=== PATIENT | female | born 1975 | race Two or more races ===

== ENCOUNTER 2020-01-30 09:09 | Emergency (ER) | payer OTHER, SELFPAY ==
[2020-01-30 09:31] VITALS: BP 172/89; PULSE 91; RESP 18; TEMP 36.7; O2SAT 99; BMI 48.0
--- NOTE | 2020-01-30 09:56 | ED_ITS ---
HPI - Allergic Reaction General Chief complaint: Allergic Reaction Stated complaint: allergic reaction Time Seen by Provider: 01/30/20 09:56 Source: patient Mode of arrival: ambulatory Limitations: no limitations History of Present Illness HPI narrative: patient with no prior history of any allergic reactions use ammonia based here dye 3 days ago and since yesterday noticed a rash all over the scalp with burning feeling felt little numbness in the tongue and nausea denies any shortness of breath no other rash anywhere Related Data Previous Rx's Medication Instructions Recorded ondansetron HCl [Zofran] 4 mg PO Q6H PRN #10 tab 01/30/20 prednisone 40 mg PO DAILY #10 tab 01/30/20 Allergies Allergy/AdvReac Type Severity Reaction Status Date / Time droperidol [From INAPSINE] Allergy Severe SEIZURES Verified 01/30/20 10:01 metoclopramide [From REGLAN] Allergy Severe SEIZURE Verified 01/30/20 10:01 prochlorperazine Allergy Severe SEIZURE Verified 01/30/20 10:01 [From COMPAZINE] Review of Systems Review of Systems: Yes all other systems are reviewed and are negative [facility]LY [facility] Past Medical History Medical History ACL tear Anemia Anxiety delivery delivered PCOS (polycystic ovarian syndrome) Spinal cord injury Surgical History Hx of breast reduction, elective S/P ACL surgery Social History Social History Alcohol intake: never Smoking Status: Never smoker Use of substances other than those prescribed or required for medical reasons: No Advance Directives: No Advance Directives Information Provided: Yes Physical Exam Vital Signs and I&O and Narrative: Vital Signs and I&O: Vital Signs Temp 98.1 F 01/30/20 09:31 Pulse 91 01/30/20 09:31 Resp 18 01/30/20 09:31 BP 172/89 H 01/30/20 09:31 Pulse Ox 99 01/30/20 09:31 Intake & Output 01/29/20 01/30/20 01/30/20 18:59 06:59 18:59 Weight 127.006 kg Body Mass Index 48.0 Const: General: cooperative Nutritional Appearance: average body habitus Orientation/consciousness: oriented to person, oriented to place and oriented to time Limitations: no limitations HENMT: Other: erythematous rash all over the scalp without any vesicle, tongue and oropharynx is normal lips are normal no stridor no other rash Resp: Effort & Inspection: normal respiratory effort Auscultation: clear to auscultation bilaterally Cardio: Rate: regular rate Rhythm: regular rhythm Heart sounds: S1 normal heart sound present and S2 normal heart sound present Neuro: General: oriented to person, oriented to place and oriented to time Discharge Plan Discharge Clinical Impression: Contact dermatitis Patient Disposition: Home, Self-Care Instructions: Contact Dermatitis (ED) Additional Instructions: do not use here dye with ammonia which causing the allergic reaction to you , take 2 Benadryl 25 mg tablet 2 tablets every 6 hours as needed for allergic reaction along with prednisone as prescribed Prescriptions: New prednisone 20 mg tablet 40 mg PO DAILY Qty: 10 RF: 0 ondansetron HCl [Zofran] 4 mg tablet 4 mg PO Q6H PRN (Reason: nausea and vomiting) Qty: 10 RF: 0 Stand Alone Forms: Work/School Release
[2020-01-30] MEDS: diphenhydrAMINE HCL 50 MG/ML VIAL IM (10:22)
[2020-01-30] MEDS: Famotidine 20 MG TABLET PO (10:40)
[2020-01-30] MEDS: dexAMETHasone 2 MG TABLET 10 MG PO (10:40)
== END 2020-01-30 10:55 | disposition home or self-care (01) ==
PROVIDERS: Emergency Provider Internal Medicine; PCP Family Medicine
DX: L24.89 Irritant contact dermatitis due to other agents (principal)
CPT/HCPCS: 96372; 99284; J1200

== ENCOUNTER → 2020-06-27 08:13 | Outpatient (BNVA) | payer OTHER, SELFPAY | PROVIDERS: PCP Family Medicine; Visit Provider Physician Assistant ==

== ENCOUNTER → 2020-06-29 07:02 | Outpatient (BNVA) | payer OTHER, SELFPAY | PROVIDERS: PCP Family Medicine; Visit Provider Surgery ==

== ENCOUNTER 2020-07-02 15:01 | Outpatient (REF) | payer OTHER, SELFPAY ==
--- NOTE | ~2020-07-02 | XR_ITS ---
EXAMINATION: XR CHEST CLINICAL INFORMATION: Moderate to severe obesity the plexus of calories. COMPARISON: None TECHNIQUE: 2 views of the chest were obtained. FINDINGS: No significant abnormality is noted involving the heart, lungs, mediastinum, bony thorax or soft tissues. XR/XR chest 2V IMPRESSION: Unremarkable chest examination.
--- NOTE | 2020-07-02 15:13 | ECG_ITS ---
Test Reason : SOB, PREOP Blood Pressure : / mmHG Vent. Rate : 103 BPM Atrial Rate : 103 BPM P-R Int : 140 ms QRS Dur : 072 ms QT Int : 320 ms P-R-T Axes : 036 023 -17 degrees QTc Int : 419 ms Sinus tachycardia Possible Left atrial enlargement Nonspecific ST and T wave abnormality Abnormal ECG No previous ECGs available Referred By: Cheng Doran Electronically Signed By:Yobani Guevara
[2020-07-02 15:46] LABS: MANUAL DIFF FLAG NO
[2020-07-02 15:50] LABS: Basophils Percent Auto 0.2 % (0-2); Eosinophils Absolute Auto 0.1 X10*3/uL (0.0-0.4); Eosinophils Percent Auto 0.7 % (0-4); Hematocrit 44.9 % (37-47); Hemoglobin 14.7 g/dl (12.0-16.0); Imm Gran Abs Auto 0.04 X10*3/uL (0.00-0.03); Imm Gran Pct Auto 0.3 % (0.0-0.4); Lymphocytes Absolute Auto 1.9 X10*3/uL (1.2-4.9); Lymphocytes Percent Auto 14.7 % (20-40); Mean Corpuscular HGB Conc 32.7 g/dl (31.0-35.0); Mean Corpuscular Hemoglobin 27.1 pg (27.0-33.0); Mean Corpuscular Volume 82.8 fL (80-98); Mean Platelet Volume 9.5 fL (9.4-12.3); Monocytes Absolute Auto 0.7 X10*3/uL (0.1-1.2); Monocytes Percent Auto 4.9 % (2-11); Neutrophils Absolute Auto 10.4 X10*3/uL (2.0-8.3); Neutrophils Percent Auto 79.2 % (45-73); Platelet Count 415 X10*3/uL (160-400); Red Blood Count 5.42 X10*6/uL (4.20-5.50); Red Cell Distribution Width 14.1 % (11.0-16.0); White Blood Count 13.2 X10*3/uL (4.8-10.8)
[2020-07-02 15:58] LABS: Estimated Average Glucose 108 mg/dL; Hemoglobin A1c % 5.4 %
[2020-07-02 16:14] LABS: Alanine Aminotransferase 11 U/L (0-31); Albumin Level 4.3 g/dL (3.5-5.0); Alkaline Phosphatase 74 U/L (39-117); Anion Gap 17 (12-20); Aspartate Amino Transferase 14 U/L (5-31); Bilirubin Total 0.4 mg/dL (0.0-1.0); Blood Urea Nitrogen 22 mg/dL (9-16); C Reactive Protein 2.08 mg/dL (< or = 0.50); Calcium 9.4 mg/dL (8.4-10.2); Carbon Dioxide 21 mmol/L (22-29); Chloride 103 mmol/L (96-108); Cholesterol 209 mg/dL; Estimated Glomerular Filt Rate 51; Glucose Random 79 mg/dL (60-115); HDL Cholesterol 66 mg/dL; LDL Cholesterol Calculated 100 mg/dl; Potassium 4.3 mmol/L (3.3-5.1); Sodium 137 mmol/L (135-145); Total Protein 8.7 g/dL (6.5-8.0); Triglycerides 215 mg/dL
[2020-07-02 16:37] LABS: Ferritin 34 ng/mL (10-250); TSH reflex Free T4 3.35 uIU/mL (0.32-4.0); Vitamin D 25-OH Total 45.6 ng/mL (>30)
[2020-07-02 16:42] LABS: Folate 14.8 ng/mL (> or = 4.0); Vitamin B12 225 pg/mL (200-900)
[2020-07-03 06:47] LABS: Insulin Level Total 24.5 uIU/mL
[2020-07-04 13:47] LABS: Calcium (PTHI) 9.5 mg/dL (8.6-10.2); PTHI 90 pg/mL (14-64)
[2020-07-05 13:12] LABS: Zinc 60 mcg/dL (60-130)
[2020-07-06 01:57] LABS: Vitamin A 80 mcg/dL (38-98)
[2020-07-06 10:22] LABS: Vitamin B1 8 nmol/L (8-30)
== END 2020-07-02 15:02 | disposition home or self-care (01) ==
LOC: HO.LAB 15:01
PROVIDERS: PCP Family Medicine; Visit Provider Surgery
DX: E66.01 Morbid (severe) obesity due to excess calories (principal); I10 Essential (primary) hypertension; K21.9 Gastro-esophageal reflux disease without esophagitis
CPT/HCPCS: 36415; 71046; 80053; 80061; 82306; 82607; 82728; 82746; 83036; 83525; 83970; 84425; 84443; 84590; 84630; 85025; 86140; 93005

== ENCOUNTER 2020-07-11 08:29 | Outpatient (REF) | payer OTHER, SELFPAY ==
--- NOTE | ~2020-07-11 | US_ITS ---
EXAMINATION: US COMPLETE ABDOMEN WITH LIVER ELASTOGRAPHY CLINICAL INFORMATION: Moderate/severe obesity and excessive calories. COMPARISON: None. TECHNIQUE: Real-time imaging of the abdominal viscera. Noninvasive ultrasound liver fibrosis assessment is performed using Ashkan ElastPQ point quantification shear wave elastography (pSWE) with a C5-2 MHz transducer. Multiple elastography samples are obtained. FINDINGS: PANCREAS: The visualized pancreatic head and body are normal in appearance. The remainder of the pancreas is obscured from visualization by the overlying bowel gas. ABDOMINAL AORTA: The proximal, middle, and distal aortic segments are normal in caliber. INFERIOR VENA CAVA: Visualized portions are normal. LIVER: . The liver demonstrates normal size, contour and slight increased echogenicity. No focal lesion or intrahepatic biliary duct dilatation. The right lobe measures 16.9 cm in length. The left lobe measures 10.3 cm in length. Portal flow is hepatopedal. Shear wave liver elastography median stiffness is 1.72 m/s (reference: normal median stiffness is 1.3 m/s or less). IQR/median stiffness to assess sampling precision is 0.22 (reference: good quality data set is IQR/median stiffness of 0.15 or less). GALLBLADDER: The gallbladder has been surgically removed. COMMON BILE DUCT: Normal in caliber measuring 0.3 cm in diameter. RIGHT KIDNEY: There is an anechoic cyst in the upper pole laterally measuring 1.5 x 1.3 x 1.6 cm. No hydronephrosis. No renal calculi or focal parenchymal lesions. The kidney measures 12.3 cm in maximum dimension. LEFT KIDNEY: Normal. No hydronephrosis. No renal calculi or focal parenchymal lesions. The kidney measures 12.7 cm in maximum dimension. SPLEEN: Normal. The spleen measures 10.3 cm in maximum dimension. FREE FLUID: None. US/US abdomen comp w elastography IMPRESSION: 1. Slightly echogenic liver. No focal lesion seen. Small cyst upper pole right kidney measuring 1.6 cm. 2. Liver elastography: 1.72 cACLD suggestive. REFERENCE: Society of Radiologists in Ultrasound Liver Stiffness Thresholds (2019): LIVER STIFFNESS THRESHOLDS: *Liver Stiffness equal or less than 1.3 m/s: High probability of being normal. *Liver Stiffness less than 1.7 m/s: In the absence of other known clinical signs, rules out compensated advanced chronic liver disease. *Liver Stiffness 1.7-2.1 m/s: Suggestive of compensated advanced chronic liver disease but need further test for confirmation. *Liver Stiffness over 2.1 m/s: Rules in compensated advanced chronic liver disease. *Liver Stiffness over 2.4 m/s: Suggestive of clinically significant portal hypertension. QUALITY OF DATA SET: *IQR/Median value equal or less than 0.15 implies a quality data set. *IQR/Median value over 0.15 implies a poor quality data set. SIGNIFICANT CHANGE FROM PRIOR EXAM: Significant change if liver stiffness measurement is 10% or greater from prior exam. OTHER CONSIDERATIONS: The stage of liver fibrosis may be overestimated in the setting of acute hepatitis, liver inflammation, elevated liver function tests, hepatic vascular congestion, obstructive cholestasis, non-fasting state, and infiltrative diseases such as amyloidosis and lymphoma. In some patients with NAFLD, the liver stiffness thresholds for compensated advanced chronic liver disease may be lower. In causes other than viral hepatitis and NAFLD, liver stiffness thresholds are not well established.
--- NOTE | ~2020-07-11 | FL_ITS ---
EXAMINATION: XR GI SERIES CLINICAL INFORMATION: Fhiohtgl-zl-vsxstc obesity. Excessive calories. COMPARISON: None TECHNIQUE: Routine upper GI air-contrast study was performed. FINDINGS: Following oral administration of thick barium and effervescent granules, there is normal propagation of bolus from the oral cavity through the pharynx, esophagus into stomach without any evidence of obstruction, narrowing or stricture. The course, caliber and peristalsis of the stomach, duodenal bulb and sweep is normal. Mucosal pattern of the stomach and the duodenal bulb is normal. Incidental note of mild gastroesophageal reflux in supine position. FLUOROSCOPY TIME: 1.8 minutes DOSE AREA PRODUCT: 46.590 uGy-m2 (microgray-meter squared) FL/FL upper GI series IMPRESSION: Mild gastroesophageal reflux, otherwise unremarkable upper GI exam.
== END 2020-07-11 08:30 | disposition home or self-care (01) ==
LOC: HO.US 08:29
PROVIDERS: Visit Provider Surgery
DX: Z01.818 Encounter for other preprocedural examination (principal); E66.01 Morbid (severe) obesity due to excess calories; K21.9 Gastro-esophageal reflux disease without esophagitis; I10 Essential (primary) hypertension
CPT/HCPCS: 74240; 76705; 76981

== ENCOUNTER → 2020-07-18 08:15 | Outpatient (BNVA) | payer OTHER, SELFPAY | PROVIDERS: PCP Family Medicine; Visit Provider Surgery ==

== ENCOUNTER → 2020-07-24 08:08 | Outpatient (REF) | payer OTHER, SELFPAY ==
--- NOTE | 2020-07-24 08:11 | CA_ITS ---
Acquisition Time: 2020-07-24 08:12:32 Total Exercise Time: 00:05:00 Test Indications: Abnormal ECG Medications: Protocol: ELVIS Max HR: 173 BPM 97% of Pred: 177 BPM Max BP: 158/088 mmHG Max Work Load: 7.0 METS Exercise stress test using Elvis protocol total of 5 min. METS 7.00, TAPHR up to 97%. Pt tolerated well. Denies any anginal sx. EKG with occ. PVC's in recovery after exercise, no ischemic changes seen during exercise or in recovery. Normotensive response to exercise. Test reviewed with Dr. Thomas. Referred By: Cheng Doran Overread By: Yessi Garcia NP
== END ==
LOC: HO.CARD 08:08
PROVIDERS: Visit Provider Surgery
DX: Z01.818 Encounter for other preprocedural examination (principal); R06.02 Shortness of breath; I10 Essential (primary) hypertension; R94.31 Abnormal electrocardiogram [ECG] [EKG]
CPT/HCPCS: 93016; 93017; 93018

== ENCOUNTER → 2020-07-25 13:22 | Outpatient (BNVA) | payer OTHER, SELFPAY | PROVIDERS: PCP Family Medicine; Visit Provider Dietitian, Registered ==

== ENCOUNTER → 2020-07-31 12:49 | Outpatient (REF) | payer OTHER, SELFPAY ==
--- NOTE | 2020-07-31 12:51 | CA_ITS ---
Transthoracic Echocardiogram Patient (Last, First, Middle): Cece Moyer J Gender: Female Date of : 1975 Age: 45 Procedure Date: 07/31/2020 Procedure Type: Transthoracic Echocardiogram Location: OP Height: 162.56 cm Weight: 124.29 kg BSA: 2.24 m2 Heart Rate: bpm BP: 146 / 90 mmHg Surgery Nurse: TAWANDA Govea MD: Cheng Doran MD Machine Operator Farmworker: Stephen Rice MD Symptoms: R94.31 - Abnormal electrocardiogram [ECG] [EKG] Study Quality: Fair ECG Rhythm: Sinus Conclusions: - Normal study Findings Left Ventricle Normal left ventricular size, thickness, and systolic function. The visually estimated ejection fraction is between 55-60%. Spectral Doppler is indicative of an impaired relaxation filling pattern. E/E prime ratio is between 8 and 15 consistent with indeterminate filling pressures. Right Ventricle Normal right ventricular cavity size and systolic function. Atria Both atria are normal in size. There is no evidence of interatrial shunt. Aortic Valve Normal aortic valve structure and function. There is no aortic valve stenosis. There is no aortic valve regurgitation. Mitral Valve Normal mitral valve structure and function. There is trace mitral valve regurgitation. There is no mitral valve stenosis. Pulmonic Valve The pulmonic valve was not well visualized. Tricuspid Valve Likely normal tricuspid valve structure and function. There is trace tricuspid valve regurgitation. The right ventricular systolic pressure is normal. The right ventricular systolic pressure is 30 mmHg. Normal right atrial pressure. There is no evidence of pulmonary hypertension. Great Vessels All visible segments of the aorta are normal in size. The pulmonary artery was not well visualized. Venous The inferior vena cava is normal in size and collapses greater than 50% with inspiration. Pericardium/Pleural There is no evidence of pericardial effusion. Prior Study Comparison No prior study available for comparison. Measurements M-Mode Liner Measurements Normals - Women/Men AOV Cusps: 2.00 1.5-2.6 cm/m2 2D Linear Measurements IVSd: 0.91 0.6-0.9/0.6-1.0 cm LVIDd: 4.64 3.9-5.3/4.2-5.9 cm LVIDd Index: 2.07 2.4-3.2/2.2-3.1 cm/m2 LVIDs: 3.21 2.0-3.6 cm LVPWd: 0.92 0.7-1.1 cm Ao Root: 2.50 2.1-3.5 cm LA Diam: 3.60 2.7-3.8/3.0-4.0 cm LAIDs Index: 1.61 1.5-2.3 cm/m2 LV Mass: 177.78 67-162/88-224 g LV Mass Index: 79.37 43-95/49-115 g/m2 LVOT Diam: 2.00 3.0+(-)1.3 cm 2D Systolic Function EF 4C: 51.60 >55% EF 2C: 50.30 >55% Mitral Valve MV Pk E: 1.27 MV PK A: 1.19 MV Decel Time: 222.00 E/A: 1.10 E'Lateral: 11.00 E'Medial: 7.51 E/E' Med: 16.90 E/E' Lat: 11.50 PHT: 65.00 MVA PHT: 3.38 Decel Johnson: 5.73 Aortic Valve AoV Pk Shayan: 1.91 AoV Mn Shayan: 1.33 AoV VTI: 0.38 AoV Pk Grad: 15.00 Aov Mn Grad: 8.00 SHADE Cont.VTI: 2.17 LVOT LVOT Pk Shayan: 1.26 LVOT Mn Shayan: 0.92 LVOT VTI: 0.26 LVOT Pk Grad: 6.00 LVOT Mn Grad: 4.00 LVOT Diam: 2.00 LVOT Area: 3.14 Diastolic Function MV Pk E: 1.27 MV Pk A: 1.19 E/A: 1.10 E'Medial: 7.51 E/E' Med: 16.90 E' Laterial: 11.00 E/E' Lat: 11.50 Tricuspid Valve TR Pk Shayan: 2.32 TR Pk Grad: 22.00 RA Press: 8.00 RVSP: 30.00 Great Vessels Aorta Ao Root-2D: 2.50 2.0-3.7 cm Ao Asc: 3.00 2.1-3.4 cm Ao Arch: 2.90 Pulmonary Valve PV Pk Shayan: 1.52 Peak PV Grad: 9.00 Updated in Other Vendor System with Status of Final Stephen Rice MD electronically signed on 07/31/2020 4:14:47 PM with status of Final
== END ==
LOC: HO.CARD 12:49
PROVIDERS: PCP Family Medicine; Visit Provider Surgery
DX: Z01.818 Encounter for other preprocedural examination (principal); R06.02 Shortness of breath; I10 Essential (primary) hypertension
CPT/HCPCS: 93306

== ENCOUNTER 2020-08-02 15:41 | Outpatient (REF) | payer OTHER, SELFPAY ==
[2020-08-03 12:42] LABS: H Pylori Breath Test DETECTED (NOT DETECTED)
== END 2020-08-02 15:42 | disposition home or self-care (01) ==
LOC: HO.LNP 15:41
PROVIDERS: PCP Family Medicine; Visit Provider Surgery
DX: A04.8 Other specified bacterial intestinal infections (principal)
CPT/HCPCS: 83013

== ENCOUNTER → 2020-08-13 08:45 | Outpatient (BNVA) | payer OTHER, SELFPAY | PROVIDERS: PCP Family Medicine; Visit Provider Surgery ==

== ENCOUNTER → 2020-09-03 08:18 | Outpatient (BNVA) | payer OTHER, SELFPAY | PROVIDERS: PCP Family Medicine; Visit Provider Surgery ==

== ENCOUNTER 2020-09-21 07:57 | Outpatient (REF) | payer OTHER, SELFPAY ==
[2020-09-22 14:17] LABS: H Pylori Breath Test NOT DETECTED (NOT DETECTED)
== END 2020-09-21 07:58 | disposition home or self-care (01) ==
LOC: HO.LNP 07:57
PROVIDERS: PCP Family Medicine; Referring Provider Family Medicine; Visit Provider Surgery
DX: E66.01 Morbid (severe) obesity due to excess calories (principal); K21.9 Gastro-esophageal reflux disease without esophagitis; I10 Essential (primary) hypertension
CPT/HCPCS: 83013

== ENCOUNTER → 2020-10-11 09:24 | Outpatient (BNVA) | payer OTHER, SELFPAY | PROVIDERS: PCP Family Medicine; Referring Provider Family Medicine; Visit Provider Physician Assistant ==

== ENCOUNTER → 2020-10-30 13:34 | Outpatient (BNVA) | payer OTHER, SELFPAY | PROVIDERS: PCP Family Medicine; Referring Provider Family Medicine; Visit Provider Surgery ==

== ENCOUNTER → 2020-11-26 10:17 | Outpatient (BNVA) | payer OTHER, SELFPAY | PROVIDERS: PCP Family Medicine; Referring Provider Family Medicine; Visit Provider Surgery ==

== ENCOUNTER → 2020-12-10 09:13 | Outpatient (BNVA) | payer OTHER, SELFPAY | PROVIDERS: PCP Family Medicine; Visit Provider Surgery ==

== ENCOUNTER → 2021-01-17 10:20 | Outpatient (BNVA) | payer OTHER, SELFPAY | PROVIDERS: PCP Family Medicine; Referring Provider Family Medicine; Visit Provider Surgery ==

== ENCOUNTER → 2021-02-01 15:51 | Outpatient (BNVA) | payer OTHER, SELFPAY | PROVIDERS: PCP Family Medicine; Referring Provider Family Medicine; Visit Provider Physician Assistant Surgical ==

== ENCOUNTER → 2021-02-07 12:24 | Outpatient (BNVA) | payer OTHER, SELFPAY | PROVIDERS: PCP Family Medicine; Visit Provider Physician Assistant Surgical ==

== ENCOUNTER 2024-12-12 14:04 | Emergency (ER) | payer BC, SELFPAY ==
--- OUTSIDE RECORDS SUMMARY | 2024-01-27 14:48 | XMS_ITS | Encounter Summary ---
Author Organization [facility] Address [address] [place] [address] Care Team Providers Care Industrial Controller Name Role Phone Kingston Thomas MD Primary Care Provide r Encounter Details Date Type Department Care Team (Late st Contact Info) Description 01/27/2024 2:48 PM EDT Hospital Encounter TH HISTORIC ENCOUNTERS EASTERN CONVERSION ONLY Social History Tobacco Use Types Packs/Day Years Used Date Smoking Tobacco: Never Smokeless Tobacco: Never Alcohol Use Standard Drinks/Week Comments Not Currently 0 (1 standard drink = 0.6 oz pure alcohol) [facility] Housing Instability Answer Date Recorde d Are you worried that in the next 2 months you may not have stable housing? No 10/23/2024 Food Access & Nutrition Answer Date Rec orded Do you have access to a vari ety of food including fruits and vegetables? Yes 10/23/2024 Access to Healthcare Answer Date Record ed Within the last 3 months, ho goldy many times did you visit the emergency department for your medical care? 2 10/23/2024 Health Literacy Answer Date Recorded How often do you need to hav e someone help you when you read instructions, pamphlets, or other written material from your doctor or pharmacy? Rarely 10/23/2024 Caregiver: How often do you need to have someone help you when you read instructions, pamphlets, or other written material from your doctor or pharmacy? Not on file 10/23/2024 Financial Risk Answer Date Recorded How hard is it for you to pa y for the very basics like food, housing, medical care, and air conditioning / heating? Not asked 10/23/2024 Transportation Answer Date Recorded Has the lack of transportati on kept you from meetings, work, or from getting things needed for daily living? No Has the lack of transportati on kept you from medical appointments or from getting medications? No 10/23/2024 Social Isolation Answer Date Recorded How often do you feel lonely or isolated from th ose around you? Rarely 10/23/2024 Food Risk Answer Date Recorded Within the past 12 months we worried whether our food would run out before we got money to buy more. Never true 10/23/2024 Within the past 12 months th e food we bought just didn't last and we didn't have money to get more. Never true 10/23/2024 Dependent Care Answer Date Recorded Do you need help finding or paying for care for your loved ones. For example, child life assistant or elderly care for an older adult? No 10/23/2024 Education Answer Date Recorded Do you think completing more education or training, like finishing a GED, going to college, or learning a trade, would be helpful for you? N/A 10/23/2024 Employment and Income Answer Date Recor ded During the last four weeks, have you been actively looking for work? No 10/23/2024 Living Situation Answer Date Recorded What is your living situation? 0 10/23/2024 Interpersonal Safety Answer Date Record ed Physical Abuse 10/23/2024 Verbal Abuse 10/23/2024 Comments No Sex and Gender Information Value Date Recorded Sex Assigned at Female 02/13/2024 3:17 AM EDT Legal Sex Female 2:57 AM EST Gender Identity Female 02/13/2024 3:17 AM EDT Sexual Orientation Straight 02/13/2024 3: 17 AM EDT documented as of this encounter Last Filed Vital Signs Vital Sign Reading Time Taken Comments Blood Pressure - - Pulse - - Temperature - - Respiratory Rate - - Oxygen Saturation - - Inhaled Oxygen Concentration - - Weight 80.1 kg (176 lb 9.6 oz) 01/05/2024 10:12 AM EDT Height 162.6 cm (5' 4 ) 01/05/2024 10:12 AM EDT Body Mass Index 30.31 01/05/2024 10:12 AM EDT documented in this encounter Progress Notes * Historical, Notes Results - 01/27/2024 3:00 PM EDT Arrived amb for B12, stable assessment, B12 administered into LET arm, well tolerated, next appt scheduled, pt left amb, stable at D/C. documented in this encounter Plan of Treatment Upcoming Encounters Date Type Department Care Team (Late st Contact Info) Description 12/15/2024 2:00 PM EDT Appointment [facility] In[facility] [address] [facility] 2nd [place] [phone] 12/21/2024 9:00 AM EDT Office Visit Bariatric Surgery - [place] [address] [phone] Nga Mukherjee MD [address] [phone] 03/17/2025 9:00 AM EST Office Visit [facility] Hematology Oncology [address] [place] [phone] Kenya oCrcoran DO [address] [place] [address] Scheduled Procedures Name Priority Associated Diagnoses Date/Ti me EGD S/P gastric bypass Severe protein-calorie malnutrition (CMS/HCC V24) documented as of this encounter Visit Diagnoses Not on filedocumented in this encounter Additional Health Concerns Infection Onset Date Last Indicated Resolved Time C. difficile Rule-Out 11/10/2024 11/10/20242024 6:18 PM EDT documented as of this encounter Care Teams Industrial Controller Relationship Specialty Start Date End Date Kingston Thomas MD [address] [place], [place] [address], [place] PCP - General 07/10/22 10/10/24 documented as of this encounter
[2024-12-12] VITALS (8 sets, daily range): BP systolic 96–127; BP diastolic 61–78; PULSE 78–115; RESP 16–25; TEMP 37–37.3; O2SAT 94–100; BMI 30.8
--- NOTE | ~2024-12-12 | CT_ITS ---
EXAMINATION: CT HEAD WITHOUT CONTRAST CLINICAL INFORMATION: altered mental status, seizures COMPARISON: None available. TECHNIQUE: Contiguous axial imaging was performed from the skull base to vertex without intravenous administration of contrast. This CT examination was performed using dose optimization techniques as appropriate, variously including the following: *Automated exposure control *Adjustment of mA and/or kV according to patient size (this includes techniques or standardized protocols for targeted exams where dose is matched to indication/reason for exam; i.e. extremities or head) *Use of iterative reconstruction technique DLP: 749 mGy-cm FINDINGS: No acute intracranial hemorrhage, mass effect, midline shift, hydrocephalus or herniation. [place]-white matter differentiation is normal. Posterior cranial fossa contents demonstrated a focal 3 mm calcification in the inferior left fourth ventricle near the Luschka foramina likely related to choroid plexus. Sellar/suprasellar region demonstrated no gross masses. There is normal position of the cerebellar tonsils. No other levels in the paranasal sinuses. Tympanic cavities and mastoid cells are aerated. CT/CT head/brain wo IV con IMPRESSION: No acute intracranial hemorrhage. Electronically signed by: Zack Mott MD 12/12/2024 04:02 PM EDT
--- NOTE | 2024-12-12 14:10 | ED_ITS ---
HPI - General Adult General Chief complaint: Seizure Stated complaint: Seizure Time Seen by Provider: 12/12/24 14:08 History of Present Illness ED Provider: Simon COKER narrative: The patient is a 49-year-old female who was brought to the hospital for concerns about seizures. The patient was at work. 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 Apparently she seemed to have seizure-like activity at work and 911 was called. Paramedics were told that the patient had had 3 seizures before they arrived. The paramedics say that when they arrived the patient was seizing and they administered 5 mg of IM midazolam. Subsequently they administered 5 mg of IV midazolam as well after receiving permission for medical control. On arrival here the patient was initially not seizing but then seemed to exhibit seizure- like activity with tonic-clonic movements and no response to verbal stimuli. The patient has been nonverbal and is unable to give any additional history. According to records I was able to access at [facility] the patient was last seen there 2 weeks ago on November 28. At that time the patient had presented with seizure-like activity and was treated with IM midazolam. She was apparently observed and seemed to recover from her sedation without any recurrence of seizures and she was discharged with her . She is on levetiracetam. The patient has previously been evaluated for seizures at [facility] in [place]. I believe this was in July of 2024. At that time the patient had an extensive seizure workup that was negative for EEG confirmation of seizure activity and she was ultimately felt to have psychogenic nonepileptic seizures. Nevertheless I believe she has been on levetiracetam. The patient is parents arrived sometime after the patient arrived. They acknowledged that the patient has had problems with seizure-like activity over the last 2 years. They say that all of these problems with seizure-like activity began after the patient had bariatric surgery. Apparently she had gastric bypass surgery a proximally 2 years ago that was then complicated with malnutrition. She had dumping syndrome. She was on TPN for awhile but transitioned to feeding by feeding tube. The patient has been prescribed levetiracetam in the past. The arrived subsequent to the patient's arrival. He does not believe she is taking that medication currently. The can not think of any acute stressors that might have precipitated anything today. The patient's mother told me that she spoke to somebody where the patient works. Apparently the patient had announced that she felt as if she was going to have a seizure before any seizure activity occurred. Related Data Home Medications ?Medication ?Instructions ?Recorded ?Confirmed acetaminophen 325 mg capsule 325 mg PO QID PRN 1 01/17/21 (Tylenol) cholecalciferol (vitamin D3) 100 100 mcg PO DAILY 09/1401/17/21 mcg (4,000 unit) capsule desonide 0.05 % topical cream appl topical BID 1 01/17/21 norgestimate 0.18 mg/0.215mg/0.25 1 tab PO DAILY 06/2901/17/21 mg-ethinyl estradiol 0.025 mg tablet sertraline 100 mg tablet 100 mg PO DAILY 06/29/20 Previous Rx's ?Medication ?Instructions ?Recorded omeprazole 40 mg capsule,delayed 40 mg PO DAILY #14 ca ps 08/07/20 release mecobalamin (vitamin B12) 1,000 1,000 mcg sublingual D AILY #30 tabs 12/11/20 mcg disintegrating tablet,sublingual hydrochlorothiazide 12.5 mg tablet 12.5 mg PO DAILY #9 0 tabs 12/26/20 Allergies Allergy/AdvReac Type Severity Reaction Status Date / Time droperidol (From INAPSINE) Allergy Severe SEIZURES Verified 02/07/21 12:31 metoclopramide (From REGLAN) Allergy Severe SEIZURE Verified 02/07/21 12:31 prochlorperazine (From Allergy Severe SEIZURE Verified 02/07/21 12:31 COMPAZINE) aspirin Allergy Hives Verified 02/07/21 12:31 COVID-19 vaccine, mRNA, Allergy Unknown Verified 12/12/24 14:18 [id number], L pseudoephedrine Allergy Unknown Verified 12/12/24 14:18 Review of Systems 2 Review of Systems: Yes Unobtainable due to mental status PMFSH Past Medical History Medical History ACL tear Anemia Anxiety Back pain delivery delivered Depression GERD (gastroesophageal reflux disease) Knee pain Lower extremity edema Morbid obesity PCOS (polycystic ovarian syndrome) Spinal cord injury Surgical History Hx of breast reduction, elective Hx of cholecystectomy Hx of knee surgery S/P ACL surgery Family History Family History Mother Hypertension Father Heart disease Diabetes Hypertension Hyperlipidemia Sister No problems noted. Sister No problems noted. Son No problems noted. Social History Social History Alcohol intake: never Patient Tobacco Use Status: Never used Tobacco Advance Directives: No Advance Directives Information Provided: Yes Do you have a plan to hurt others: No Plan Physical Exam ED Vital Signs: Vital Signs - 24 hr 12/12/24 14:10 12/12/24 14:50 12/12/24 15:04 Temperature 99.1 F Pulse Rate 103 H 100 88 Respiratory Rate 25 H 20 22 H Blood Pressure 118/74 114/69 99/72 Pulse Oximetry 98 100 100 Oxygen Delivery Method Room Air Room Air 12/12/24 15:09 12/12/24 15:25 12/12/24 15:45 Temperature Pulse Rate 88 86 89 Respiratory Rate 17 18 19 Blood Pressure 112/66 96/61 116/70 Pulse Oximetry 100 98 100 Oxygen Delivery Method Room Air Room Air Room Air 12/12/24 17:54 Temperature 98.6 F Pulse Rate 89 Respiratory Rate 16 Blood Pressure 127/78 Pulse Oximetry 94 Oxygen Delivery Method Room Air BMI result Body Mass Index 30.8 Const Other: The patient arrived without active seizure activity. She was somnolent and did not respond to verbal stimuli. HENMT Other: Face seems symmetrical. Mucous membranes were moist. Airway seems clear. Eyes Other: Pupils are small and equal, the patient seemed to have roving eye movements, conjunctivae were clear Neck Other: The neck initially seems supple. Later during a period of seizure-like activity her neck seemed fairly stiff Resp Effort & Inspection: normal respiratory effort Auscultation: clear to auscultation bilaterally Cardio Rate: regular rate Rhythm: regular rhythm Heart sounds: S1 normal heart sound present and S2 normal heart sound present GI Other: Abdomen was soft and seems nontender. She has a feeding tube in place. Skin Other: Skin was pale and dry, no diaphoresis Neuro Other: The patient initially was somnolent and did not respond to verbal stimuli. Pupils were small and equal, the face seems symmetrical, the the patient has limbs were relaxed and seemed to have symmetrical tone. Not long after the patient seemed to be exhibiting diffuse tonic-clonic activity with a lot of rigidity in her extremities and her neck and she seemed to have roving eye movements.. Extrem Other: No deformities or signs of trauma to the extremities Medications Administered Discontinued Medications Generic Name Dose Route Start Last Admin Trade Name Ogq PRN Reason Stop Dose Admin Dextrose 25 gm 12/12/24 14:27 12/12/24 14:20 Dextrose 50 % 25 Gm/50 Ml Syringe IVPUSH 12/12/24 14:28 25 gm ONCE ONE Administration Diazepam 10 mg 12/12/24 14:32 12/12/24 14:33 Diazepam 10 Mg/2 Ml Cartridge IVPUSH 12/12/24 14:33 10 mg STAT STA Administration Diazepam 10 mg 12/12/24 14:41 12/12/24 14:44 Diazepam 10 Mg/2 Ml Cartridge IVPUSH 12/12/24 14:42 10 mg STAT STA Administration Diazepam 10 mg 12/12/24 17:31 12/12/24 17:33 Diazepam 10 Mg/2 Ml Cartridge IVPUSH 12/12/24 17:32 10 mg STAT STA Administration Diazepam 10 mg 12/12/24 18:06 12/12/24 18:07 Diazepam 10 Mg/2 Ml Cartridge IVPUSH 12/12/24 18:07 10 mg STAT STA Administration Diazepam 10 mg 12/12/24 18:37 12/12/24 18:36 Diazepam 10 Mg/2 Ml Cartridge IVPUSH 12/12/24 18:38 10 mg STAT STA Administration Levetiracetam 2,000 mg/ Sodium 120 mls @ 480 mls/hr 12/12/24 14:28 12/12/24 14:56 Chloride IV 12/12/24 14:42 Infused ONCE ONE Infusion Lactated Ringer's 1,000 mls @ 999 mls/hr 12/12/24 15:30 12/12/24 16:48 Lr IV 12/12/24 16:30 Infused .Q1H1M YOLANDA Infusion Midazolam HCl 5 mg 12/12/24 14:27 12/12/24 14:25 Midazolam Hcl 5 Mg/Ml Vial IVPUSH 12/12/24 14:28 5 mg ONCE ONE Administration Midazolam HCl 5 mg 12/12/24 18:58 12/12/24 18:59 Midazolam Hcl 5 Mg/Ml Vial IVPUSH 12/12/24 18:59 5 mg ONCE ONE Administration Medical Decision Making Medical Decision Making [facility] Narrative: The patient is a 49-year-old woman who was brought to the hospital by ambulance because of possible seizure activity that started while she was at work. 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 Apparently she told a co-worker she felt like she was going to have a seizure and then exhibited seizure-like activity. According to the paramedics the patient had 3 seizure-like episodes before their arrival. They also say that the patient was exhibiting seizure-like activity upon their arrival. They administered 5 mg of IM midazolam with no effect. They got medical control for 5 mg of IV midazolam which was given. The seizure- like activity stopped at that point. On arrival here the patient was unresponsive but not seizing. She seemed flaccid. Vital signs were unremarkable. However not soon after arrival she began to exhibit seizure-like activity again. She was given 10 mg of IV diazepam which seemed to be effective but she had additional abnormal movements a little while later and was given an additional 10 mg of IV diazepam. At that point I was able to review old records including records from [facility]. Apparently the patient had a significant hospitalization at [facility] in [place] 4 months ago in July. Apparently her workup for seizures was negative and she was ultimately given a diagnosis of psychogenic nonepileptic seizures. It is not clear if the patient has been maintained on levetiracetam. The patient's labs were done here which were unremarkable and showed no signs of significant acidosis that would typically be associated with grand mal seizures. My initial impression after the 20 mg of diazepam was given was that these might has been recurrent psychogenic nonepileptic seizures and that she might be observed with the expectation that she would wake to a normal mental status when the diazepam wore off. The patient is parents and also her came to the hospital. They were at the bedside. I spoke to them. After a proximally 3 hours of observation, before the patient awoke, she again exhibited abnormal body movements potentially consistent with seizure-like activity and she was given additional doses of IV benzodiazepines. A point of care glucose at the time of the recurrent seizures was 99. At that point I realized that the patient would probably need to be hospitalized and that she would also need to be hospitalized at a hospital that had more comprehensive EEG monitoring then we have. I spoke to Dr. Adame of Neurology who agreed. The patient's workup includes a negative head CT, unremarkable lab work with normal electrolytes. Negative alcohol. Negative urine tox screen. Negative test. She has a normal white count and differential. Rectal temperature was normal. Given all these findings my suspicion for either an infectious or a toxicological etiology for these seizure-like episodes is very low. I contacted [facility] but they were closed transfers. I contacted [facility] in [place] where the patient was hospitalized 4 months ago. The patient was accepted in transfer to [facility]. Lab Data 12/12/24 14:12 12/12/24 14:12 Labs: Lab Results 12/12/24 12/12/24 12/12/24 Range/Units 14:12 14:16 14:18 WBC 8.3 (4.8-10.8) X10*3/uL RBC 4.75 (4.20-5.50) X10*6/uL Hgb 13.8 (12.0-16.0) g/dl Hct 41.4 (37.0-47.0) % MCV 87.2 (80.0-98.0) fL MCH 29.1 (27.0-33.0) pg MCHC 33.3 (31.0-35.0) g/dl RDW 17.4 H (11.0-16.0) % Plt Count 308 (160-400) X10*3/uL MPV 9.3 L (9.4-12.3) fL Immature Gran % (Auto) 0.2 (0.0-0.4) % Neut % (Auto) 59.6 (45-73) % Lymph % (Auto) 29.8 (20-40) % Daggett % (Auto) 7.1 (2-11) % Eos % (Auto) 2.9 (0-4) % Baso % (Auto) 0.4 (0-2) % Lymph # (Auto) 2.5 (1.2-4.9) X10*3/uL Daggett # (Auto) 0.6 (0.1-1.2) X10*3/uL Eos # (Auto) 0.2 (0.0-0.4) X10*3/uL Baso # (Auto) 0.0 (0.0-0.2) X10*3/uL Abs Immat Gran (auto) 0.02 (0.00-0.03) X10*3/uL Absolute Neuts (auto) 5.0 (2.0-8.3) x10*3/uL Absolute Nucleated RBC 0.000 (0.0-0.012) X10*3/uL Nucleated RBC % (auto) 0.0 (0.0-0.2) /100WBC Hold Purple Top SEE NOTE VBG pH 7.30 L (7.32-7.43) VBG pCO2 58 mmHg VBG pO2 53 mmHg VBG HCO3 29 H (22-26) mmol/L VBG O2 Saturation 72.0 % VBG Base Excess 1.4 mmol/L Sodium 141 (135-145) mmol/L Potassium 4.0 (3.3-5.1) mmol/L Chloride 107 (96-108) mmol/L Carbon Dioxide 27 (22-29) mmol/L Anion Gap 11 L (12-20) BUN 14 (9-16) mg/dL Creatinine 0.67 (0.5-1.4) mg/dL Estim Creat Clear Calc 111.0 Estimated GFR > 60 POC Glucose 59 L* (60-115) mg/dL Random Glucose 62 (60-115) mg/dL Lactic Acid 1.7 (0.5-2.0) mmol/L Calcium 8.8 D (8.4-10.2) mg/dL Magnesium 2.1 (1.6-2.6) mg/dL Total Bilirubin 0.2 (0.0-1.0) mg/dL Direct Bilirubin < 0.2 (0.0-0.5) mg/dL AST 26 (5-31) U/L ALT 24 (0-31) U/L Alkaline Phosphatase 112 (39-117) U/L Total Creatine Kinase 47 (26-140) U/L Total Protein 7.7 (6.5-8.0) g/dL Albumin 4.2 (3.5-5.0) g/dL Lipase 31 (8-78) U/L Beta HCG, Quant < 2 mIU/mL Hold Yellow Top See Note Urine Color Urine Appearance Urine pH (5.0-9.0) Ur Specific Meridian (1.005-1.025) Urine Protein (Neg-Trace) mg/dL Urine Glucose (UA) (Negative) mg/dL Urine Ketones (Negative) mg/dL Urine Blood (Negative) Urine Nitrite (Negative) Ur Leukocyte Esterase (Negative) Urine RBC (0-2) /HPF Urine WBC (0-5) /HPF Ur Squamous Epith Cells (0-2) /HPF Urine Bacteria (None Seen) Hyaline Casts (0-2) /LPF Urine Opiates Screen (Not Detect) Ur Buprenorphine Scrn (Not Detect) ng/mL Ur Oxycodone Screen (Not Detect) ng/mL Urine Methadone Screen (Not Detect) ng/mL Urine Fentanyl Screen (Not Detect) Ur Barbiturates Screen (Not Detect) Ur Phencyclidine Scrn (Not Detect) Ur Amphetamines Screen (Not Detect) U Benzodiazepines Scrn (Not Detect) Urine Cocaine Screen (Not Detect) U Marijuana (THC) Screen (Not Detect) Ethyl Alcohol < 10 mg/dL 12/12/24 12/12/24 Range/Units 14:33 15:06 WBC (4.8-10.8) X10*3/uL RBC (4.20-5.50) X10*6/uL Hgb (12.0-16.0) g/dl Hct (37.0-47.0) % MCV (80.0-98.0) fL MCH (27.0-33.0) pg MCHC (31.0-35.0) g/dl RDW (11.0-16.0) % Plt Count (160-400) X10*3/uL MPV (9.4-12.3) fL Immature Gran % (Auto) (0.0-0.4) % Neut % (Auto) (45-73) % Lymph % (Auto) (20-40) % Daggett % (Auto) (2-11) % Eos % (Auto) (0-4) % Baso % (Auto) (0-2) % Lymph # (Auto) (1.2-4.9) X10*3/uL Daggett # (Auto) (0.1-1.2) X10*3/uL Eos # (Auto) (0.0-0.4) X10*3/uL Baso # (Auto) (0.0-0.2) X10*3/uL Abs Immat Gran (auto) (0.00-0.03) X10*3/uL Absolute Neuts (auto) (2.0-8.3) x10*3/uL Absolute Nucleated RBC (0.0-0.012) X10*3/uL Nucleated RBC % (auto) (0.0-0.2) /100WBC Hold Purple Top VBG pH (7.32-7.43) VBG pCO2 mmHg VBG pO2 mmHg VBG HCO3 (22-26) mmol/L VBG O2 Saturation % VBG Base Excess mmol/L Sodium (135-145) mmol/L Potassium (3.3-5.1) mmol/L Chloride (96-108) mmol/L Carbon Dioxide (22-29) mmol/L Anion Gap (12-20) BUN (9-16) mg/dL Creatinine (0.5-1.4) mg/dL Estim Creat Clear Calc Estimated GFR POC Glucose 134 H (60-115) mg/dL Random Glucose (60-115) mg/dL Lactic Acid (0.5-2.0) mmol/L Calcium (8.4-10.2) mg/dL Magnesium (1.6-2.6) mg/dL Total Bilirubin (0.0-1.0) mg/dL Direct Bilirubin (0.0-0.5) mg/dL AST (5-31) U/L ALT (0-31) U/L Alkaline Phosphatase (39-117) U/L Total Creatine Kinase (26-140) U/L Total Protein (6.5-8.0) g/dL Albumin (3.5-5.0) g/dL Lipase (8-78) U/L Beta HCG, Quant mIU/mL Hold Yellow Top Urine Color Dark Yellow Urine Appearance Clear Urine pH 5.5 (5.0-9.0) Ur Specific Meridian >= 1.030 H (1.005-1.025) Urine Protein Negative (Neg-Trace) mg/dL Urine Glucose (UA) Negative (Negative) mg/dL Urine Ketones Trace (Negative) mg/dL Urine Blood Large (3+) H (Negative) Urine Nitrite Negative (Negative) Ur Leukocyte Esterase Trace H (Negative) Urine RBC >20 H (0-2) /HPF Urine WBC 0-5 (0-5) /HPF Ur Squamous Epith Cells 0-2 (0-2) /HPF Urine Bacteria None Seen (None Seen) Hyaline Casts 0-2 (0-2) /LPF Urine Opiates Screen Not Detected (Not Detect) Ur Buprenorphine Scrn Not Detected (Not Detect) ng/mL Ur Oxycodone Screen Not Detected (Not Detect) ng/mL Urine Methadone Screen Not Detected (Not Detect) ng/mL Urine Fentanyl Screen Not Detected (Not Detect) Ur Barbiturates Screen Not Detected (Not Detect) Ur Phencyclidine Scrn Not Detected (Not Detect) Ur Amphetamines Screen Not Detected (Not Detect) U Benzodiazepines Scrn POSITIVE H (Not Detect) Urine Cocaine Screen Not Detected (Not Detect) U Marijuana (THC) Screen Not Detected (Not Detect) Ethyl Alcohol mg/dL Independent Interpretation I performed an independent interpretation of an: EKG Interpretation: EKG at 14:49 shows normal sinus rhythm at 80 beats per minute. Intervals are unremarkable. Unremarkable EKG. Critical Care Time Critical Care Time Critical Care Time: Yes Total Critical Care Time: 35 Attestation: The patient was critically ill with a high probability of imminent or life- threatening deterioration. ?I spent greater than 30 minutes of discontinuous time evaluating the patient, delivering critical care at the bedside, discussing evaluating data with consultants. ?Critical care time does not include time spent performing separately billable procedures or teaching. ?Time spent performing critical care with 35 minutes. Discharge Plan Discharge Clinical Impression: Seizure-like activity Patient Disposition: [facility] Transfer Details: [facility] Prescriptions: No Action omeprazole 40 mg capsule,delayed release(DR/EC) 40 mg PO DAILY Qty: 14 0RF mecobalamin (vitamin B12) 1,000 mcg tablet,disintegrating 1,000 mcg sublingual DAILY Qty: 30 2RF Rx Instructions: place tablet under tongue and allow to dissolve for at least30 secs before swallowing hydrochlorothiazide 12.5 mg tablet 12.5 mg PO DAILY Qty: 90 0RF sertraline 100 mg tablet 100 mg PO DAILY norgestimate-ethinyl estradiol 0.18/0.215/0.25 mg-25 mcg tablet 1 tab PO DAILY desonide 0.05 % cream topical BID cholecalciferol (vitamin D3) 100 mcg (4,000 unit) capsule 100 mcg PO DAILY acetaminophen [Tylenol] 325 mg capsule 325 mg PO QID PRN Print Language: Pashto
[2024-12-12 14:17] LABS: MANUAL DIFF FLAG NO
[2024-12-12 14:21] LABS: Hematocrit 41.4 % (37.0-47.0); Hemoglobin 13.8 g/dl (12.0-16.0); Imm Gran Abs Auto 0.02 X10*3/uL (0.00-0.03); Imm Gran Pct Auto 0.2 % (0.0-0.4); Lymphocytes Absolute Auto 2.5 X10*3/uL (1.2-4.9); Mean Corpuscular HGB Conc 33.3 g/dl (31.0-35.0); Mean Corpuscular Hemoglobin 29.1 pg (27.0-33.0); Mean Corpuscular Volume 87.2 fL (80.0-98.0); NRBC Abs Auto 0.000 X10*3/uL (0.0-0.012); NRBC Pct Auto 0.0 /100WBC (0.0-0.2); Platelet Count 308 X10*3/uL (160-400); Red Blood Count 4.75 X10*6/uL (4.20-5.50); Venous Blood Gas Refer to POC result; White Blood Count 8.3 X10*3/uL (4.8-10.8)
[2024-12-12 14:22] LABS: VBG HCO3 29 mmol/L (22-26); VBG O2 % Saturation 72.0 %
[2024-12-12] MEDS: diazePAM 10 MG/2 ML CARTRIDGE IVPUSH ×5 (14:33→18:36)
--- NOTE | 2024-12-12 14:45 | PC.NURSE ---
patient presented to the ED by ems, patient was at work and had seizure. per ems patient needed a total of 10mg versed and seizures stopped. upon arrival to the ED patient was post ictal, additional IV access was obtained, patient breathing on own and maintaining own airway. patient initially 100% on room air. patient poc in ED 59, amp D50 IVP RAC at 1420. patient then had additional 4 minute seizure requiring oxymask for oxygenation, patient came out of seizure for approx 1 minute and went back into seizure 1433 requiring 10mg IVP valium per MAR. hubert marcelino per JUN. straight cath performed, patient noted to have tampon in, tampon removed prior. patient seized a third time at 1441, 10mg valium given IVP 1444. poc recheck 134. seizure activity noted to be tonic clonic patient at this time is not currently seizing, maintaining own airway, satting 100%. patient eyes closed at this time, resp even and unlabored. VSS. family at bedside given update
--- NOTE | 2024-12-12 14:46 | ECG_ITS ---
Test Reason : SEIZURE Blood Pressure : */* mmHG Vent. Rate : 88 BPM Atrial Rate : 88 BPM P-R Int : 150 ms QRS Dur : 64 ms QT Int : 362 ms P-R-T Axes : 42 15 11 degrees QTcB Int : 438 ms Normal sinus rhythm Possible Left atrial enlargement Borderline ECG When compared with ECG of 02-Jul-2020 15:20, No significant change was found Referred By: Nima Montes Electronically Signed By: SARKIS CAGLE MD
[2024-12-12 14:48] LABS: Alanine Aminotransferase 24 U/L (0-31); Albumin Level 4.2 g/dL (3.5-5.0); Alkaline Phosphatase 112 U/L (39-117); Anion Gap 11 (12-20); Aspartate Amino Transferase 26 U/L (5-31); Blood Urea Nitrogen 14 mg/dL (9-16); Calcium 8.8 mg/dL (8.4-10.2); Carbon Dioxide 27 mmol/L (22-29); Chloride 107 mmol/L (96-108); Creatinine Clr Calc Pharmacy 111.0; Estimated Glomerular Filt Rate > 60; Lipase 31 U/L (8-78); Magnesium 2.1 mg/dL (1.6-2.6); Potassium 4.0 mmol/L (3.3-5.1); Sodium 141 mmol/L (135-145); Total Protein 7.7 g/dL (6.5-8.0)
[2024-12-12 15:13] LABS: Appearance Urine Clear; Glucose Urine UA Negative (Negative); PH 5.5 (5.0-9.0); Specific Gravity - Urine >= 1.030 (1.005-1.025); UMIC TRIGGER UACC YES
[2024-12-12] MEDS: Lactated Ringers 1,000 ML 999 ML IV (15:25)
[2024-12-12 15:29] LABS: Glucose, Whole Blood 59 mg/dL (60-115)
[2024-12-12 15:29] LABS: Glucose, Whole Blood 134 mg/dL (60-115)
--- OUTSIDE RECORDS SUMMARY | 2024-12-12 15:45 | XMS_ITS | Clinical Summary ---
Author Organization [facility] Address [address] [address] Phone Care Team Providers Care Orthophotography Technician Name Role Phone Merle Landaverde MD Primary Care Provider + Allergies Active Allergy Reactions Criticality Noted Date Comments Aspirin Cramps,Hives,Pain Low 04/01/2021 Droperidol Feeling Irritable,Seizures,Tremor Low Metoclopramide Hcl Feeling Irritable,Headaches,Palpitations,S eizures,Tremor Low 04/01/2021 Prochlorperazine Fatigue,Seizures,Tremor Low 2020 Medications cholecalciferol 10 mcg (400 unit) chewable tablet Take 400 Units by mouth daily. Active desonide (DESOWEN) 0.05 % lotion Active hydroCHLOROthiaz shruthi (HYDRODIURIL) 25 MG tablet Take 25 mg by mouth daily. Active mecobalamin, vitamin B12, 1,000 mcg Chew Take by mouth daily. Active norgestimate-eth inyl estradioL (ORTHO TRI-CYCLEN LO) 0.18/0.215/0.25 mg-25 mcg Tab Take 1 tablet by mouth daily. Active omeprazole (PRILOSEC) 40 MG capsule Take 40 mg by mouth daily. Active ID-sertraline ([id number]) 100 mg tablet Take 100 mg by mouth daily. Active cyanocobalamin, vitamin B-12, 1000 MCG tablet Take 1 tablet (1,000 mcg total) by mouth daily. 30 tablet 6 04/23/2021 Active Active Problems Problem Noted Date Diagnosed Date Vitamin B12 deficiency 04/23/2021 Morbid obesity with BMI of 40.0-44.9, adult 03/27 Assessment & Plan (04/05/2021 5:03 PM EST): This is a 46-year-old lady who is interested in a laparoscopic sleeve gastrectomy for weight management. Patient has done relatively well with weight loss. She has 6.6 pounds still left to lose prior to undergoing weight loss surgery. Patient is doing well with current eating plan. She will continue current eating plan. She will also continue current water intake. Patient will continue current cardiovascular exercise but should add at least 20 minutes of strength training 3 times a week to her current exercise regimen. Patient has completed 8 out 8 nutrition classes, 2 out of 2 behavioral health clearance is, and all require testing. I will follow up with her again in 4 weeks timeframe. I spent 25 minutes with this patient which also includes documenting. Immunizations Immunization Administration Dates Next Due COVID-19 (Pre-02/16) [employer] Vaccine, [id number], P F 10/05/2020 COVID-19 (Pre-02/16) Pfizer Vaccine, mRNA, PF Influenza, Unspecified Formulation 10/05/2020 Family History Medical History Relation Comments Diabetes Father Heart failure Father Hyperlipidemia Father Hypertension Father Hypertension Mother Relation Status Comments Father Mother Social History Tobacco Use Types Packs/Day Years Used Date Smoking Tobacco: Never Assessed Education Answer Date Recorded Are you interested in more education? Not on barry e 08/23/2022 Are you concerned about learning? Not on file 08/23/2022 No 08/23/2022 No 08/23/2022 Digital Access Answer Date Recorded No 09/21/2022 No 09/21/2022 Reliable internet access at home? Not on file 09/21/2022 Device with a working camera? Not on file Comments Unknown Sex and Gender Information Value Date Recorded Sex Assigned at Not on file Legal Sex Female 11:22 AM EDT Gender Identity Not on file Sexual Orientation Not on file Last Filed Vital Signs Vital Sign Reading Time Taken Comments Blood Pressure 134/72 04/05/2021 4:01 PM EST Pulse 77 04/05/2021 4:01 PM EST Temperature 36.5 C (97.7 F) 04/05/2021 4:01 PM EST Respiratory Rate - - Oxygen Saturation 98% 04/05/2021 4:01 PM EST Inhaled Oxygen Concentration - - Weight 120.9 kg (266 lb 9.6 oz) 04/05/2021 4:01 PM EST Height 166.4 cm (5' 5.5 ) 04/05/2021 4:01 PM EST Body Mass Index 43.69 04/05/2021 4:01 PM EST Plan of Treatment Health Maintenance Due Date Last Done Comments Adult Td,Tdap Booster 1977 LIPID PANEL 1977 POTASSIUM LEVEL 1977 DEPRESSION SCREENING 1989 SMOKING Hx and SMOKELESS TOBACCO SCREENING 1990 HEPATITIS C SCREENING 1995 HIV ONE-TIME SCREENING (18-6 5 YEARS) 1995 PAP SMEAR 1998 MAMMOGRAM 2017 COLOGUARD 2022 COLONOSCOPY 2022 COLORECTAL CANCER SCREENING 2022 FIT TEST 2022 FOBT 2022 SIGMOIDOSCOPY 2022 VIRTUAL COLONOSCOPY 2022 COVID-19 VACCINE (3 - 2023-2 5 season) 2023 10/05/2020, 07/18/2020 HEPATITIS A VACCINES Aged Out No long er eligible based on patient's age to complete this topic HIB VACCINES Aged Out No longer eligi ble based on patient's age to complete this topic MENINGOCOCCAL VACCINES (ACWY) Aged Out No longer eligible based on patient's age to complete this topic MENINGOCOCCAL VACCINES (B) Aged Out N o longer eligible based on patient's age to complete this topic PNEUMOCOCCAL VACCINES (0-49 years) Aged Out No longer eligible b ased on patient's age to complete this topic Medical Devices Not on file Insurance [facility] [place] [address] [place] [id number] [address] [place] [address] [place] [place] [address] [facility] [place] [address] [address] [place] [address] COUNTS INCLUDE 234 BEDS AT THE [facility] Care Teams Orthophotography Technician Relationship Specialty Start Date End Date Merle Landaverde MD [email or web address] PCP - General Family Medicine 02/19/21 Additional Source Comments The information contained in this document represents components of the legal health record. It is not the complete legal health record.[facility]
--- OUTSIDE RECORDS SUMMARY | 2024-12-12 15:45 | XMS_ITS | Patient Health Record ---
Author Organization [facility] Address [address] [place] [address] Care Team Providers Care Taker Off Braker Machine Name Role Phone Silverio López Mireille [phone] Reason For Referral No Information Plan Of Treatment No Information
--- OUTSIDE RECORDS SUMMARY | 2024-12-12 15:45 | XMS_ITS | Clinical Summary ---
[facility] Organization [facility] Address [address] [place] [address] Care Team Providers Care Building Maintenance Custodian Name Role Phone Kingston Thomas MD Primary Care Provide r Allergies Active Allergy Reactions Criticality Noted Date Comments Aspirin Hives Medium 04/09/2023 Prochlorperazine Other (See Comments) High Tremors that could lead to seizures Covid-19 (Mrna) Vaccine Itching,Swelling 2022 Other reaction(s): Hives/Urticaria Droperidol High 04/09/2023 Tremors that could lead to seizures Metoclopramide Other (See Comments) High 04/09/2023 Cece tells me that the medicine caused tremors which could lead to seizures Medications Medication Sig Dispensed Refills Start Date End Date Status Acetaminophen Extra Strength 500 MG TABS TAKE 2 TABLETS BY MOUTH EVERY 8 HOURS FOR 30 DAYS. 0 03/18/2023 Active pantoprazole (PROTONIX) 40 MG tablet Take 1 tablet (40 mg total) by mouth daily. 0 03/18/2023 Active sertraline (ZOLOFT) 100 MG tablet Take 1 tablet (100 mg total) by mouth daily. 0 01/18/2023 Active Scopolamine (TRANSDERM-SCOP) 1 MG/3DAYS 0 04/07/2023 Active sucralfate (CARAFATE) 1 GM/10ML suspension 0 04/07/2023 Acti ve Wheat Dextrin (Benefiber) POWD Take 4 g by mouth. 0 03/18/2023 Active vitamin D3 (CHOLECALCIFEROL) 1.25 MG (04642 UT) CAPS capsule TAKE 1 CAPSULE BY MOUTH ONCE A WEEK FOR 12 DOSES.(NOT COVERED) 0 03/29/2023 Active ondansetron (ZOFRAN) 4 MG tablet TAKE 1 TABLET BY MOUTH EVERY 8 HOURS NEEDED FOR NAUSEA FOR UP TO 7 DAYS. 0 06/20/2023 Active thiamine (B-1) 100 MG/ML injection Inject 1 mL (100 mg total) into the muscle daily. 0 Active folic acid (FOLVITE) 400 MCG tablet Take 1 tablet (400 mcg total) by mouth daily. 0 Active pyridoxine (B-6) 50 MG tablet Take 1 tablet (50 mg total) by mouth daily. 0 Active ZINC OXIDE PO Take by mouth. 0 Active vitamin A 3 MG (38688 UT) CAPS capsule Take 1 capsule (3 mg total) by mouth daily. 0 Active Active Problems Problem Noted Date Diagnosed Date Vitamin B12 deficiency (non anemic) 12/02/2023 Status post bariatric surgery 04/14/2023 Social History Tobacco Use Types Packs/Day Years Used Date Smoking Tobacco: Never Smokeless Tobacco: Never Alcohol Use Standard Drinks/Week Comments Not Currently 0 (1 standard drink = 0.6 oz pur e alcohol) Sex and Gender Information Value Date Recorded Sex Assigned at Female 04/08/2023 4:54 PM EST Gender Identity Not on file Sexual Orientation Not on file Job Start Date Occupation Industry Not on file Not on file Not on file Last Filed Vital Signs Vital Sign Reading Time Taken Comments Blood Pressure 128/79 02/03/2024 2:45 PM EDT Pulse 73 02/03/2024 2:45 PM EDT Temperature 37.1 C (98.8 F) 02/03/2024 2:45 PM EDT Respiratory Rate 18 01/27/2024 3:08 PM EDT Oxygen Saturation 100% 02/03/2024 2:45 PM EDT Inhaled Oxygen Concentration - - Weight 80.1 kg (176 lb 9.6 oz) 01/05/2024 10:12 AM EDT Height 162.6 cm (5' 4 ) 01/05/2024 10:12 AM EDT Body Mass Index 30.31 01/05/2024 10:12 AM EDT Plan of Treatment Health Maintenance Due Date Last Done Comments Hepatitis B Vaccines (1 of 3 - 3-dose series) 1977 Hepatitis C Screening 1977 Depression Screening 1989 BMI Counseling 1995 Preventative Health Evaluation 1995 DTap / Tdap / Td (1 - Tdap) 1996 Cervical Cancer Screening (Pap Smear) 1998 Colon Cancer Screening (Colonoscopy) 2022 COVID-19 Vaccine (3 - 2023-2 5 season) 2023 10/05/2020, 07/18/2020 Influenza Vaccine (#1) 2024 Pneumococcal Vaccine Aged Out No long er eligible based on patient's age to complete this topic RSV Ped < 20 months Aged Out No longe r eligible based on patient's age to complete this topic Care Teams Building Maintenance Custodian Relationship Specialty Start Date End Date Kingston Thomas MD [address] [facility] [place] [address] PCP - General Internal Medicine 11/09/23
--- OUTSIDE RECORDS SUMMARY | 2024-12-12 15:45 | XMS_ITS ---
Author Name [facility] Organization Unknown Results Test Name/Text Value Interpretation Date Range Source Glucose Bld-mCnc 87.0 mg/dL Normal 08/05/2024 70 - 199 C [facility] Prot SerPl-mCnc 6.2 g/dL Below low normal 08/05/2024 6.4 - 8.5 [facility] ALP SerPl-cCnc 73.0 unit/L Normal 08/05/2024 34 - 104 CT [facility] Albumin SerPl-mCnc 3.1 g/dL Below low normal 08/05/2024 3.5 - 5 [facility] ALT SerPl-cCnc 15.0 unit/L Normal 08/05/2024 7 - 52 CT [facility] AST SerPl-cCnc 21.0 unit/L Normal 08/05/2024 5 - 40 CT [facility] Bilirub Direct SerPl-mCnc 0.0 mg/dL Normal 08/05/2024 0 - 0.2 [facility] Globulin Ser Calc-mCnc 3.1 g/dL Normal 08/05/2024 2.3 - 3.5 [facility] Bilirub SerPl-mCnc 0.5 mg/dL Normal 08/05/2024 0.3 - 1 [facility] Albumin/Glob SerPl 1.0 Normal 08/05/2024 [facility] Magnesium SerPl-mCnc 1.9 mg/dL Normal 08/05/2024 1.7 - 2.8 [facility] Chloride SerPl-sCnc 108.0 mmol/L Above high normal 98 - 107 [facility] Creat SerPl-mCnc 0.5 mg/dL Normal 08/05/2024 0.5 - 1 CT [facility] Potassium SerPl-sCnc 3.5 mmol/L Normal 08/05/2024 3.5 - 5.1 [facility] BUN SerPl-mCnc 13.0 mg/dL Normal 08/05/2024 7 - 17 [facility] Sodium SerPl-sCnc 138.0 mmol/L Normal 08/05/2024 135 - 14 5 [facility] eGFRcr SerPlBld CKD-EPI 2020 117.0 mL/min/1.73m2 Normal 08/05/2024 - [facility] CO2 SerPl-sCnc 26.0 mmol/L Normal 08/05/2024 24 - 32 CT [facility] Glucose SerPl-mCnc 91.0 mg/dL Normal 08/05/2024 70 - 99 [facility] Calcium SerPl-mCnc 8.3 mg/dL Below low normal 08/05/2024 8.4 - 10.2 [facility] BUN/Creat SerPl 26.0 Above high normal 08/05/2024 12 - 20 [facility] Anion Gap SerPl-sCnc 4.0 Below low normal 08/05/2024 5 - 14 [facility] Phosphate SerPl-mCnc 3.6 mg/dL Normal 08/05/2024 2.5 - 4.5 [facility] MCHC RBC Auto-mCnc 33.7 g/dL Normal 08/05/2024 32 - 36 [facility] Hgb Bld-mCnc 10.2 g/dL Below low normal 08/05/2024 12.5 - 16 [facility] MCH RBC Qn Auto 29.2 pcg Normal 08/05/2024 25 - 33 [facility] WBC # Bld Auto 8.2 K/mcL Normal 08/05/2024 4 - 10.5 [facility] RDW RBC Auto-Rto 14.2 % Normal 08/05/2024 12.1 - 16.2 [facility] PMV Bld Auto 8.3 FL Normal 08/05/2024 7.4 - 11.4 [facility] Platelet # Bld Auto 231.0 K/mcL Normal 08/05/2024 150 - 4 50 [facility] Hct VFr Bld Auto 30.4 % Below low normal 08/05/2024 37 - 47 [facility] RBC # Bld Auto 3.51 M/mcL Below low normal 08/05/2024 4.2 - 5.4 [facility] MCV RBC Auto 86.6 FL Normal 08/05/2024 78 - 100 [facility] Glucose Bld-mCnc 86.0 mg/dL Normal 08/05/2024 70 - 199 C [facility] Glucose Bld-mCnc 86.0 mg/dL Normal 08/05/2024 70 - 199 C [facility] Glucose Bld-mCnc 78.0 mg/dL Normal 08/04/2024 70 - 199 C [facility] Glucose Bld-mCnc 83.0 mg/dL Normal 08/04/2024 70 - 199 C [facility] Glucose Bld-mCnc 67.0 mg/dL Below low normal 08/04/2024 70 - 199 [facility] Glucose Bld-mCnc 74.0 mg/dL Normal 08/04/2024 70 - 199 C [facility] HCG Preg SerPl Ql Negative Normal 08/04/2024 - C [facility] Phosphate SerPl-mCnc 3.4 mg/dL Normal 08/04/2024 2.5 - 4.5 [facility] Chloride SerPl-sCnc 106.0 mmol/L Normal 08/04/2024 98 - 1 07 [facility] BUN/Creat SerPl 25.0 Above high normal 08/04/2024 12 - 20 [facility] CO2 SerPl-sCnc 25.0 mmol/L Normal 08/04/2024 24 - 32 CT [facility] eGFRcr SerPlBld CKD-EPI 2020 112.0 mL/min/1.73m2 Normal 08/04/2024 - [facility] BUN SerPl-mCnc 15.0 mg/dL Normal 08/04/2024 7 - 17 [facility] Sodium SerPl-sCnc 138.0 mmol/L Normal 08/04/2024 135 - 14 5 [facility] Calcium SerPl-mCnc 8.1 mg/dL Below low normal 08/04/2024 8.4 - 10.2 [facility] Potassium SerPl-sCnc 3.6 mmol/L Normal 08/04/2024 3.5 - 5.1 [facility] Creat SerPl-mCnc 0.6 mg/dL Normal 08/04/2024 0.5 - 1 CT [facility] Glucose SerPl-mCnc 87.0 mg/dL Normal 08/04/2024 70 - 199 [facility] Anion Gap SerPl-sCnc 7.0 Normal 08/04/2024 5 - 14 [facility] Magnesium SerPl-mCnc 1.7 mg/dL Normal 08/04/2024 1.7 - 2.8 [facility] MCH RBC Qn Auto 29.4 pcg Normal 08/04/2024 25 - 33 [facility] PMV Bld Auto 8.5 FL Normal 08/04/2024 7.4 - 11.4 [facility] WBC # Bld Auto 6.1 K/mcL Normal 08/04/2024 4 - 10.5 [facility] MCHC RBC Auto-mCnc 33.7 g/dL Normal 08/04/2024 32 - 36 [facility] Platelet # Bld Auto 219.0 K/mcL Normal 08/04/2024 150 - 4 50 [facility] RBC # Bld Auto 3.51 M/mcL Below low normal 08/04/2024 4.2 - 5.4 [facility] Hgb Bld-mCnc 10.3 g/dL Below low normal 08/04/2024 12.5 - 16 [facility] RDW RBC Auto-Rto 14.1 % Normal 08/04/2024 12.1 - 16.2 [facility] MCV RBC Auto 87.2 FL Normal 08/04/2024 78 - 100 [facility] Hct VFr Bld Auto 30.6 % Below low normal 08/04/2024 37 - 47 [facility] Glucose Bld-mCnc 82.0 mg/dL Normal 08/04/2024 70 - 199 C [facility] Glucose Bld-mCnc 84.0 mg/dL Normal 08/04/2024 70 - 199 C [facility] Glucose Bld-mCnc 104.0 mg/dL Normal 08/03/2024 70 - 199 [facility] Glucose Bld-mCnc 107.0 mg/dL Normal 08/03/2024 70 - 199 [facility] Potassium SerPl-sCnc 3.6 mmol/L Normal 08/03/2024 3.5 - 5.1 [facility] CO2 SerPl-sCnc 24.0 mmol/L Normal 08/03/2024 24 - 32 CT [facility] Creat SerPl-mCnc 0.5 mg/dL Normal 08/03/2024 0.5 - 1 CT [facility] Glucose SerPl-mCnc 103.0 mg/dL Normal 08/03/2024 70 - 199 [facility] Chloride SerPl-sCnc 107.0 mmol/L Normal 08/03/2024 98 - 1 07 [facility] Calcium SerPl-mCnc 8.0 mg/dL Below low normal 08/03/2024 8.4 - 10.2 [facility] Sodium SerPl-sCnc 138.0 mmol/L Normal 08/03/2024 135 - 14 5 [facility] BUN SerPl-mCnc 14.0 mg/dL Normal 08/03/2024 7 - 17 [facility] Anion Gap SerPl-sCnc 7.0 Normal 08/03/2024 5 - 14 [facility] BUN/Creat SerPl 28.0 Above high normal 08/03/2024 12 - 20 [facility] eGFRcr SerPlBld CKD-EPI 2020 117.0 mL/min/1.73m2 Normal 08/03/2024 - [facility] Magnesium SerPl-mCnc 1.6 mg/dL Below low normal 08/03/2024 1.7 - 2.8 [facility] Phosphate SerPl-mCnc 3.2 mg/dL Normal 08/03/2024 2.5 - 4.5 [facility] PMV Bld Auto 8.8 FL Normal 08/03/2024 7.4 - 11.4 [facility] RDW RBC Auto-Rto 14.1 % Normal 08/03/2024 12.1 - 16.2 [facility] MCV RBC Auto 87.2 FL Normal 08/03/2024 78 - 100 [facility] Hct VFr Bld Auto 31.3 % Below low normal 08/03/2024 37 - 47 [facility] MCHC RBC Auto-mCnc 33.5 g/dL Normal 08/03/2024 32 - 36 [facility] Hgb Bld-mCnc 10.5 g/dL Below low normal 08/03/2024 12.5 - 16 [facility] WBC # Bld Auto 7.0 K/mcL Normal 08/03/2024 4 - 10.5 [facility] MCH RBC Qn Auto 29.2 pcg Normal 08/03/2024 25 - 33 [facility] RBC # Bld Auto 3.59 M/mcL Below low normal 08/03/2024 4.2 - 5.4 [facility] Platelet # Bld Auto 241.0 K/mcL Normal 08/03/2024 150 - 4 50 [facility] Glucose Bld-mCnc 117.0 mg/dL Normal 08/03/2024 70 - 199 [facility] Glucose Bld-mCnc 106.0 mg/dL Normal 08/03/2024 70 - 199 [facility] Glucose Bld-mCnc 92.0 mg/dL Normal 08/02/2024 70 - 199 C [facility] Glucose Bld-mCnc 102.0 mg/dL Normal 08/02/2024 70 - 199 [facility] Glucose Bld-mCnc 103.0 mg/dL Normal 08/02/2024 70 - 199 [facility] Prolactin SerPl-mCnc 33.9 ng/mL Above high normal 08/02/2024 3.3 - 26.7 [facility] Vit B1 Bld-mCnc 133.0 ug/L Above high normal 08/08/2024 38 - 122 [facility] Zinc SerPl-mCnc 68.0 ug/dL Normal 08/05/2024 60 - 130 CT [facility] TSH SerPl DL<=0.005 mIU/L-aCnc 3.28 mcIU/mL Normal 08/02/2024 0.45 - 5.33 [facility] 25(OH)D3 SerPl-mCnc 19.4 ng/mL Below low normal 08/02/2024 3 0 - 100 [facility] Anion Gap SerPl-sCnc 6.0 Normal 08/02/2024 5 - 14 [facility] BUN/Creat SerPl 18.3 Normal 08/02/2024 12 - 20 [facility] Creat SerPl-mCnc 0.6 mg/dL Normal 08/02/2024 0.5 - 1 CT [facility] Glucose SerPl-mCnc 99.0 mg/dL Normal 08/02/2024 70 - 199 [facility] BUN SerPl-mCnc 11.0 mg/dL Normal 08/02/2024 7 - 17 [facility] Potassium SerPl-sCnc 3.7 mmol/L Normal 08/02/2024 3.5 - 5.1 [facility] eGFRcr SerPlBld CKD-EPI 2020 112.0 mL/min/1.73m2 Normal 08/02/2024 - [facility] Chloride SerPl-sCnc 107.0 mmol/L Normal 08/02/2024 98 - 1 07 [facility] Calcium SerPl-mCnc 7.6 mg/dL Below low normal 08/02/2024 8.4 - 10.2 [facility] Sodium SerPl-sCnc 136.0 mmol/L Normal 08/02/2024 135 - 14 5 [facility] CO2 SerPl-sCnc 23.0 mmol/L Below low normal 08/02/2024 24 - 32 [facility] Magnesium SerPl-mCnc 1.7 mg/dL Normal 08/02/2024 1.7 - 2.8 [facility] Phosphate SerPl-mCnc 3.0 mg/dL Normal 08/02/2024 2.5 - 4.5 [facility] Hct VFr Bld Auto 31.9 % Below low normal 08/02/2024 37 - 47 [facility] RDW RBC Auto-Rto 14.2 % Normal 08/02/2024 12.1 - 16.2 [facility] WBC # Bld Auto 6.0 K/mcL Normal 08/02/2024 4 - 10.5 [facility] Platelet # Bld Auto 232.0 K/mcL Normal 08/02/2024 150 - 4 50 [facility] RBC # Bld Auto 3.67 M/mcL Below low normal 08/02/2024 4.2 - 5.4 [facility] MCH RBC Qn Auto 29.2 pcg Normal 08/02/2024 25 - 33 [facility] PMV Bld Auto 8.6 FL Normal 08/02/2024 7.4 - 11.4 [facility] MCHC RBC Auto-mCnc 33.6 g/dL Normal 08/02/2024 32 - 36 [facility] Hgb Bld-mCnc 10.7 g/dL Below low normal 08/02/2024 12.5 - 16 [facility] MCV RBC Auto 86.8 FL Normal 08/02/2024 78 - 100 [facility] Glucose Bld-mCnc 94.0 mg/dL Normal 08/02/2024 70 - 199 C [facility] Glucose Bld-mCnc 90.0 mg/dL Normal 08/02/2024 70 - 199 C [facility] 1,25(OH)2D3 SerPl-mCnc 56.0 pg/mL Normal 08/05/2024 20 - 79 [facility] Folate SerPl-mCnc >24.0 ng/ml Normal 08/01/2024 - [facility] Vit B12 SerPl-mCnc 2123.0 pcg/mL Above high normal 180 - 914 [facility] Glucose Bld-mCnc 76.0 mg/dL Normal 08/01/2024 70 - 199 C [facility] Glucose Bld-mCnc 80.0 mg/dL Normal 08/01/2024 70 - 199 C [facility] Prolactin SerPl-mCnc 29.4 ng/mL Above high normal 08/01/2024 3.3 - 26.7 [facility] Magnesium SerPl-mCnc 1.9 mg/dL Normal 08/01/2024 1.7 - 2.8 [facility] Phosphate SerPl-mCnc 3.4 mg/dL Normal 08/01/2024 2.5 - 4.5 [facility] BUN/Creat SerPl 18.0 Normal 08/01/2024 12 - 20 [facility] eGFRcr SerPlBld CKD-EPI 2020 117.0 mL/min/1.73m2 Normal 08/01/2024 - [facility] Sodium SerPl-sCnc 135.0 mmol/L Normal 08/01/2024 135 - 14 5 [facility] Potassium SerPl-sCnc 3.8 mmol/L Normal 08/01/2024 3.5 - 5.1 [facility] Glucose SerPl-mCnc 83.0 mg/dL Normal 08/01/2024 70 - 199 [facility] CO2 SerPl-sCnc 22.0 mmol/L Below low normal 08/01/2024 24 - 32 [facility] Creat SerPl-mCnc 0.5 mg/dL Normal 08/01/2024 0.5 - 1 CT [facility] Calcium SerPl-mCnc 8.0 mg/dL Below low normal 08/01/2024 8.4 - 10.2 [facility] Chloride SerPl-sCnc 108.0 mmol/L Above high normal 98 - 107 [facility] BUN SerPl-mCnc 9.0 mg/dL Normal 08/01/2024 7 - 17 [facility] Anion Gap SerPl-sCnc 5.0 Normal 08/01/2024 5 - 14 [facility] Glucose Bld-mCnc 82.0 mg/dL Normal 08/01/2024 70 - 199 C [facility] Trigl SerPl-mCnc 73.0 mg/dL Normal 08/01/2024 - 150 C [facility] Glucose Bld-mCnc 80.0 mg/dL Normal 07/31/2024 70 - 199 C [facility] Barbiturates Ur Ql Scn Negative Normal 07/31/2024 - [facility] PCP Ur Ql Scn Negative Normal 07/31/2024 - [facility] Benzodiaz Ur Ql Scn Positive Abnormal 07/31/2024 - [facility] oxyCODONE Ur Ql Scn Negative Normal 07/31/2024 - [facility] Cannabinoids Ur Ql Scn Negative Normal 07/31/2024 - [facility] BZE Ur Ql Scn Negative Normal 07/31/2024 - [facility] fentaNYL Ur Ql Negative Normal 07/31/2024 - [facility] Opiates Ur Ql Scn Negative Normal 07/31/2024 - C [facility] Amphet Ur Ql Scn Negative Normal 07/31/2024 - CT [facility] Alpraz Ur Cfm-mCnc Negative Normal 08/05/2024 [facility] Nordiazepam Ur Cfm-mCnc Negative Normal 08/05/2024 [facility] Creat Ur-mCnc 53.0 mg/dL Normal 08/05/2024 20 - 250 [facility] Oxazepam Ur Cfm-mCnc Negative Normal 08/05/2024 [facility] LORazepam Ur Cfm-mCnc 1331.0 ng/mL Normal 08/05/2024 [facility] Temazepam Ur Cfm-mCnc Negative Normal 08/05/2024 [facility] Adulterants Ur-Imp Negative Normal 08/05/2024 [facility] Flurazepam Ur Cfm-mCnc Negative Normal 08/05/2024 [facility] clonazePAM Ur Cfm-mCnc Negative Normal 08/05/2024 [facility] History of Medication Use Medication Directions Dispensed Refills Start Date End Date Stat us SUMAtriptan (IMITREX) tablet 50 mg 50 mg, oral, Once, On Thu08/05/24 at 0700, For 1 dose, Do not exceed 2 doses in 24 hours and do not exceed 200 mg in 24 hours. 08/05/2024 completed acetaminophen (TYLENOL) tablet 1,000 mg 1,000 mg, oral, Every 8 hours scheduled, First dose (after last modification) on Thu08/05/24 at 0645 08/05/2024 active dextrose 10 % infusion 60 mL/hr, intravenous, Continuous, Starting on Thu08/04/24 at 1945 08/04/2024 aborted magnesium sulfate 2 gram/50 mL (4 %) IVPB 2 g 2 g, intravenous, at 25 mL/hr, Administer over 2 Hours, Once, On Thu08/04/24 at 0730, For 1 dose 08/04/2024 completed SUMAtriptan (IMITREX) tablet 100 mg 100 mg, oral, Once, On Thu08/04/24 at 0715, For 1 dose, Do not exceed 2 doses in 24 hours and do not exceed 200 mg in 24 hours. 08/04/2024 completed ketorolac (TORADOL) injection 15 mg 15 mg, intravenous, Once, On Thu08/02/24 at 0315, For 1 dose 08/02/2024 completed LORazepam (ATIVAN) 2 mg/mL injection - ADS Override Pull Starting on Thu08/02/24 at 0859, For 1 dose, Created by cabinet override Prior to IV use, lorazepam injection should be DILUTED with an equal volume of compatible solution; Rate of administration should NOT exceed 2 mg/min. 08/02/2024 completed sodium chloride 0.9 % infusion 125 mL/hr, intravenous, Continuous, Starting on Thu08/02/24 at 0130, For 8 hours 08/02/2024 completed lacosamide (VIMPAT) injection 100 mg 100 mg, intravenous, Administer over 5 Minutes, Every 12 hours, First dose (after last modification) on Thu07/31/24 at 2130, IV push over 5 minutes for doses up to 400 mg. 08/01/2024 aborted levETIRAcetam (KEPPRA) injection 500 mg 500 mg, intravenous, Administer over 5 Minutes, 2 times daily, First dose (after last modification) on Thu08/03/24 at 0900, IV push over 5 minutes for doses up to 1500 mg. 08/01/2024 aborted folic acid (FOLVITE) tablet 1 mg 1 mg, oral, Daily, First dose (after last modification) on Thu08/01/24 at 0900, For 88 doses 08/01/2024 aborted levETIRAcetam (KEPPRA) injection 1,500 mg 1,500 mg, intravenous, Administer over 5 Minutes, 2 times daily, First dose (after last modification) on Thu08/01/24 at 0900, IV push over 5 minutes for doses up to 1500 mg. 08/01/2024 aborted midazolam (VERSED) injection 5 mg 5 mg, intravenous, Once, On [place] 07/31/24 at 2000, For 1 dose 08/01/2024 completed chlorhexidine (PERIDEX) 0.12 % solution 15 mL 15 mL, Mouth/Throat, 2 times daily, First dose on Thu07/31/24 at 2100 08/01/2024 active pantoprazole (PROTONIX) injection 40 mg 40 mg, intravenous, Administer over 2 Minutes, Every 24 hours, First dose on [place] 07/31/24 at 2000, Patient MUST have BOTH: -Strict NPO (unable to take oral or liquid PPI) -Contraindication to H2RA Pantroprazole - IV push: Reconstitute powder for injection with 10 mL NS; final concentration: 4 mg/mL., 08/01/2024 active sertraline (ZOLOFT) tablet 100 mg 100 mg, oral, Daily, First dose (after last modification) on Thu08/01/24 at 0900 08/01/2024 active acetaminophen (TYLENOL) tablet 650 mg 650 mg, oral, 3 times daily PRN, headaches, Starting on Thu07/31/24 at 1433 07/31/2024 aborted lacosamide (VIMPAT) injection 50 mg 50 mg, intravenous, Administer over 5 Minutes, Every 12 hours, First dose (after last modification) on [facility] 08/04/24 at 0930, IV push over 5 minutes for doses up to 400 mg. 07/31/2024 active levETIRAcetam (KEPPRA) injection 1,000 mg 1,000 mg, intravenous, Administer over 5 Minutes, 2 times daily, First dose (after last modification) on Thu08/01/24 at 2100, IV push over 5 minutes for doses up to 1500 mg. 07/31/2024 aborted LORazepam (ATIVAN) injection 2 mg 2 mg, intravenous, Once as needed, seizures, seizure activity >5 minutes, Starting on Thu08/02/24 at 0901, For 1 dose, Prior to IV use, lorazepam injection should be DILUTED with an equal volume of compatible solution; Rate of administration should NOT exceed 2 mg/min. 07/31/2024 completed cyanocobalamin (VITAMIN B-12) tablet 1,000 mcg 1,000 mcg, oral, Daily, First dose on Thu07/31/24 at 1500 07/31/2024 aborted dextrose 5 % and sodium chloride 0.9 % infusion 75 mL/hr, intravenous, Continuous, Starting on Thu07/31/24 at 2330, For 3 hours 07/31/2024 5 completed ondansetron (PF) (ZOFRAN) injection 4 mg 4 mg, intravenous, Once, On Thu08/01/24 at 0030, For 1 dose 07/31/2024 5 completed thiamine (VITAMIN B-1) 300 mg in dextrose 5 % 50 mL IVPB 300 mg, intravenous, at 100 mL/hr, Administer over 30 Minutes, Every 12 hours, First dose (after last modification) on Thu07/31/24 at 1500 07/31/2024 aborted dextrose (D50W) 50% injection 12.5 g 07/31/2024 active dextrose (D50W) 50% injection 25 g 07/31/2024 active dextrose 15 gram/60 mL oral solution 15 g 07/31/2024 active dextrose 15 gram/60 mL oral solution 30 g 07/31/2024 active enoxaparin (LOVENOX) injection 40 mg 40 mg, subcutaneous, Daily, First dose on Thu07/31/24 at 1600, Indication: VTE/PE Prophylaxis 07/31/2024 active Glucagon HCl (rDNA) injection 1 mg 07/31/2024 active furosemide (Lasix) 40 mg tablet Take 1 tablet (40 mg total) by mouth 1 (one) time each day for 10 days. 07/28/2024 aborted scopolamine (TRANSDERM-SCOP) 1 mg over 3 days patch 3 day APPLY 1 PATCH TOPICALLY EVERY 3RD DAY. 05/27/2024 5 aborted cyanocobalamin, vitamin B-12, 1,000 mcg tablet, sublingual PLACE 1 TABLET UNDER THE TONGUE DAILY. 05/25/2024 active acarbose (Precose) 25 mg tablet Take 1 tablet (25 mg total) by mouth 3 (three) times a day with meals. 05/11/2024 active mirtazapine (REMERON KYRIE-TAB) 15 mg disintegrating tablet Take 1 tablet (15 mg total) by mouth at bedtime. 04/22/2024 active vitamin A capsule 10,000 Units 10,000 Units, oral, Daily, First dose on 07/31/24 at 1500 04/01/2024 aborted folic acid (FOLVITE) 400 mcg tablet Take 1 Tablet by mouth daily for 360 days. 11/03/2023 active thiamine (VITAMIN B-1) 100 mg/mL injection Inject 0.5 mL into the muscle daily. 11/03/2023 active Adult 3-in-1 TPN Central Line [Order 1 Start] Name: Adult 3-in-1 TPN Central Line Signed Summary: intravenous, at 60 mL/hr, Administer over 24 Hours, Continuous TPN, Starting on Thu08/04/24 at 2100, For 24 hours, Administer through 1.2 micron filter tubing., Indication: Other, Explanatory Comment: Possible dumping syndrome [[place] 10/20/2023 5 active acetaminophen (TYLENOL) 500 mg tablet TAKE 2 TABLETS BY MOUTH EVERY 8 HOURS FOR 30 DAYS. 03/18/2023 active sertraline (ZOLOFT) 100 mg tablet Take 1 tablet (100 mg total) by mouth 1 (one) time each day. 01/18/2023 active Allergies Allergen Reaction Severity Comment Documented Date Source Status RED DYE 07/28/2024 [facility] active ASPIRIN HIVES 04/09/2023 [facility] active PSEUDOEPHEDRINE-ACET AMINOPHEN HIVES 07/29/2022 [facility] active METOCLOPRAMIDE HCL PALPITATIONS 04/01/2021 [facility] active COVID-19 VACCINE, MRNA, [id number], LNP-S ([employer]) SWELLING Other reaction(s): Hives/[place] [facility] DROPERIDOL Tremors that could lead to seizures,Sie zures,tremor ,irritable [facility] METOCLOPRAMIDE OTHER Paplitations ,siezures, tremors,Glor ia tells me that the medicine caused tremors which could lead to seizures [facility] PROCHLORPERAZINE OTHER Tremors jamaal t could lead to seizures,Fat igue,seizure s,tremor [facility] Problems Problem Status Onset Date Problem Type Date of Resoluti on Source 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 C [facility] Overweight active 2024-04-01 ProblemAct [facility] S/P gastric bypass active 2024-03-09 ProblemAct [facility] History of sleeve gastrectomy active 2024-03-02 ProblemAct [facility] Seizure ([facility] V24, [facility] V28) active 2024-07-31 ProblemAct [facility] Severe protein-calorie malnutrition ([facility] V24) active 2024-06-13 ProblemAct [facility] Vitamin B12 deficiency (non anemic) active 2024-01-06 ProblemAct [facility] Dehydration active 2024-05-17 ProblemAct [facility] Immunizations Vaccine Date Source Lot Number Status AdNectar/SubHub SARS-CoV-2 COVID -19, vector-nr, [id number], preservative free 10/05/2020 [facility] [id number] completed Breezy SARS-CoV-2 COVID-19, mRNA, LNP-S, preservative free 07/18/2020 [facility] [id number] completed Encounters Encounter Type Encounter Reason Primary Diagnosis Location Date Inpatient Seizure Like Activity Bariatric surgery status [facility] 07/31/2024 Care Team Organization Name Specialty Phone Email Start Date End Da te [facility] 08/05/2024 [facility] 07/31/2024
--- NOTE | 2024-12-12 17:40 | PC.NURSE ---
Upon arrival into room, pt minimally responsive to verbal stimuli. Opens eyes to commands slightly. Pt then noted to be having tonic movements in hands/feet, eye nystagmus noted and pt unresponsive to verbal stimuli. Pt seizure started @ 1729. MD Montes immediately to bedside. Pt maintaining patent airway, O2 desat to low 80s, NRB placed on pt 15L with good effect throughout seizure. 10mg Valium given @ 1733. Pt remains having tonic movement- airway patent upright in bed, HR 100s-110s Sinus tach, O2 sat maintained >92% with NRB mask. Seizure ended at approx 1736pm- MD Montes and this RN at bedside with patient. Pt post-ictal at this time, minima responsive to verbal stimuli, taken off NRB O2 sat high 90s on RA.Pt family updated on plan of care. Repeat POC done @1738- 98
--- NOTE | 2024-12-12 18:24 | PC.NURSE ---
Pt noted to be having another Tonic seizure starting @1803. Pt presented with same symptoms to prior seizures- eye nystagmus, tonic movement, unresponsive to verbal stimuli, and tachycardic on monitor. MD Montes at bedside. Verbal order given for 10mg Valium- given @ 1807. Pt maintaining own airway, O2 sat decreased to mid 80s, NRB placed at 15L- maintaining O2 sats >92%. Seizure activity stopped @ 1809. Pt remained minimally responsive to verbal stimuli, HR normal sinus on cafeteria monitor, O2 sat >92% taken off NRB and placed on RA. mail agent Qiana and this RN cleaned and repositioned patient, rectal temp 98.6
--- NOTE | 2024-12-12 18:59 | PC.NURSE ---
observed seizure activity from about 1855 to 1858. brief desat to 80 then recovered to 100% SpO2 on NRB 15L. MD Montes at bedside for episode. med ordered
[2024-12-12 19:03] LABS: Cannabinoid Screen Urine Not Detected (Not Detect)
[2024-12-12 20:52] LABS: Glucose, Whole Blood 98 mg/dL (60-115)
[2024-12-14 18:53] LABS: Levetiracetam Keppra <2.0 mcg/mL (6.0-46.0)
== END 2024-12-12 21:02 | disposition short-term general hospital (02) ==
PROVIDERS: Emergency Provider Emergency Medicine
DX: R56.9 Unspecified convulsions (principal); R40.4 Transient alteration of awareness
CPT/HCPCS: 36415; 70450; 80048; 80076; 80177; 80307; 81001; 82550; 82803; 82947; 83605; 83690; 83735; 84702; 85025; 93005; 96361; 96365; 96375; 96376; 99285; J1953; J2250; J3360; J7120

== ENCOUNTER → 2024-12-12 14:20 | Outpatient (BNV) | payer BC, SELFPAY | PROVIDERS: Emergency Provider Emergency Medicine; Visit Provider Radiology Diagnostic Radiology | DX: R41.82 Altered mental status, unspecified (principal); R56.9 Unspecified convulsions | CPT/HCPCS: 70450 ==

== ENCOUNTER → 2024-12-12 14:46 | Outpatient (BNV) | payer BC, SELFPAY | PROVIDERS: Emergency Provider Emergency Medicine; Visit Provider Internal Medicine Cardiovascular Disease | DX: R56.9 Unspecified convulsions (principal) | CPT/HCPCS: 93010 ==

== ENCOUNTER 2024-12-21 13:15 | Emergency (ER) | payer BC, SELFPAY ==
--- OUTSIDE RECORDS SUMMARY | 2024-01-27 14:48 | XMS_ITS | Encounter Summary ---
Author Organization [facility] Address [address] [place] [address] Care Team Providers Care Roll Panner Name Role Phone Kingston Thomas MD Primary [...] oz pure alcohol) drinks on ocassion at [facility] Housing Instability Answer Date Recorde d Are [...] got money to buy more. Never true 12/13/2024 Within the past 12 months th e food we bought just didn't last and we didn't have money to get more. Never true 12/13/2024 Dependent Care Answer Date Recorded Do you need help finding or paying for care for your loved ones. For example, child care supervisor or elderly care for an older adult? [...] AM EDT Office Visit Bariatric Surgery - [place] [address] [facility] [address] [place] [phone] Nga Mukherjee MD [address] [place] [address] 03/17/2025 9:00 AM EST Office Visit [facility] Hematology Oncology [address] [place] [phone] Kenya Corcoran, [address] [place] [address] Scheduled Procedures Name Priority Associated Diagnoses Date/Ti me EGD S/P gastric bypass Severe protein-calorie malnutrition (CMS/HCC V24) documented as of this encounter Visit Diagnoses Not on filedocumented in this encounter Additional Health Concerns Infection Onset Date Last Indicated Resolved Time C. difficile Rule-Out 11/10/2024 11/10/20242024 6:18 PM EDT documented as of this encounter Care Teams Roll Panner Relationship Specialty Start Date End Date Kingston Thomas MD [address] [place] [address] PCP - General 07/10/22 10/10/24 documented as of this encounter
--- OUTSIDE RECORDS SUMMARY | 2024-02-03 14:38 | XMS_ITS | Encounter Summary ---
Author Organization [facility] Address [address] [place] [address] Care Team Providers Care Laboratory Supervisor Name Role Phone Kingston Thomas MD Primary [...] oz pure alcohol) drinks on ocassion at [facility] Housing Instability Answer Date Recorde d Are [...] your loved ones. 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 Surgery is scheduled [...] AM EDT Office Visit Bariatric Surgery - [place] [address] [facility] [address] [place] [phone] Nga Mukherjee MD [address] [place] [phone] 03/17/2025 9:00 AM EST Office Visit [facility] Hematology Oncology [address] [place] [phone] Kenya Corcoran, [address] [place] [address] Scheduled Procedures Name Priority Associated Diagnoses Date/Ti me EGD S/P gastric bypass Severe protein-calorie malnutrition (CMS/HCC V24) documented as of this encounter Visit Diagnoses Not on filedocumented in this encounter Additional Health Concerns Infection Onset Date Last Indicated Resolved Time C. difficile Rule-Out 11/10/2024 11/10/20242024 6:18 PM EDT documented as of this encounter Care Teams Laboratory Supervisor Relationship Specialty Start Date End Date Kingston Thomas MD [address] [place], [place] [address] [place] PCP - General 07/10/22 10/10/24 documented as of this encounter
[2024-12-21] VITALS (24 sets, daily range): BP systolic 99–167; BP diastolic 73–103; PULSE 85–133; RESP 12–20; TEMP 28.7–37.1; O2SAT 96–100; BMI 31.2; BMI 36.7
--- NOTE | ~2024-12-21 | XR_ITS ---
EXAMINATION: XR CHEST CLINICAL INFORMATION: tube placement COMPARISON: 07/02/2020. TECHNIQUE: AP view of the chest was obtained. FINDINGS: Endotracheal tube is present approximately 2.9 cm above the magdalena. This is well positioned. Enteric tube is present with tip in the distal esophagus. This device should be advanced significantly. The cardiac, hilar, and mediastinal contours are normal. Mildly low lung volumes. The lungs are clear bilaterally. No pneumothorax or effusion. No focal osseous or soft tissue abnormality. XR/XR chest 1V IMPRESSION: 1. ET tube in good position. 2. Malpositioned enteric tube. 3. No active pulmonary disease. Electronically signed by: Rahat Ingram MD 12/21/2024 02:13 PM EDT
--- OUTSIDE RECORDS SUMMARY | 2024-12-21 09:00 | XMS_ITS | Encounter Summary ---
Author Organization [employer] Address [address] [place] [address] Care Team Providers Care Travel Consultant Name Role Phone Shawnee Holland MD Primary Care Provider + [phone] Reason for Visit * Reason Comments Post-op Visit Follow-up Encounter Details Date Type Department Care Team (Late st Contact Info) Description 12/21/2024 9:00 AM EDT Office Visit Bariatric Surgery - [place] [address] [place] [phone] Nga Mukherjee MD [address] [place] [phone] Social History Tobacco Use Types Packs/Day Years Used Date Smoking Tobacco: Never Smokeless Tobacco: Never Alcohol Use Standard Drinks/Week Comments Not Currently 0 (1 standard drink = 0.6 oz pure alcohol) drinks on ocassion at [facility] Housing Instability Answer Date Recorde d Are you worried that in the next 2 months you may not have stable housing? No 10/23/2024 Food Access & Nutrition Answer Date Rec orded Do you have access to a vari ety of food including fruits and vegetables? Yes 10/23/2024 Access to Healthcare Answer Date Record ed Within the last 3 months, gillian winslow many times did you visit the emergency [...] care for your loved ones. 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 [...] Sign Reading Time Taken Comments Blood Pressure 153/84 12/21/2024 8:47 AM EDT Pulse 71 12/21/2024 8:47 AM EDT Temperature 36.6 C (97.8 F) 12/21/2024 8:47 AM EDT Respiratory Rate - - Oxygen Saturation - - Inhaled Oxygen Concentration - - Weight 84.8 kg (187 lb) 12/21/2024 8:47 AM EDT Height 170.2 cm (5' 7 ) 12/21/2024 8:47 AM EDT Body Mass Index 29.29 12/21/2024 8:47 AM EDT documented in this encounter Functional Status * Are you deaf or do you have serious difficulty hearing? Answer Date of Assessment Author No 11/19/2024 2:05 AM EDT Scarlet Randall RN * Are you blind or do you have serious difficulty seeing, even when wearing glasses? Answer Date of Assessment Author No 11/19/2024 2:05 AM EDT Scarlet Randall RN * Do you have serious difficulty walking or climbing stairs? Answer Date of Assessment Author No 11/19/2024 2:05 AM EDT Scarlet Randall RN * Do you have serious difficulty dressing or bathing? Answer Date of Assessment Author No 11/19/2024 2:05 AM EDT Scarlet Randall RN * Because of a physical, mental, or emotional condition, do you have serious difficulty doing errandsalone such as visiting the doctor? Answer Date of Assessment Author No 11/19/2024 2:05 AM EDT Scarlet Randall RN documented as of this encounter Mental Status * Because of a physical, mental, or emotional condition, do you have serious difficulty concentrating, remembering, or making decisions? (5 years old or older) Answer Entry Date Author No 11/19/2024 2:05 AM EDT Scarlet Randall RN documented in this encounter Plan of Treatment Upcoming Encounters Date Type Department Care Team (Late st Contact Info) Description 01/23/2025 8:30 AM EDT Office Visit Bariatric Surgery - [place] [address] [facility] [address] [place] [phone] Nga Mukherjee MD [address] [place] [phone] 03/17/2025 9:00 AM EST Office Visit [facility] Hematology Oncology [address] [place] [phone] Kenya Corcoran DO [address] [place] [address] Scheduled Procedures Name Priority Associated Diagnoses Date/Ti me EGD S/P gastric bypass Severe protein-calorie malnutrition ([facility] V24) documented as of this encounter Visit Diagnoses Not on filedocumented in this encounter Discontinued Medications Medication Sig Discontinue Reason Start Date End Da te sertraline (ZOLOFT) 100 mg tablet Take 1 tablet (100 mg total) by mouth 1 (one) time each day. 01/18/2023 12/21/2024 escitalopram (LEXAPRO) 5 mg tablet Take 1 tablet (5 mg total) by mouth 1 (one) time each day. 12/21/2024 documented as of this encounter Additional Health Concerns Assessment Noted Time PHQ-9 Depression Total Score: 0 09/23/19 10:00 AM EDT documented as of this encounter Care Teams Travel Consultant Relationship Specialty Start Date End Date Shawnee Holland MD [address] [place] [address] PCP - General Internal Medicine 10/11/24 documented as of this encounter
--- NOTE | 2024-12-21 13:26 | ECG_ITS ---
Test Reason : SEIZURE Blood Pressure : */* mmHG Vent. Rate : 127 BPM Atrial Rate : 127 BPM P-R Int : 144 ms QRS Dur : 70 ms QT Int : 304 ms P-R-T Axes : 58 50 8 degrees QTcB Int : 441 ms Sinus tachycardia Possible Left atrial enlargement Nonspecific ST and T wave abnormality Borderline ECG When compared with ECG of 12-Dec-2024 14:49, No significant change was found Referred By: Lucia Barton Electronically Signed By: [email or web address] MORA
--- NOTE | 2024-12-21 13:31 | ED_ITS ---
HPI - Seizure General Chief Complaint: Seizure Stated Complaint: SEIZURE Source: EMS Mode of arrival: EMS Limitations: altered mental status History of Present Illness ED Provider: HPI Narrative: I received a med control from EMS that there was a 49-year-old woman having a seizure episode with a normal point of care glucose, she received 5 mg of intramuscular Versed and continues to have seizure episodes that started around 12 30 and by the time they arrived in the scene she has been having a seizures for 15-18 minutes, I gave recommendation for another 5 mg of intramuscular Versed and then establishment of IO, patient had right IO established via EMS, she presented to ER with blood in the airway, no obvious loss of bowel or bladder function, with a tonic/clonic activity, tachycardic, blood pressure stable. Point of care was repeated at 102. 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 MD complaint: seizure Seizure History: Yes Related Data Home Medications ?Medication ?Instructions ?Recorded ?Confirmed acetaminophen 325 mg capsule 325 mg PO QID PRN 1 01/17/21 (Tylenol) cholecalciferol (vitamin D3) 100 100 mcg PO DAILY 09/1401/17/21 mcg (4,000 unit) capsule desonide 0.05 % topical cream appl topical BID 1 01/17/21 norgestimate 0.18 mg/0.215mg/0.25 1 tab PO DAILY 06/2901/17/21 mg-ethinyl estradiol 0.025 mg tablet sertraline 100 mg tablet 100 mg PO DAILY 06/29/20 Previous Rx's ?Medication ?Instructions ?Recorded omeprazole 40 mg capsule,delayed 40 mg PO DAILY #14 ca ps 08/07/20 release mecobalamin (vitamin B12) 1,000 1,000 mcg sublingual D AILY #30 tabs 12/11/20 mcg disintegrating tablet,sublingual hydrochlorothiazide 12.5 mg tablet 12.5 mg PO DAILY #9 0 tabs 12/26/20 Allergies Allergy/AdvReac Type Severity Reaction Status Date / Time droperidol (From INAPSINE) Allergy Severe SEIZURES Verified 12/21/24 13:44 metoclopramide (From REGLAN) Allergy Severe SEIZURE Verified 12/21/24 13:44 prochlorperazine (From Allergy Severe SEIZURE Verified 12/21/24 13:44 COMPAZINE) aspirin Allergy Hives Verified 12/21/24 13:44 COVID-19 vaccine, mRNA, Allergy Unknown Verified 12/21/24 13:44 [id number], L pseudoephedrine Allergy Unknown Verified 12/21/24 13:44 Review of Systems 2 Review of Systems: Yes Unobtainable due to mental status PMFSH Past Medical History Medical History ACL tear Anemia Anxiety Back pain delivery delivered Depression GERD (gastroesophageal reflux disease) Knee pain Lower extremity edema Morbid obesity PCOS (polycystic ovarian syndrome) Spinal cord injury Surgical History Hx of breast reduction, elective Hx of cholecystectomy Hx of knee surgery S/P ACL surgery Family History Family History Mother Hypertension Father Heart disease Diabetes Hypertension Hyperlipidemia Sister No problems noted. Sister No problems noted. Son No problems noted. Social History Social History Unable to assess alcohol history related to: Unable to respond Alcohol intake: never Patient Tobacco Use Status: Never used Tobacco Use of substances other than those prescribed or required for medical reasons: Unable to respond Advance Directives: No Advance Directives Information Provided: Yes Physical Exam 2 Vital Signs: Vital Signs: Last Vital Signs Temp 97.7 F 12/21/24 14:11 Pulse 118 H 12/21/24 16:00 Resp 20 12/21/24 16:00 BP 136/87 12/21/24 16:00 Pulse Ox 100 12/21/24 16:00 O2 Del Method Mechanical Ventil ation 12/21/24 14:07 FiO2 50 12/21/24 14:43 BMI result Body Mass Index 36.7 Const: Other: * Gen: ?Sick appearing * HEENT: Dry blood along her lips and her tongue, * CV: Tachycardic and regular no obvious murmurs * Resp: ?Tachypneic no stridor * Abd: ?No abdominal distention * MSK: No deformities * Skin: Warm, dry, intact, * Neuro: ?Unresponsive, tonic-clonic activity, symmetric Medications Administered Generic Name Dose Route Start Last Admin Trade Name Freq PRN Reason Stop Dose Admin Propofol 1,000 mg in 100 mls @ 0 mls/hr 12/21/24 13:30 12/21/24 16:00 Diprivan IVCONT 50 mcg/kg/min .Q0M YOLANDA 26.4 mls/hr Protocol Titration Per Protocol Fentanyl 1,000 mcg in 100 mls @ 0 mls/hr 12/21/24 14:45 12/21/24 15:11 Sublimaze/Ns IVCONT 100 mcg/hr .Q0M YOLANDA 10 mls/hr Protocol Titration Per Protocol Discontinued Medications Generic Name Dose Route Start Last Admin Trade Name Freq PRN Reason Stop Dose Admin Fentanyl 100 mcg 12/21/24 14:37 12/21/24 14:43 Fentanyl Citrate/Pf 100 Mcg/2 Ml Vial IVPUSH 12/21/24 14:38 100 mcg ONCE ONE Administration Protocol Sodium Chloride 1,000 mls @ 999 mls/hr 12/21/24 13:30 12/21/24 16:00 Ns IV 12/21/24 14:30 Infused .Q1H1M YOLANDA Infusion Vancomycin HCl 2,000 mg in 500 mls @ 250 mls/hr 12/21/24 14:00 12/21/24 16:15 Vancomycin/Ns IV 12/21/24 15:59 Infused ONCE ONE Infusion Levetiracetam 3,000 mg/ Sodium 130 mls @ 520 mls/hr 12/21/24 15:20 12/21/24 16:32 Chloride IV 12/21/24 15:34 520 mls/hr ONCE ONE Administration Propofol 200 mg 12/21/24 13:29 12/21/24 13:19 Propofol 200 Mg/20 Ml Vial IVPUSH 12/21/24 13:30 200 mg ONCE ONE Administration Rocuronium [place] 100 mg 12/21/24 13:29 12/21/24 13:20 Rocuronium [place] 50 Mg/5 Ml Vial IVPUSH 12/21/24 13:30 100 mg ONCE ONE Administration Medical Decision Making Medical Decision Making MDM Narrative: Patient presented with seizures despite 10 mg of intramuscular Versed, bloody airway, unresponsive, having tonic-clonic activity, intubated in the emergency department upon arrival, was not hypoglycemic, other considerations include hyponatremia, stroke, trauma, nonepileptic seizures, I spoke with family after she was intubated, patient was also seen here on the of this month and went to [facility] apparently had EEGs done there and it was workup has been negative she is on levetiracetam, so this may be nonepileptic seizures however very typical for patient to be biting her tongue during these episodes, no loss of bowel or bladder activity, this apparently started after she had bariatric surgery. Other considerations include meningitis, encephalitis but she is nonfebrile. We will reach out to [facility] regarding the workup and then we will speak to our neurology consulting with the patient can be kept here or needs to be transferred 14:20 chest x-ray with ET tube in good positioning NG tube was not in the stomach on the x-ray, though during positioning or her bubble in the left upper quadrant, I pulled out the OG tube and asking the nurses to suction the patient and reinsert the OG tube 14:32 I ran the case by Dr. Brink, will obtain EEG 15:00, I decreased propofol actually stopped it for an EEG and patient started having tonic-clonic activity, we will load with levetiracetam, with compliance field technician was at bedside, we will go ahead with the EEG but at this point I will contact [facility] we have no ICU beds here. 1532 I awaiting bed placement ACCEPT [facility]: ICU 59, bed 24, Dr. Rothman, for RN to RN report 16:00 of note patient did not have EEG activity while having rhythmic seizure activity, this was videotaped and discussed by cardiopulmonary technologist chief with a neurologist. This may be some type of deeper seizure activity I am asking the nurse to report to [place] 16:35 patient maxed out on propofol drip, fentanyl 125 mcg an hour, will give more IV Valium, loaded with Keppra, we will be life flighted Differential Diagnosis Differential Diagnoses: The differential diagnosis associated with the presentation includes (See above) Lab Data 12/21/24 13:35 12/21/24 13:35 Labs: Lab Results 08/12/21/24 12/21/24 Range/Units 13:35 13:35 13:35 WBC 10.4 (4.8-10.8) X10*3/uL RBC 4.49 (4.20-5.50) X10*6/uL Hgb 13.1 (12.0-16.0) g/dl Hct 40.2 (37.0-47.0) % MCV 89.5 (80.0-98.0) fL MCH 29.2 (27.0-33.0) pg MCHC 32.6 (31.0-35.0) g/dl RDW 16.4 H (11.0-16.0) % Plt Count 285 (160-400) X10*3/uL MPV 9.7 (9.4-12.3) fL Immature Gran % (Auto) 0.4 (0.0-0.4) % Neut % (Auto) 71.9 (45-73) % Lymph % (Auto) 19.1 L (20-40) % Canadian % (Auto) 7.0 (2-11) % Eos % (Auto) 1.3 (0-4) % Baso % (Auto) 0.3 (0-2) % Lymph # (Auto) 2.0 (1.2-4.9) X10*3/uL Canadian # (Auto) 0.7 (0.1-1.2) X10*3/uL Eos # (Auto) 0.1 (0.0-0.4) X10*3/uL Baso # (Auto) 0.0 (0.0-0.2) X10*3/uL Abs Immat Gran (auto) 0.04 H (0.00-0.03) X10*3/uL Absolute Neuts (auto) 7.5 (2.0-8.3) x10*3/uL Absolute Nucleated RBC 0.000 (0.0-0.012) X10*3/uL Nucleated RBC % (auto) 0.0 (0.0-0.2) /100WBC Sodium Cancelled 141 Potassium Cancelled 3.9 Chloride Cancelled Carbon Dioxide Anion Gap BUN Creatinine Estim Creat Clear Calc Estimated GFR Random Glucose Calcium Magnesium Total Bilirubin AST ALT Alkaline Phosphatase Total Protein Albumin Beta HCG, Quant mIU/mL Urine Opiates Screen (Not Detect) Ur Buprenorphine Scrn (Not Detect) ng/mL Ur Oxycodone Screen (Not Detect) ng/mL Urine Methadone Screen (Not Detect) ng/mL Urine Fentanyl Screen (Not Detect) Ur Barbiturates Screen (Not Detect) Ur Phencyclidine Scrn (Not Detect) Ur Amphetamines Screen (Not Detect) U Benzodiazepines Scrn (Not Detect) Urine Cocaine Screen (Not Detect) U Marijuana (THC) Screen (Not Detect) 12/21/24 12/21/24 12/21/24 Range/Units 13:35 13:35 13:35 WBC (4.8-10.8) X10*3/uL RBC (4.20-5.50) X10*6/uL Hgb (12.0-16.0) g/dl Hct (37.0-47.0) % MCV (80.0-98.0) fL MCH (27.0-33.0) pg MCHC (31.0-35.0) g/dl RDW (11.0-16.0) % Plt Count (160-400) X10*3/uL MPV (9.4-12.3) fL Immature Gran % (Auto) (0.0-0.4) % Neut % (Auto) (45-73) % Lymph % (Auto) (20-40) % Canadian % (Auto) (2-11) % Eos % (Auto) (0-4) % Baso % (Auto) (0-2) % Lymph # (Auto) (1.2-4.9) X10*3/uL Canadian # (Auto) (0.1-1.2) X10*3/uL Eos # (Auto) (0.0-0.4) X10*3/uL Baso # (Auto) (0.0-0.2) X10*3/uL Abs Immat Gran (auto) (0.00-0.03) X10*3/uL Absolute Neuts (auto) (2.0-8.3) x10*3/uL Absolute Nucleated RBC (0.0-0.012) X10*3/uL Nucleated RBC % (auto) (0.0-0.2) /100WBC Sodium Potassium Chloride 108 Carbon Dioxide Cancelled 25 Anion Gap Cancelled 12 BUN Cancelled Creatinine Estim Creat Clear Calc Estimated GFR Random Glucose Calcium Magnesium Total Bilirubin AST ALT Alkaline Phosphatase Total Protein Albumin Beta HCG, Quant mIU/mL Urine Opiates Screen (Not Detect) Ur Buprenorphine Scrn (Not Detect) ng/mL Ur Oxycodone Screen (Not Detect) ng/mL Urine Methadone Screen (Not Detect) ng/mL Urine Fentanyl Screen (Not Detect) Ur Barbiturates Screen (Not Detect) Ur Phencyclidine Scrn (Not Detect) Ur Amphetamines Screen (Not Detect) U Benzodiazepines Scrn (Not Detect) Urine Cocaine Screen (Not Detect) U Marijuana (THC) Screen (Not Detect) 12/21/24 12/21/24 12/21/24 Range/Units 13:35 13:35 13:35 WBC (4.8-10.8) X10*3/uL RBC (4.20-5.50) X10*6/uL Hgb (12.0-16.0) g/dl Hct (37.0-47.0) % MCV (80.0-98.0) fL MCH (27.0-33.0) pg MCHC (31.0-35.0) g/dl RDW (11.0-16.0) % Plt Count (160-400) X10*3/uL MPV (9.4-12.3) fL Immature Gran % (Auto) (0.0-0.4) % Neut % (Auto) (45-73) % Lymph % (Auto) (20-40) % Canadian % (Auto) (2-11) % Eos % (Auto) (0-4) % Baso % (Auto) (0-2) % Lymph # (Auto) (1.2-4.9) X10*3/uL Canadian # (Auto) (0.1-1.2) X10*3/uL Eos # (Auto) (0.0-0.4) X10*3/uL Baso # (Auto) (0.0-0.2) X10*3/uL Abs Immat Gran (auto) (0.00-0.03) X10*3/uL Absolute Neuts (auto) (2.0-8.3) x10*3/uL Absolute Nucleated RBC (0.0-0.012) X10*3/uL Nucleated RBC % (auto) (0.0-0.2) /100WBC Sodium Potassium Chloride Carbon Dioxide Anion Gap BUN 11 Creatinine Cancelled 0.64 Estim Creat Clear Calc Cancelled 109.6 Estimated GFR Cancelled Random Glucose Calcium Magnesium Total Bilirubin AST ALT Alkaline Phosphatase Total Protein Albumin Beta HCG, Quant mIU/mL Urine Opiates Screen (Not Detect) Ur Buprenorphine Scrn (Not Detect) ng/mL Ur Oxycodone Screen (Not Detect) ng/mL Urine Methadone Screen (Not Detect) ng/mL Urine Fentanyl Screen (Not Detect) Ur Barbiturates Screen (Not Detect) Ur Phencyclidine Scrn (Not Detect) Ur Amphetamines Screen (Not Detect) U Benzodiazepines Scrn (Not Detect) Urine Cocaine Screen (Not Detect) U Marijuana (THC) Screen (Not Detect) 12/21/24 12/21/24 12/21/24 Range/Units 13:35 13:35 13:35 WBC (4.8-10.8) X10*3/uL RBC (4.20-5.50) X10*6/uL Hgb (12.0-16.0) g/dl Hct (37.0-47.0) % MCV (80.0-98.0) fL MCH (27.0-33.0) pg MCHC (31.0-35.0) g/dl RDW (11.0-16.0) % Plt Count (160-400) X10*3/uL MPV (9.4-12.3) fL Immature Gran % (Auto) (0.0-0.4) % Neut % (Auto) (45-73) % Lymph % (Auto) (20-40) % Canadian % (Auto) (2-11) % Eos % (Auto) (0-4) % Baso % (Auto) (0-2) % Lymph # (Auto) (1.2-4.9) X10*3/uL Canadian # (Auto) (0.1-1.2) X10*3/uL Eos # (Auto) (0.0-0.4) X10*3/uL Baso # (Auto) (0.0-0.2) X10*3/uL Abs Immat Gran (auto) (0.00-0.03) X10*3/uL Absolute Neuts (auto) (2.0-8.3) x10*3/uL Absolute Nucleated RBC (0.0-0.012) X10*3/uL Nucleated RBC % (auto) (0.0-0.2) /100WBC Sodium Potassium Chloride Carbon Dioxide Anion Gap BUN Creatinine Estim Creat Clear Calc Estimated GFR > 60 Random Glucose Cancelled 78 Calcium Cancelled 8.7 Magnesium Cancelled Total Bilirubin AST ALT Alkaline Phosphatase Total Protein Albumin Beta HCG, Quant mIU/mL Urine Opiates Screen (Not Detect) Ur Buprenorphine Scrn (Not Detect) ng/mL Ur Oxycodone Screen (Not Detect) ng/mL Urine Methadone Screen (Not Detect) ng/mL Urine Fentanyl Screen (Not Detect) Ur Barbiturates Screen (Not Detect) Ur Phencyclidine Scrn (Not Detect) Ur Amphetamines Screen (Not Detect) U Benzodiazepines Scrn (Not Detect) Urine Cocaine Screen (Not Detect) U Marijuana (THC) Screen (Not Detect) 12/21/24 12/21/24 12/21/24 Range/Units 13:35 13:35 13:35 WBC (4.8-10.8) X10*3/uL RBC (4.20-5.50) X10*6/uL Hgb (12.0-16.0) g/dl Hct (37.0-47.0) % MCV (80.0-98.0) fL MCH (27.0-33.0) pg MCHC (31.0-35.0) g/dl RDW (11.0-16.0) % Plt Count (160-400) X10*3/uL MPV (9.4-12.3) fL Immature Gran % (Auto) (0.0-0.4) % Neut % (Auto) (45-73) % Lymph % (Auto) (20-40) % Canadian % (Auto) (2-11) % Eos % (Auto) (0-4) % Baso % (Auto) (0-2) % Lymph # (Auto) (1.2-4.9) X10*3/uL Canadian # (Auto) (0.1-1.2) X10*3/uL Eos # (Auto) (0.0-0.4) X10*3/uL Baso # (Auto) (0.0-0.2) X10*3/uL Abs Immat Gran (auto) (0.00-0.03) X10*3/uL Absolute Neuts (auto) (2.0-8.3) x10*3/uL Absolute Nucleated RBC (0.0-0.012) X10*3/uL Nucleated RBC % (auto) (0.0-0.2) /100WBC Sodium Potassium Chloride Carbon Dioxide Anion Gap BUN Creatinine Estim Creat Clear Calc Estimated GFR Random Glucose Calcium Magnesium 1.9 Total Bilirubin Cancelled 0.2 AST Cancelled 32 H ALT Cancelled Alkaline Phosphatase Total Protein Albumin Beta HCG, Quant mIU/mL Urine Opiates Screen (Not Detect) Ur Buprenorphine Scrn (Not Detect) ng/mL Ur Oxycodone Screen (Not Detect) ng/mL Urine Methadone Screen (Not Detect) ng/mL Urine Fentanyl Screen (Not Detect) Ur Barbiturates Screen (Not Detect) Ur Phencyclidine Scrn (Not Detect) Ur Amphetamines Screen (Not Detect) U Benzodiazepines Scrn (Not Detect) Urine Cocaine Screen (Not Detect) U Marijuana (THC) Screen (Not Detect) 12/21/24 12/21/24 12/21/24 Range/Units 13:35 13:35 13:35 WBC (4.8-10.8) X10*3/uL RBC (4.20-5.50) X10*6/uL Hgb (12.0-16.0) g/dl Hct (37.0-47.0) % MCV (80.0-98.0) fL MCH (27.0-33.0) pg MCHC (31.0-35.0) g/dl RDW (11.0-16.0) % Plt Count (160-400) X10*3/uL MPV (9.4-12.3) fL Immature Gran % (Auto) (0.0-0.4) % Neut % (Auto) (45-73) % Lymph % (Auto) (20-40) % Canadian % (Auto) (2-11) % Eos % (Auto) (0-4) % Baso % (Auto) (0-2) % Lymph # (Auto) (1.2-4.9) X10*3/uL Canadian # (Auto) (0.1-1.2) X10*3/uL Eos # (Auto) (0.0-0.4) X10*3/uL Baso # (Auto) (0.0-0.2) X10*3/uL Abs Immat Gran (auto) (0.00-0.03) X10*3/uL Absolute Neuts (auto) (2.0-8.3) x10*3/uL Absolute Nucleated RBC (0.0-0.012) X10*3/uL Nucleated RBC % (auto) (0.0-0.2) /100WBC Sodium Potassium Chloride Carbon Dioxide Anion Gap BUN Creatinine Estim Creat Clear Calc Estimated GFR Random Glucose Calcium Magnesium Total Bilirubin AST ALT 26 Alkaline Phosphatase Cancelled 91 Total Protein Cancelled 7.5 Albumin Cancelled Beta HCG, Quant mIU/mL Urine Opiates Screen (Not Detect) Ur Buprenorphine Scrn (Not Detect) ng/mL Ur Oxycodone Screen (Not Detect) ng/mL Urine Methadone Screen (Not Detect) ng/mL Urine Fentanyl Screen (Not Detect) Ur Barbiturates Screen (Not Detect) Ur Phencyclidine Scrn (Not Detect) Ur Amphetamines Screen (Not Detect) U Benzodiazepines Scrn (Not Detect) Urine Cocaine Screen (Not Detect) U Marijuana (THC) Screen (Not Detect) 12/21/24 12/21/24 Range/Units 13:35 14:05 WBC (4.8-10.8) X10*3/uL RBC (4.20-5.50) X10*6/uL Hgb (12.0-16.0) g/dl Hct (37.0-47.0) % MCV (80.0-98.0) fL MCH (27.0-33.0) pg MCHC (31.0-35.0) g/dl RDW (11.0-16.0) % Plt Count (160-400) X10*3/uL MPV (9.4-12.3) fL Immature Gran % (Auto) (0.0-0.4) % Neut % (Auto) (45-73) % Lymph % (Auto) (20-40) % Canadian % (Auto) (2-11) % Eos % (Auto) (0-4) % Baso % (Auto) (0-2) % Lymph # (Auto) (1.2-4.9) X10*3/uL Canadian # (Auto) (0.1-1.2) X10*3/uL Eos # (Auto) (0.0-0.4) X10*3/uL Baso # (Auto) (0.0-0.2) X10*3/uL Abs Immat Gran (auto) (0.00-0.03) X10*3/uL Absolute Neuts (auto) (2.0-8.3) x10*3/uL Absolute Nucleated RBC (0.0-0.012) X10*3/uL Nucleated RBC % (auto) (0.0-0.2) /100WBC Sodium Potassium Chloride Carbon Dioxide Anion Gap BUN Creatinine Estim Creat Clear Calc Estimated GFR Random Glucose Calcium Magnesium Total Bilirubin AST ALT Alkaline Phosphatase Total Protein Albumin 4.0 Beta HCG, Quant < 2 mIU/mL Urine Opiates Screen Not Detected (Not Detect) Ur Buprenorphine Scrn Not Detected (Not Detect) ng/mL Ur Oxycodone Screen Positive H (Not Detect) ng/mL Urine Methadone Screen Not Detected (Not Detect) ng/mL Urine Fentanyl Screen Not Detected (Not Detect) Ur Barbiturates Screen Not Detected (Not Detect) Ur Phencyclidine Scrn Not Detected (Not Detect) Ur Amphetamines Screen Not Detected (Not Detect) U Benzodiazepines Scrn POSITIVE H (Not Detect) Urine Cocaine Screen Not Detected (Not Detect) U Marijuana (THC) Screen Not Detected (Not Detect) Independent Interpretation I performed an independent interpretation of an: EKG (127 beats per minute otherwise normal ECG without dysrhythmia, AV zeeshan blocks or ST-T changes to suspect underlying ACS, my independent interpretation) Independent Historian Clinical information obtained from an independent historian. History obtained from or confirmed by: Spouse and EMS Procedures Intubation Intubation Type:: Emergency Endotracheal Intubation Intubation Date:: 12/21/24 Time out performed: Yes sedative: other (Propofol) Mg Given: 200 paralytic: Rocuronium Mg Given: 100 Laryngoscope: fiber optic video scope ET Tube Size: 7.5 ET Tube Uncuffed: No Tube Secured Depth (cm): 23 Tube Secured Location: lips Tube Placement Confirmation: visualized tube passing through cords, equal breath sounds bilaterally and confirmation by capnometry Patient Tolerated Procedure: well Intubation Complications: none Critical Care Time Critical Care Time Critical Care Time: Yes Total Critical Care Time: 90 Attestation: Time is exclusive of separately billable procedures. Time includes: direct patient care, patient reassessment, coordination of patient care, interpretation of data (laboratory data, pulse oximetry, arterial blood gases and chest xrays), review of patient's medical records, medical consultation and documentation of patient care. Procedures excluded from critical care time: central intravenous line placement and electrocardiography. Discharge Plan Discharge Clinical Impression: Convulsive status epilepticus Patient Disposition: [facility] Transfer Details: [place] ICU Prescriptions: No Action omeprazole 40 mg capsule,delayed release(DR/EC) 40 mg PO DAILY Qty: 14 0RF mecobalamin (vitamin B12) 1,000 mcg tablet,disintegrating 1,000 mcg sublingual DAILY Qty: 30 2RF Rx Instructions: place tablet under tongue and allow to dissolve for at least30 secs before swallowing hydrochlorothiazide 12.5 mg tablet 12.5 mg PO DAILY Qty: 90 0RF sertraline 100 mg tablet 100 mg PO DAILY norgestimate-ethinyl estradiol 0.18/0.215/0.25 mg-25 mcg tablet 1 tab PO DAILY desonide 0.05 % cream topical BID cholecalciferol (vitamin D3) 100 mcg (4,000 unit) capsule 100 mcg PO DAILY acetaminophen [Tylenol] 325 mg capsule 325 mg PO QID PRN Print Language: Faroese
[2024-12-21 13:39] LABS: MANUAL DIFF FLAG NO
--- NOTE | 2024-12-21 13:44 | PC.RT ---
Pt came in via EMS active seizure, being bag mask ventilated by EMS. RT took over ventilation on transfer. Pt was intubated by MD on first attempt w/ 7.5 ETT 23cm@lips. ETT confirmed w/ colormetric CO2, condensation in tube, ETCO2 on monitor, bilateral breath sounds, and pending X Ray. Pt placed on mechanical ventilation as documented and juany well. Will continue to monitor.
--- NOTE | 2024-12-21 13:45 | PC.NURSE ---
Pt arrived in ER at 1315 actively seizing, unresponsive and being bagged by staff; Pt received 200mg IO Propofol per MD at 1319, followed by Rocuronium 100 mg IO at 1320; 7.5 ETT placed by MD, 23 cm at the lip at 1321; 16 Fr OG tube placed by MD at 1325 with + auscultation confirmation and outflow of gastric contents in tube; xray ordered for confirmation; bilateral 18G IV's placed by this rn and pt on Propofol drip started at 1331 at 30mg/kg/min; JÚNIOR Florentino taking over as primary RN at this time
[2024-12-21 13:49] LABS: Hematocrit 40.2 % (37.0-47.0); Hemoglobin 13.1 g/dl (12.0-16.0); Imm Gran Abs Auto 0.04 X10*3/uL (0.00-0.03); Imm Gran Pct Auto 0.4 % (0.0-0.4); Lymphocytes Absolute Auto 2.0 X10*3/uL (1.2-4.9); Mean Corpuscular HGB Conc 32.6 g/dl (31.0-35.0); Mean Corpuscular Hemoglobin 29.2 pg (27.0-33.0); Mean Corpuscular Volume 89.5 fL (80.0-98.0); NRBC Abs Auto 0.000 X10*3/uL (0.0-0.012); NRBC Pct Auto 0.0 /100WBC (0.0-0.2); Platelet Count 285 X10*3/uL (160-400); Red Blood Count 4.49 X10*6/uL (4.20-5.50); White Blood Count 10.4 X10*3/uL (4.8-10.8)
[2024-12-21 14:07] LABS: Alanine Aminotransferase 26 U/L (0-31); Albumin Level 4.0 g/dL (3.5-5.0); Alkaline Phosphatase 91 U/L (39-117); Anion Gap 12 (12-20); Aspartate Amino Transferase 32 U/L (5-31); Blood Urea Nitrogen 11 mg/dL (9-16); Calcium 8.7 mg/dL (8.4-10.2); Carbon Dioxide 25 mmol/L (22-29); Chloride 108 mmol/L (96-108); Creatinine Clr Calc Pharmacy 109.6; Estimated Glomerular Filt Rate > 60; Magnesium 1.9 mg/dL (1.6-2.6); Potassium 3.9 mmol/L (3.3-5.1); Sodium 141 mmol/L (135-145); Total Protein 7.5 g/dL (6.5-8.0)
[2024-12-21 14:25] LABS: Cannabinoid Screen Urine Not Detected (Not Detect)
--- NOTE | 2024-12-21 14:34 | EEG_ITS ---
This EEG is performed on a patient who is Reason For EEG: Seizure ? R/O Status Medications: tylenol, vitd, hctz, B12 Omeprazole- fentanyl, propofol History: H/O seizures - pt had multiple events of seizure like activity, witnessed tonic/clonic activity noted by EMS and ED staff- Clinical Observation: Intermittent jerking motion was noted with decrease sedation ? pt does not follow commands Vacuum Pan Tender Comments: Photic stimulation not performed Hyperventilation: omitted- pt is on a vent- Behavioral state: see tech notes State of conscious: see tech notes Skull defect: no Sedation: propofol, fentanyl Tech note: start of this study pt was on propofol and fentanyl- during the study propofol was stopped and body movement was noted with body jerking motion- pt does not follow commands on decrease sedation Duration of the study:00:33:00 with video Description: This EEG was performed in the emergency room as a stat EEG in an Intubated patient on propofol, apparently for status epilepticus. When the medications are stopped, the background activity consists of a posterior moderate voltage 11-12 hertz alpha intermixed anteriorly with low-voltage fast frequencies. Occasional [id number] head movements are noted during this recording but there are no abnormal electrical discharges during that time. Hyperventilation was omitted. Photic stimulation was not carried out Impression: This EEG is considered within normal limits. There are no episodes of seizure activity or status epilepticus including during periods where she is making [id number] head movements. MTDD
[2024-12-21] MEDS: fentaNYL citrate/NS 1,000 MCG/100 ML PLAST..BAG 2.5 MCG IVCONT (14:50)
[2024-12-21] MEDS: vancomycin/NS 2,000 MG/500 ML PLAST..BAG 250 MG IV (15:03)
--- OUTSIDE RECORDS SUMMARY | 2024-12-21 15:14 | XMS_ITS | Clinical Summary ---
Author Organization [facility] Address [address] [address] Phone Care Team Providers Care Svp Chief Marketing Officer Name Role Phone Merle Landaverde MD Primary [...] 40 mg by mouth daily. Active ID-sertraline ([id number]) 100 mg tablet Take 100 mg by [...] Immunization Administration Dates Next Due COVID-19 (Pre-02/16) [employer] Vaccine, [id number], P F 10/05/2020 COVID-19 (Pre-02/16) [...] - 2023-2 5 season) 2023 10/05/2020, 07/18/2020 INFLUENZA VACCINE (#1) 2024 10/05/2020 HEPATITIS A VACCINES Aged Out No long [...] topic Medical Devices Not on file Insurance [facility] HMO [facility] [address] [place] [address] [place] [address] [place] [address] [place] [address] [place] [address] [facility] [place] [facility] [place] Address: [address] [address] Care Teams Svp Chief Marketing Officer Relationship Specialty Start Date End Date Merle Landaverde MD [email or web address] PCP - General Family Medicine 02/19/21 Additional Source Comments The information contained in this document represents components of the legal health record. It is not the complete legal health record.[facility]
--- OUTSIDE RECORDS SUMMARY | 2024-12-21 15:14 | XMS_ITS | Patient Health Record ---
Author Organization [facility] Address [address] [place] [address] Care Team Providers Care Scientist Propagator Name Role Phone Silverio López Mireille [phone] Reason For Referral No Information Plan Of Treatment No Information
--- OUTSIDE RECORDS SUMMARY | 2024-12-21 15:15 | XMS_ITS | Clinical Summary ---
Author Organization [facility] Address [address] [place] [address] Phone Care Team Providers Care Dope Sprayer Name Role Phone Shawnee Holland MD Primary Care Provider Allergies Active Allergy Reactions Criticality Noted Date Comments Aspirin Hives Medium 04/09/2023 Covid-19 Vaccine, Mrna, [id number], Lnp-S (PeerPong) Hives,Itching,Swell ing Medium 07/29/2022 Other reaction(s): Hives/Urticaria Droperidol Medium 07/29/2022 Tremors that could lead to seizures Siezures,tremor,i rritable Metoclopramide Headache,Other High 07/29/2022 Cece tells me that the medicine caused tremors which could lead to seizures Paplitations,siez ures, tremors Metoclopramide Hcl Seizures,Headache,P alpitations High 04/01/2021 Mushroom Hives 10/19/2024 Swelling and blisters Prochlorperazine Other High 07/29/2022 Tremors that could lead to seizures Fatigue,seizures, tremor Pseudoephedrine-Acetaminop hen Hives 07/29/2022 Red Dye 07/28/2024 Medications pantoprazole (PROTONIX) 40 mg EC tablet Take 1 tablet (40 mg total) by mouth daily. NEEDED 023 Active cyanocobalamin (VITAMIN B-12) 1,000 mcg/mL injection Inject 1 mL (1,000 mcg total) into the shoulder, thigh, or buttocks See administration instructions. Patient received injection at [facility] every four weeks Active nutritional supplements (Osmolite 1.2 [place]) 0.06 gram-1.2 kcal/mL liquid Take 1,000 mL by mouth 1 (one) time each day. 29068 mL 11 Active sertraline (ZOLOFT) 50 mg tablet Take 1 tablet (50 mg total) by mouth 1 (one) time each day. 30 each 11 025 2025 Active escitalopram (LEXAPRO) 10 mg tablet Take 1 tablet (10 mg total) by mouth 1 (one) time each day. 30 each 2 025 2024 Active acetaminophen (TYLENOL) 500 mg tablet TAKE 2 TABLETS BY MOUTH EVERY 8 HOURS FOR 30 DAYS. 023 2024 Discontinued sertraline (ZOLOFT) 100 mg tablet Take 1 tablet (100 mg total) by mouth 1 (one) time each day. 023 2024 Discontinued mirtazapine (REMERON KYRIE-TAB) 15 mg disintegrating tablet Take 1 tablet (15 mg total) by mouth at bedtime. 30 tablet 024 2024 Discontinued escitalopram (LEXAPRO) 5 mg tablet Take 1 tablet (5 mg total) by mouth 1 (one) time each day. 2024 Discontinued levETIRAcetam (KEPPRA) 250 mg tablet Take 1 tablet (250 mg total) by mouth if needed. 2024 Discontinued sucralfate (CARAFATE) 100 mg/mL suspension Take 10 mL (1 g total) by mouth 4 (four) times a day. 1200 mL 025 2024 lidocaine (Lidoderm) 5 % patch Apply 1 patch topically 1 (one) time each day. Remove & discard patch within 12 hours or as directed by MD. 30 each 025 2024 oxyCODONE (OXY-IR) 5 mg immediate release capsuleIndicatio ns:Abdominal pain Take 1 capsule (5 mg total) by mouth every 6 (six) hours if needed for severe pain. Max Daily Amount: 20 mg 15 capsule 025 2024 Discontinued amoxicillin-clav ulanate (AUGMENTIN) 875-125 mg per tablet Take 1 tablet by mouth 2 (two) times a day for 10 days. 20 each 025 2024 methocarbamoL (ROBAXIN) 500 mg tablet Take 1 tablet (500 mg total) by mouth 4 (four) times a day for 10 days. 40 each 025 2024 Discontinued(E ntered in Error) scopolamine (TRANSDERM-SCOP) 1 mg over 3 days patch 3 day Apply 1 patch topically every 3rd (third) day. 10 each 025 2024 oxyCODONE (OXY-IR) 5 mg immediate release capsuleIndicatio ns:Other chronic postprocedural pain Take 1 capsule (5 mg total) by mouth every 6 (six) hours if needed for severe pain for up to 4 doses. Max Daily Amount: 20 mg 4 capsule 2024 Discontinued Active Problems Problem Noted Date Diagnosed Date Seizure-like activity (CMS/[facility] V24, CMS/[facility] V28) 12/12/2024 Assessment & Plan (12/14/2024 6:37 AM EDT): History of Psychogenic Non-Epileptic Spells Patient had a witnessed seizure-like activity episode this afternoon, after which she was taken to [facility] emergency room, where she was given a total of 60 mg Valium, 10 mg Versed, 2 g Keppra, and then transferred to [facility] for further management. In that emergency room she was noted to have multiple episodes of seizure-like activity, where the staff reported that she did have tonic clonic movements, nystagmus, and desaturated into two of the episodes. It is important to note that patient was prior admitted here in September 2024, for a similar presentation where she had extensive workup performed with long-term EEG, which did not demonstrate any episode of epileptiform activity, and per prior record she was discharged off all antiseizure medications. Lactate was 1.6, prolactin 64.10. No epileptic seizure burden on Cerebell. Patient's neurological exam was limited by sedation likely secondary to benzodiazepine load in the emergency department. 12/13 Continuous EEG ran for 416 minutes found no epileptiform discharge. - Neurology following - Continuous video EEG x 24-48h, per neuro - Will avoid any further administration of antiepileptics, as patient also received 2 g of Keppra around 2 PM on 12/12. - No lorazepam unless proven seizure on EEG or compromised vital signs Assessment & Plan (12/13/2024 12:00 PM EDT): History of Psychogenic Non-Epileptic Spells Patient had a witnessed seizure-like activity episode this afternoon, after which she was taken to [facility] emergency room, where she was given a total of 60 mg Valium, 10 mg Versed, 2 g Keppra, and then transferred to [facility] for further management. In that emergency room she was noted to have multiple episodes of seizure-like activity, where the staff reported that she did have tonic clonic movements, nystagmus, and desaturated into two of the episodes. It is important to note that patient was prior admitted here in September 2024, for a similar presentation where she had extensive workup performed with long-term EEG, which did not demonstrate any episode of epileptiform activity, and per prior record she was discharged off all antiseizure medications. Lactate was 1.6, prolactin 64.10. No epileptic seizure burden on Cerebell so far. Patient's neurological exam was limited by sedation likely secondary to benzodiazepine load in the emergency department. Will need to reevaluate. - Neurology Dr. Ugalde Consulted, appreciate recs - Order LTM - Will obtain prolactin level within 30 minutes after seizure-like activity - Will avoid any further administration of antiepileptics, as patient also received 2 g of Keppra around 2 PM on 12/12. - Ativan as needed, will only be administered unless epileptic seizures noted on cerebral, or significant desaturation on pulse ox. Assessment & Plan (12/13/2024 3:48 AM EDT): History of Psychogenic Non-Epileptic Spells Patient had a witnessed seizure-like activity episode this afternoon, after which she was taken to [facility] emergency room, where she was given a total of 50 mg Valium, 10 mg Versed, 2 g Keppra, and then transferred to [facility] for further management. In that emergency room she was noted to have multiple episodes of seizure-like activity, where the staff reported that she did have tonic clonic movements, nystagmus, and desaturated into two of the episodes. It is important to note that patient was prior admitted here in September 2024, for a similar presentation where she had extensive workup performed with long-term EEG, which did not demonstrate any episode of epileptiform activity, and per prior record she was discharged off all antiseizure medications. - Neurology Dr. Ugalde Consulted, appreciate recs - Will place STAT Cerebell, with plan for LTM in the am. - Will obtain prolactin level within 30 minutes after seizure-like activity - Will avoid any further administration of antiepileptics, as patient also received 2 g of Keppra around 2 PM on 12/12. - Ativan as needed, will only be administered unless epileptic seizures noted on cerebral, or significant desaturation on pulse ox. Eczema 11/02/2024 Anxiety 11/02/2024 Acne 11/02/2024 Edema 11/02/2024 Gastroesophageal reflux disease 10/21/2024 Anemia 10/21/2024 Iron deficiency 10/13/2024 Postsurgical dumping syndrome 10/10/2024 Intractable abdominal pain 09/18/2024 Seizure (CMS/HCC V24, CMS/HCC V28) 07/31/2024 Witnessed seizure-like activity (CMS/HCC V24, CM S/HCC V28) 07/30/2024 Assessment & Plan (07/30/2024 2:03 AM EDT): - Being hospitalized in further evaluation of unresolving weakness arising from seizure-like activities of unclear etiology, but deemed worrisome for CVA or TIA - 49-year-old formerly obese woman who underwent a successful gastric bypass surgery has clinical course significant for seizure-like activity for which she has been referred to the ED in this evaluation is being hospitalized - Referred to the ED to further evaluate recurrent seizure-like activities associated with alteration in mental status and persistent generalized weakness; was previously obese morbidly; had sleeve gastrectomy significant for dumping syndrome currently on TPN for nutritional support via PICC line; but referred to the hospital today because of seizure-like activities of undetermined cause; has had bedside EEG in the ED which could not identify any seizure focus, but slow recovery from this seemingly mental and physical function appears protracted characterized as profound weakness of the upper and lower extremities and overall lack of energy - CTA of head and neck in the ED are largely unrevealing; CT head without contrast shows no acute intracranial process; CTA head and neck shows intact large neck vessels and [place] vessels devoid of stenosis nor aneurysm; MRI therefore is requested to completely exclude any CVA focus; Hospital Medicine was therefore asked admit for further evaluation in search possible any CVA as the underlying and/or a contributing factor to her prevailing seizure-like activity - Would admit to hospital medicine for serial activity; continue seizure precautions; correct dehydration; involve PT/OT evaluation and discharge planning Seizure-like activity ([facility] V24, [facility] V28) 07/30/2024 Severe protein-calorie malnutrition ([facility] V24 ) 06/13/2024 Dehydration 05/17/2024 Assessment & Plan (07/30/2024 2:00 AM EDT): - Continue to offer isotonic saline for preventing severe dehydration characterized by elevated BUN/creatinine to 19/0.49 - Monitor renal indices; serum electrolytes; and urine output closely Dumping syndrome 04/14/2024 Assessment & Plan (07/30/2024 2:02 AM EDT): - Continue supportive care and to address extreme dehydration in the situation of dumping syndrome characterizing her surgeries - Consider involving updated general surgery consult Overweight 04/01/2024 Hx of gastric bypass 03/09/2024 Assessment & Plan (12/14/2024 6:37 AM EDT): History of dumping syndrome History of Dysphagia Patient underwent sleeve gastrectomy February 2024, and subsequently converted to Isiah-en-Y gastric bypass due to stenosis. She had severe dysphagia subsequently, and was using a PICC line to obtain nutrition through TPN. She subsequently underwent laparoscopic surgical jejunostomy on 10/19, since then she has been obtain nutrition through the J-tube. Her home regimen is osmolite 1.2 - will maintain NPO for now with Q6 FS, due to concern for seizure, and patient has altered mental status. -Hypoglycemia protocol - will continue home pantoprazole EC tablet 40 mg daily -once patient mental status improves, and seizure activity is ruled out, patient should be considered for reinitiation of her home tube feeds, nutrition consult Assessment & Plan (12/13/2024 12:00 PM EDT): History of dumping syndrome History of Dysphagia Patient underwent sleeve gastrectomy February 2024, and subsequently converted to Isiah-en-Y gastric bypass due to stenosis. She had severe dysphagia subsequently, and was using a PICC line to obtain nutrition through TPN. She subsequently underwent laparoscopic surgical jejunostomy on 10/19, since then she has been obtain nutrition through the J-tube. Her home regimen is osmolite 1.2 - will maintain NPO for now with Q6 FS, due to concern for seizure, and patient has altered mental status. - will continue home pantoprazole EC tablet 40 mg daily -once patient mental status improves, and seizure activity is ruled out, patient should be considered for reinitiation of her home tube feeds, nutrition consult Assessment & Plan (12/13/2024 3:48 AM EDT): History of dumping syndrome History of Dysphagia Patient underwent sleeve gastrectomy February 2024, and subsequently converted to Isiah-en-Y gastric bypass due to stenosis. She had severe dysphagia subsequently, and was using a PICC line to obtain nutrition through TPN. She subsequently underwent laparoscopic surgical jejunostomy on 10/19, since then she has been obtain nutrition through the J-tube. Her home regimen is osmolite 1.2 - will maintain NPO for now with Q6 FS, due to concern for seizure, and patient has altered mental status. - will continue home pantoprazole EC tablet 40 mg daily -once patient mental status improves, and seizure activity is ruled out, patient should be considered for reinitiation of her home tube feeds, nutrition consult History of sleeve gastrectomy 03/02/2024 Assessment & Plan (07/30/2024 2:01 AM EDT): - Continue supportive care for clinical presentation deemed possibly related to remote sleeve gastrectomy - Consider rechecking nutrients, only affected by gastric bypass procedures including B12 family, and folate, Vitamin B12 deficiency (non anemic) 01/06/2024 PCOS (polycystic ovarian syndrome) 07/29/2022 Hypertension 07/29/2022 H. pylori infection 07/29/2022 Depression 07/29/2022 Assessment & Plan (12/14/2024 6:37 AM EDT): Patient with history of depression, home medications include Lexapro 5 mg daily, and sertraline 100 mg daily. -Will hold these medications due to patient's current mental status. Assessment & Plan (12/13/2024 6:54 AM EDT): Patient with history of depression, home medications include Lexapro 5 mg daily, and sertraline 100 mg daily. -Will hold these medications due to patient's current mental status. Assessment & Plan (12/13/2024 3:48 AM EDT): Patient with history of depression, home medications include Lexapro 5 mg daily, and sertraline 100 mg daily. -Will hold these medications due to patient's current mental status. Chronic knee pain 07/29/2022 Back pain 07/29/2022 Abnormal EKG 07/29/2022 Resolved Problems Problem Noted Date Diagnosed Date Resolved Date Bilateral lower extremity edema 07/15/2024 07/16/2024 Encounters Date Type Department Care Team Description 12/21/2024 9:00 AM EDT Office Visit Bariatric Surgery [address] [place] [phone] Nga Mukherjee MD 12/12/2024 9:43 PM EDT - 12/14/2024 5:54 PM EDT Hospital Encounter [facility] Care [address] [place] [phone] Peterson Carr MD Kazi, Ahmed, MD Naut, Edgar, MD Seizure-like activity (CMS/HCC V24, CMS/HCC V28) (Primary Dx) Discharge Disposition: Home or Self Care 11/19/2024 2:14 AM EDT - 11/19/2024 2:58 PM EDT Emergency [facility] Emergency [address] [place] [phone] Tracie Gilbert MD Other chronic postprocedural pain (Primary Dx); Chronic nausea Discharge Disposition: Home or Self Care 11/18/2024 7:33 AM EDT - 11/18/2024 11:59 PM EDT Hospital Encounter [facility] Interventional Radiology [address] [place] [phone] Uses feeding tube; Intussusception intestine (CMS/HCC V24, CMS/HCC V28) Discharge Disposition: Home or Self Care 11/17/2024 1:47 PM EDT - 11/17/2024 11:59 PM EDT Hospital Encounter [facility] Infusion Center [address] [place] [phone] Kenya Corcoran DO S/P gastric bypass (Primary Dx); Vitamin B12 deficiency (non anemic); On enteral nutrition Discharge Disposition: Home or Self Care 11/14/2024 Telephone Bariatric Surgery [facility] [address] [phone] Nga Mukherjee MD 11/13/2024 7:36 AM EDT - 11/13/2024 3:04 PM EDT Emergency [facility] Emergency [address] [place] [phone] Generalized abdominal pain (Primary Dx); Abdominal pain, epigastric; S/P gastric bypass Discharge Disposition: Home or Self Care 11/11/2024 Telephone Bariatric Surgery [facility] [address] [phone] Nga Mukherjee MD 11/02/2024 1:00 PM EDT Office Visit Bariatric Surgery [facility] [address] [phone] Nga Mukherjee MD Uses feeding tube (Primary Dx); S/P gastric bypass; Hypoglycemia 10/27/2024 2:58 PM EDT - 10/27/2024 11:59 PM EDT Hospital Encounter [facility] Infusion Center [address] [place] [phone] Kenya Corcoran DO On enteral nutrition Discharge Disposition: Home or Self Care 10/27/2024 Telephone Bariatric Surgery [facility] [address] [phone] Nga Mukherjee MD 10/21/2024 12:11 PM EDT Anesthesia Event [facility] Main OR [address] [place] [phone] Terrie Caldwell MD 10/21/2024 11:00 AM EDT - 10/21/2024 12:45 PM EDT Surgery [facility] Main OR [address] [place] [phone] Nga Mukherjee MD INSERTION TUBE JEJUNOSTOMY LAPAROSCOPIC [64326 (CPT )] 10/21/2024 9:14 AM EDT - 10/25/2024 5:01 PM EDT Hospital Encounter [facility] Medical Surgical Unit [address] [place] [phone] Nga Mukherjee MD Dumping syndrome (Primary Dx); S/P gastric bypass Discharge Disposition: Home-Health Care [facility] 10/20/2024 1:29 PM EDT - 10/20/2024 11:59 PM EDT Hospital Encounter [facility] Center [address] [place] [phone] Kenya Corcoran DO Iron deficiency (Primary Dx); S/P gastric bypass; Vitamin B12 deficiency (non anemic); On total parenteral nutrition; Postsurgical dumping syndrome; Hypoglycemia; Food intolerance Discharge Disposition: Home or Self Care 10/14/2024 1:24 PM EDT - 10/14/2024 11:59 PM EDT Hospital Encounter [facility] Center [address] [place] [phone] Kenya Corcoran DO Iron deficiency (Primary Dx); On total parenteral nutrition Discharge Disposition: Home or Self Care 10/10/2024 11:45 AM EDT Office Visit Bariatric Surgery [facility] [address] [phone] Nga Mukherjee MD S/P gastric bypass (Primary Dx); Hypoglycemia; On total parenteral nutrition; Food intolerance; Epigastric pain 10/07/2024 7:43 AM EDT - 10/07/2024 11:59 PM EDT Hospital Encounter [facility] Infusion Center [address] [place] [phone] On total parenteral nutrition Discharge Disposition: Home or Self Care 09/30/2024 2:48 PM EDT - 09/30/2024 11:59 PM EDT Hospital Encounter [address] [phone] Kenya Corcoran DO On total parenteral nutrition Discharge Disposition: Home or Self Care 09/22/2024 9:30 AM EDT - 09/22/2024 11:59 PM EDT Hospital Encounter [address] [phone] Kenya Corcoran DO S/P gastric bypass (Primary Dx); On total parenteral nutrition; Vitamin B12 deficiency (non anemic) Discharge Disposition: Home or Self Care 09/22/2024 9:00 AM EDT Office Visit [facility] Hematology Oncology [address] [place] [phone] Kenya Corcoran DO Vitamin B12 deficiency (non anemic) (Primary Dx) 09/20/2024 1:45 PM EDT Office Visit Bariatric Surgery [facility] 175 [facility] [address] [place] [phone] Nga Mukherjee MD Hypoglycemia (Primary Dx); S/P gastric bypass; On total parenteral nutrition; Other dysphagia; Food intolerance; Epigastric pain from Last 3 Months Immunizations Name Administration Dates Next Due [employer] SARS-CoV-2 COVID -19, vector-nr, [id number], preservative free 10/05/2020 [facility] SARS-CoV-2 COVID-19, mRNA, LNP-S, preservative free 07/18/2020 Surgical History Surgery Date Site/Laterality Comments BARIATRIC SURGERY MENISCECTOMY Bilateral bilateral tears CHOLECYSTECTOMY SECTION, LOW TRANSVERSE BREAST REDUCTION Bilateral OTHER SURGICAL HISTORY Medical History Medical History Date Comments GERD (gastroesophageal reflux disease) Hiatal hernia Polycystic ovaries Malnutrition following gastrointestinal surgery S/P gastric bypass 03/09/2024 Dehydration 05/17/2024 PONV (postoperative nausea and vomiting) Anemia Clotting disorder ([facility] V24) Anxiety Depression Chronic pain disorder Seizures ([facility] V24, [facility] V28) Social History Tobacco Use Types Packs/Day Years Used Date Smoking Tobacco: Never Smokeless Tobacco: Never Tobacco Cessation:Counseling Given: Not Answered Alcohol Use Standard Drinks/Week Comments Not Currently 0 (1 standard drink = 0.6 oz pure alcohol) [email or web address] Housing Instability Answer Date Recorde d Are [...] for your loved ones. For example, child watch attendant or elderly care for an older adult? [...] Orientation Straight 02/13/2024 3: 17 AM EDT Obstetrics History Para Term AB IAB SAB Ectopic Multiple Livin g Live Births 1 Last Filed Vital Signs Vital Sign Reading Time Taken Comments Blood Pressure 153/84 12/21/2024 8:47 AM EDT Pulse 71 12/21/2024 8:47 AM EDT Temperature 36.6 C (97.8 F) 12/21/2024 8:47 AM EDT Respiratory Rate 5 12/14/2024 4:00 PM EDT Oxygen Saturation 100% 12/14/2024 4:00 PM EDT Inhaled Oxygen Concentration - - Weight 84.8 kg (187 lb) 12/21/2024 8:47 AM EDT Height 170.2 cm (5' 7 ) 12/21/2024 8:47 AM EDT Body Mass Index 29.29 12/21/2024 8:47 AM EDT Plan of Treatment Upcoming Encounters Date Type Department Care Team (Late st Contact Info) Description 01/23/2025 8:30 AM EDT Office Visit Bariatric Surgery - [address] [place] [phone] Nga Mukherjee MD [address] [place] [phone] 03/17/2025 9:00 AM EST Office Visit [facility] Hematology Oncology [address] [place] [phone] Kenya Corcoran, [address] [place] [address] Scheduled Procedures Name Priority Associated Diagnoses Date/Ti me EGD S/P gastric bypass Severe protein-calorie malnutrition (CMS/HCC V24) Health Maintenance Due Date Last Done Comments Breast Cancer Screening 1977 Hepatitis B Vaccines (1 of 3 - 19+ 3-dose series) 1996 Cervical Cancer Screening: Pap Smear 1998 DTaP,Tdap,and Td Vaccines (2 - Td or Tdap) 08/21/2021 08/22/2011 Cholesterol Screening (Lipid Panel) 05/26/2023 Colorectal Cancer Screening: Colonoscopy 05/26/2023 HIV Screening 05/26/2023 Hepatitis C Screening 05/26/2023 COVID-19 Vaccine ( season) 2023 10/05/2020, 07/18/2020 Influenza Vaccine (#1) 2024 10/05/2020 Social Influencers of Health Screening 12/13/2025 12/13/2024 Hypertension/CHF/CAD Annual BMP Blood Test 12/14/2025 12/14/2024, 12/13/2024, 12/08/2024, Additional history exists Depression Screening Completed 09/22/2024 HIB Vaccines Aged Out No longer eligi ble based on patient's age to complete this topic HPV Vaccines Aged Out No longer eligi ble based on patient's age to complete this topic Hepatitis A Vaccines Aged Out No long er eligible based on patient's age to complete this topic IPV Vaccines Aged Out No longer eligi ble based on patient's age to complete this topic MMR Vaccines Aged Out No longer eligi ble based on patient's age to complete this topic Meningococcal ACWY Vaccine Aged Out N o longer eligible based on patient's age to complete this topic Meningococcal B Vaccine Aged Out No l onger eligible based on patient's age to complete this topic Pneumococcal Vaccine: Pediatrics (0 to 5 Years) and At-Risk Patients (6 to 49 Years) Aged Out No longer eligible based on patient's age to complete this topic RSV Immunization Patients Under 20 months Aged Out No longer eligible based on patient's age to complete this topic Varicella Vaccines Aged Out No longer eligible based on patient's age to complete this topic Medical Devices Implanted Type Area [employer] Attorney Device Identifier Shelf Expiration Date Model / Serial / Lot Tray Rad Cath 1lum Poly 4f - [id number] - [id number] Implanted:Qty: 1 on 06/23/2024 by Salima Reed PA at [facility] [facility] Catheters and Ports Right: Vein BD VASCULAR ACCESS DEVICES A BARD ACCESS [id number] 03/26/2026 [id number] / [id number] / [id number] Tray Rad Cath 1lum Poly 4f - [id number] - [id number] Implanted:Qty: 1 on 08/19/2024 by Veronica Anguiano MD at [facility]osalia pheral Catheters and Ports Right: Arm BD VASCULAR ACCESS DEVICES A BARD ACCESS [id number] 03/26/2026 [id number] / [id number] / [id number] Procedures Procedure Name Priority Date/Time Associated Diagnosis Comments CONTINUOUS EEG Routine 12/14/2024 5:54 PM EDT CONTINUOUS EEG Routine 12/14/2024 4:20 PM EDT POCT GLUCOSE BLOOD Routine 12/14/2024 12 :51 PM EDT COMPLETE BLOOD COUNT Timed 12/14/2024 8:47 AM EDT BASIC METABOLIC PANEL Timed 12/14/2024 8:47 AM EDT CONTINUOUS EEG Routine 12/14/2024 6:03 AM EDT POCT GLUCOSE BLOOD Routine 12/14/2024 5: 08 AM EDT POCT GLUCOSE BLOOD Routine 12/14/2024 12 :06 AM EDT POCT GLUCOSE BLOOD Routine 12/13/2024 9: 48 PM EDT POCT GLUCOSE BLOOD Routine 12/13/2024 6: 45 PM EDT POCT GLUCOSE BLOOD Routine 12/13/2024 11 :51 AM EDT OXYGEN THERAPY, ADULT Routine 12/13/2024 8:02 AM EDT POCT GLUCOSE BLOOD Routine 12/13/2024 6: 37 AM EDT PROLACTIN STAT 12/13/2024 4:14 AM EDT LACTATE, WITH REFLEX STAT 12/13/2024 4:14 AM EDT COMPREHENSIVE METABOLIC PANEL STAT 12/13/2024 4:14 AM EDT COMPLETE BLOOD COUNT STAT 12/13/2024 4:14 AM EDT POCT GLUCOSE BLOOD Routine 12/13/2024 12 :23 AM EDT OXYGEN THERAPY, ADULT Routine 12/12/2024 10:58 PM EDT OXYGEN THERAPY, ADULT Routine 12/12/2024 10:58 PM EDT CBC WITH AUTO DIFFERENTIAL Routine 12/08/2024 2:19 PM EDT On enteral nutrition TRIGLYCERIDES Routine 12/08/2024 2:19 PM EDT On enteral nutrition PHOSPHORUS Routine 12/08/2024 2:19 PM EDT On enteral nutrition MAGNESIUM Routine 12/08/2024 2:19 PM EDT On enteral nutrition COMPREHENSIVE METABOLIC PANEL Routine 12/08/2024 2:19 PM EDT On enteral nutrition CBC AND DIFFERENTIAL Routine 12/08/2024 2:19 PM EDT On enteral nutrition URINALYSIS WITH REFLEX MICROSCOPIC STAT 11/19/2024 8:12 AM EDT URINALYSIS WITH REFLEX MICROSCOPIC STAT 11/19/2024 8:[address] ABDOMEN PELVIS W CONTRAST STAT 11/19/2024 5:44 AM EDT HCG, SERUM, QUALITATIVE STAT Add-on 11/19/2024 3:56 AM EDT COMPLETE BLOOD COUNT STAT 11/19/2024 3:56 AM EDT MAGNESIUM STAT 11/19/2024 3:56 AM EDT LIPASE STAT 11/19/2024 3:56 AM EDT COMPREHENSIVE METABOLIC PANEL STAT 11/19/2024 3:56 AM EDT IR INJ CONTRAST EVAL OSTOMY TUBE PERC STAT 11/18/2024 8:25 AM EDT Uses feeding tube Intussusception intestine (CMS/HCC V24, CMS/HCC V28) CBC WITH AUTO DIFFERENTIAL Routine 11/17/2024 2:25 PM EDT On enteral nutrition TRIGLYCERIDES Routine 11/17/2024 2:25 PM EDT On enteral nutrition PHOSPHORUS Routine 11/17/2024 2:25 PM EDT On enteral nutrition MAGNESIUM Routine 11/17/2024 2:25 PM EDT On enteral nutrition COMPREHENSIVE METABOLIC PANEL Routine 11/17/2024 2:25 PM EDT On enteral nutrition CBC AND DIFFERENTIAL Routine 11/17/2024 2:25 PM EDT On enteral nutrition POCT GLUCOSE BLOOD Routine 11/13/2024 12 :49 PM EDT POCT GLUCOSE BLOOD Routine 11/13/2024 12 :[address] ABDOMEN PELVIS W CONTRAST STAT 11/13/2024 11:03 AM EDT XR ABDOMEN 1 VIEW STAT 11/13/2024 10: 16 AM EDT POC , URINE DIAGNOSTIC STAT 11/13/2024 9:48 AM EDT POCT GLUCOSE BLOOD Routine 11/13/2024 8: 48 AM EDT HCG, SERUM, QUALITATIVE STAT Add-on 11/13/2024 8:09 AM EDT CBC WITH AUTO DIFFERENTIAL STAT 11/13/2024 8:09 AM EDT COMPREHENSIVE METABOLIC PANEL STAT 11/13/2024 8:09 AM EDT CBC AND DIFFERENTIAL STAT 11/13/2024 8:09 AM EDT LIPASE STAT Add-on 11/10/2024 2:20 PM EDT CBC WITH AUTO DIFFERENTIAL Routine 11/10/2024 2:20 PM EDT On enteral nutrition CBC AND DIFFERENTIAL Routine 11/10/2024 2:20 PM EDT On enteral nutrition COMPREHENSIVE METABOLIC PANEL Routine 11/10/2024 2:20 PM EDT On enteral nutrition MAGNESIUM Routine 11/10/2024 2:20 PM EDT On enteral nutrition PHOSPHORUS Routine 11/10/2024 2:20 PM EDT On enteral nutrition TRIGLYCERIDES Routine 11/10/2024 2:20 PM EDT On enteral nutrition CBC WITH AUTO DIFFERENTIAL Routine 11/03/2024 2:47 PM EDT On total parenteral nutrition ZINC Routine 11/03/2024 2:47 PM EDT S/P gastric bypass VITAMIN D 25 HYDROXY Routine 11/03/2024 2:47 PM EDT S/P gastric bypass VITAMIN B6 Routine 11/03/2024 2:47 PM EDT S/P gastric bypass VITAMIN A Routine 11/03/2024 2:47 PM EDT S/P gastric bypass VITAMIN B12 Routine 11/03/2024 2:47 PM EDT S/P gastric bypass VITAMIN B1 Routine 11/03/2024 2:47 PM EDT S/P gastric bypass SELENIUM SERUM Routine 11/03/2024 2:47 PM EDT S/P gastric bypass IRON AND TIBC Routine 11/03/2024 2:47 PM EDT S/P gastric bypass COPPER, SERUM Routine 11/03/2024 2:47 PM EDT S/P gastric bypass TRIGLYCERIDES Routine 11/03/2024 2:47 PM EDT On total parenteral nutrition PHOSPHORUS Routine 11/03/2024 2:47 PM EDT On total parenteral nutrition MAGNESIUM Routine 11/03/2024 2:47 PM EDT On total parenteral nutrition COMPREHENSIVE METABOLIC PANEL Routine 11/03/2024 2:47 PM EDT On total parenteral nutrition CBC AND DIFFERENTIAL Routine 11/03/2024 2:47 PM EDT On total parenteral nutrition CBC WITH AUTO DIFFERENTIAL Routine 10/27/2024 3:42 PM EDT On enteral nutrition TRIGLYCERIDES Routine 10/27/2024 3:42 PM EDT On enteral nutrition PHOSPHORUS Routine 10/27/2024 3:42 PM EDT On enteral nutrition MAGNESIUM Routine 10/27/2024 3:42 PM EDT On enteral nutrition COMPREHENSIVE METABOLIC PANEL Routine 10/27/2024 3:42 PM EDT On enteral nutrition CBC AND DIFFERENTIAL Routine 10/27/2024 3:42 PM EDT On enteral nutrition POCT GLUCOSE BLOOD Routine 10/25/2024 4: 05 PM EDT POCT GLUCOSE BLOOD Routine 10/25/2024 10 :52 AM EDT POCT GLUCOSE BLOOD Routine 10/25/2024 7: 49 AM EDT IRON AND TIBC Add-On 10/25/2024 5:46 AM EDT FERRITIN Add-On 10/25/2024 5:46 AM EDT FOLATE Add-On 10/25/2024 5:46 AM EDT CBC WITH AUTO DIFFERENTIAL Routine 10/25/2024 5:46 AM EDT HEPATIC FUNCTION PANEL Routine 10/25/2024 5:46 AM EDT PHOSPHORUS Routine 10/25/2024 5:46 AM EDT MAGNESIUM Routine 10/25/2024 5:46 AM EDT CBC AND DIFFERENTIAL Routine 10/25/2024 5:46 AM EDT BASIC METABOLIC PANEL Routine 10/25/2024 5:46 AM EDT POCT GLUCOSE BLOOD Routine 10/24/2024 8: 42 PM EDT POCT GLUCOSE BLOOD Routine 10/24/2024 7: 55 PM EDT POCT GLUCOSE BLOOD Routine 10/24/2024 4: 05 PM EDT POCT GLUCOSE BLOOD Routine 10/24/2024 11 :23 AM EDT POCT GLUCOSE BLOOD Routine 10/24/2024 7: 26 AM EDT CBC WITH AUTO DIFFERENTIAL Routine 10/24/2024 6:07 AM EDT PHOSPHORUS Routine 10/24/2024 6:07 AM EDT MAGNESIUM Routine 10/24/2024 6:07 AM EDT HEPATIC FUNCTION PANEL Routine 10/24/2024 6:07 AM EDT CBC AND DIFFERENTIAL Routine 10/24/2024 6:07 AM EDT BASIC METABOLIC PANEL Routine 10/24/2024 6:07 AM EDT POCT GLUCOSE BLOOD Routine 10/24/2024 2: 59 AM EDT POCT GLUCOSE BLOOD Routine 10/23/2024 7: 50 PM EDT POCT GLUCOSE BLOOD Routine 10/23/2024 4: 21 PM EDT POCT GLUCOSE BLOOD Routine 10/23/2024 2: 17 PM EDT POCT GLUCOSE BLOOD Routine 10/23/2024 1: 48 PM EDT POCT GLUCOSE BLOOD Routine 10/23/2024 11 :08 AM EDT POCT GLUCOSE BLOOD Routine 10/23/2024 7: 37 AM EDT POCT GLUCOSE BLOOD Routine 10/23/2024 6: 41 AM EDT CBC WITH AUTO DIFFERENTIAL Routine 10/23/2024 6:36 AM EDT CBC AND DIFFERENTIAL Routine 10/23/2024 6:36 AM EDT HEPATIC FUNCTION PANEL Routine 10/23/2024 6:36 AM EDT CALCIUM, IONIZED Routine 10/23/2024 6:36 AM EDT PHOSPHORUS Routine 10/23/2024 6:36 AM EDT MAGNESIUM Routine 10/23/2024 6:36 AM EDT BASIC METABOLIC PANEL Routine 10/23/2024 6:36 AM EDT POCT GLUCOSE BLOOD Routine 10/23/2024 2: 49 AM EDT POCT GLUCOSE BLOOD Routine 10/22/2024 10 :50 PM EDT POCT GLUCOSE BLOOD Routine 10/22/2024 6: 39 PM EDT POCT GLUCOSE BLOOD Routine 10/22/2024 2: 44 PM EDT POCT GLUCOSE BLOOD Routine 10/22/2024 11 :15 AM EDT POCT GLUCOSE BLOOD Routine 10/22/2024 8: 08 AM EDT POCT GLUCOSE BLOOD Routine 10/22/2024 5: 39 AM EDT CBC WITH AUTO DIFFERENTIAL Routine 10/22/2024 5:32 AM EDT PHOSPHORUS Routine 10/22/2024 5:32 AM EDT MAGNESIUM Routine 10/22/2024 5:32 AM EDT COMPREHENSIVE METABOLIC PANEL Routine 10/22/2024 5:32 AM EDT CBC AND DIFFERENTIAL Routine 10/22/2024 5:32 AM EDT POCT GLUCOSE BLOOD Routine 10/21/2024 7: 37 PM EDT POCT GLUCOSE BLOOD Routine 10/21/2024 4: 30 PM EDT POCT GLUCOSE BLOOD Routine 10/21/2024 3: 12 PM EDT TH AN ENDOTRACHEAL(NO CHARGE) Routine 10/21/2024 1:01 PM EDT OH LAPAROSCOPY SURGICAL JEJUNOSTOMY 10/21/2024 12:10 PM EDT Hx of gastric bypass Malnutrition (CMS/HCC V24) On total parenteral nutrition (TPN) Case Notes 23 hour bed Special Needs 23 hour bed POCT GLUCOSE BLOOD Routine 10/21/2024 9: 36 AM EDT CBC WITH AUTO DIFFERENTIAL Routine 10/20/2024 2:00 PM EDT Postsurgical dumping syndrome Hypoglycemia S/P gastric bypass On total parenteral nutrition Food intolerance HCG QUALITATIVE, URINE Routine 10/20/2024 2:00 PM EDT Postsurgical dumping syndrome Hypoglycemia S/P gastric bypass On total parenteral nutrition Food intolerance PROTHROMBIN TIME WITH INR Routine 10/20/2024 2:00 PM EDT Postsurgical dumping syndrome Hypoglycemia S/P gastric bypass On total parenteral nutrition Food intolerance TYPE AND SCREEN Routine 10/20/2024 2:00 PM EDT Postsurgical dumping syndrome Hypoglycemia S/P gastric bypass On total parenteral nutrition Food intolerance CBC AND DIFFERENTIAL Routine 10/20/2024 2:00 PM EDT Postsurgical dumping syndrome Hypoglycemia S/P gastric bypass On total parenteral nutrition Food intolerance TRIGLYCERIDES Routine 10/20/2024 2:00 PM EDT On total parenteral nutrition PHOSPHORUS Routine 10/20/2024 2:00 PM EDT On total parenteral nutrition MAGNESIUM Routine 10/20/2024 2:00 PM EDT On total parenteral nutrition COMPREHENSIVE METABOLIC PANEL Routine 10/20/2024 2:00 PM EDT On total parenteral nutrition CBC WITH AUTO DIFFERENTIAL Routine 10/14/2024 1:51 PM EDT On total parenteral nutrition TRIGLYCERIDES Routine 10/14/2024 1:51 PM EDT On total parenteral nutrition PHOSPHORUS Routine 10/14/2024 1:51 PM EDT On total parenteral nutrition MAGNESIUM Routine 10/14/2024 1:51 PM EDT On total parenteral nutrition COMPREHENSIVE METABOLIC PANEL Routine 10/14/2024 1:51 PM EDT On total parenteral nutrition CBC AND DIFFERENTIAL Routine 10/14/2024 1:51 PM EDT On total parenteral nutrition CBC WITH AUTO DIFFERENTIAL Routine 10/07/2024 8:07 AM EDT On total parenteral nutrition TRIGLYCERIDES Routine 10/07/2024 8:07 AM EDT On total parenteral nutrition PHOSPHORUS Routine 10/07/2024 8:07 AM EDT On total parenteral nutrition MAGNESIUM Routine 10/07/2024 8:07 AM EDT On total parenteral nutrition COMPREHENSIVE METABOLIC PANEL Routine 10/07/2024 8:07 AM EDT On total parenteral nutrition CBC AND DIFFERENTIAL Routine 10/07/2024 8:07 AM EDT On total parenteral nutrition CBC WITH AUTO DIFFERENTIAL Routine 09/30/2024 3:11 PM EDT On total parenteral nutrition TRIGLYCERIDES Routine 09/30/2024 3:11 PM EDT On total parenteral nutrition PHOSPHORUS Routine 09/30/2024 3:11 PM EDT On total parenteral nutrition MAGNESIUM Routine 09/30/2024 3:11 PM EDT On total parenteral nutrition COMPREHENSIVE METABOLIC PANEL Routine 09/30/2024 3:11 PM EDT On total parenteral nutrition CBC AND DIFFERENTIAL Routine 09/30/2024 3:11 PM EDT On total parenteral nutrition CBC WITH AUTO DIFFERENTIAL Routine 09/22/2024 9:44 AM EDT On total parenteral nutrition VITAMIN B12 AND FOLATE Routine 09/22/2024 9:44 AM EDT Vitamin B12 deficiency (non anemic) TRIGLYCERIDES Routine 09/22/2024 9:44 AM EDT On total parenteral nutrition PHOSPHORUS Routine 09/22/2024 9:44 AM EDT On total parenteral nutrition MAGNESIUM Routine 09/22/2024 9:44 AM EDT On total parenteral nutrition COMPREHENSIVE METABOLIC PANEL Routine 09/22/2024 9:44 AM EDT On total parenteral nutrition CBC AND DIFFERENTIAL Routine 09/22/2024 9:44 AM EDT On total parenteral nutrition from Last 3 Months Results * Continuous EEG (12/14/2024 5:54 PM EDT) Narrative [facility] - 12/14/2024 5:54 PM EDT Sheryl Akins MD 12/15/2024 11:50 AM Long-term Monitoring/ Continuous Video Electroencephalography (LTM) Report Study start date, time: December 14, 2024; 7 AM Study end date, time: December 14, 2024; 3:40 PM Total duration: 8 hours and 41 minutes Clinical Information History: Cece Moyer is a 49 y.o. female with recurrent episode of seizure-like activity Sedation: Antiseizure medication: Medications: No current facility-administered medications for this encounter. Current Outpatient Medications: cyanocobalamin (VITAMIN B-12) 1,000 mcg/mL injection, Inject 1 mL (1,000 mcg total) into the shoulder, thigh, or buttocks See administration instructions. Patient received injection at [facility] every four weeks, Disp: , Rfl: escitalopram (LEXAPRO) 10 mg tablet, Take 1 tablet (10 mg total) by mouth 1 (one) time each day., Disp: 30 each, Rfl: 2 escitalopram (LEXAPRO) 5 mg tablet, Take 1 tablet (5 mg total) by mouth 1 (one) time each day., Disp: , Rfl: nutritional supplements (Osmolite 1.2 [place]) 0.06 gram-1.2 kcal/mL liquid, Take 1,000 mL by mouth 1 (one) time each day., Disp: 86786 mL, Rfl: 11 pantoprazole (PROTONIX) 40 mg EC tablet, Take 1 tablet (40 mg total) by mouth daily. NEEDED, Disp: , Rfl: scopolamine (TRANSDERM-SCOP) 1 mg over 3 days patch 3 day, Apply 1 patch topically every 3rd (third) day., Disp: 10 each, Rfl: 0 sertraline (ZOLOFT) 100 mg tablet, Take 1 tablet (100 mg total) by mouth 1 (one) time each day., Disp: , Rfl: sertraline (ZOLOFT) 50 mg tablet, Take 1 tablet (50 mg total) by mouth 1 (one) time each day., Disp: 30 each, Rfl: 11 Recording Techniques Instrumentation: A digital EEG was performed using the standard international 10-20 electrode placement and single lead EKG electrode with a sampling rate of 200 samples per second/per channel, at impedance levels less than 10 K Ohms. Montages: Standard 10-20 system montages Type of Study: Long-term video EEG monitoring Conditions of Recording: Awake - drowsy - sleep Results Background: The record was well organized. The waking EEG was characterized by a symmetrical, well-formed and modulated 9 Hz posterior dominant rhythm, with medium amplitude (20-70 uV) and reactive to eye opening. The background over the rest of the head consisted of a mixture of alpha and beta frequencies. Sleep: During drowsiness, the alpha rhythm attenuated and diffuse background slowing appeared. Stage 2 sleep was characterized by the appearance of sleep spindles and vertex waves. Focal slowing: There were no focal abnormalities, persistent asymmetries Epileptiform discharges: None Activation Procedures: Hyperventilation was not performed. Photic stimulation was not performed. 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 Normal EEG background Impression This is a normal continuous video EEG recording in the [id number] states. -There were no focal abnormalities, persistent asymmetries, or epileptiform discharges/ seizures. 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 Sheryl Caraballo MD Epileptologist/ Staff Neurologist [facility] us Sebastián Dutta MD NEUROLOGY ORDERABLES Final Resul t [facility] * Continuous EEG (12/14/2024 4:20 PM EDT) Narrative [facility] - 12/14/2024 5:54 PM EDT Sheryl Akins MD 12/15/2024 11:50 AM Long-term Monitoring/ Continuous Video Electroencephalography (LTM) Report Study start date, time: December 14, 2024; 7 AM Study end date, time: December 14, 2024; 3:40 PM Total duration: 8 hours and 41 minutes Clinical Information History: Cece Moyer is a 49 y.o. female with recurrent episode of seizure-like activity Sedation: Antiseizure medication: Medications: No current facility-administered medications for this encounter. Current Outpatient Medications: cyanocobalamin (VITAMIN B-12) 1,000 mcg/mL injection, Inject 1 mL (1,000 mcg total) into the shoulder, thigh, or buttocks See administration instructions. Patient received injection at [facility] every four weeks, Disp: , Rfl: escitalopram (LEXAPRO) 10 mg tablet, Take 1 tablet (10 mg total) by mouth 1 (one) time each day., Disp: 30 each, Rfl: 2 escitalopram (LEXAPRO) 5 mg tablet, Take 1 tablet (5 mg total) by mouth 1 (one) time each day., Disp: , Rfl: nutritional supplements (Osmolite 1.2 [place]) 0.06 gram-1.2 kcal/mL liquid, Take 1,000 mL by mouth 1 (one) time each day., Disp: 54880 mL, Rfl: 11 pantoprazole (PROTONIX) 40 mg EC tablet, Take 1 tablet (40 mg total) by mouth daily. NEEDED, Disp: , Rfl: scopolamine (TRANSDERM-SCOP) 1 mg over 3 days patch 3 day, Apply 1 patch topically every 3rd (third) day., Disp: 10 each, Rfl: 0 sertraline (ZOLOFT) 100 mg tablet, Take 1 tablet (100 mg total) by mouth 1 (one) time each day., Disp: , Rfl: sertraline (ZOLOFT) 50 mg tablet, Take 1 tablet (50 mg total) by mouth 1 (one) time each day., Disp: 30 each, Rfl: 11 Recording Techniques Instrumentation: A digital EEG was performed using the standard international 10-20 electrode placement and single lead EKG electrode with a sampling rate of 200 samples per second/per channel, at impedance levels less than 10 K Ohms. Montages: Standard 10-20 system montages Type of Study: Long-term video EEG monitoring Conditions of Recording: Awake - drowsy - sleep Results Background: The record was well organized. The waking EEG was characterized by a symmetrical, well-formed and modulated 9 Hz posterior dominant rhythm, with medium amplitude (20-70 uV) and reactive to eye opening. The background over the rest of the head consisted of a mixture of alpha and beta frequencies. Sleep: During drowsiness, the alpha rhythm attenuated and diffuse background slowing appeared. Stage 2 sleep was characterized by the appearance of sleep spindles and vertex waves. Focal slowing: There were no focal abnormalities, persistent asymmetries Epileptiform discharges: None Activation Procedures: Hyperventilation was not performed. Photic stimulation was not performed. 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 Normal EEG background Impression This is a normal continuous video EEG recording in the [id number]-[id number] states. -There were no focal abnormalities, persistent asymmetries, or epileptiform discharges/ seizures. 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 Sheryl Caraballo MD Epileptologist/ Staff Neurologist [facility] us Sebastián Dutta MD NEUROLOGY ORDERABLES Final Resul t [facility] * POCT Glucose, blood (12/14/2024 12:51 PM EDT) Only the most recent of38 resultswithin the time period is included. Pathologist [facility] Glucose POCT 84 70 - 199 mg/dL 12/14/2024 12:52 PM EDT [facility] Comment: Fasting Reference Range: 70-99 mg/dL Non-Fasting Reference Range: 70-199 mg/dL Blood Capillary blood specimen / Unknown 12/14/2024 12:51 PM EDT 12/14/2024 12:53 PM EDT us Sebastián Dutta MD LAB POINT OF CARE TE ST DOCKED DEVICE UNSOLICITED RESULTS Final Result Performing Organization Address [facility] de Phone Number [facility] [address] [place] [address], [place] [phone] * (ABNORMAL) Complete blood count (12/14/2024 8:47 AM EDT) Only the most recent of3 resultswithin the time period is included. WBC 7.1 4.0 - 10.5 K/mcL LAB HEMETOLOGY METHOD 12/14/2024 9:36 AM EDT [facility] RBC 4.71 4.20 - 5.40 M/mcL LAB HEMETOLOGY METHOD 12/14/2024 9:36 AM EDT [facility] Hemoglobin 13.7 12.5 - 16.0 g/dL LAB HEMETOLOGY METHOD 12/14/2024 9:36 AM EDT [facility] Hematocrit 41.0 37.0 - 47.0 % LAB HEMETOLOGY METHOD 12/14/2024 9:36 AM EDT [facility] MCV 87.1 78.0 - 100.0 FL LAB HEMETOLOGY METHOD 12/14/2024 9:36 AM EDT [facility] MCH 29.0 25.0 - 33.0 pcg LAB HEMETOLOGY METHOD 12/14/2024 9:36 AM EDT [facility] MCHC 33.3 32.0 - 36.0 g/dL LAB HEMETOLOGY METHOD 12/14/2024 9:36 AM EDT [facility] RDW 18.1(H) 12.1 - 16.2 % LAB HEMETOLOGY METHOD 12/14/2024 9:36 AM EDT [facility] Platelets 234 150 - 450 K/mcL LAB HEMETOLOGY METHOD 12/14/2024 9:36 AM EDT [facility] MPV 7.9 7.4 - 11.4 FL LAB HEMETOLOGY METHOD 12/14/2024 9:36 AM EDT [facility] Blood Venous blood specimen / Unknown Venipuncture / Unknown 12/14/2024 8:47 AM EDT 12/14/2024 9:24 AM EDT us Sebastián Dutta MD LAB BLOOD ORDERABLES Final Resul t [facility] [address] [place] [address], * (ABNORMAL) Basic metabolic panel (12/14/2024 8:47 AM EDT) Only the most recent of4 resultswithin the time period is included. [facility] Sodium 139 135 - 145 mmol/L LAB CHEMISTRY METHOD 12/14/2024 9:58 AM EDT [facility] Potassium 4.3 3.5 - 5.1 mmol/L LAB CHEMISTRY METHOD 12/14/2024 9:58 AM EDT [facility] Chloride 101 98 - 107 mmol/L LAB CHEMISTRY METHOD 12/14/2024 9:58 AM EDT [facility] CO2 28 24 - 32 mmol/L LAB CHEMISTRY METHOD 12/14/2024 9:58 AM EDT [facility] Anion Gap 10 5 - 14 LAB CHEMISTRY METHOD 12/14/2024 9:58 AM EDT [facility] Glucose 81 70 - 199 mg/dL LAB CHEMISTRY METHOD 12/14/2024 9:58 AM EDT [facility] BUN 9 7 - 17 mg/dL LAB CHEMISTRY METHOD 12/14/2024 9:58 AM EDT [facility] Creatinine 0.40(L) 0.50 - 1.00 mg/dL LAB CHEMISTRY METHOD 12/14/2024 9:58 AM EDT [facility] eGFR 123 >=60 mL/min/1. 73m2 LAB CHEMISTRY METHOD 12/14/2024 9:58 AM EDT [facility] Comment:Calculation based on the Chronic Kidney Disease Epidemiology Collaboration (CKD-EPI) equation refit without adjustment for race. BUN/Creatinine Ratio 22.5(H) 12.0 - 20.0 LAB CHEMISTRY METHOD 12/14/2024 9:58 AM EDT [facility] Calcium 9.0 8.4 - 10.2 mg/dL LAB CHEMISTRY METHOD 12/14/2024 9:58 AM EDT [facility] Blood Venous blood specimen / Unknown Venipuncture / Unknown 12/14/2024 8:47 AM EDT 12/14/2024 9:24 AM EDT Sebastián Dutta MD LAB BLOOD ORDERABLES Final Resul t [facility] [address] [place] [address], [place] [phone] * Continuous EEG (12/14/2024 6:03 AM EDT) Narrative [facility] - 12/14/2024 9:24 AM EDT Sheryl Akins MD 12/14/2024 11:11 AM Long-term Monitoring/ Continuous Video Electroencephalography (LTM) Report Study start date, time: December 13, 2024; 11:27 AM Study end date, time: December 14, 2024; 7 AM Total duration: 19 hours Clinical Information History: Cece Moyer is a 49 y.o. female with recurrent episode of seizure-like activity Sedation: Antiseizure medication: Medications: Current Facility-Administered Medications: acetaminophen (TYLENOL) tablet 650 mg, 650 mg, j-tube, q6h PRN, Reji Nicole MD enoxaparin (LOVENOX) injection 40 mg, 40 mg, subcutaneous, q24h YOLANDA, Ever Boucher MD [Held by provider] escitalopram (LEXAPRO) tablet 5 mg, 5 mg, oral, Daily, Ever Boucher MD pantoprazole (PROTONIX) EC tablet 40 mg, 40 mg, oral, q AM AC, Ever Boucher MD [Held by provider] scopolamine (TRANSDERM-SCOP) patch 1 patch, 1 patch, Topical, q72h, Ever Boucher MD [Held by provider] sertraline (ZOLOFT) tablet 100 mg, 100 mg, oral, Daily, Ever Boucher MD Recording Techniques Instrumentation: A digital EEG was performed using the standard international 10-20 electrode placement and single lead EKG electrode with a sampling rate of 200 samples per second/per channel, at impedance levels less than 10 K Ohms. Montages: Standard 10-20 system montages Type of Study: Long-term video EEG monitoring Conditions of Recording: Awake - drowsy - sleep Results Background: The record was well organized. The waking EEG was characterized by a symmetrical, well-formed and modulated 9 Hz posterior dominant rhythm, with medium amplitude (20-70 uV) and reactive to eye opening. The background over the rest of the head consisted of a mixture of alpha and beta frequencies. Sleep: During drowsiness, the alpha rhythm attenuated and diffuse background slowing appeared. Stage 2 sleep was characterized by the appearance of sleep spindles and vertex waves. Focal slowing: There were no focal abnormalities, persistent asymmetries Epileptiform discharges: None Activation Procedures: Hyperventilation was not performed. Photic stimulation was not performed. Clinical events: None reported Classification of the findings: 1. Normal Impression This is a normal continuous EEG recording in the [id number] states. There were no focal abnormalities, persistent asymmetries, or epileptiform discharges/ seizures. -Patient had a brief episode at the very beginning of the EEG set up on 12/13/2024 at 11:59 AM: Unresponsive, shaking and stiffening: No EEG correlation seen during this episode Sheryl Caraballo MD Epileptologist/ Staff Neurologist [facility] Sebastián Dutta MD NEUROLOGY ORDERABLES Final Resul t Performing Organization Address [facility] Co de Phone Number NATUS * Lactate, with reflex (12/13/2024 4:14 AM EDT) LACTIC ACID 1.6 0.5 - 2.2 mmol/L LAB BLOOD GAS METHOD 12/13/2024 4:35 AM EDT [facility] Blood Venous blood specimen / Unknown Venipuncture / Unknown 12/13/2024 4:14 AM EDT 12/13/2024 4:32 AM EDT Adriel Bethea MD LAB BLOOD ORDERABLES Final Resul t Performing Organization Address [facility] Co de Phone Number [facility] [address] [place] [address], [place] [phone] * (ABNORMAL) Prolactin (12/13/2024 4:14 AM EDT) Prolactin 64.10(H) 3.30 - 26.70 ng/mL LAB CHEMISTRY METHOD 12/13/2024 5:26 AM EDT [facility] Blood Venous blood specimen / Unknown Venipuncture / Unknown 12/13/2024 4:14 AM EDT 12/13/2024 4:32 AM EDT us Adriel Bethea MD LAB BLOOD ORDERABLES Final Resul t [facility] [address] [place] [address], [place] [phone] * (ABNORMAL) Comprehensive metabolic panel (12/13/2024 4:14 AM EDT) Only the most recent of14 resultswithin the time period is included. Sodium 137 135 - 145 mmol/L LAB CHEMISTRY METHOD 12/13/2024 5:11 AM EDT [facility] Potassium 4.3 3.5 - 5.1 mmol/L LAB CHEMISTRY METHOD 12/13/2024 5:11 AM EDT [facility] Chloride 106 98 - 107 mmol/L LAB CHEMISTRY METHOD 12/13/2024 5:11 AM EDT [facility] CO2 25 24 - 32 mmol/L LAB CHEMISTRY METHOD 12/13/2024 5:11 AM EDT [facility] Anion Gap 6 5 - 14 LAB CHEMISTRY METHOD 12/13/2024 5:11 AM EDT [facility] Glucose 84 70 - 199 mg/dL LAB CHEMISTRY METHOD 12/13/2024 5:11 AM EDT [facility] BUN 11 7 - 17 mg/dL LAB CHEMISTRY METHOD 12/13/2024 5:11 AM EDT [facility] Creatinine 0.50 0.50 - 1.00 mg/dL LAB CHEMISTRY METHOD 12/13/2024 5:11 AM EDT [facility] eGFR 117 >=60 mL/min/1. 73m2 LAB CHEMISTRY METHOD 12/13/2024 5:11 AM EDT [facility] Comment:Calculation based on the Chronic Kidney Disease Epidemiology Collaboration (CKD-EPI) equation refit without adjustment for race. BUN/Creatinine Ratio 22.0(H) 12.0 - 20.0 LAB CHEMISTRY METHOD 12/13/2024 5:11 AM EDT [facility] Calcium 8.7 8.4 - 10.2 mg/dL LAB CHEMISTRY METHOD 12/13/2024 5:11 AM EDT [facility] AST (SGOT) 22 5 - 40 unit/L LAB CHEMISTRY METHOD 12/13/2024 5:11 AM EDT [facility] ALT (SGPT) 14 7 - 52 unit/L LAB CHEMISTRY METHOD 12/13/2024 5:11 AM EDT [facility] Alkaline Phosphatase 94 34 - 104 unit/L LAB CHEMISTRY METHOD 12/13/2024 5:11 AM EDT [facility] Total Protein 7.1 6.4 - 8.5 g/dL LAB CHEMISTRY METHOD 12/13/2024 5:11 AM EDT [facility] Albumin 3.7 3.5 - 5.0 g/dL LAB CHEMISTRY METHOD 12/13/2024 5:11 AM EDT [facility] Total Bilirubin 0.4 0.3 - 1.0 mg/dL LAB CHEMISTRY METHOD 12/13/2024 5:11 AM EDT [facility] Blood Venous blood specimen / Unknown Venipuncture / Unknown 12/13/2024 4:14 AM EDT 12/13/2024 4:32 AM EDT us Adriel Bethea MD LAB BLOOD ORDERABLES Final Resul t [facility] [address] [place] [address], [place] [phone] * (ABNORMAL) CBC auto differential (12/08/2024 2:19 PM EDT) Only the most recent of15 resultswithin the time period is included. WBC 9.1 4.8 - 10.8 K/mcL LAB HEMETOLOGY METHOD 12/08/2024 6:[address] [facility] RBC 4.90(H) 3.80 - 4.80 M/mcL LAB HEMETOLOGY METHOD 12/08/2024 6:[address] [facility] Hemoglobin 13.9 11.5 - 16.0 g/dL LAB HEMETOLOGY METHOD 12/08/2024 6:[address] [facility] Hematocrit 43.2 35.0 - 47.0 % LAB HEMETOLOGY METHOD 12/08/2024 6:[address] [facility] MCV 88.7 79.0 - 98.0 FL LAB HEMETOLOGY METHOD 12/08/2024 6:[address] [facility] MCH 28.5 27.0 - 32.0 pcg LAB HEMETOLOGY METHOD 12/08/2024 6:[address] [facility] MCHC 32.2 32.0 - 37.0 g/dL LAB HEMETOLOGY METHOD 12/08/2024 6:[address] [facility] RDW 17.6(H) 11.0 - 15.0 % LAB HEMETOLOGY METHOD 12/08/2024 6:[address] [facility] Platelets 334 130 - 400 K/mcL LAB HEMETOLOGY METHOD 12/08/2024 6:[address] [facility] MPV 10.2 7.0 - 11.0 FL LAB HEMETOLOGY METHOD 12/08/2024 6:[address] [facility] NRBC 0.0 <1.0 % LAB HEMETOLOGY METHOD 12/08/2024 6:[address] [facility] NRBC Absolute 0.00 <0.10 K/mcL LAB HEMETOLOGY METHOD 12/08/2024 6:[address] [facility] Neutrophils Relative 66.5 % LAB HEMETOLOGY METHOD 12/08/2024 6:[address] [facility] Lymphocytes Relative 23.2 % LAB HEMETOLOGY METHOD 12/08/2024 6:[address] [facility] Monocytes Relative 6.3 % LAB HEMETOLOGY METHOD 12/08/2024 6:[address] [facility] Eosinophils Relative 3.3 % LAB HEMETOLOGY METHOD 12/08/2024 6:[address] [facility] Basophils Relative 0.3 % LAB [facility]OLOG[facility] Immature Granulocytes Relative 0.4 % LAB HEMETOLOGY METHOD 12/08/2024 6:20 PM [facility] Neutrophils Absolute 6.02 1.50 - 7.00 K/mcL LAB HEMETOLOGY METHOD 12/08/2024 6:20 PM [facility] Lymphocytes Absolute 2.10 1.00 - 5.00 K/mcL LAB HEMETOLOGY METHOD 12/08/2024 6:20 PM [facility] Monocytes Absolute 0.57 0.20 - 1.00 K/mcL LAB [facility]EMETOLOGY METHOD [facility]08[facility]2024 [facility] Eosinophils Absolute 0.30 0.00 - 0.50 K/mcL LAB HEMETOLOGY METHOD 12/08/2024 6:20 PM [facility] Basophils Absolute 0.03 0.00 - 0.20 K/mcL LAB HEMETOLOGY METHOD 12/08/2024 6:20 PM [facility] Immature Granulocytes Absolute 0.04(H) 0.00 - 0.03 K/mcL LAB HEMETOLOGY METHOD 12/08/2024 6:20 PM [facility] Blood Venous blood specimen / Unknown Venipuncture / Unknown 12/08/2024 2:19 PM EDT 12/08/2024 2:19 PM EDT us Nga Mukherjee MD LAB BLOOD ORDERABLES Fi nal Result [facility] [address] [place] [address], [place] [phone] * (ABNORMAL) Triglycerides (12/08/2024 2:19 PM EDT) Only the most recent of10 resultswithin the time period is included. Triglycerides 215(H) 0 - 150 mg/dL LAB CHEMISTRY METHOD 12/08/2024 6:[address] [facility] Blood Venous blood specimen / Unknown Venipuncture / Unknown 12/08/2024 2:19 PM EDT 12/08/2024 2:19 PM EDT us Nga Mukherjee MD LAB BLOOD ORDERABLES Fi nal Result Performing Organization Address City/[facility]/ZIP Co de Phone Number [facility] [address] [place] [address], [place] [phone] * Phosphorus (12/08/2024 2:19 PM EDT) Only the most recent of14 resultswithin the time period is included. Phosphorus 3.8 2.5 - 4.5 mg/dL LAB CHEMISTRY METHOD 12/08/2024 6:[address] [facility] Blood Venous blood specimen / Unknown Venipuncture / Unknown 12/08/2024 2:19 PM EDT 12/08/2024 2:19 PM EDT us Nga Mukherjee MD LAB BLOOD ORDERABLES Fi nal Result [facility] [address] [place] [address], [place] [phone] * Magnesium (12/08/2024 2:19 PM EDT) Only the most recent of15 resultswithin the time period is included. Pathologist [facility] Magnesium 2.2 1.9 - 2.6 mg/dL LAB CHEMISTRY METHOD 12/08/2024 6:[address] [facility] Blood Venous blood specimen / Unknown Venipuncture / Unknown 12/08/2024 2:19 PM EDT 12/08/2024 2:19 PM EDT us Nga Mukherjee MD LAB BLOOD ORDERABLES Fi nal Result [facility] [address] [place] [address], [place] [phone] * (ABNORMAL) Urinalysis with reflex microscopic (11/19/2024 8:12 AM EDT) [facility] [place] Urine >1.045(H) 1.003 - 1.030 LAB URINALYSIS - AUTOMATED METHOD 11/19/2024 8:51 AM [facility] pH, Urine 6.5 5.0 - 8.0 pH LAB URINALYSIS - AUTOMATED METHOD 11/19/2024 8:51 AM [facility] Leukocytes, Urine Negative Negative LAB URINALYSIS - AUTOMATED METHOD 11/19/2024 8:51 AM [facility] Nitrite, Urine Negative Negative LAB URINALYSIS - AUTOMATED METHOD 11/19/2024 8:51 AM [facility] Protein, Urine Negative <=Trace mg/dL LAB URINALYSIS - AUTOMATED METHOD 11/19/2024 8:51 AM [facility] Glucose, Urine Negative Negative mg/dL LAB URINALYSIS - AUTOMATED METHOD 11/19/2024 8:51 AM [facility] Ketones, Urine Negative Negative mg/dL LAB URINALYSIS - AUTOMATED METHOD 11/19/2024 8:51 AM [facility] Urobilinogen , Urine 1.0 0.2 - 1.0 mg/dL LAB URINALYSIS - AUTOMATED METHOD 11/19/2024 8:[address] [facility] Bilirubin, Urine Negative Negative LAB URINALYSIS - AUTOMATED METHOD 11/19/2024 8:[address] [facility] Blood, Urine Negative Negative LAB URINALYSIS - AUTOMATED METHOD 11/19/2024 8:[address] [facility] Urine Urine specimen obtained by clean catch procedure / Unknown Non-blood Collection / Unknown 11/19/2024 8:12 AM EDT 11/19/2024 8:48 AM EDT us Opal PETTY LAB URINE ORDERABLES Fin al Result [facility] [address] [place] [address], [place] [phone] * CT Abdomen Pelvis w Contrast (11/19/2024 5:44 AM EDT) Only the most recent of2 resultswithin the time period is included. Anatomical Region Laterality Modality Body Computed Tomogra phy 11/19/2024 7:19 AM EDT Impressions 11/19/2024 7:19 AM EDT Mildly distended loops of small bowel in the left upper quadrant that could reflect enteritis or other nonspecific ileus. Some nodular densities in the anterior subcutaneous tissues that could be related to injections, but small neoplasms can not be excluded. Clinical correlation is recommended. Status post cholecystectomy. Periportal edema versus intrahepatic biliary ductal dilatation, similar to prior exams. See findings section of report. This document has been electronically signed by: Rhys Roca MD on 11/19/2024 07:19:15 Narrative 11/19/2024 7:19 AM EDT INDICATION: Abdominal pain, acute, nonlocalized CT abdomen and pelvis with contrast Comparison: CT - CT ABD PEL W CONTRAST - 09/17/24 22:51 EDT Findings: No acute findings in the visualized lung bases. Cholecystectomy clips. Periportal edema versus intrahepatic biliary ductal dilatation, similar to the prior CT. No acute findings in the spleen, pancreas or adrenal glands. No hydronephrosis. The urinary bladder is unremarkable. Oral contrast extends to the rectum. Mildly distended loops of small bowel in the left upper quadrant. There are anastomotic sutures in this region. Anastomotic sutures are also seen about the stomach.. A small bowel feeding tube into there is from the left abdomen. There is some stranding about the subcutaneous tract but no fluid collection seen. There is curvilinear density in the right lower quadrant/pelvis anterior wall subcutaneous tissues, possibly from old feeding tube site. No drainable fluid collections at this location. Scattered nodular densities in the subcutaneous tissues. For example on the anterior left on image 132/213, a nodular density measures 1.7 cm. No free fluid in the pelvis. No acute bony findings. Procedure Note Rhys Roca - 11/19/2024 INDICATION: Abdominal pain, acute, nonlocalized CT abdomen and pelvis with contrast Comparison: CT - CT ABD PEL W CONTRAST - 09/17/24 22:51 EDT Findings: No acute findings in the visualized lung bases. Cholecystectomy clips. Periportal edema versus intrahepatic biliary ductal dilatation, similarto the prior CT. No acute findings in the spleen, pancreas or adrenalglands. No hydronephrosis. The urinary bladder is unremarkable. Oral contrast extends to the rectum. Mildly distended loops of smallbowel in the left upper quadrant. There are anastomotic sutures in thisregion. Anastomotic sutures are also seen about the stomach.. A small bowel feeding tube into there is from the left abdomen. There is somestranding about the subcutaneous tract but no fluid collection seen. There is curvilinear density in the right lower quadrant/pelvis anterior wall subcutaneous tissues, possibly from old feeding tube site. No drainable fluid collections at this location. Scattered nodular densities in the subcutaneous tissues. For example on the anterior left on image 132/213,a nodular density measures 1.7 cm. No free fluid in the pelvis. No acute bony findings. IMPRESSION: Mildly distended loops of small bowel in the left upper quadrant that could reflect enteritis or other nonspecific ileus. Some nodular densities in the anterior subcutaneous tissues that couldbe related to injections, but small neoplasms can not be excluded. Clinical correlation is recommended. Status post cholecystectomy. Periportal edema versus intrahepaticbiliary ductal dilatation, similar to prior exams. See findings section of report. This document has been electronically signed by: Rhys Roca MD on 11/19/2024 07:19:[address] PROCEDURES Final Result * hCG, serum, qualitative (11/19/2024 3:56 AM EDT) Only the most recent of2 resultswithin the time period is included. hCG Qual Negative Negative 11/19/2024 5:[address] [facility] Blood Venous blood specimen / Unknown Venipuncture / Unknown 11/19/2024 3:56 AM EDT 11/19/2024 4:09 AM EDT Opal PETTY LAB BLOOD ORDERABLES Fin al Result Performing Organization Address City/[facility]/ZIP Co de Phone Number [facility] [address] [place] [address], [place] [phone] * Lipase (11/19/2024 3:56 AM EDT) Only the most recent of2 resultswithin the time period is included. Pathologist [facility] Lipase 25 13 - 75 unit/L LAB CHEMISTRY METHOD 11/19/2024 5:[address] [facility] Blood Venous blood specimen / Unknown Venipuncture / Unknown 11/19/2024 3:56 AM EDT 11/19/2024 4:09 AM EDT Opal PETTY LAB BLOOD ORDERABLES Fin al Result Performing Organization Address City/[facility]/ZIP Co de Phone Number [facility] [address] [place] [address], [place] [phone] * IR Inj Contrast Eval Ostomy Tube Perc (11/18/2024 8:25 AM EDT) Anatomical Region Laterality Modality N/A Interventional R adiology 11/18/2024 9:21 AM EDT Impressions 11/18/2024 9:25 AM EDT Well-positioned and functioning surgically placed jejunostomy tube. There is no fluoroscopic indication for catheter exchange at this time. I would recommend routine replacement of the tube in 3-4 months. -------- FINAL REPORT -------- Dictated By: Cameron Reyez Dictated Date: 11/18/2024 09:21 ET Assigned Physician: Cameron Reyez Reviewed and Electronically Signed By: Cameron Reyez Signed Date: 11/18/2024 09:25 ET Workstation ID: [id number] Transcribed By: Self Edit Transcribed Date: 11/18/2024 09:21 ET Narrative 11/18/2024 9:25 AM EDT Jejunostomy tube check INDICATION: Patient had a jejunostomy tube placed 4 weeks ago by surgery. Patient complains of pain during feeds. CT scan demonstrated the presence of a possibly incidental intussusception. Patient placed supine on the imaging table. An initial zipper setter lockstitch image was obtained. Subsequently slow injection of 50 mL of dilute contrast was instilled followed by 20 mL of sterile saline. The tubing is intact. Injection through the tubing was performed without resistance or difficulty. Antegrade and retrograde flow through the jejunal loop identified majority moving in antegrade fashion. There is no holdup of contrast. There is no stenosis. There is no evidence of intraluminal filling defects other than the retention balloon. No extraluminal contrast identified. Of additional note, the patient experienced no discomfort during contrast injection. Approximately 5 minutes after the the procedure while getting off the imaging table, she did complain of which she described as her typical cramping pain. Procedure Note Cameron Reyez MD - 11/18/2024 Jejunostomy tube check INDICATION: Patient had a jejunostomy tube placed 4 weeks ago by surgery.Patient complains of pain during feeds. CT scan demonstrated the presenceof a possibly incidental intussusception. Patient placed supine on the imaging table. An initial zipper setter lockstitch image wasobtained. Subsequently slow injection of 50 mL of dilute contrast wasinstilled followed by 20 mL of sterile saline. The tubing is intact. Injection through the tubing was performed without resistance ordifficulty. Antegrade and retrograde flow through the jejunal loopidentified majority moving in antegrade fashion. There is no holdup ofcontrast. There is no stenosis. There is no evidence of intraluminalfilling defects other than the retention balloon. No extraluminalcontrast identified. Of additional note, the patient experienced nodiscomfort during contrast injection. Approximately 5 minutes after thethe procedure while getting off the imaging table, she did complain ofwhich she described as her typical cramping pain. IMPRESSION: Well-positioned and functioning surgically placed jejunostomy tube. Thereis no fluoroscopic indication for catheter exchange at this time. I wouldrecommend routine replacement of the tube in 3-4 months. -------- FINAL REPORT -------- Dictated By: Cameron Reyez Dictated Date: 11/18/2024 09:21 ET Assigned Physician: Cameron Reyez Reviewed and Electronically Signed By: Cameron Reyez Signed Date: 11/18/2024 09:25 ET Workstation ID: [id number] Transcribed By: Self Edit Transcribed Date: 11/18/2024 09:21 ET Nga Mukherjee MD IMG IR PROCEDURES Final Result * XR Abdomen 1 View (11/13/2024 10:16 AM EDT) Anatomical Region Laterality Modality Body Radiographic Eliza ging 11/13/2024 10:5 4 AM EDT Impressions 11/13/2024 10:55 AM EDT Contrast opacifies small bowel. No definite extraluminal contrast -------- FINAL REPORT -------- Dictated By: Sebastian Randall Dictated Date: 11/13/2024 10:54 ET Assigned Physician: Sebastian Randall Reviewed and Electronically Signed By: Sebastian Randall Signed Date: 11/13/2024 10:55 ET Workstation ID: [id number] Transcribed By: Self Edit Transcribed Date: 11/13/2024 10:54 ET Narrative 11/13/2024 10:55 AM EDT EXAMINATION: ABDOMEN CLINICAL INFORMATION: J-tube check COMPARISON: None. TECHNIQUE: Portable frontal view of the abdomen prior to contrast administration Portable frontal view of the abdomen following administration of 50 mL of contrast via a jejunostomy tube FINDINGS: There are surgical clips in the right upper quadrant. There are sutures in the left upper quadrant. Metallic densities obscures some of the spine. There is a 2 entering the left midabdomen and terminating in the right midabdomen. Gas within loops of small and large bowel at the level of the rectum. After contrast administration there is visualization of contrast within folds of the jejunum. On the single view submitted there is no definite extraluminal contrast Procedure Note Sebastian Randall MD - 11/13/2024 EXAMINATION: ABDOMEN CLINICAL INFORMATION: J-tube check COMPARISON: None. TECHNIQUE: Portable frontal view of the abdomen prior to contrast administration Portable frontal view of the abdomen following administration of 50 mL ofcontrast via a jejunostomy tube FINDINGS: There are surgical clips in the right upper quadrant. There are sutures inthe left upper quadrant. Metallic densities obscures some of the spine.There is a 2 entering the left midabdomen and terminating in the rightmidabdomen. Gas within loops of small and large bowel at the level of the rectum. After contrast administration there is visualization of contrast withinfolds of the jejunum. On the single view submitted there is no definiteextraluminal contrast IMPRESSION: Contrast opacifies small bowel. No definite extraluminal contrast -------- FINAL REPORT -------- Dictated By: Sebastian Randall Dictated Date: 11/13/2024 10:54 ET Assigned Physician: Sebastian Randall Reviewed and Electronically Signed By: Sebastian Randall Signed Date: 11/13/2024 10:55 ET Workstation ID: [id number] Transcribed By: Self Edit Transcribed Date: 11/13/2024 10:54 ET Adolfo PETTY IMG XR PROCEDURES Final R esult * POC , urine manually resulted (11/13/2024 9:48 AM EDT) HCG, Ur POC Negative Negative POC hCG Int QC Pass? Yes Yes Urine Urine specimen obtained by clean catch procedure / Unknown 11/13/2024 9:48 AM EDT Adolfo PETTY POINT OF CARE TEST ENTER/ EDIT ORDERABLES Final Result * Iron and TIBC (11/03/2024 2:47 PM EDT) Only the most recent of2 resultswithin the time period is included. Iron 53 40 - 150 mcg/dL LAB CHEMISTRY METHOD 11/03/2024 7:[address] [facility] TIBC 319 250 - 450 mcg/dL LAB CHEMISTRY METHOD 11/03/2024 7:[address] [facility] Iron Saturation 17 15 - 50 % LAB CHEMISTRY METHOD 11/03/2024 7:[address] [facility] Blood Venous blood specimen / Unknown Venipuncture / Unknown 11/03/2024 2:47 PM EDT 11/03/2024 2:47 PM EDT Nga Mukherjee MD LAB BLOOD ORDERABLES nal Result [facility] [address] [place] [address], [place] [phone] * Copper, serum (11/03/2024 2:47 PM EDT) Copper 1677 810 - 1990 ug/L 11/08/2024 8:37 AM EDT [facility] Comment: Copper values may be elevated to twice the normal levels in . Elevated results may be due to sample collected in a non-certified trace element-free tube. This test was developed and the performance characteristics determined by [facility]. It has not been cleared or approved by the FDA. The laboratory is regulated under CLIA as qualified to perform high-complexity testing. This test is used for patient testing purposes. It should not be regarded as investigational or for research. Test performed at [facility], [address] , [place] [address] Minal Frederick MD, PhD - Programming Instructor Blood Venous blood specimen / Unknown Venipuncture / Unknown 11/03/2024 2:47 PM EDT 11/03/2024 2:47 PM EDT us Nga Mukherjee MD LAB BLOOD ORDERABLES Fi nal Result Performing Organization Address [facility] Co de Phone Number [facility] [address] [place] [address] * (ABNORMAL) Zinc (11/03/2024 2:47 PM EDT) Zinc 41(L) 60 - 130 ug/dL 11/07/2024 1:15 PM EDT [facility] Comment: Elevated results may be due to sample collected in a non-certified trace element-free tube. This test was developed and the performance characteristics determined by [facility]. It has not been cleared or approved by the FDA. The laboratory is regulated under CLIA as qualified to perform high-complexity testing. This test is used for patient testing purposes. It should not be regarded as investigational or for research. Test performed at [facility], [address], [place] [address] Minal Frederick MD, PhD - Programming Instructor Blood Venous blood specimen / Unknown Venipuncture / Unknown 11/03/2024 2:47 PM EDT 11/03/2024 2:47 PM EDT us Nga Mukherjee MD LAB BLOOD ORDERABLES Fi nal Result Performing Organization Address [facility] Co de Phone Number [facility] [address] [place] [address] * Vitamin A (11/03/2024 2:47 PM EDT) Vitamin A 60 38 - 106 ug/dL 11/08/2024 6:[address] [facility] Comment: This test was developed and the performance characteristics determined by [facility]. It has not been cleared or approved by the FDA. The laboratory is regulated under CLIA as qualified to perform high-complexity testing. This test is used for patient testing purposes. It should not be regarded as investigational or for research. Test performed at [facility], [address], [place] [address] Minal Frederick MD, PhD - Programming Instructor Blood Venous blood specimen / Unknown Venipuncture / Unknown 11/03/2024 2:47 PM EDT 11/03/2024 2:47 PM EDT Nga Mukherjee MD LAB BLOOD ORDERABLES Fi nal Result Performing Organization Address [facility] Co de Phone Number [facility] [address] [place] [address] * Selenium serum (11/03/2024 2:47 PM EDT) [facility] Selenium 92 63 - 160 mcg/L 11/09/2024 3:32 PM EDT [facility] Comment: Testing was performed on a specimen submitted in a tube which has not been certified to be free of trace elements. Repeat testing on a specimen collected in a trace element tube is recommended prior to initiation of remedial action or environmental investigation of potential heavy metal sources. Refer to the [employer] Directory of Services for proper specimen collection information. This test was developed and its analytical performance characteristics have been determined by [employer] [place], [place]. It has not been cleared or approved by the U.S. Food and Drug Administration. This assay has been validated pursuant to the CLIA regulations and is used for clinical purposes. Test Performed by [facility], [employer] [facility], [address] [place] [address] Dino Trujillo M.D., Ph.D., Director of Laboratories , CLIA [id number] Blood Venous blood specimen / Unknown Venipuncture / Unknown 11/03/2024 2:47 PM EDT 11/03/2024 2:47 PM EDT us Nga Mukherjee MD LAB BLOOD ORDERABLES Fi nal Result Performing Organization Address [facility]/ZIP Co de Phone Number [facility] [address] [place] [address] * Vitamin D 25 hydroxy (11/03/2024 2:47 PM EDT) [facility] Vit D, 25-Hydroxy 33.1 30.0 - 80.0 ng/mL LAB CHEMISTRY METHOD 11/03/2024 7:[address] [facility] Blood Venous blood specimen / Unknown Venipuncture / Unknown 11/03/2024 2:47 PM EDT 11/03/2024 2:47 PM EDT us Nga Mukherjee MD LAB BLOOD ORDERABLES Fi nal Result [facility] [address] [place] [address], [place] [phone] * Vitamin B1 (11/03/2024 2:47 PM EDT) [facility] Vitamin B1 Whole Blood 101 38 - 122 ug/L 11/09/2024 7:58 AM EDT [facility] Comment: This test was developed and the performance characteristics determined by [facility]. It has not been cleared or approved by the FDA. The laboratory is regulated under CLIA as qualified to perform high-complexity testing. This test is used for patient testing purposes. It should not be regarded as investigational or for research. Test performed at [facility], [address] , [place] [address] Minal Frederick MD, PhD - Programming Instructor Blood Venous blood specimen / Unknown Venipuncture / Unknown 11/03/2024 2:47 PM EDT 11/03/2024 2:47 PM EDT us Nga Mukherjee MD LAB BLOOD ORDERABLES Fi nal Result [facility] [address] [place] [address] * Vitamin B6 (11/03/2024 2:47 PM EDT) [facility] Vitamin B6 (Pyridoxine) Level 8 5 - 50 ug/L 11/09/2024 12:[address] [facility] Comment: This test was developed and the performance characteristics determined by [facility]. It has not been cleared or approved by the FDA. The laboratory is regulated under CLIA as qualified to perform high-complexity testing. This test is used for patient testing purposes. It should not be regarded as investigational or for research. Test performed at [facility], [address] , [place] [address] Minal Frederick MD, PhD - Programming Instructor Blood Venous blood specimen / Unknown Venipuncture / Unknown 11/03/2024 2:47 PM EDT 11/03/2024 2:47 PM EDT us Nga Mukherjee MD LAB BLOOD ORDERABLES Fi nal Result [facility] [address] [place] [address] * Vitamin B12 (11/03/2024 2:47 PM EDT) [facility] Vitamin B-12 694 250 - 900 pcg/mL LAB CHEMISTRY METHOD 11/03/2024 7:[address] [facility] Blood Venous blood specimen / Unknown Venipuncture / Unknown 11/03/2024 2:47 PM EDT 11/03/2024 2:47 PM EDT us Nga Mukherjee MD LAB BLOOD ORDERABLES Fi nal Result [facility] [address] [place] [address], * (ABNORMAL) Folate (10/25/2024 5:46 AM EDT) [facility] Folate >20.0(H) 2.8 - 17.0 ng/ml LAB CHEMISTRY METHOD 10/25/2024 9:[address] [facility] Blood Venous blood specimen / Unknown Venipuncture / Unknown 10/25/2024 5:46 AM EDT 10/25/2024 6:29 AM EDT Dominique PETTY LAB BLOOD ORDERABLES Final R esult Performing Organization Address [facility]/ZIP Co de Phone Number [facility] [address] [place] [address], [place] [phone] * (ABNORMAL) Ferritin (10/25/2024 5:46 AM EDT) [facility] Ferritin 580(H) 8 - 252 ng/mL LAB CHEMISTRY METHOD 10/25/2024 2:[address] [facility] Comment:Results verified by repeat testing Blood Venous blood specimen / Unknown Venipuncture / Unknown 10/25/2024 5:46 AM EDT 10/25/2024 6:29 AM EDT Terra PETTY LAB BLOOD ORDERABLES Final Res ult Performing Organization Address [facility] de Phone Number [facility] [address] [place] [address], [place] [phone] * (ABNORMAL) Hepatic function panel (10/25/2024 5:46 AM EDT) Only the most recent of3 resultswithin the time period is included. Pathologist [facility] Total Protein 6.4 6.0 - 8.0 g/dL LAB CHEMISTRY METHOD 10/25/2024 7:[address] [facility] Albumin 2.8(L) 3.2 - 5.0 g/dL LAB CHEMISTRY METHOD 10/25/2024 7:[address] [facility] Total Bilirubin 0.5 0.0 - 1.4 mg/dL LAB CHEMISTRY METHOD 10/25/2024 7:[address] [facility] Bilirubin, Direct 0.3 0.0 - 0.3 mg/dL LAB CHEMISTRY METHOD 10/25/2024 7:[address] [facility] Bilirubin, Indirect 0.2 0.0 - 1.1 mg/dL LAB CHEMISTRY METHOD 10/25/2024 7:[address] [facility] ALT (SGPT) 232(H) 10 - 60 unit/L LAB CHEMISTRY METHOD 10/25/2024 7:[address] [facility] AST (SGOT) 105(H) 10 - 42 unit/L LAB CHEMISTRY METHOD 10/25/2024 7:[address] [facility] Alkaline Phosphatase 268(H) 42 - 121 unit/L LAB CHEMISTRY METHOD 10/25/2024 7:[address] [facility] Blood Venous blood specimen / Unknown Venipuncture / Unknown 10/25/2024 5:46 AM EDT 10/25/2024 6:29 AM EDT Clau PETTY LAB BLOOD ORDERABLES Final Res ult [facility] [address] [place] [address], [place] [phone] * Calcium, ionized (if available) (10/23/2024 6:36 AM EDT) Calcium Ionized 4.61 4.50 - 5.30 mg/dL 10/23/2024 8:[address] [facility] Blood Venous blood specimen / Unknown Venipuncture / Unknown 10/23/2024 6:36 AM EDT 10/23/2024 8:11 AM EDT Terra PETTY LAB BLOOD ORDERABLES Final Re sult [facility] [address] [place] [address], [place] [phone] * TH AN ENDOTRACHEAL(NO CHARGE) (10/21/2024 1:01 PM EDT) Narrative Alvaro Shafer CRNA - 10/21/2024 1:01 PM EDT Alvaro Shafer CRNA 10/21/2024 1:02 PM General Information and Staff Patient location during procedure: OR Performed by: Alvaro Shafer CRNA Authorized by: Terrie Caldwell MD Intubation Airway not difficult Urgency: elective Final Airway Details Successful airway: ETT Cuffed: yes Successful intubation technique: direct laryngoscopy Facilitating devices/methods: intubating stylet Endotracheal tube insertion site: oral Blade: Eron Blade size: #3 ETT size (mm): 7.0 Cormack-Lehane Classification: grade IIa - partial view of glottis Placement verified by: chest auscultation, capnometry and palpation of cuff Measured from: lips ETT to lips (cm): 21 Number of attempts at approach: 1 Ventilation between attempts: none Number of other approaches attempted: 0Final airway type: endotracheal airway Indications and Patient Condition Indications for airway management: anesthesia Spontaneous ventilation: present Sedation level: Yes Preoxygenated: yes Soft Tissue Damage: No Dentition Unchanged: Yes Patient position: neutral MILS maintained throughout Mask difficulty assessment: 0 - not attempted Start Time: 10/21/2024 12:26 PMStop Time: 10/21/2024 12:26 PM us Terrie Caldwell MD ANESTHESIA ORDERABLES Final Resu lt * , urine (10/20/2024 2:00 PM EDT) Preg Test, Ur Negative Negative 10/20/2024 7:[address] [facility] Urine Urine specimen obtained by clean catch procedure / Unknown Non-blood Collection / Unknown 10/20/2024 2:00 PM EDT 10/20/2024 5:15 PM EDT us Nga Mukherjee MD LAB URINE ORDERABLES Fi nal Result [facility] [address] [place] [address], [place] [phone] * Prothrombin time with INR (10/20/2024 2:00 PM EDT) Pathologist [facility] Protime 12.3 10.6 - 13.9 sec LAB COAGULATION METHOD 10/20/2024 3:[address] [facility] INR 1.0 LAB COAGULATION METHOD 10/20/2024 3:[address] [facility] Blood Blood sample taken from central line / Unknown Existing Catheter / Unknown 10/20/2024 2:00 PM EDT 10/20/2024 2:11 PM EDT us Nga Mukherjee MD LAB BLOOD ORDERABLES Fi nal Result Performing Organization Address [facility]/ZIP Co de Phone Number [facility] [address] [place] [address], * Type and screen (10/20/2024 2:00 PM EDT) [facility] ABO Group A 10/20/2024 4:[address] [facility] Rh Type Positive 10/20/2024 4:[address] [facility] Antibody Screen Negative 10/20/2024 4:[address] [facility] Blood Blood sample taken from central line / Unknown Existing Catheter / Unknown 10/20/2024 2:00 PM EDT 10/20/2024 2:11 PM EDT us Nga Mukherjee MD LAB BLOOD BANK TEST ORD ERABLES Final Result [facility] [address] [place] [address], * (ABNORMAL) Vitamin B12 and folate (09/22/2024 9:44 AM EDT) [facility] Vitamin B-12 678 250 - 900 pcg/mL LAB CHEMISTRY METHOD 09/22/2024 12:[address] [facility] Folate >20.0(H) 2.8 - 17.0 ng/ml LAB CHEMISTRY METHOD 09/22/2024 12:[address] [facility] Blood Blood sample taken from central line / Unknown Existing Catheter / Unknown 09/22/2024 9:44 AM EDT 09/22/2024 11:05 AM EDT us Kenya Corcoran DO LAB BLOOD ORDERABLES Final Result [facility]) [facility] [address] [place] [address], [place] [phone] from Last 3 Months Insurance [facility] Advance Directives * Full Code - Confirmed (Latest Code Status on File) Date Activated Date Inactivated Comments 12/12/2024 10:59 PM 12/14/2024 8:03 PM This code s tatus was ascertained in the following way: Code status discussion: discussion with healthcare disability representative To update the patient's code status, place a code status order. Do not modify or discontinue any currently active code status orders. * Full Code - Default Date Activated Date Inactivated Comments 12/12/2024 10:58 PM 12/12/2024 10:59 PM This is or tyshawn is used when code status has not been discussed with the patient, or code status is otherwise unknown/unconfirmed To update the patient's code status, place a code status order. Do not modify or discontinue any currently active code status orders. * Full Code - Default Date Activated Date Inactivated Comments 10/21/2024 9:32 AM 10/25/2024 7:06 PM This is order is used when code status has not been discussed with the patient, or code status is otherwise unknown/unconfirmed To update the patient's code status, place a code status order. Do not modify or discontinue any currently active code status orders. * Full Code - Default Date Activated Date Inactivated Comments 10/21/2024 9:32 AM 10/21/2024 9:32 AM This is orde r is used when code status has not been discussed with the patient, or code status is otherwise unknown/unconfirmed To update the patient's code status, place a code status order. Do not modify or discontinue any currently active code status orders. * Full Code - Default Date Activated Date Inactivated Comments 09/18/2024 3:53 AM 09/19/2024 6:28 PM This is orde r is used when code status has not been discussed with the patient, or code status is otherwise unknown/unconfirmed To update the patient's code status, place a code status order. Do not modify or discontinue any currently active code status orders. Care Teams Dope Sprayer Relationship Specialty Start Date End Date Shawnee Holland MD [address] [place] [id number] PCP - General Internal Medicine 10/11/24
--- OUTSIDE RECORDS SUMMARY | 2024-12-21 15:15 | XMS_ITS | Clinical Summary ---
[facility] Address [address] [place] [address] Care Team Providers Care Scrub Woman Name Role Phone Kingston Thomas MD Primary [...] 03/18/2023 Active vitamin D3 (CHOLECALCIFEROL) 1.25 MG (52121 UT) CAPS capsule TAKE 1 CAPSULE BY [...] mouth. 0 Active vitamin A 3 MG (10569 UT) CAPS capsule Take 1 capsule (3 [...] age to complete this topic Care Teams Scrub Woman Relationship Specialty Start Date End Date Kingston Thomas MD [address] [facility] [place] [address] PCP - General Internal Medicine 11/09/23
[2024-12-21] MEDS: levETIRAcetam 3,000 MG in 0.9 % Sodium Chloride 100 ML 520 MG IV (16:32)
[2024-12-21] MEDS: diazePAM 10 MG/2 ML CARTRIDGE 5 MG IVPUSH (16:41)
[2024-12-21 16:43] LABS: Glucose, Whole Blood 102 mg/dL (60-115)
--- NOTE | 2024-12-21 18:13 | PC.NURSE ---
Addendum entered by Mishel Aguilar RN 12/21/24 18:38: IV infusions for Propofol and Fentanyl ended in the MAR at time of Pts departure. Infusions continued during transport by Critical Care Transport Team. Original Note: Pt comes to ED today via EMS s/p being found down by boss at work presenting with reports tonic clonic seizure activity.? Per EMS, Pt known to have seizures and recent bariatric?surgery with several?complications.? Pt given 10mg Versed given in transport with no success?in resolving seizure activity.? RT, MD, and nursing at beside and Pt intubated on arrival.? Tube: 7.5 and 23 at the lip.? OG tube placed--tubing readjusted? VSS Pt arrives with IO to LLE and bilat 18g IV access gained. Schuler temp catheter?placed.? Pt started on propofol?drip for sedation--see MAR for flow chart/titration.? Pt requires additional sedation later in shift therefore Fentanyl drip started--see MAR for low chart/titration. Bedside EEG performed. Pt scheduled for transfer to [facility] ICU bed 24 via air transportation.? Call placed to [phone].? Spoke with JÚNIOR Scott to complete RN to RN report.? Sonia given?the opportunity?for questions and all questions answered to satisfaction. Critical Care Transport team arrives. RN report given and all question put forth by transportation?team answered to satisfaction.? Care of Pt relinquished to CC transport team and Pt departs from ED at 1741.?
[2024-12-21 19:53] LABS: Appearance Urine Clear; Glucose Urine UA Negative (Negative); PH 6.0 (5.0-9.0); Specific Gravity - Urine >= 1.030 (1.005-1.025)
== END 2024-12-21 17:41 | disposition short-term general hospital (02) ==
PROVIDERS: Physician Assistant Medical; Emergency Provider Emergency Medicine
DX: G40.901 Epilepsy, unspecified, not intractable, with status epilepticus (principal); R00.0 Tachycardia, unspecified; Z79.899 Other long term (current) drug therapy
CPT/HCPCS: 36415; 71045; 80053; 80307; 81003; 82947; 83735; 84146; 84702; 85025; 87040; 93005; 94002; 95816; 95822; 96361; 96365; 96366; 96367; 96375; 96376; 99285; 99291; 99292; J1953; J2704; J3010; J3360; J3373

== ENCOUNTER → 2024-12-21 13:26 | Outpatient (BNV) | payer BC, SELFPAY | PROVIDERS: Emergency Provider Emergency Medicine; Visit Provider Internal Medicine | DX: R00.0 Tachycardia, unspecified (principal) | CPT/HCPCS: 93010 ==

== ENCOUNTER → 2024-12-21 13:26 | Outpatient (BNV) | payer BC, SELFPAY | PROVIDERS: Emergency Provider Emergency Medicine; Visit Provider Radiology Diagnostic Radiology | DX: G40.89 Other seizures (principal) | CPT/HCPCS: 71045 ==

== ENCOUNTER → 2024-12-21 14:34 | Outpatient (BNV) | payer BC, SELFPAY | PROVIDERS: Emergency Provider Emergency Medicine; Visit Provider Psychiatry & Neurology Neurology | DX: R56.9 Unspecified convulsions (principal) | CPT/HCPCS: 95822 ==

== ENCOUNTER 2025-01-17 10:39 | Emergency (ER) | payer BC, SELFPAY ==
--- OUTSIDE RECORDS SUMMARY | 2024-01-27 14:48 | XMS_ITS | Encounter Summary ---
Author Organization [facility] Address [address] [place] [address] Care Team Providers Care Media Consultant Name Role Phone Kingston Thomas MD Primary [...] oz pure alcohol) drinks on ocassion at [facility] Housing Instability Answer Date Recorde d Are you worried that in the next 2 months you may not have stable housing? No 10/23/2024 Food Access & Nutrition Answer Date Rec orded Do you have access to a vari ety of food including fruits and vegetables? Yes 10/23/2024 Access to Healthcare Answer Date Record ed Within the last 3 months, ho w many times did you visit the emergency [...] got money to buy more. Never true 12/23/2024 Within the past 12 months th e food we bought just didn't last and we didn't have money to get more. Never true 12/23/2024 Dependent Care Answer Date Recorded Do you need help finding or paying for care for your loved ones. For example, child care development specialist or elderly care for an older adult? [...] Care Team (Late st Contact Info) Description 01/23/2025 8:30 AM EDT Office Visit Bariatric Surgery - [place] [facility] [address] [place] [phone] Nga Mukherjee MD [address] [place] [phone] 03/17/2025 9:00 AM EST Office Visit Hematology Oncology [address] [place] [phone] Kenya Corcoran, [address] [place] [address] Scheduled Procedures Name Priority Associated Diagnoses Date/Ti me EGD S/P gastric bypass Severe protein-calorie malnutrition (CMS/HCC V24) documented as of this encounter Visit Diagnoses Not on filedocumented in this encounter Additional Health Concerns Infection Onset Date Last Indicated Resolved Time C. difficile Rule-Out 11/10/2024 11/10/20242024 6:18 PM EDT documented as of this encounter Care Teams Media Consultant Relationship Specialty Start Date End Date Kingston Thomas MD [address] [place] [address] PCP - General 07/10/22 10/10/24 documented as of this encounter
--- OUTSIDE RECORDS SUMMARY | 2024-02-03 14:38 | XMS_ITS | Encounter Summary ---
Author Organization [facility] Address [address] [place] [address] Care Team Providers Care Snapper On Name Role Phone Kingston Thomas MD Primary [...] oz pure alcohol) drinks on ocassion at [facility] Housing Instability Answer Date Recorde d [...] your loved ones. 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 [...] 8:30 AM EDT Office Visit Bariatric Surgery [facility] [address] [facility] [address] [place] [phone] Nga Mukherjee MD [address] [place] [phone] 03/17/2025 9:00 AM EST Office Visit [facility] Hematology Oncology [address] [place] [phone] Kenya Corcoran DO [address] [place] [address] Scheduled Procedures Name Priority Associated Diagnoses Date/Ti me EGD S/P gastric bypass Severe protein-calorie malnutrition (CMS/HCC V24) documented as of this encounter Visit Diagnoses Not on filedocumented in this encounter Additional Health Concerns Infection Onset Date Last Indicated Resolved Time C. difficile Rule-Out 11/10/2024 11/10/20242024 6:18 PM EDT documented as of this encounter Care Teams Snapper On Relationship Specialty Start Date End Date Kingston Thomas MD [address] [place] [address] [place] PCP - General 07/10/22 10/10/24 documented as of this encounter
--- NOTE | 2025-01-17 10:47 | ED.SEIZURE ---
HPI - Seizure General Chief Complaint: Seizure Stated Complaint: SZ PER EMS Time Seen by Provider: 01/17/25 10:45 Source: patient, EMS and old records reviewed Mode of arrival: EMS Limitations: other History of Present Illness ED Provider: FELICITAS HPI Narrative: 49 yo female with PMH of depression, GERD, anemia, anxiety, bariatric surgery, PCOS, spinal cord injury, just seen here in november x 2 felt to be in status on last visit 12/21 was intubated and transferred to [facility] for presumed status. 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 In room eyes closed, fightingme to not open them, raised both arms and kept them up. 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 MD complaint: possible seizure Onset (ago): minute(s) ([employer]) Description of Episode: loss of consciousness and tonic-clonic movement -: minutes(s) Witnessed: Yes - by Bystander Trauma: No Seizure History: Yes Place: Work Possible Precipitating Event: none Treatments prior to arrival: benzodiazepines Related Data Home Medications ?Medication ?Instructions ?Recorded ?Confirmed acetaminophen 325 mg capsule 325 mg PO QID PRN 06/29/20 01/17/21 (Tylenol) cholecalciferol (vitamin D3) 100 100 mcg PO DAILY 06/29/20 01/17/21 mcg (4,000 unit) capsule desonide 0.05 % topical cream appl topical BID 06/29/20 01/17/21 norgestimate 0.18 mg/0.215mg/0.25 1 tab PO DAILY 06/29/20 01/17/21 mg-ethinyl estradiol 0.025 mg tablet sertraline 100 mg tablet 100 mg PO DAILY 06/29/20 01/17/21 Previous Rx's ?Medication ?Instructions ?Recorded omeprazole 40 mg capsule,delayed 40 mg PO DAILY #14 caps 08/07/20 release mecobalamin (vitamin B12) 1,000 1,000 mcg sublingual DAILY #30 tabs 12/11/20 mcg disintegrating tablet,sublingual hydrochlorothiazide 12.5 mg tablet 12.5 mg PO DAILY #90 tabs 12/26/20 Allergies Allergy/AdvReac Type Severity Reaction Status Date / Time droperidol (From INAPSINE) Allergy Severe SEIZURES Verified 01/17/25 10:54 metoclopramide (From REGLAN) Allergy Severe SEIZURE Verified 01/17/25 10:54 prochlorperazine (From Allergy Severe SEIZURE Verified 01/17/25 10:54 COMPAZINE) aspirin Allergy Hives Verified 01/17/25 10:54 COVID-19 vaccine, mRNA, Allergy Unknown Verified 01/17/25 10:54 [id number], L pseudoephedrine Allergy Unknown Verified 01/17/25 10:54 Review of Systems Review of Systems: ROS unable to be obtained due to altered mental status [facility] Past Medical History Source: old records reviewed Medical History Knee pain Back pain Lower extremity edema Depression GERD (gastroesophageal reflux disease) Morbid obesity delivery delivered ACL tear Spinal cord injury Anxiety Anemia PCOS (polycystic ovarian syndrome) Surgical History Hx of cholecystectomy Hx of knee surgery Hx of breast reduction, elective S/P ACL surgery Family History Family History Mother Hypertension Father Heart disease Diabetes Hypertension Hyperlipidemia Sister No problems noted. Sister No problems noted. Son No problems noted. Social History Social History Alcohol intake: never Patient Tobacco Use Status: Never used Tobacco Advance Directives: No Advance Directives Information Provided: No Physical Exam Vital Signs: Vital Signs: Last Vital Signs Temp 98.2 F 01/17/25 13:57 Pulse 86 01/17/25 13:57 Resp 20 01/17/25 13:57 BP 148/90 H 01/17/25 13:57 Pulse Ox 99 01/17/25 13:57 O2 Del Method Nasal Cannula 01/17/25 13:57 O2 Flow Rate 2 01/17/25 13:57 BMI result Body Mass Index 30.5 Appearance: will not open eyes, has shaking intermittent jerking of all extremities then raises R leg in flexed position, holds both arms up. Mild acute distress. Eyes: Pupils equal, round and reactive to light. fought to keep her eyes closed - shut both eyes strongly ENT: Pharynx normal. no blood noted, no injury, shaking head back and forth in rolling motion side to side Neck: Normal inspection. Neck supple. CVS: tachycardic heart rate and rhythm. Pulses normal. Respiratory: No respiratory distress. Breath sounds normal. Abdomen: Soft and nontender. Skin: Skin warm and dry. Normal skin color. Normal skin turgor. Extremities: No lower extremity edema. Neuro: please see above, intermittent diffuse shaking jerking movements then flexes R leg holds both arms up Course Course Course Narrative: repeat discussions with patient and her that this is PNES and that we will provide supportive care Medications Administered Discontinued Medications Generic Name Dose Route Start Last Admin Trade Name Freq PRN Reason Stop Dose Admin Diazepam 2.5 mg 01/17/25 10:53 01/17/25 10:59 Diazepam 10 Mg/2 Ml Cartridge IVPUSH 01/17/25 10:54 2.5 mg STAT STA Administration Diazepam 2.5 mg 01/17/25 11:10 01/17/25 11:13 Diazepam 10 Mg/2 Ml Cartridge IVPUSH 01/17/25 11:11 2.5 mg STAT STA Administration Lactated Ringer's 1,000 mls @ 999 mls/hr 01/17/25 10:53 01/17/25 11:59 Lr IV 01/17/25 11:53 Infused .Q1H1M ONE Infusion Medical Decision Making Medical Decision Making [facility] Narrative: 49 yo female with PMH of depression, GERD, anemia, anxiety, bariatric surgery, PCOS, spinal cord injury, now here with jerking motions - will provide IV benzos and obtain records from most recent [facility] visit. Will provide supportive care and obtain labs and EKG OUTSIDE RECORDS FROM TWO MOST RECENT VISITS AND ADMISSIONS IN NOVEMBER 2024 : SHOW NORMAL EEGS THIS IS PNES SEIZURES, NO AEDS ADVISED, SUPPORTIVE CARE ONLY Differential Diagnosis Differential Diagnoses: The differential diagnosis associated with the presentation includes lyte abnormality, seizure activity, non epileptic event Admission/Observation Consideration of admission/observation: Escalation of care including admission/observation considered awake and alert ready to go home. returned to baseline Lab Data [facility] Lab Attestation statement: I reviewed the patient's lab results. 01/17/25 11:36 01/17/25 11:36 Labs: Lab Results 01/17/25 Range/Units 11:36 WBC 7.7 (4.8-10.8) X10*3/uL RBC 4.59 (4.20-5.50) X10*6/uL Hgb 13.7 (12.0-16.0) g/dl Hct 41.9 (37.0-47.0) % MCV 91.3 (80.0-98.0) fL MCH 29.8 (27.0-33.0) pg MCHC 32.7 (31.0-35.0) g/dl RDW 14.8 (11.0-16.0) % Plt Count 291 (160-400) X10*3/uL MPV 9.2 L (9.4-12.3) fL Immature Gran % (Auto) 0.3 (0.0-0.4) % Neut % (Auto) 72.0 (45-73) % Lymph % (Auto) 21.0 (20-40) % [place] % (Auto) 3.9 (2-11) % Eos % (Auto) 2.3 (0-4) % Baso % (Auto) 0.5 (0-2) % Lymph # (Auto) 1.6 (1.2-4.9) X10*3/uL [place] # (Auto) 0.3 (0.1-1.2) X10*3/uL Eos # (Auto) 0.2 (0.0-0.4) X10*3/uL Baso # (Auto) 0.0 (0.0-0.2) X10*3/uL Abs Immat Gran (auto) 0.02 (0.00-0.03) X10*3/uL Absolute Neuts (auto) 5.5 (2.0-8.3) x10*3/uL Absolute Nucleated RBC 0.000 (0.0-0.012) X10*3/uL Nucleated RBC % (auto) 0.0 (0.0-0.2) /100WBC Sodium 141 (135-145) mmol/L Potassium 4.3 (3.3-5.1) mmol/L Chloride 109 H (96-108) mmol/L Carbon Dioxide 25 (22-29) mmol/L Anion Gap 11 L (12-20) BUN 13 (9-16) mg/dL Creatinine 0.58 (0.5-1.4) mg/dL Estim Creat Clear Calc 132.2 Estimated GFR > 60 Random Glucose 87 (60-115) mg/dL Calcium 8.8 (8.4-10.2) mg/dL Magnesium 2.0 (1.6-2.6) mg/dL Total Bilirubin 0.3 (0.0-1.0) mg/dL Direct Bilirubin 0.1 (0.0-0.5) mg/dL AST 25 (5-31) U/L ALT 41 H (0-31) U/L Alkaline Phosphatase 120 H (39-117) U/L Total Protein 7.6 (6.5-8.0) g/dL Albumin 4.1 (3.5-5.0) g/dL Lipase 42 (8-78) U/L Beta HCG, Quant < 2 mIU/mL Independent Interpretation I performed an independent interpretation of an: EKG Interpretation: Rate: 85 Rhythm: NSR [place]: normal Normal P waves. Normal MARYSE. Normal QRS complex. ST T wave : normal no CACHORRO qTC: 421 prior studies: no acute ischemia The study has been interpreted contemporaneously by me. . Independent Historian Clinical information obtained from an independent historian. History obtained from or confirmed by: Spouse and EMS External Record Review External record reviewed: Inpatient record Prescription Management I considered prescription management with: Other Critical Care Time Critical Care Time Critical Care Time: Yes Total Critical Care Time: 45 Attestation: review of records, repeat IV benzos, repeat assessments, outside record review, discussion with spouse I attest to this time spent taking care of the patient Discharge Plan Discharge Clinical Impression: Non-epileptic convulsion Qualifiers: Convulsion type: unspecified Qualified Code(s): R56.9 - Unspecified convulsions Patient Disposition: Home, Self-Care Instructions: Nonepileptic Seizures (ED) Additional Instructions: continue all of your medications return for worsening symptoms you have been seen by Neurologist with repeat EEGs have been negative and not consistent with seizures. Prescriptions: No Action omeprazole 40 mg capsule,delayed release(DR/EC) 40 mg PO DAILY Qty: 14 0RF mecobalamin (vitamin B12) 1,000 mcg tablet,disintegrating 1,000 mcg sublingual DAILY Qty: 30 2RF Rx Instructions: place tablet under tongue and allow to dissolve for at least30 secs before swallowing hydrochlorothiazide 12.5 mg tablet 12.5 mg PO DAILY Qty: 90 0RF sertraline 100 mg tablet 100 mg PO DAILY norgestimate-ethinyl estradiol 0.18/0.215/0.25 mg-25 mcg tablet 1 tab PO DAILY desonide 0.05 % cream topical BID cholecalciferol (vitamin D3) 100 mcg (4,000 unit) capsule 100 mcg PO DAILY acetaminophen [Tylenol] 325 mg capsule 325 mg PO QID PRN Stand Alone Forms: Work/School Release Print Language: Sinhala
[2025-01-17 10:52] VITALS: BP 103/76; BP 154/88; PULSE 105; PULSE 110; RESP 14; TEMP 36.9; O2SAT 99; BMI 30.5
--- NOTE | 2025-01-17 10:53 | ECG_ITS ---
Test Reason : SEIZURE Blood Pressure : */* mmHG Vent. Rate : 85 BPM Atrial Rate : 85 BPM P-R Int : 150 ms QRS Dur : 70 ms QT Int : 354 ms P-R-T Axes : 52 31 17 degrees QTcB Int : 421 ms Normal sinus rhythm Possible Left atrial enlargement Borderline ECG When compared with ECG of 21-Dec-2024 13:27, Vent. rate has decreased by 42 bpm Referred By: Karen Molina Electronically Signed By: Yobani Guevara
[2025-01-17] MEDS: diazePAM 10 MG/2 ML CARTRIDGE 2.5 MG IVPUSH ×2 (10:59→11:13)
[2025-01-17] MEDS: Lactated Ringers 1,000 ML 999 ML IV (11:03)
--- NOTE | 2025-01-17 11:17 | PC.NURSE ---
Pt BIBA for report of sz lasting several minutes. Given IV valium by EMS, on arrival pt has eyes closed with resp even/unlabored. Noted to be somnolent, nodding head yes/no to questions. Pt changed into hospital attire and placed on monitor. VS obtained and pt noted to have slight jerking motions of BLE. Provider awarte and medications administered per JUN.
[2025-01-17 11:41] LABS: MANUAL DIFF FLAG NO
[2025-01-17 11:43] LABS: Hematocrit 41.9 % (37.0-47.0); Hemoglobin 13.7 g/dl (12.0-16.0); Imm Gran Abs Auto 0.02 X10*3/uL (0.00-0.03); Imm Gran Pct Auto 0.3 % (0.0-0.4); Lymphocytes Absolute Auto 1.6 X10*3/uL (1.2-4.9); Mean Corpuscular HGB Conc 32.7 g/dl (31.0-35.0); Mean Corpuscular Hemoglobin 29.8 pg (27.0-33.0); Mean Corpuscular Volume 91.3 fL (80.0-98.0); NRBC Abs Auto 0.000 X10*3/uL (0.0-0.012); NRBC Pct Auto 0.0 /100WBC (0.0-0.2); Platelet Count 291 X10*3/uL (160-400); Red Blood Count 4.59 X10*6/uL (4.20-5.50); White Blood Count 7.7 X10*3/uL (4.8-10.8)
[2025-01-17 12:04] LABS: Alanine Aminotransferase 41 U/L (0-31); Albumin Level 4.1 g/dL (3.5-5.0); Alkaline Phosphatase 120 U/L (39-117); Anion Gap 11 (12-20); Aspartate Amino Transferase 25 U/L (5-31); Blood Urea Nitrogen 13 mg/dL (9-16); Calcium 8.8 mg/dL (8.4-10.2); Carbon Dioxide 25 mmol/L (22-29); Chloride 109 mmol/L (96-108); Creatinine Clr Calc Pharmacy 132.2; Estimated Glomerular Filt Rate > 60; Lipase 42 U/L (8-78); Magnesium 2.0 mg/dL (1.6-2.6); Potassium 4.3 mmol/L (3.3-5.1); Sodium 141 mmol/L (135-145); Total Protein 7.6 g/dL (6.5-8.0)
[2025-01-17 12:28] VITALS: BP 176/98; PULSE 84; RESP 20; TEMP 36.6; O2SAT 95
--- OUTSIDE RECORDS SUMMARY | 2025-01-17 13:52 | XMS_ITS | Patient Health Record ---
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
--- OUTSIDE RECORDS SUMMARY | 2025-01-17 13:53 | XMS_ITS | Clinical Summary ---
Author Organization [facility] [place] [address] Phone Care Team Providers Care Warm In Name Role Phone Shawnee Holland MD Primary Care Provider [phone] Allergies Active Allergy Reactions Criticality Noted Date Comments Aspirin Hives Medium 04/09/2023 Covid-19 Vaccine, Mrna, [id number], Lnp-S (ClickFacts) Hives,Itching,Swell ing Medium 07/29/2022 Other reaction(s): Hives/Urticaria [...] See administration instructions. Patient received injection at [facility] every four weeks Active nutritional supplements (Osmolite 1.2 [place]) 0.06 gram-1.2 kcal/mL liquid Take 1,000 mL by mouth 1 (one) time each day. 86110 mL 11 Active escitalopram (LEXAPRO) 10 mg tablet Take 1 tablet (10 mg total) by mouth 1 (one) time each day. 30 each 2 025 2024 Active scopolamine (TRANSDERM-SCO P) 1 mg over 3 days patch 3 day Apply 1 patch topically every 3rd (third) day. 10 each 025 2024 Active methocarbamoL (ROBAXIN) 500 mg tablet Take 1 tablet (500 mg total) by mouth 4 (four) times a day for 10 days. 40 each Active sertraline (ZOLOFT) 100 mg tablet Take 1 tablet (100 mg total) by mouth 1 (one) time each day. 023 2024 Discontinued escitalopram (LEXAPRO) 5 mg tablet Take 1 tablet (5 mg total) by mouth 1 (one) time each day. 2024 Discontinued scopolamine (TRANSDERM-SCO P) 1 mg over 3 days patch 3 day Apply 1 patch topically every 3rd (third) day. 10 each 025 2024 Discontinued sertraline (ZOLOFT) 50 mg tablet Take 1 tablet (50 mg total) by mouth 1 (one) time each day. 30 each 11 025 2024 Discontinued(S top Taking at Discharge) Active Problems Problem Noted Date Diagnosed Date Seizure-like activity ([facility] V24, [facility] V28) 12/12/2024 Assessment & Plan (12/14/2024 6:37 AM EDT): History of Psychogenic Non-Epileptic Spells Patient had a witnessed seizure-like activity episode this afternoon, after which she was taken to [place] emergency room, where she was given a total of 60 mg Valium, 10 mg Versed, 2 g Keppra, and then transferred to [place] for further management. In that emergency room [...] afternoon, after which she was taken to [place] emergency room, where she was given a total of 60 mg Valium, 10 mg Versed, 2 g Keppra, and then transferred to [place] for further management. In that emergency room [...] afternoon, after which she was taken to [place] emergency room, where she was given a total of 50 mg Valium, 10 mg Versed, 2 g Keppra, and then transferred to [place] for further management. In that emergency room [...] syndrome 10/10/2024 Intractable abdominal pain 09/18/2024 Seizure (CMS/[facility] V24, CMS/HCC V28) 07/31/2024 Witnessed seizure-like activity [...] neck shows intact large neck vessels and [place] of [place] vessels devoid of stenosis nor [...] PT/OT evaluation and discharge planning Seizure-like activity ([facility] V24, CMS/HCC V28) 07/30/2024 Severe protein-calorie malnutrition ([facility] V24 ) 06/13/2024 Dehydration 05/17/2024 Assessment & [...] Problem Noted Date Diagnosed Date Resolved Date Status epilepticus (CMS/HCC V24, CMS/HCC V28) 12/22/19 25 12/24/2024 Bilateral lower extremity edema 07/15/2024 07/16/2024 Encounters Date Type Department Care Team Description 01/08/2025 9:13 PM EDT - 01/08/2025 11:59 PM EDT Emergency [facility] Emergency [address] [place] [address] Toshia Cam MD Seizure-like activity ([facility] V24, [facility] V28) (Primary Dx); Skin irritation Discharge Disposition: Home or Self Care 12/21/2024 6:50 PM EDT - 12/24/2024 12:28 PM EDT Hospital Encounter [facility] Obs Unit [address] [place] [address] Refugio Rothman MD Kaur, Antarpreet, MD Nallamothu, Bhavana, DO Basaly, Andrew, MD Discharge Disposition: Home or Self Care 12/21/2024 9:00 AM EDT Office Visit Bariatric Surgery - [place] [address] [phone] Nga Mukherjee MD Uses feeding tube (Primary Dx); S/P gastric bypass; Food intolerance; Dumping syndrome; Hypoglycemia 12/12/2024 9:43 PM EDT - 12/14/2024 5:54 PM EDT Hospital Encounter [facility] Interim Care 8-7E [address] [place] [address] Peterson Carr MD Kazi, Ahmed, MD Naut, Edgar, MD Seizure-like activity ([facility] V24, [facility] V28) (Primary Dx) Discharge Disposition: Home or Self Care 11/19/2024 2:14 AM EDT - 11/19/2024 2:58 PM EDT Emergency [facility] Emergency [address] [place] [phone] Tracie Gilbert MD Other chronic postprocedural pain (Primary Dx); Chronic nausea Discharge Disposition: Home or Self Care 11/18/2024 7:33 AM EDT - 11/18/2024 11:59 PM EDT Hospital Encounter [facility] Interventional Radiology [address] [place] [phone] Uses feeding tube; Intussusception intestine ([facility] V24, [facility] V28) Discharge Disposition: Home or Self Care 11/17/2024 1:47 PM EDT - 11/17/2024 11:59 PM EDT Hospital Encounter [facility] Infusion Center [address] [phone] Kenya Corcoran DO S/P gastric bypass (Primary Dx); Vitamin B12 deficiency (non anemic); On enteral nutrition Discharge Disposition: Home or Self Care 11/14/2024 Telephone Bariatric Surgery [facility] [address] [phone] Nga Mukherjee MD 11/13/2024 7:36 AM EDT - 11/13/2024 3:04 PM EDT Emergency [facility] Emergency [address] [place] [phone] Generalized abdominal pain (Primary Dx); Abdominal pain, epigastric; S/P gastric bypass Discharge Disposition: Home or Self Care 11/11/2024 Telephone Bariatric Surgery [facility] [address] [phone] Nga Mukherjee MD 11/02/2024 1:00 PM EDT Office Visit Bariatric Surgery [address] [phone] Nga Mukherjee MD Uses feeding tube (Primary Dx); S/P gastric bypass; Hypoglycemia 10/27/2024 2:58 PM EDT - 10/27/2024 11:59 PM EDT Hospital Encounter [facility] [address] [place] [phone] Kenya Corcoran DO On enteral nutrition Discharge Disposition: Home or Self Care 10/27/2024 Telephone Bariatric Surgery [facility] [address] [phone] Nga Mukherjee MD 10/21/2024 12:11 PM EDT Anesthesia Event [facility] Main OR [address] [place] [phone] Terrie Caldwell MD 10/21/2024 11:00 AM EDT - 10/21/2024 12:45 PM EDT Surgery [facility] Main OR [address] [place] [address] Nga Mukherjee MD INSERTION TUBE JEJUNOSTOMY LAPAROSCOPIC [82157 (CPT )] 10/21/2024 9:14 AM EDT - 10/25/2024 5:01 PM EDT Hospital Encounter [facility] Medical Surgical Unit [address] [place] [phone] Nga Mukherjee MD Dumping syndrome (Primary Dx); S/P gastric bypass Discharge Disposition: Home-Health Care [facility] 10/20/2024 1:29 PM EDT - 10/20/2024 11:59 PM EDT Hospital Encounter [facility] Infusion Center [address] [place] [phone] Kenya Corcoran DO Iron deficiency (Primary Dx); S/P gastric bypass; Vitamin B12 deficiency (non anemic); On total parenteral nutrition; Postsurgical dumping syndrome; Hypoglycemia; Food intolerance Discharge Disposition: Home or Self Care from Last 3 Months Immunizations Name Administration Dates Next Due Echo itJ/MaulSoup SARS-CoV-2 COVID -19, vector-nr, [id number], preservative free 10/05/2020 ClickFacts SARS-CoV-2 COVID-19, mRNA, LNP-S, preservative free 07/18/2020 Surgical History Surgery Date Site/Laterality Comments BARIATRIC SURGERY MENISCECTOMY Bilateral bilateral tears CHOLECYSTECTOMY SECTION, LOW TRANSVERSE BREAST REDUCTION Bilateral OTHER SURGICAL HISTORY Medical History Medical History Date Comments GERD (gastroesophageal reflux disease) Hiatal hernia Polycystic ovaries Malnutrition following gastrointestinal surgery S/P gastric bypass 03/09/2024 Dehydration 05/17/2024 PONV (postoperative nausea and vomiting) Anemia Clotting disorder ([facility] V24) Anxiety Depression Chronic pain disorder Seizures ([facility] V24, [facility] V28) Social History Tobacco Use Types Packs/Day Years Used Date Smoking Tobacco: Never Smokeless Tobacco: Never Tobacco Cessation:Counseling Given: Not Answered Alcohol Use Standard Drinks/Week Comments Not Currently 0 (1 standard drink = 0.6 oz pure alcohol) drinks on ocassion at social gatherein Housing Instability Answer Date Recorde d Are [...] your loved ones. For example, early childhood worker or elderly care for an older adult? [...] Sign Reading Time Taken Comments Blood Pressure 133/93 01/08/2025 9:32 PM EDT Pulse 85 01/08/2025 9:32 PM EDT Temperature 37.7 C (99.9 F) 01/08/2025 9:32 PM EDT Respiratory Rate 20 01/08/2025 9:32 PM EDT Oxygen Saturation 99% 01/08/2025 9:40 PM EDT Inhaled Oxygen Concentration - - Weight 83.9 kg (185 lb) 01/08/2025 9:40 PM EDT Height 162.6 cm (5' 4 ) 01/08/2025 9:40 PM EDT Body Mass Index 31.76 01/08/2025 9:40 PM EDT Plan of Treatment Upcoming Encounters Date Type Department Care Team (Late st Contact Info) Description 01/23/2025 8:30 AM EDT Office Visit Bariatric Surgery [facility] 175 [facility] [address] [place] [phone] Nga Mukherjee MD [address] [place] [phone] 03/17/2025 9:00 AM EST Office Visit [facility] Hematology Oncology [address] [place] [phone] Kenya Corcoran DO [address] [place] [address] Scheduled Procedures Name Priority Associated Diagnoses Date/Ti [...] Cancer Screening: Colonoscopy 05/26/2023 HIV Screening 05/26/2023 COVID-19 Vaccine (3 - season) 2024 10/05/2020, 07/18/2020 Influenza Vaccine (#1) 2024 10/05/2020 Social Influencers of Health Screening 12/23/2025 12/23/2024 Hypertension/CHF/CAD Annual BMP Blood Test 01/08/2026 01/08/2025, 12/24/2024, 12/23/2024, Additional history exists RSV Immunization Adult Patients (1 - 1-dose 75+ series) 2052 Depression Screening Completed 09/22/2024 Hepatitis C Screening Completed 12/22/2024 HIB Vaccines Aged Out No longer eligi [...] this topic Medical Devices Implanted Type Area Client Service And Consulting Manager Device Identifier Shelf Expiration Date Model / Serial / Lot Tray Rad Cath 1lum Poly 4f - [id number] - [id number] Implanted:Qty: 1 on 06/23/2024 by Salima Reed PA at [facility] [place]osalia pheral Catheters and Ports Right: Vein BD VASCULAR ACCESS DEVICES FKA BARD ACCESS [id number] 03/26/2026 [id number] / [id number] / [id number] Tray Rad Cath 1lum Poly 4f - [id number] - [id number] Implanted:Qty: 1 on 08/19/2024 by Veornica Anguiano MD at [facility]/[employer] pheral Catheters and Ports Right: Arm BD VASCULAR ACCESS DEVICES FKA BARD ACCESS [id number] 03/26/2026 [id number] / [id number] / [id number] Procedures Procedure Name Priority Date/Time Associated Diagnosis Comments LIPASE STAT 01/08/2025 9:54 PM EDT COMPREHENSIVE METABOLIC PANEL STAT 01/08/2025 9:54 PM EDT COMPLETE BLOOD COUNT STAT 01/08/2025 9:54 PM EDT HCG, SERUM, QUALITATIVE STAT 01/08/2025 9:54 PM EDT CONTINUOUS EEG Routine 12/24/2024 8:27 AM EDT COMPREHENSIVE METABOLIC PANEL Timed 12/24/2024 6:25 AM EDT COMPLETE BLOOD COUNT Timed 12/24/2024 6:25 AM EDT POCT GLUCOSE BLOOD Routine 12/24/2024 5: 56 AM EDT POCT GLUCOSE BLOOD Routine 12/24/2024 12 :01 AM EDT POCT GLUCOSE BLOOD Routine 12/23/2024 11 :31 PM EDT POCT GLUCOSE BLOOD Routine 12/23/2024 6: 29 PM EDT POCT GLUCOSE BLOOD Routine 12/23/2024 12 :26 PM EDT CONTINUOUS EEG Routine 12/23/2024 10:11 AM EDT POCT GLUCOSE BLOOD Routine 12/23/2024 6: 04 AM EDT COMPREHENSIVE METABOLIC PANEL Timed 12/23/2024 5:50 AM EDT COMPLETE BLOOD COUNT Timed 12/23/2024 5:50 AM EDT POCT GLUCOSE BLOOD Routine 12/22/2024 11 :44 PM EDT POCT GLUCOSE BLOOD Routine 12/22/2024 7: 34 PM EDT POCT GLUCOSE BLOOD Routine 12/22/2024 6: 09 PM EDT POCT GLUCOSE BLOOD Routine 12/22/2024 5: 54 PM EDT POCT GLUCOSE BLOOD Routine 12/22/2024 4: 14 PM EDT POCT GLUCOSE BLOOD Routine 12/22/2024 12 :24 PM EDT POCT GLUCOSE BLOOD Routine 12/22/2024 12 :05 PM EDT POCT GLUCOSE BLOOD Routine 12/22/2024 10 :22 AM EDT CONTINUOUS EEG Routine 12/22/2024 10:14 AM EDT CONTINUOUS EEG Routine 12/22/2024 10:14 AM EDT POCT GLUCOSE BLOOD Routine 12/22/2024 8: 28 AM EDT POCT GLUCOSE BLOOD Routine 12/22/2024 6: 55 AM EDT HEPATITIS PANEL, ACUTE Add-On 12/22/2024 4:12 AM EDT PROLACTIN STAT 12/22/2024 4:12 AM EDT PROCALCITONIN STAT 12/22/2024 4:12 AM EDT PHOSPHORUS STAT 12/22/2024 4:12 AM EDT MAGNESIUM STAT 12/22/2024 4:12 AM EDT LACTATE STAT 12/22/2024 4:12 AM EDT HEPATIC FUNCTION PANEL STAT 12/22/2024 4:12 AM EDT HCG, SERUM, QUALITATIVE STAT 12/22/2024 4:12 AM EDT COMPLETE BLOOD COUNT STAT 12/22/2024 4:12 AM EDT BASIC METABOLIC PANEL STAT 12/22/2024 4:12 AM EDT CULTURE BLOOD STAT 12/22/2024 4:12 AM EDT POCT GLUCOSE BLOOD Routine 12/22/2024 1: 43 AM EDT RESPIRATORY COMMUNICATION ORDER Routine 12/22/2024 1:32 AM EDT URINALYSIS WITH MICROSCOPIC Routine 12/22/2024 12:27 AM EDT URINALYSIS WITH MICROSCOPIC Routine 12/22/2024 12:27 AM EDT CONTINUOUS EEG Routine 12/21/2024 11:12 PM EDT CONTINUOUS EEG Routine 12/21/2024 11:[address] HEAD WO CONTRAST STAT 12/21/2024 1 0:34 PM EDT XR CHEST 1 VIEW STAT 12/21/2024 9:38 PM EDT VENTILATOR, ADULT Routine 12/21/2024 8:5 5 PM EDT VENTILATOR, ADULT Routine 12/21/2024 8:5 5 PM EDT VENTILATOR, ADULT Routine 12/21/2024 7:2 3 PM EDT CONTINUOUS EEG Routine 12/14/2024 5:54 PM EDT [...] ENDOTRACHEAL(NO CHARGE) Routine 10/21/2024 1:[address] LAPAROSCOPY SURGICAL JEJUNOSTOMY 10/21/2024 12:10 PM EDT [...] 2:00 PM EDT On total parenteral nutrition from Last 3 Months Results * (ABNORMAL) CBC (01/08/2025 9:54 PM EDT) Only the most recent of7 resultswithin the time period is included. WBC 10.4 4.8 - 10.8 K/mcL LAB HEMETOLOGY METHOD 01/08/2025 10:24 PM EDT [facility] RBC 4.50 3.80 - 4.80 M/mcL LAB HEMETOLOGY METHOD 01/08/2025 10:24 PM EDT [facility] Hemoglobin 12.8 11.5 - 16.0 g/dL LAB HEMETOLOGY METHOD 01/08/2025 10:24 PM EDT [facility] Hematocrit 40.0 35.0 - 47.0 % LAB HEMETOLOGY METHOD 01/08/2025 10:24 PM EDT [facility] MCV 89.9 79.0 - 98.0 FL LAB HEMETOLOGY METHOD 01/08/2025 10:24 PM EDT [facility] MCH 28.8 27.0 - 32.0 pcg LAB HEMETOLOGY METHOD 01/08/2025 10:24 PM EDT [facility] MCHC 32.0 32.0 - 37.0 g/dL LAB HEMETOLOGY METHOD 01/08/2025 10:24 PM EDT [facility] RDW 15.2(H) 11.0 - 15.0 % LAB HEMETOLOGY METHOD 01/08/2025 10:24 PM EDT [facility] Platelets 331 130 - 400 K/mcL LAB HEMETOLOGY METHOD 01/08/2025 10:24 PM EDT [facility] MPV 10.2 7.0 - 11.0 FL LAB HEMETOLOGY METHOD 01/08/2025 10:24 PM EDT [facility] NRBC 0.0 <1.0 % LAB HEMETOLOGY METHOD 01/08/2025 10:24 PM EDT [facility] NRBC Absolute 0.00 <0.10 K/mcL LAB HEMETOLOGY METHOD 01/08/2025 10:24 PM EDT [facility] Blood Venous blood specimen / Unknown Venipuncture / Unknown 01/08/2025 9:54 PM EDT 01/08/2025 10:17 PM EDT us Toshia Cam MD LAB BLOOD ORDERABLES Final Resul t [facility] [address] [place] [address], * hCG Qualitative (01/08/2025 9:54 PM EDT) Only the most recent of4 resultswithin the time period is included. Pathologist [facility] hCG Qual Negative Negative 01/08/2025 10:36 PM EDT [facility] Blood Venous blood specimen / Unknown Venipuncture / Unknown 01/08/2025 9:54 PM EDT 01/08/2025 10:17 PM EDT us Toshia Cam MD LAB BLOOD ORDERABLES Final Resul t Performing Organization Address [facility] de Phone Number [facility] [address] [place] [address], [place] [phone] * Lipase (01/08/2025 9:54 PM EDT) Only the most recent of3 resultswithin the time period is included. [facility] Lipase 27 13 - 75 unit/L LAB CHEMISTRY METHOD 01/08/2025 10:49 PM EDT [facility] Blood Venous blood specimen / Unknown Venipuncture / Unknown 01/08/2025 9:54 PM EDT 01/08/2025 10:17 PM EDT us Toshia Cam MD LAB BLOOD ORDERABLES Final Resul t Performing Organization Address [facility] de Phone Number [facility] [address] [place] [address], [place] [phone] * Comprehensive Metabolic Panel (CMP) (01/08/2025 9:54 PM EDT) Only the most recent of13 resultswithin the time period is included. [facility] Sodium 137 133 - 145 mmol/L LAB CHEMISTRY METHOD 01/08/2025 10:49 PM EDT [facility] Potassium 4.3 3.5 - 5.5 mmol/L LAB CHEMISTRY METHOD 01/08/2025 10:49 PM EDT [facility] Comment:Hemolysis present Chloride 105 96 - 110 mmol/L LAB CHEMISTRY METHOD 01/08/2025 10:49 PM [facility] CO2 25 21 - 32 mmol/L LAB CHEMISTRY METHOD 01/08/2025 10:49 PM [facility] Anion Gap 7 3 - 11 LAB CHEMISTRY METHOD 01/08/2025 10:49 PM [facility] Glucose 74 70 - 100 mg/dL LAB CHEMISTRY METHOD 01/08/2025 10:49 PM [facility] BUN 13 5 - 25 mg/dL LAB CHEMISTRY METHOD 01/08/2025 10:49 PM [facility] Creatinine 0.65 0.50 - 1.10 mg/dL LAB CHEMISTRY METHOD 01/08/2025 10:49 PM [facility] eGFR 109 >=60 mL/min/1. 73m2 LAB CHEMISTRY METHOD 01/08/2025 10:49 PM [facility] Comment:Calculation based on the Chronic Kidney Disease Epidemiology Collaboration (CKD-EPI) equation refit without adjustment for race. BUN/Creatinine Ratio 20.0 LAB CHEMISTRY METHOD 01/08/2025 10:49 PM [facility] Calcium 8.9 8.5 - 10.5 mg/dL LAB CHEMISTRY METHOD 01/08/2025 10:49 PM [facility] AST (SGOT) 23 10 - 42 unit/L LAB CHEMISTRY METHOD 01/08/2025 10:49 PM [facility] ALT (SGPT) 20 10 - 60 unit/L LAB CHEMISTRY METHOD 01/08/2025 10:49 PM [facility] Alkaline Phosphatase 96 42 - 121 unit/L LAB CHEMISTRY METHOD 01/08/2025 10:49 PM [facility] Total Protein 7.4 6.0 - 8.0 g/dL LAB CHEMISTRY METHOD 01/08/2025 10:49 PM [facility] Albumin 3.6 3.2 - 5.0 g/dL LAB CHEMISTRY METHOD 01/08/2025 10:49 PM EDT [facility] Total Bilirubin 0.4 0.0 - 1.4 mg/dL LAB CHEMISTRY METHOD 01/08/2025 10:49 PM EDT [facility] Blood Venous blood specimen / Unknown Venipuncture / Unknown 01/08/2025 9:54 PM EDT 01/08/2025 10:17 PM EDT us Toshia Cam MD LAB BLOOD ORDERABLES Final Resul t [facility] [address] [place] [address], * Continuous EEG (12/24/2024 8:27 AM EDT) Narrative [facility] - 12/24/2024 8:10 AM EDT Sheryl Akins MD 12/24/2024 12:01 PM Long-term Monitoring/ Continuous Video Electroencephalography (LTM) Report Study start date, time: 12/22/2024; 12:50 PM Study end date, time: 12/23/2024; 7 AM Total duration: 18 hours AND 17 mins Clinical Information History: Cece Moyer is a 49 y.o. 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, former obesity s/p gastric sleeve complicated by severe protein calorie malnutrition, dumping syndrome, dysphagia status post jejunostomy in 09/2024, presenting intubated/sedated from OSH for seizure like activity, c/f status epilepticus Sedation: Antiseizure medication: Medications: Current Facility-Administered Medications: acetaminophen (TYLENOL) tablet 650 mg, 650 mg, j-tube, q6h PRN, Elder Jay DO, 650 mg at 12/23/24 1659 chlorhexidine (PERIDEX) 0.12 % solution 15 mL, 15 mL, Mouth/Throat, BID, Refugio Rothman MD, 15 mL at 12/23/24 0809 dextrose (D50W) 50% injection 12.5 g, 12.5 g, intravenous, q15 min PRN, Clau Ludy Ranjana, DO, 12.5 g at 12/22/24 1757 dextrose (D50W) 50% injection 25 g, 25 g, intravenous, q15 min PRN, Clau Ludy Ranjana, DO dextrose 15 gram/60 mL oral solution 15 g, 15 g, oral, q15 min PRN, Clau Ludy Ranjana, DO dextrose 15 gram/60 mL oral solution 30 g, 30 g, oral, q15 min PRN, Clau Ludy Ranjana, DO enoxaparin (LOVENOX) injection 40 mg, 40 mg, subcutaneous, Daily, Elder Jay DO, 40 mg at 12/23/24808 glucagon HCL injection 1 mg, 1 mg, intramuscular, Once PRN, Clau Chilel, DO mupirocin (BACTROBAN) 2 % ointment, , Each Nostril, BID, Brigette Menard MD, Given at 12/23/24 0809 pantoprazole (PROTONIX) injection 40 mg, 40 mg, intravenous, q24h, Shawna Pereira MD, 40 mg at 12/22/242023 Recording Techniques Instrumentation: A digital EEG was [...] Impression This is a normal continuous EEG in awake -drowsy -asleep states There were no focal abnormalities, persistent asymmetries, or epileptiform discharges/ seizures. No clinical events reported Compared to yesterday's EEG: Background slowing resolved. Normal alpha/beta activity seen Sheryl Caraballo MD Epileptologist/ Staff Neurologist [facility] us Refugio Rothman MD NEUROLOGY ORDERABLES Edited Re sult - Final [facility] * POCT Glucose, blood (12/24/2024 5:56 AM EDT) Only the most recent of55 resultswithin the time period is included. [facility] Glucose POCT 117 70 - 199 mg/dL 12/24/2024 7:24 AM EDT [facility] Comment: Fasting Reference Range: 70-99 mg/dL Non-Fasting Reference Range: 70-199 mg/dL Blood Capillary blood specimen / Unknown 12/24/2024 5:56 AM EDT 12/24/2024 7:26 AM EDT us Mark Hankins MD LAB POINT OF CARE TE ST DOCKED DEVICE UNSOLICITED RESULTS Final Result Performing Organization Address City/[facility]/ZIP Co de Phone Number [facility] [address] [place] [address], [place] [phone] * Continuous EEG (12/23/2024 10:11 AM EDT) Narrative [facility] - 12/23/2024 9:20 AM EDT Sheryl Akins MD 12/23/2024 5:09 PM Long-term Monitoring/ Continuous Video Electroencephalography (LTM) Report Study start date, time: 12/21/2024; 12:31 PM Study end date, time: 12/22/2024; 7 AM Total duration: 18 hours and 17 minutes Clinical Information History: Cece Moyer is a 49 y.o. 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, former obesity s/p gastric sleeve complicated by severe protein calorie malnutrition, dumping syndrome, dysphagia status post jejunostomy in 09/2024, presenting intubated/sedated from OSH for seizure like activity, c/f status epilepticus Sedation: Antiseizure medication: Medications: Current Facility-Administered Medications: chlorhexidine (PERIDEX) 0.12 % solution 15 mL, 15 mL, Mouth/Throat, BID, Refugio Rothamn MD, 15 mL at 12/22/24 0805 dexmedeTOMIDine (PRECEDEX) 200 mcg in sodium chloride 0.9 % 50 mL (4 mcg/mL) infusion, 0.2-1.5 mcg/kg/hr, intravenous, Continuous, Elder Jay DO, Stopped at 12/22/24 0933 dextrose (D50W) 50% injection 12.5 g, 12.5 g, intravenous, q15 min PRN, Clau Chilel DO, 12.5 g at 12/22/24 1757 dextrose (D50W) 50% injection 25 g, 25 g, intravenous, q15 min PRN, Clau Finkn, DO dextrose 15 gram/60 mL oral solution 15 g, 15 g, oral, q15 min PRN, Clau Ludy Ranjana, DO dextrose 15 gram/60 mL oral solution 30 g, 30 g, oral, q15 min PRN, Clau Ludy Finkn, DO enoxaparin (LOVENOX) injection 40 mg, 40 mg, subcutaneous, Daily, Elder Jay DO, 40 mg at 12/22/24 1204 glucagon HCL injection 1 mg, 1 mg, intramuscular, Once PRN, Clau Chilel DO mupirocin (BACTROBAN) 2 % ointment, , Each Nostril, BID, Brigette Menard MD, Given at 12/22/24 0805 norepinephrine (LEVOPHED) infusion 8 mg/250 mL (premix), 0.01-0.99 mcg/kg/min, intravenous, Continuous, Elder Jay DO, Stopped at 12/22/24 1032 pantoprazole (PROTONIX) injection 40 mg, 40 mg, intravenous, q24h, Shawna Pereira MD, 40 mg at 12/21/242053 propofoL (DIPRIVAN) infusion 10 mg/mL, 30-200 mcg/kg/min, intravenous, Continuous, Shawna Pereira MD, Last Rate: 26.8 mL/hr at 12/22/241835, 55 mcg/kg/min at 12/22/241835 Recording Techniques Instrumentation: A digital EEG was performed using the standard international 10-20 electrode placement and single lead EKG electrode with a sampling rate of 200 samples per second/per channel, at impedance levels less than 10 K Ohms. Montages: Standard 10-20 system montages Type of Study: Long-term video EEG monitoring Conditions of Recording: Awake - drowsy - sleep Results Background: This is a reactive, organized, and continuous record. There is no clear/persistent posterior dominant rhythm, however a 7 Hz theta rhythm was seen in the background. The background consists of a mixture of theta, delta activity with some superimposed faster frequencies Stage I sleep seen. Activation Procedures: Not performed given mental status Paroxysmal Activity: None. Focal slowing: None Special Findings: None Classifications 1. Diffuse theta slowing with admixed delta and alpha frequencies. Clinical Impression This is an abnormal continuous video EEG record: - The background EEG is indicative of mild diffuse cerebral dysfunction, non-specific for etiology. - There were no persistent asymmetries, or epileptiform discharges in the EEG background. Compared to yesterday's EEG: Mild theta seen in EEG background at times, due to sedation. No epileptiform discharges or seizures Sheryl Caraballo MD Epileptologist/ Staff Neurologist [facility] us Refugio Rothman MD NEUROLOGY ORDERABLES Final Res ult [facility] * Continuous EEG (12/22/2024 10:14 AM EDT) Narrative [facility] - 12/22/2024 10:14 AM EDT Sheryl Akins MD 12/22/2024 10:15 AM Continuous Electroencephalography (EEG) Report Recording Information: Start Time: Dec 21, 2024 22:53 PM End Time: Dec 22, 2024 04:20 AM Duration: 05:26:50 (327 minutes) Recording Technique: This EEG was obtained using a 10 lead, 8 channel circumferential rapid EEG with no parasagittal coverage. Performed with Minicabster, ResiModel Status Epilepticus Monitor, ICD-10 [id number] Recording Techniques Description of procedure: This is a Rapid EEG acquired with a digital [employer] EEG machine with 10 lead, 8 channel system positioned circumferentially, spaced according to the lateral chains of the 10-20 international system of EEG electrode placements. Vertex and paracentral recording electrodes are not included. The entire segments of the EEG were scanned by the attending physician. MinicabsterPro algorithm utilized and implemented to provide analysis of underlying activity and seizure detection used to facilitate reading. Video recorded: No Clinical Information History: Cece Moyer is a 49 y.o. 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, former obesity s/p gastric sleeve complicated by severe protein calorie malnutrition, dumping syndrome, dysphagia status post jejunostomy in 09/2024, presenting intubated/sedated from OSH for seizure like activity, c/f status epilepticus Pertinent Medications and Treatments Anti-seizure medications: Sedatives: Medications: Current Facility-Administered Medications: chlorhexidine (PERIDEX) 0.12 % solution 15 mL, 15 mL, Mouth/Throat, BID, Refugio Rothman MD, 15 mL at 12/22/24 0805 dexmedeTOMIDine (PRECEDEX) 200 mcg in sodium chloride 0.9 % 50 mL (4 mcg/mL) infusion, 0.2-1.5 mcg/kg/hr, intravenous, Continuous, Elder Jay DO, Stopped at 12/22/24 0933 dextrose (D50W) 50% injection 12.5 g, 12.5 g, intravenous, q15 min PRN, Clau Chilel DO, 12.5 g at 12/22/24 0657 dextrose (D50W) 50% injection 25 g, 25 g, intravenous, q15 min PRN, Clau Chilel, DO dextrose 15 gram/60 mL oral solution 15 g, 15 g, oral, q15 min PRN, Clau Chilel, dextrose 15 gram/60 mL oral solution 30 g, 30 g, oral, q15 min PRN, Clau Chilel, dextrose 5 % lactated ringers infusion, 75 mL/hr, intravenous, Continuous, Elder Jay DO, Last Rate: 75 mL/hr at 12/22/24 0800, 75 mL/hr at 12/22/24 08 glucagon HCL injection 1 mg, 1 mg, intramuscular, Once PRN, Clau Chilel DO mupirocin (BACTROBAN) 2 % ointment, , Each Nostril, BID, Brigette Menard MD, Given at 12/22/24804 norepinephrine (LEVOPHED) infusion 8 mg/250 mL (premix), 0.01-0.99 mcg/kg/min, intravenous, Continuous, Elder Jay DO, Last Rate: 1.52 mL/hr at 12/22/24 09, 0.01 mcg/kg/min at 12/22/24919 pantoprazole (PROTONIX) injection 40 mg, 40 mg, intravenous, q24h, Shawna Pereira MD, 40 mg at 12/21/242053 propofoL (DIPRIVAN) infusion 10 mg/mL, 30-200 mcg/kg/min, intravenous, Continuous, Shawna Pereira MD, Last Rate: 26.8 mL/hr at 12/22/241003, 55 mcg/kg/min at 12/22/241003 Results Background: The record was well organized. [...] Impression This is a normal continuous EEG recording, some theta waves seen in the background may be from sedation, but alpha frequencies seen frequently. There were no focal abnormalities, persistent asymmetries, or epileptiform discharges/ seizures. Compared to yesterday's EEG: Unchanged record. Normal background Sheryl Caraballo MD Epileptologist/ Staff Neurologist [facility] us Sebastián Dutta MD NEUROLOGY ORDERABLES Final Resul t DANIE * Continuous EEG (12/22/2024 10:14 AM EDT) Narrative DANIE - 12/22/2024 10:14 AM EDT Sheryl Akins MD 12/22/2024 10:15 AM Continuous Electroencephalography (EEG) Report Recording Information: Start Time: Dec 21, 2024 22:53 PM End Time: Dec 22, 2024 04:20 AM Duration: 05:26:50 (327 minutes) Recording Technique: This EEG was obtained using a 10 lead, 8 channel circumferential rapid EEG with no parasagittal coverage. Performed with Agilys Status Epilepticus Monitor, ICD-10 [id number] Recording Techniques Description of procedure: This is a Rapid EEG acquired with a digital [employer] EEG machine with 10 lead, 8 channel system positioned circumferentially, spaced according to the lateral chains of the 10-20 international system of EEG electrode placements. Vertex and paracentral recording electrodes are not included. The entire segments of the EEG were scanned by the attending physician. ClarityPro algorithm utilized and implemented to provide analysis of underlying activity and seizure detection used to facilitate reading. Video recorded: No Clinical Information History: Cece Moyer is a 49 y.o. 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, former obesity s/p gastric sleeve complicated by severe protein calorie malnutrition, dumping syndrome, dysphagia status post jejunostomy in 09/2024, presenting intubated/sedated from OSH for seizure like activity, c/f status epilepticus Pertinent Medications and Treatments Anti-seizure medications: Sedatives: Medications: Current Facility-Administered Medications: chlorhexidine (PERIDEX) 0.12 % solution 15 mL, 15 mL, Mouth/Throat, BID, Refugio Rothman MD, 15 mL at 12/22/24 0805 dexmedeTOMIDine (PRECEDEX) 200 mcg in sodium chloride 0.9 % 50 mL (4 mcg/mL) infusion, 0.2-1.5 mcg/kg/hr, intravenous, Continuous, Elder Jay DO, Stopped at 12/22/24 0933 dextrose (D50W) 50% injection 12.5 g, 12.5 g, intravenous, q15 min PRN, Clau Ludy Chilel, DO, 12.5 g at 12/22/24 0657 dextrose (D50W) 50% injection 25 g, 25 g, intravenous, q15 min PRN, Clau Chilel, DO dextrose 15 gram/60 mL oral solution 15 g, 15 g, oral, q15 min PRN, Clau Ludy Finkn, DO dextrose 15 gram/60 mL oral solution 30 g, 30 g, oral, q15 min PRN, Clau Chilel, DO dextrose 5 % lactated ringers infusion, 75 mL/hr, intravenous, Continuous, Elder Jay DO, Last Rate: 75 mL/hr at 12/22/24 0800, 75 mL/hr at 12/22/24 0800 glucagon HCL injection 1 mg, 1 mg, intramuscular, Once PRN, Clau Chilel DO mupirocin (BACTROBAN) 2 % ointment, , Each Nostril, BID, Brigette Menard MD, Given at 12/22/24 08 norepinephrine (LEVOPHED) infusion 8 mg/250 mL (premix), 0.01-0.99 mcg/kg/min, intravenous, Continuous, Elder Jay DO, Last Rate: 1.52 mL/hr at 12/22/24 0920, 0.01 mcg/kg/min at 12/22/24 0920 pantoprazole (PROTONIX) injection 40 mg, 40 mg, intravenous, q24h, Shawna Pereira MD, 40 mg at 12/21/242053 propofoL (DIPRIVAN) infusion 10 mg/mL, 30-200 mcg/kg/min, intravenous, Continuous, Shawna Pereira MD, Last Rate: 26.8 mL/hr at 12/22/24 100, 55 mcg/kg/min at 12/22/24 100 Results Background: The record was well organized. [...] Impression This is a normal continuous EEG recording, some theta waves seen in the background may be from sedation, but alpha frequencies seen frequently. There were no focal abnormalities, persistent asymmetries, or epileptiform discharges/ seizures. Compared to yesterday's EEG: Unchanged record. Normal background Sheryl Caraballo MD Epileptologist/ Staff Neurologist [facility] Sebastián Dutta MD NEUROLOGY ORDERABLES Final Resul t Performing Organization Address [facility] Co de Phone Number [facility] * Procalcitonin (12/22/2024 4:12 AM EDT) Procalcitonin 0.05 <=0.05 ng/mL LAB CHEMISTRY METHOD 12/22/2024 5:13 AM EDT [facility] Blood Venous blood specimen / Unknown Venipuncture / Unknown 12/22/2024 4:12 AM EDT 12/22/2024 4:22 AM EDT Narrative [facility] - 12/22/2024 5:13 AM EDT Procalcitonin levels above 2.0 ng/mL represent a high risk of progression to severe sepsis and/or septic shock. Note that levels below 0.50 ng/mL do not exclude an infection, and increased levels can occur without infection. Procalcitonin levels should be interpreted in the context of other clinical and laboratory findings. Brigette Menard MD LAB BLOOD ORDERABLES Final Re sult Performing Organization Address [facility]/ZIP Co de Phone Number [facility] [address] [place] [address], [place] [phone] * Lactate, whole blood (12/22/2024 4:12 AM EDT) [facility] Lactate, Whole Blood 2.1 0.5 - 2.2 mmol/L LAB BLOOD GAS METHOD 12/22/2024 4:28 AM EDT [facility] Blood Venous blood specimen / Unknown Venipuncture / Unknown 12/22/2024 4:12 AM EDT 12/22/2024 4:21 AM EDT Brigette Menard MD LAB BLOOD ORDERABLES Final Re sult [facility] [address] [place] [address], [place] [phone] * Hepatitis panel, acute (12/22/2024 4:12 AM EDT) [facility] Hepatitis B Surface Ag Negative Negative LAB CHEMISTRY METHOD 12/23/2024 4:40 AM EDT [facility] Hepatitis A Antibody IgM Negative Negative LAB CHEMISTRY METHOD 12/23/2024 4:40 AM EDT [facility] Hep B Core IgM Negative Negative LAB CHEMISTRY METHOD 12/23/2024 4:40 AM EDT [facility] Hepatitis C Antibody Negative Negative LAB CHEMISTRY METHOD 12/23/2024 4:40 AM EDT [facility] Blood Venous blood specimen / Unknown Venipuncture / Unknown 12/22/2024 4:12 AM EDT 12/22/2024 4:22 AM EDT Refugio Rothman MD LAB BLOOD ORDERABLES Final Res ult [facility] [address] [place] [address], [place] [phone] * (ABNORMAL) Prolactin (12/22/2024 4:12 AM EDT) Only the most recent of2 resultswithin the time period is included. [facility] Prolactin 45.00(H) 3.30 - 26.70 ng/mL LAB CHEMISTRY METHOD 12/22/2024 5:13 AM EDT [facility] Blood Venous blood specimen / Unknown Venipuncture / Unknown 12/22/2024 4:12 AM EDT 12/22/2024 4:22 AM EDT us Brigette Menard MD LAB BLOOD ORDERABLES Final Re sult Performing Organization Address [facility]/ZIP Co de Phone Number [facility] [address] [place] [address], [place] [phone] * Culture blood (12/22/2024 4:12 AM EDT) [facility] Culture, Blood No growth at 5 days 12/27/2024 5:01 AM EDT [facility] Blood Venous blood specimen / Unknown Venipuncture / Unknown 12/22/2024 4:12 AM EDT 12/22/2024 4:22 AM EDT us Brigette Menard MD LAB MICROBIOLOGY - GENERAL OR DERABLES Final Result Performing Organization Address [facility] Co de Phone Number [facility] [address] [place] [address], [place] [phone] * Phosphorus (12/22/2024 4:12 AM EDT) Only the most recent of11 resultswithin the time period is included. Phosphorus 2.6 2.5 - 4.5 mg/dL LAB CHEMISTRY METHOD 12/22/2024 4:59 AM EDT [facility] Blood Venous blood specimen / Unknown Venipuncture / Unknown 12/22/2024 4:12 AM EDT 12/22/2024 4:22 AM EDT us Brigette Menard MD LAB BLOOD ORDERABLES Final Re sult Performing Organization Address [facility]/ZIP Co de Phone Number [facility] [address] [place] [address], [place] [phone] * Magnesium (12/22/2024 4:12 AM EDT) Only the most recent of12 resultswithin the time period is included. Pathologist [facility] Magnesium 1.9 1.7 - 2.8 mg/dL LAB CHEMISTRY METHOD 12/22/2024 4:59 AM EDT [facility] Blood Venous blood specimen / Unknown Venipuncture / Unknown 12/22/2024 4:12 AM EDT 12/22/2024 4:22 AM EDT Brigette Menard MD LAB BLOOD ORDERABLES Final Re sult Performing Organization Address [facility]/ZIP Co de Phone Number [facility] [address] [place] [address], [place] [phone] * (ABNORMAL) Hepatic function panel (12/22/2024 4:12 AM EDT) Only the most recent of4 resultswithin the time period is included. ALT (SGPT) 194(H) 7 - 52 unit/L LAB CHEMISTRY METHOD 12/22/2024 4:59 AM EDT [facility] AST (SGOT) 252(H) 5 - 40 unit/L LAB CHEMISTRY METHOD 12/22/2024 4:59 AM EDT [facility] Alkaline Phosphatase 164(H) 34 - 104 unit/L LAB CHEMISTRY METHOD 12/22/2024 4:59 AM EDT [facility] Bilirubin, Direct 0.2 0.0 - 0.2 mg/dL LAB CHEMISTRY METHOD 12/22/2024 4:59 AM EDT [facility] Total Bilirubin 0.4 0.3 - 1.0 mg/dL LAB CHEMISTRY METHOD 12/22/2024 4:59 AM EDT [facility] Total Protein 6.7 6.4 - 8.5 g/dL LAB CHEMISTRY METHOD 12/22/2024 4:59 AM EDT [facility] Albumin 3.4(L) 3.5 - 5.0 g/dL LAB CHEMISTRY METHOD 12/22/2024 4:59 AM EDT [facility] Globulin, Total 3.3 2.3 - 3.5 g/dL LAB CHEMISTRY METHOD 12/22/2024 4:59 AM EDT [facility] A/G Ratio 1.0 LAB CHEMISTRY METHOD 12/22/2024 4:59 AM EDT [facility] Blood Venous blood specimen / Unknown Venipuncture / Unknown 12/22/2024 4:12 AM EDT 12/22/2024 4:22 AM EDT us Brigette Menard MD LAB BLOOD ORDERABLES Final Re sult [facility] [address] [place] [address], [place] [phone] * Basic metabolic panel (12/22/2024 4:12 AM EDT) Only the most recent of5 resultswithin the time period is included. Sodium 136 135 - 145 mmol/L LAB CHEMISTRY METHOD 12/22/2024 4:59 AM EDT [facility] Potassium 4.5 3.5 - 5.1 mmol/L LAB CHEMISTRY METHOD 12/22/2024 4:59 AM EDT [facility] Chloride 103 98 - 107 mmol/L LAB CHEMISTRY METHOD 12/22/2024 4:59 AM EDT [facility] CO2 26 24 - 32 mmol/L LAB CHEMISTRY METHOD 12/22/2024 4:59 AM EDT [facility] Anion Gap 7 5 - 14 LAB CHEMISTRY METHOD 12/22/2024 4:59 AM EDT [facility] Glucose 76 70 - 199 mg/dL LAB CHEMISTRY METHOD 12/22/2024 4:59 AM EDT [facility] BUN 10 7 - 17 mg/dL LAB CHEMISTRY METHOD 12/22/2024 4:59 AM EDT [facility] Creatinine 0.50 0.50 - 1.00 mg/dL LAB CHEMISTRY METHOD 12/22/2024 4:59 AM EDT [facility] eGFR 117 >=60 mL/min/1. 73m2 LAB CHEMISTRY METHOD 12/22/2024 4:59 AM EDT [facility] Comment:Calculation based on the Chronic Kidney Disease Epidemiology Collaboration (CKD-EPI) equation refit without adjustment for race. BUN/Creatinine Ratio 20.0 12.0 - 20.0 LAB CHEMISTRY METHOD 12/22/2024 4:59 AM EDT [facility] Calcium 8.6 8.4 - 10.2 mg/dL LAB CHEMISTRY METHOD 12/22/2024 4:59 AM EDT [facility] Blood Venous blood specimen / Unknown Venipuncture / Unknown 12/22/2024 4:12 AM EDT 12/22/2024 4:22 AM EDT Brigette Menard MD LAB BLOOD ORDERABLES Final Re sult [facility] [address] [place] [address], * (ABNORMAL) Urinalysis with microscopic (12/22/2024 12:27 AM EDT) Color, Urine Yellow Yellow, Colorless LAB URINALYSIS - AUTOMATED METHOD 12/22/2024 1:23 AM EDT [facility] Clarity, Urine Clear Clear LAB URINALYSIS - AUTOMATED METHOD 12/22/2024 1:23 AM EDT [facility] Specific [place] Urine 1.024 1.005 - 1.030 LAB URINALYSIS - AUTOMATED METHOD 12/22/2024 1:23 AM [facility] pH, Urine 6.0 5.0 - 8.0 pH LAB URINALYSIS - AUTOMATED METHOD 12/22/2024 1:23 AM [facility] Leukocytes, Urine Negative Negative WBCs/mcL LAB URINALYSIS - AUTOMATED METHOD 12/22/2024 1:23 AM [facility] Nitrite, Urine Negative Negative LAB URINALYSIS - AUTOMATED METHOD 12/22/2024 1:23 AM [facility] Protein, Urine Negative Negative mg/dL LAB URINALYSIS - AUTOMATED METHOD 12/22/2024 1:23 AM [facility] Glucose, Urine Negative Negative mg/dL LAB URINALYSIS - AUTOMATED METHOD 12/22/2024 1:23 AM [facility] Ketones, Urine Negative Negative mg/dL LAB URINALYSIS - AUTOMATED METHOD 12/22/2024 1:23 AM [facility] Blood, Urine Negative Negative mg/dL LAB URINALYSIS - AUTOMATED METHOD 12/22/2024 1:23 AM [facility] RBC, Urine 6(H) 0 - 3 /HPF LAB URINALYSIS - AUTOMATED METHOD 12/22/2024 1:23 AM [facility] WBC, Urine 3 0 - 5 /HPF LAB URINALYSIS - AUTOMATED METHOD 12/22/2024 1:23 AM [facility] Squamous Epithelial, Urine 0 0 - 5 /HPF LAB URINALYSIS - AUTOMATED METHOD 12/22/2024 1:23 AM [facility] Mucus, Urine Present(A) Not Present /HPF LAB URINALYSIS - AUTOMATED METHOD 12/22/2024 1:23 AM [facility] Urine Urine specimen from urinary conduit / Unknown Non-blood Collection / Unknown 12/22/2024 12:27 AM EDT 12/22/2024 12:40 AM EDT us Brigette Menard MD LAB URINE ORDERABLES Final Re sult [facility] [address] [place] [address], [place] [phone] * Continuous EEG (12/21/2024 11:12 PM EDT) Narrative [facility] - 12/21/2024 11:12 PM EDT Sheryl Akins MD 12/22/2024 10:16 AM Continuous Electroencephalography (EEG) Report Recording Information: Start Time: Dec 21, 2024 20:48 PM End Time: Dec 21, 2024 22:12 PM Duration: 01:24:45 (85 minutes) Recording Technique: This EEG was obtained using a 10 lead, 8 channel circumferential rapid EEG with no parasagittal coverage. Performed with Minicabster, ResiModel Status Epilepticus Monitor, ICD-10 [id number] Recording Techniques Description of procedure: This is a Rapid EEG acquired with a digital [employer] EEG machine with 10 lead, 8 channel system positioned circumferentially, spaced according to the lateral chains of the 10-20 international system of EEG electrode placements. Vertex and paracentral recording electrodes are not included. The entire segments of the EEG were scanned by the attending physician. ClarityPro algorithm utilized and implemented to provide analysis of underlying activity and seizure detection used to facilitate reading. Video recorded: No Clinical Information History: Cece Moyer is a 49 y.o. 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, former obesity s/p gastric sleeve complicated by severe protein calorie malnutrition, dumping syndrome, dysphagia status post jejunostomy in 09/2024, presenting intubated/sedated from OSH for seizure like activity, c/f status epilepticus Pertinent Medications and Treatments Anti-seizure medications: Sedatives: Medications: Current Facility-Administered Medications: chlorhexidine (PERIDEX) 0.12 % solution 15 mL, 15 mL, Mouth/Throat, BID, Refugio Rothman MD, 15 mL at 12/22/24 0805 dexmedeTOMIDine (PRECEDEX) 200 mcg in sodium chloride 0.9 % 50 mL (4 mcg/mL) infusion, 0.2-1.5 mcg/kg/hr, intravenous, Continuous, Elder Jay DO, Stopped at 12/22/24 0933 dextrose (D50W) 50% injection 12.5 g, 12.5 g, intravenous, q15 min PRN, Clau Chilel DO, 12.5 g at 12/22/24 0657 dextrose (D50W) 50% injection 25 g, 25 g, intravenous, q15 min PRN, Clau Chilel, dextrose 15 gram/60 mL oral solution 15 g, 15 g, oral, q15 min PRN, Clau Finkn, dextrose 15 gram/60 mL oral solution 30 g, 30 g, oral, q15 min PRN, Clau Chilel, dextrose 5 % lactated ringers infusion, 75 mL/hr, intravenous, Continuous, Elder aJy DO, Last Rate: 75 mL/hr at 12/22/24 0800, 75 mL/hr at 12/22/24 0800 glucagon HCL injection 1 mg, 1 mg, intramuscular, Once PRN, Clau Chilel DO mupirocin (BACTROBAN) 2 % ointment, , Each Nostril, BID, Brigette Menard MD, Given at 12/22/24 0805 norepinephrine (LEVOPHED) infusion 8 mg/250 mL (premix), 0.01-0.99 mcg/kg/min, intravenous, Continuous, Elder Jay DO, Last Rate: 1.52 mL/hr at 12/22/24 0920, 0.01 mcg/kg/min at 12/22/24 0920 pantoprazole (PROTONIX) injection 40 mg, 40 mg, intravenous, q24h, Shawna Pereira MD, 40 mg at 12/21/242053 propofoL (DIPRIVAN) infusion 10 mg/mL, 30-200 mcg/kg/min, intravenous, Continuous, Shawna Pereira MD, Last Rate: 26.8 mL/hr at 12/22/24 1004, 55 mcg/kg/min at 12/22/24 1004 Results Background: The record was well organized. [...] a normal continuous EEG recording in the [id number] states. There were no focal abnormalities, persistent asymmetries, or epileptiform discharges/ seizures. However, a normal EEG does not rule out epilepsy or seizure. Clinical correlation is advised. Sheryl Caraballo MD Epileptologist/ Staff Neurologist [facility] us Sebastián Dutta MD NEUROLOGY ORDERABLES Edited Resu lt - Final NAT * Continuous EEG (12/21/2024 11:12 PM EDT) Narrative [facility] - 12/21/2024 11:12 PM EDT Sheryl Akins MD 12/22/2024 10:16 AM Continuous Electroencephalography (EEG) Report Recording Information: Start Time: Dec 21, 2024 20:48 PM End Time: Dec 21, 2024 22:12 PM Duration: 01:24:45 (85 minutes) Recording Technique: This EEG was obtained using a 10 lead, 8 channel circumferential rapid EEG with no parasagittal coverage. Performed with Minicabster, ResiModel Status Epilepticus Monitor, ICD-10 [id number] Recording Techniques Description of procedure: This is a Rapid EEG acquired with a digital [employer] EEG machine with 10 lead, 8 channel system positioned circumferentially, spaced according to the lateral chains of the 10-20 international system of EEG electrode placements. Vertex and paracentral recording electrodes are not included. The entire segments of the EEG were scanned by the attending physician. ClarityPro algorithm utilized and implemented to provide analysis of underlying activity and seizure detection used to facilitate reading. Video recorded: No Clinical Information History: Cece Moyer is a 49 y.o. 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, former obesity s/p gastric sleeve complicated by severe protein calorie malnutrition, dumping syndrome, dysphagia status post jejunostomy in 09/2024, presenting intubated/sedated from OSH for seizure like activity, c/f status epilepticus Pertinent Medications and Treatments Anti-seizure medications: Sedatives: Medications: Current Facility-Administered Medications: chlorhexidine (PERIDEX) 0.12 % solution 15 mL, 15 mL, Mouth/Throat, BID, Refugio Rothman MD, 15 mL at 12/22/24 0805 dexmedeTOMIDine (PRECEDEX) 200 mcg in sodium chloride 0.9 % 50 mL (4 mcg/mL) infusion, 0.2-1.5 mcg/kg/hr, intravenous, Continuous, Elder Jay DO, Stopped at 12/22/24 0933 dextrose (D50W) 50% injection 12.5 g, 12.5 g, intravenous, q15 min PRN, Clau Ludy Ranjana, DO, 12.5 g at 12/22/24 0657 dextrose (D50W) 50% injection 25 g, 25 g, intravenous, q15 min PRN, Clau Ludy Ranjana, DO dextrose 15 gram/60 mL oral solution 15 g, 15 g, oral, q15 min PRN, Clau Ludy Ranjana, DO dextrose 15 gram/60 mL oral solution 30 g, 30 g, oral, q15 min PRN, Clau Ludy Finkn, DO dextrose 5 % lactated ringers infusion, 75 mL/hr, intravenous, Continuous, Elder Jay DO, Last Rate: 75 mL/hr at 12/22/24 0800, 75 mL/hr at 12/22/24 0800 glucagon HCL injection 1 mg, 1 mg, intramuscular, Once PRN, Clau Chilel DO mupirocin (BACTROBAN) 2 % ointment, , Each Nostril, BID, Brigette Menard MD, Given at 12/22/24 0805 norepinephrine (LEVOPHED) infusion 8 mg/250 mL (premix), 0.01-0.99 mcg/kg/min, intravenous, Continuous, Elder Jay DO, Last Rate: 1.52 mL/hr at 12/22/24 09, 0.01 mcg/kg/min at 12/22/24919 pantoprazole (PROTONIX) injection 40 mg, 40 mg, intravenous, q24h, Shawna Pereira MD, 40 mg at 12/21/242053 propofoL (DIPRIVAN) infusion 10 mg/mL, 30-200 mcg/kg/min, intravenous, Continuous, Shawna Pereira MD, Last Rate: 26.8 mL/hr at 12/22/241003, 55 mcg/kg/min at 12/22/241003 Results Background: The record was well organized. [...] a normal continuous EEG recording in the pldzs-sytvga-knvvan states. There were no focal abnormalities, persistent asymmetries, or epileptiform discharges/ seizures. However, a normal EEG does not rule out epilepsy or seizure. Clinical correlation is advised. Sheryl Caraballo MD Epileptologist/ Staff Neurologist [facility] Sebastián Dutta MD NEUROLOGY ORDERABLES Edited Resu lt - Final NATUS * CT Head wo Contrast (12/21/2024 10:34 PM EDT) Anatomical Region Laterality Modality Head and Neck Computed Tomogra phy 12/21/2024 10:4 7 PM EDT Impressions 12/21/2024 10:53 PM EDT No acute intracranial abnormality. -------- FINAL REPORT -------- Dictated By: Adrien Cordero Dictated Date: 12/21/2024 22:47 ET Assigned Physician: Adrien Cordero Reviewed and Electronically Signed By: Adrien Cordero Signed Date: 12/21/2024 22:53 ET Workstation ID: [id number] Transcribed By: Self Edit Transcribed Date: 12/21/2024 22:47 ET Narrative 12/21/2024 10:53 PM EDT PROCEDURE: CT HEAD WO CONTRAST HISTORY: 49 years Female Seizure, nontraumatic (Age >= 41y) TECHNIQUE: CT obtained through the head without intravenous contrast administration. COMPARISON: None. FINDINGS: Brain morphology, ventricles and sulci are unremarkable for age. No mass, mass effect, midline shift, hemorrhage or acute infarct. No significant sinus or mastoid disease. Procedure Note Adrien Cordero MD - 12/21/2024 PROCEDURE: CT HEAD WO CONTRAST HISTORY: 49 years Female Seizure, nontraumatic (Age >= 41y) TECHNIQUE: CT obtained through the head without intravenous contrastadministration. COMPARISON: None. FINDINGS: Brain morphology, ventricles and sulci are unremarkable for age. No mass, mass effect, midline shift, hemorrhage or acute infarct. No significant sinus or mastoid disease. IMPRESSION: No acute intracranial abnormality. -------- FINAL REPORT -------- Dictated By: Adrien Cordero Dictated Date: 12/21/2024 22:47 ET Assigned Physician: Adrien Cordero Reviewed and Electronically Signed By: Adrien Cordero Signed Date: 12/21/2024 22:53 ET Workstation ID: [id number] Transcribed By: Self Edit Transcribed Date: 12/21/2024 22:47 ET Brigette Menard MD IMG CT PROCEDURES Final Resul t * XR Chest 1 View (12/21/2024 9:38 PM EDT) Anatomical Region Laterality Modality Body Radiographic Eliza ging 12/21/2024 9:50 PM EDT Impressions 12/21/2024 9:50 PM EDT 1. No acute process in the chest. 2. An endotracheal tube is seen with its tip about 5.3 cm above the magdalena. An enteric tube is seen with its tip in the stomach. -------- FINAL REPORT -------- Dictated By: Mary Tompkins Dictated Date: 12/21/2024 21:50 ET Assigned Physician: Mary Tompkins Reviewed and Electronically Signed By: Mary Tompkins Signed Date: 12/21/2024 21:50 ET Workstation ID: [id number] Transcribed By: Self Edit Transcribed Date: 12/21/2024 21:50 ET Narrative 12/21/2024 9:50 PM EDT RADIOGRAPH OF THE CHEST CLINICAL HISTORY: confirm ETT TECHNIQUE: Frontal view of the chest. COMPARISON: 12/21/2022 FINDINGS: Normal sized heart. An endotracheal tube is seen with its tip about 5.3 cm above the magdalena. An enteric tube is seen with its tip in the stomach. No consolidation. No effusion. Negative for pneumothorax. Negative for acute osseous abnormality, lytic or blastic lesion. Procedure Note Mary Tompkins MD - 12/21/2024 RADIOGRAPH OF THE CHEST CLINICAL HISTORY: confirm ETT TECHNIQUE: Frontal view of the chest. COMPARISON: 12/21/2022 FINDINGS: Normal sized heart. An endotracheal tube is seen with its tip about 5.3 cmabove the magdalena. An enteric tube is seen with its tip in the stomach. No consolidation. No effusion. Negative for pneumothorax. Negative for acute osseous abnormality, lytic or blastic lesion. IMPRESSION: 1. No acute process in the chest. 2. An endotracheal tube is seen with its tip about 5.3 cm above thecarina. An enteric tube is seen with its tip in the stomach. -------- FINAL REPORT -------- Dictated By: Mary Tompkins Dictated Date: 12/21/2024 21:50 ET Assigned Physician: Mary Tompkins Reviewed and Electronically Signed By: Mary Tompkins Signed Date: 12/21/2024 21:50 ET Workstation ID: [id number] Transcribed By: Self Edit Transcribed Date: 12/21/2024 21:50 ET us Brigette Menard MD IMG XR PROCEDURES Final Resul t * Continuous EEG (12/14/2024 5:54 PM EDT) [...] See administration instructions. Patient received injection at [facility] every four weeks, Disp: , Rfl: [...] mouth 1 (one) time each day., Disp: 45185 mL, Rfl: 11 pantoprazole (PROTONIX) 40 mg [...] normal continuous video EEG recording in the yglmp-khghfr-ivtpnm states. -There were no focal abnormalities, persistent [...] event. Sheryl Caraballo MD Epileptologist/ Staff Neurologist [facility] Sebastián Dutta MD NEUROLOGY ORDERABLES Final Resul t NAT * Continuous EEG (12/14/2024 4:20 PM EDT) [...] See administration instructions. Patient received injection at [facility] every four weeks, Disp: , Rfl: [...] mouth 1 (one) time each day., Disp: 56821 mL, Rfl: 11 pantoprazole (PROTONIX) 40 mg [...] normal continuous video EEG recording in the pdzfg-vttuhc-ksrsxz states. -There were no focal abnormalities, persistent [...] event. Sheryl Caraballo MD Epileptologist/ Staff Neurologist [facility] Sebastián Dutta MD NEUROLOGY ORDERABLES Final Resul t NATUS * Continuous EEG (12/14/2024 6:03 AM EDT) [...] 5 mg, 5 mg, oral, Daily, Ever Boucher, MD pantoprazole (PROTONIX) EC tablet 40 mg, [...] a normal continuous EEG recording in the ppmmt-pwxztf-huscyk states. There were no focal abnormalities, persistent asymmetries, or epileptiform discharges/ seizures. -Patient had a brief episode at the very beginning of the EEG set up on 12/13/2024 at 11:59 AM: Unresponsive, shaking and stiffening: No EEG correlation seen during this episode Sheryl Caraballo MD Epileptologist/ Staff Neurologist [facility] us Sebastián Dutta MD NEUROLOGY ORDERABLES Final Resul t NATUS * Lactate, with reflex (12/13/2024 4:14 AM EDT) LACTIC ACID 1.6 0.5 - 2.2 mmol/L LAB BLOOD GAS METHOD 12/13/2024 4:35 AM EDT [facility] Blood Venous blood specimen / Unknown Venipuncture / Unknown 12/13/2024 4:14 AM EDT 12/13/2024 4:32 AM EDT us Adriel Bethea MD LAB BLOOD ORDERABLES Final Resul t [facility] [address] [place] [address], [place] [phone] * (ABNORMAL) CBC auto differential (12/08/2024 2:19 PM EDT) Only the most recent of11 resultswithin the time period is included. WBC 9.1 4.8 - 10.8 K/mcL LAB HEMETOLOGY METHOD 12/08/2024 6:20 PM EDT [facility] RBC 4.90(H) 3.80 - 4.80 M/mcL LAB HEMETOLOGY METHOD 12/08/2024 6:20 PM EDT [facility] Hemoglobin 13.9 11.5 - 16.0 g/dL LAB HEMETOLOGY METHOD 12/08/2024 6:20 PM EDT [facility] Hematocrit 43.2 35.0 - 47.0 % LAB HEMETOLOGY METHOD 12/08/2024 6:20 PM EDT [facility] MCV 88.7 79.0 - 98.0 FL LAB HEMETOLOGY METHOD 12/08/2024 6:20 PM EDT [facility] MCH 28.5 27.0 - 32.0 pcg LAB HEMETOLOGY METHOD 12/08/2024 6:20 PM EDT [facility] MCHC 32.2 32.0 - 37.0 g/dL LAB HEMETOLOGY METHOD 12/08/2024 6:20 PM EDT [facility] RDW 17.6(H) 11.0 - 15.0 % LAB HEMETOLOGY METHOD 12/08/2024 6:20 PM EDT [facility] Platelets 334 130 - 400 K/mcL LAB HEMETOLOGY METHOD 12/08/2024 6:20 PM [facility] MPV 10.2 7.0 - 11.0 FL LAB HEMETOLOGY METHOD 12/08/2024 6:20 PM EDT [facility] NRBC 0.0 <1.0 % LAB HEMETOLOGY METHOD [facility]24 [facility] NRBC Absolute 0.00 <0.10 K/mcL LAB HEMETOLOGY METHOD 12/08/2024 6:20 PM [facility] Neutrophils Relative 66.5 % LAB HEMETOLOGY METHOD 12/08/2024 6:20 PM [facility] Lymphocytes Relative 23.2 % LAB HEMETOLOGY METHOD 12/08/2024 6:20 PM [facility] Monocytes Relative 6.3 % LAB HEMETOLOGY METHOD 12/08/2024 6:20 PM [facility] Eosinophils Relative 3.3 % LAB HEMETOLOGY METHOD 12/08/2024 6:20 PM [facility] Basophils Relative 0.3 % LAB HEMETOLOGY METHOD 12/08/2024 6:20 PM [facility] Immature Granulocytes Relative 0.4 % LAB HEMETOLOGY METHOD 12/08/2024 6:20 PM [facility] Neutrophils Absolute 6.02 1.50 - 7.00 K/mcL LAB HEMETOLOGY METHOD 12/08/2024 6:20 PM [facility] Lymphocytes Absolute 2.10 1.00 - 5.00 K/mcL LAB HEMETOLOGY METHOD 12/08/2024 6:20 PM [facility] Monocytes Absolute 0.57 0.20 - 1.00 K/mcL LAB HEMETOLOGY METHOD 12/08/2024 6:20 PM EDT [facility] Eosinophils Absolute 0.30 0.00 - 0.50 K/mcL LAB HEMETOLOGY METHOD 12/08/2024 6:20 PM EDT [facility] Basophils Absolute 0.03 0.00 - 0.20 K/mcL LAB HEMETOLOGY METHOD 12/08/2024 6:20 PM EDT [facility] Immature Granulocytes Absolute 0.04(H) 0.00 - 0.03 K/[facility] LAB HEMETOLOGY METHOD 12/08/2024 6:20 PM EDT [facility] Blood Venous blood specimen / Unknown Venipuncture / Unknown 12/08/2024 2:19 PM EDT 12/08/2024 2:19 PM EDT us Nga Mukherjee MD LAB BLOOD ORDERABLES Fi nal Result Performing Organization Address City/[facility]/ZIP Co de Phone Number [facility] [address] [place] [address], [place] [phone] * (ABNORMAL) Triglycerides (12/08/2024 2:19 PM EDT) Only the most recent of6 resultswithin the time period is included. Triglycerides 215(H) 0 - 150 mg/dL LAB CHEMISTRY METHOD 12/08/2024 6:47 PM EDT [facility] Blood Venous blood specimen / Unknown Venipuncture / Unknown 12/08/2024 2:19 PM EDT 12/08/2024 2:19 PM EDT us Nga Mukherjee MD LAB BLOOD ORDERABLES Fi nal Result Performing Organization Address City/[facility]/ZIP Co de Phone Number [facility] [address] [place] [address], [place] [phone] * (ABNORMAL) Urinalysis with reflex microscopic (11/19/2024 8:12 AM EDT) Specific [place] Urine >1.045(H) 1.003 - 1.030 LAB URINALYSIS - AUTOMATED METHOD 11/19/2024 8:51 AM [facility] pH, Urine 6.5 5.0 - 8.0 pH LAB URINALYSIS - AUTOMATED METHOD 11/19/2024 8:51 AM [facility] Leukocytes, Urine Negative Negative LAB URINALYSIS - AUTOMATED METHOD 11/19/2024 8:51 AM [facility] Nitrite, Urine Negative Negative LAB URINALYSIS - AUTOMATED METHOD 11/19/2024 8:51 AM [facility] Protein, Urine Negative <=Trace mg/dL LAB URINALYSIS - AUTOMATED METHOD 11/19/2024 8:51 AM [facility] Glucose, Urine Negative Negative mg/dL LAB URINALYSIS - AUTOMATED METHOD 11/19/2024 8:51 AM [facility] Ketones, Urine Negative Negative mg/dL LAB URINALYSIS - AUTOMATED METHOD 11/19/2024 8:51 AM [facility] Urobilinogen , Urine 1.0 0.2 - 1.0 mg/dL LAB URINALYSIS - AUTOMATED METHOD 11/19/2024 8:51 AM [facility] Bilirubin, Urine Negative Negative LAB URINALYSIS - AUTOMATED METHOD 11/19/2024 8:51 AM [facility] Blood, Urine Negative Negative LAB URINALYSIS - AUTOMATED METHOD 11/19/2024 8:51 AM [facility] Urine Urine specimen obtained by clean catch procedure / Unknown Non-blood Collection / Unknown 11/19/2024 8:12 AM EDT 11/19/2024 8:48 AM EDT Opal PETTY LAB URINE ORDERABLES Fin al Result [facility] [address] [place] [address], * CT Abdomen Pelvis w Contrast (11/19/2024 [...] Roca MD on 11/19/2024 07:19:15 Opal PETTY [facility] [place] PROCEDURES Final Result * IR Inj Contrast Eval Ostomy Tube [...] Signed Date: 11/18/2024 09:25 ET Workstation ID: [id number] Transcribed By: Self Edit Transcribed Date: 11/18/2024 09:21 ET Narrative 11/18/2024 9:25 AM EDT Jejunostomy tube check INDICATION: Patient had a jejunostomy tube placed 4 weeks ago by surgery. Patient complains of pain during feeds. CT scan demonstrated the presence of a possibly incidental intussusception. Patient placed supine on the imaging table. An initial ethanol operator image was obtained. Subsequently slow injection of [...] supine on the imaging table. An initial ethanol operator image wasobtained. Subsequently slow injection of 50 [...] Signed Date: 11/18/2024 09:25 ET Workstation ID: [id number] Transcribed By: Self Edit Transcribed Date: 11/18/2024 09:21 ET us Nga Mukherjee MD IMG IR PROCEDURES Final [...] Signed Date: 11/13/2024 10:55 ET Workstation ID: [id number] Transcribed By: Self Edit Transcribed Date: 11/13/2024 [...] Signed Date: 11/13/2024 10:55 ET Workstation ID: [id number] Transcribed By: Self Edit Transcribed Date: 11/13/2024 10:54 ET Adolfo PETTY IMG XR PROCEDURES Final R esult * POC , urine manually resulted (11/13/2024 9:48 AM EDT) Pathologist [facility] HCG, Ur POC Negative Negative POC hCG [...] LAB CHEMISTRY METHOD 11/03/2024 7:21 PM EDT [facility] TIBC 319 250 - 450 mcg/dL LAB CHEMISTRY METHOD 11/03/2024 7:21 PM EDT [facility] Iron Saturation 17 15 - 50 % LAB CHEMISTRY METHOD 11/03/2024 7:21 PM EDT [facility] Blood Venous blood specimen / Unknown Venipuncture / Unknown 11/03/2024 2:47 PM EDT 11/03/2024 2:47 PM EDT us Nga Muhkerjee MD LAB BLOOD ORDERABLES Fi nal Result Performing Organization Address City/[facility]/ZIP Co de Phone Number [facility] [address] [place] [address], [place] [phone] * Copper, serum (11/03/2024 2:47 PM EDT) [facility] Copper 1677 810 - 1990 ug/L 11/08/2024 8:37 AM EDT [facility] Comment: Copper values may be elevated to twice the normal levels in . Elevated results may be due to sample collected in a non-certified trace element-free tube. This test was developed and the performance characteristics determined by [facility]. It has not been cleared or approved by the FDA. The laboratory is regulated under CLIA as qualified to perform high-complexity testing. This test is used for patient testing purposes. It should not be regarded as investigational or for research. Test performed at [facility], [address] , [place] [address] Minal Frederick MD, PhD - Inspector Glass [employer] Mirror Blood Venous blood specimen / Unknown Venipuncture / Unknown 11/03/2024 2:47 PM EDT 11/03/2024 2:47 PM EDT us Nga Mukherjee MD LAB BLOOD ORDERABLES Fi nal Result Performing Organization Address City/[facility]/ZIP Co de Phone Number [facility] [address] [place] [address] * (ABNORMAL) Zinc (11/03/2024 2:47 PM EDT) Zinc 41(L) 60 - 130 ug/dL 11/07/2024 1:15 PM EDT [facility] Comment: Elevated results may be due to sample collected in a non-certified trace element-free tube. This test was developed and the performance characteristics determined by [facility]. It has not been cleared or approved by the FDA. The laboratory is regulated under CLIA as qualified to perform high-complexity testing. This test is used for patient testing purposes. It should not be regarded as investigational or for research. Test performed at [facility], [address] , [place] [address] Minal Frederick MD, PhD - Inspector [employer] Blood Venous blood specimen / Unknown Venipuncture / Unknown 11/03/2024 2:47 PM EDT 11/03/2024 2:47 PM EDT Nga Mukherjee MD LAB BLOOD ORDERABLES Fi nal Result [facility] [address] [place] [address] * Vitamin A (11/03/2024 2:47 PM EDT) Vitamin A 60 38 - 106 ug/dL 11/08/2024 6:59 AM EDT [facility] Comment: This test was developed and the performance characteristics determined by [facility]. It has not been cleared or approved by the FDA. The laboratory is regulated under CLIA as qualified to perform high-complexity testing. This test is used for patient testing purposes. It should not be regarded as investigational or for research. Test performed at [facility], [address] , [place] [address] Minal Frederick MD, PhD - Inspector [employer] Blood Venous blood specimen / Unknown Venipuncture / Unknown 11/03/2024 2:47 PM EDT 11/03/2024 2:47 PM EDT Nga Mukherjee MD LAB BLOOD ORDERABLES Fi nal Result Performing Organization Address [facility]/ZIP Co de Phone Number [facility] [address] [place] [address] * Selenium serum (11/03/2024 2:47 PM EDT) Pathologist [facility] Selenium 92 63 - 160 mcg/L 11/09/2024 3:32 PM EDT [facility] Comment: Testing was performed on a specimen submitted in a tube which has not been certified to be free of trace elements. Repeat testing on a specimen collected in a trace element tube is recommended prior to initiation of remedial action or environmental investigation of potential heavy metal sources. Refer to the [employer] Directory of Services for proper specimen collection information. This test was developed and its analytical performance characteristics have been determined by [place]. It has not been cleared or approved by the U.S. Food and Drug Administration. This assay has been validated pursuant to the CLIA regulations and is used for clinical purposes. Test Performed by [facility], [employer] [facility], [address] [place] [address] Dino Trujillo M.D., Ph.D., Director of Laboratories , CLIA [id number] Blood Venous blood specimen / Unknown Venipuncture / Unknown 11/03/2024 2:47 PM EDT 11/03/2024 2:47 PM EDT Nga Mukherjee MD LAB BLOOD ORDERABLES Fi nal Result Performing Organization Address [facility]/ZIP Co de Phone Number [facility] [address] [place] [address] * Vitamin D 25 hydroxy (11/03/2024 2:47 PM EDT) Vit D, 25-Hydroxy 33.1 30.0 - 80.0 ng/mL LAB CHEMISTRY METHOD 11/03/2024 7:27 PM EDT [facility] Blood Venous blood specimen / Unknown Venipuncture / Unknown 11/03/2024 2:47 PM EDT 11/03/2024 2:47 PM EDT Nga Mukherjee MD LAB BLOOD ORDERABLES Fi nal Result Performing Organization Address City/[facility]/ZIP Co de Phone Number [facility] [address] [place] [address], * Vitamin B1 (11/03/2024 2:47 PM EDT) Vitamin B1 Whole Blood 101 38 - 122 ug/L 11/09/2024 7:58 AM EDT [facility] Comment: This test was developed and the performance characteristics determined by [facility]. It has not been cleared or approved by the FDA. The laboratory is regulated under CLIA as qualified to perform high-complexity testing. This test is used for patient testing purposes. It should not be regarded as investigational or for research. Test performed at [facility], [address] , [place] [address] Minal Frederick MD, PhD - Inspector Glass [employer] Blood Venous blood specimen / Unknown Venipuncture / Unknown 11/03/2024 2:47 PM EDT 11/03/2024 2:47 PM EDT Nga Mukherjee MD LAB BLOOD ORDERABLES Fi nal Result Performing Organization Address City/[facility]/ZIP Co de Phone Number [facility] [address] [place] [address] * Vitamin B6 (11/03/2024 2:47 PM EDT) Vitamin B6 (Pyridoxine) Level 8 5 - 50 ug/L 11/09/2024 12:34 PM EDT [facility] Comment: This test was developed and the performance characteristics determined by [facility]. It has not been cleared or approved by the FDA. The laboratory is regulated under CLIA as qualified to perform high-complexity testing. This test is used for patient testing purposes. It should not be regarded as investigational or for research. Test performed at [facility], [address], [place] [address] Minal Frederick MD, PhD - Inspector Glass [employer] Blood Venous blood specimen / Unknown Venipuncture / Unknown 11/03/2024 2:47 PM EDT 11/03/2024 2:47 PM EDT Nga Mukherjee MD LAB BLOOD ORDERABLES Fi nal Result [facility] [address] [place] [address] * Vitamin B12 (11/03/2024 2:47 PM EDT) Pathologist [facility] Vitamin B-12 694 250 - 900 pcg/mL LAB CHEMISTRY METHOD 11/03/2024 7:21 PM EDT [facility] Blood Venous blood specimen / Unknown Venipuncture / Unknown 11/03/2024 2:47 PM EDT 11/03/2024 2:47 PM EDT Nga Mukherjee MD LAB BLOOD ORDERABLES Fi nal Result Performing Organization Address City/[facility]/ZIP Co de Phone Number [facility] [address] [place] [address], * (ABNORMAL) Folate (10/25/2024 5:46 AM EDT) Folate >20.0(H) 2.8 - 17.0 ng/ml LAB CHEMISTRY METHOD 10/25/2024 9:55 AM EDT [facility] Blood Venous blood specimen / Unknown Venipuncture / Unknown 10/25/2024 5:46 AM EDT 10/25/2024 6:29 AM EDT Dominique PETTY LAB BLOOD ORDERABLES Final R esult Performing Organization Address City/[facility]/ZIP Co de Phone Number [facility] [address] [place] [address], * (ABNORMAL) Ferritin (10/25/2024 5:46 AM EDT) Ferritin 580(H) 8 - 252 ng/mL LAB CHEMISTRY METHOD 10/25/2024 2:07 PM EDT [facility] Comment:Results verified by repeat testing Blood Venous blood specimen / Unknown Venipuncture / Unknown 10/25/2024 5:46 AM EDT 10/25/2024 6:29 AM EDT Terra PETTY LAB BLOOD ORDERABLES Final Res ult Performing Organization Address [facility]/ZIP Co de Phone Number [facility] [address] [place] [address], * Calcium, ionized (if available) (10/23/2024 6:36 AM EDT) Calcium Ionized 4.61 4.50 - 5.30 mg/dL 10/23/2024 8:19 AM EDT [facility] Blood Venous blood specimen / Unknown Venipuncture / Unknown 10/23/2024 6:36 AM EDT 10/23/2024 8:11 AM EDT us Terra PETTY LAB BLOOD ORDERABLES Final Re sult Performing Organization Address [facility]/ZIP Co de Phone Number [facility] [address] [place] [address], * TH AN ENDOTRACHEAL(NO CHARGE) (10/21/2024 1:01 PM EDT) Narrative Alvaro Shafer CRNA - 10/21/2024 1:01 PM EDT Alvaro Shafer CRNA 10/21/2024 1:02 PM General Information and Staff Patient location during procedure: OR Performed by: Alvaro Shafer SPIN TANK TENDER Authorized by: Terrie Caldwell MD Intubation Airway [...] 10/21/2024 12:26 PMStop Time: 10/21/2024 12:26 PM Terrie Caldwell MD ANESTHESIA ORDERABLES Final Resu lt * , urine (10/20/2024 2:00 PM EDT) Preg Test, Ur Negative Negative 10/20/2024 7:48 PM EDT [facility] Urine Urine specimen obtained by clean catch procedure / Unknown Non-blood Collection / Unknown 10/20/2024 2:00 PM EDT 10/20/2024 5:15 PM EDT Nga Mukherjee MD LAB URINE ORDERABLES Fi nal Result [facility] [address] [place] [address], [place] [phone] * Prothrombin time with INR (10/20/2024 2:00 PM EDT) Protime 12.3 10.6 - 13.9 sec LAB COAGULATION METHOD 10/20/2024 3:15 PM EDT [facility] INR 1.0 LAB COAGULATION METHOD 10/20/2024 3:15 PM EDT [facility] Blood Blood sample taken from central line / Unknown Existing Catheter / Unknown 10/20/2024 2:00 PM EDT 10/20/2024 2:11 PM EDT us Nga Mukherjee MD LAB BLOOD ORDERABLES Fi nal Result Performing Organization Address [facility] Co de Phone Number [facility] [address] [place] [address], [place] [phone] * Type and screen (10/20/2024 2:00 PM EDT) ABO Group A 10/20/2024 4:05 PM EDT [facility] Rh Type Positive 10/20/2024 4:05 PM EDT [facility] Antibody Screen Negative 10/20/2024 4:05 PM EDT [facility] Blood Blood sample taken from central line / Unknown Existing Catheter / Unknown 10/20/2024 2:00 PM EDT 10/20/2024 2:11 PM EDT us Nga Mukherjee MD LAB BLOOD BANK TEST ORD ERABLES Final Result Performing Organization Address [facility] Co de Phone Number [facility] [address] [place] [address], [place] [phone] from Last 3 Months Insurance [facility] Advance Directives * Full Code - Default (Latest Code Status on File) Date Activated Date Inactivated Comments 12/21/2024 8:07 PM 12/24/2024 2:33 PM This is orde r is used when code status has not been discussed with the patient, or code status is otherwise unknown/unconfirmed To update the patient's code status, place a code status order. Do not modify or discontinue any currently active code status orders. * Full Code - Confirmed Date Activated Date Inactivated Comments 12/12/2024 10:59 PM 12/14/2024 8:03 PM This code s tatus was ascertained in the following way: Code status discussion: discussion with healthcare manufacturer's representative To update the patient's code status, [...] currently active code status orders. Care Teams Warm In Relationship Specialty Start Date End Date Shawnee Holland MD [address] [place] [address] PCP - General Internal Medicine 10/11/24
--- OUTSIDE RECORDS SUMMARY | 2025-01-17 13:53 | XMS_ITS | Clinical Summary ---
[facility] [address] [place] [address] Care Team Providers Care Regulatory Affairs Director Name Role Phone Kingston Thomas MD Primary [...] 03/18/2023 Active vitamin D3 (CHOLECALCIFEROL) 1.25 MG (90108 UT) CAPS capsule TAKE 1 CAPSULE BY [...] mouth. 0 Active vitamin A 3 MG (07595 UT) CAPS capsule Take 1 capsule (3 [...] Screening (Colonoscopy) 2022 COVID-19 Vaccine (3 - 2024-2 6 season) 2024 10/05/2020, 07/18/2020 Influenza Vaccine (#1) 2024 Pneumococcal Vaccine Aged Out No long er eligible based on patient's age to complete this topic RSV Ped < 20 months Aged Out No longe r eligible based on patient's age to complete this topic Care Teams Regulatory Affairs Director Relationship Specialty Start Date End Date Kingston Thomas MD [address] [facility] [place] [address] PCP - General Internal Medicine 11/09/23
[2025-01-17 13:57] VITALS: BP 148/90; PULSE 86; RESP 20; TEMP 36.8; O2SAT 99
--- NOTE | 2025-01-17 13:58 | PC.NURSE ---
This patient witness sz like activity lasting aprox 90 seconds. pt remained pink, warm, dry. SaO2 maintained at 94% on 2L. Pt was gazing right with head turned right and had rhythmic twitching of head only. no incontinence. Was able to open eyes on command.
[2025-01-17 16:30] VITALS: BP 134/87; PULSE 75; RESP 18; TEMP 36.7; O2SAT 96
== END 2025-01-17 16:33 | disposition home or self-care (01) ==
PROVIDERS: Emergency Provider Emergency Medicine
DX: R56.9 Unspecified convulsions (principal); R11.0 Nausea; R94.31 Abnormal electrocardiogram [ECG] [EKG]; R10.2 Pelvic and perineal pain; Z79.899 Other long term (current) drug therapy; Z98.84 Bariatric surgery status
CPT/HCPCS: 36415; 80048; 80076; 83690; 83735; 84702; 85025; 93005; 96361; 96374; 99284; J3360; J7120

== ENCOUNTER → 2025-01-17 10:53 | Outpatient (BNV) | payer BC, SELFPAY | PROVIDERS: Emergency Provider Emergency Medicine; Visit Provider Internal Medicine Cardiovascular Disease | DX: R56.9 Unspecified convulsions (principal) | CPT/HCPCS: 93010 ==

== ENCOUNTER 2025-01-26 14:50 | Inpatient (IN) | payer BC, SELFPAY ==
--- OUTSIDE RECORDS SUMMARY | 2024-01-27 14:48 | XMS_ITS | Encounter Summary ---
Author Organization [facility] Address [address] [place] [address] Care Team Providers Care Sausage Meat Trimmer Name Role Phone Kingston Thomas MD Primary [...] oz pure alcohol) drinks on ocassion at [facility] Housing Instability Answer Date Recorde d Are [...] care for your loved ones. For example, early childhood or elderly care for an older adult? [...] Date Recorded What is your living situation? Unrecognized valu e 10/23/2024 Interpersonal Safety Answer Date Record ed Physical Abuse Unrecognized value 10/23/2024 Verbal Abuse Unrecognized value 10/23/2024 Comments No Sex and Gender Information [...] 10:12 AM EDT documented in this encounter Functional Status * Calculated C-SSRS Risk Score (Lifetime/Recent) Answer Date of Assessment Author No Risk Indicated 11/19/2024 2:02 AM EDT Scarlet Vergara RN * [place] Suicide Severity Rating Scale (Screener/Recent Self-Report) Question Answer Date of Assessment Author 1. Wish to be (Past 1 Month) No 2:02 AM EDT Scarlet Randall RN 2. Non-Specific Active Suici anita Thoughts (Past 1 Month) No 11/19/2024 2:02 AM EDT Hawa Randall RN 6. Suicidal Behavior (Lifetime) No 2:02 AM EDT Scarlet Randall RN documented as of this encounter Progress Notes * Historical, Notes Results - 01/27/2024 3:00 PM EDT Arrived amb for B12, stable assessment, B12 administered into LET arm, well tolerated, next appt scheduled, pt left amb, stable at D/C. documented in this encounter Plan of Treatment Upcoming Encounters Date Type Department Care Team (Late st Contact Info) Description 01/31/2025 9:00 AM EDT Pre-Admission Testing [facility] Pre-Admission Testing [address] [place] [phone] 02/02/2025 12:30 PM EDT Hospital Encounter [facility] Main OR [address] [place] [phone] Nga Mukherjee MD [address] [place] [phone] 02/02/2025 12:30 PM EDT - 02/02/2025 3:[address] [facility] [place] [address] [place] [phone] Nga Mukherjee MD [address] [place] [phone] [facility] [73414 (CPT )] 02/15/2025 4:00 PM EDT Office Visit Bariatric Surgery - [place] 175 [facility] [address] [place] [phone] Nga Mukherjee MD [address] [place] [phone] 03/17/2025 9:00 AM EST Office Visit [facility] Hematology Oncology [address] [place] [phone] Kenya Corcoran DO [address] [place] [address] Scheduled Procedures Name Priority Associated Diagnoses Date/Ti me BYPASS GASTRIC REVISION ROBOT Food intolerance Hx of gastric bypass 02/02/2025 12:30 PM EDT EGD S/P gastric bypass Severe protein-calorie malnutrition (CMS/HCC V24) documented as of this encounter Visit Diagnoses Not on filedocumented in this encounter Additional Health Concerns Infection Onset Date Last Indicated Resolved Time C. difficile Rule-Out 11/10/2024 11/10/20242024 6:18 PM EDT documented as of this encounter Care Teams Sausage Meat Trimmer Relationship Specialty Start Date End Date Kingston Thomas MD [address] [place] [address] PCP - General 07/10/22 10/10/24 documented as of this encounter
--- OUTSIDE RECORDS SUMMARY | 2024-02-03 14:38 | XMS_ITS | Encounter Summary ---
Author Organization [facility] Address [address] [place] [address] Care Team Providers Care Life Tester [employer] Name Role Phone Kingston Thomas MD Primary Care Provide r Encounter Details Date Type Department Care Team (Late st Contact Info) Description 02/03/2024 2:38 PM EDT Hospital Encounter TH HISTORIC ENCOUNTERS EASTERN CONVERSION ONLY Social History Tobacco Use Types Packs/Day Years Used Date Smoking Tobacco: Never Smokeless Tobacco: Never Alcohol Use Standard Drinks/Week Comments Not Currently 0 (1 standard drink = 0.6 oz pure alcohol) drinks on ocassion at [facility] Housing Instability Answer Date Recorde d [...] your loved ones. 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 [...] 2:02 AM EDT Scarlet Vergara RN * [place] Suicide Severity Rating Scale (Screener/Recent Self-Report) Question Answer Date of Assessment Author 1. Wish to be (Past 1 Month) No 025 2:02 AM EDT Scarlet Randall, JÚNIOR 2. Non-Specific Active Suici anita Thoughts (Past 1 Month) No 11/19/2024 2:02 AM EDT Hawa Randall RN 6. Suicidal Behavior (Lifetime) No 2:02 AM EDT Scarlet Randall RN documented as of this encounter Progress Notes * Historical, Notes Results - 02/03/2024 3:00 PM EDT Arrived amb for B12 inj, pt is fatigued after work. Continues with soft food and liquids only, not eating much at all. Has GI surgery scheduled for 03/02, also has f/u with Dr. Corcoran that morning,pt tells me she is still going to see her that morning. 1456 B12 inj administered into RIGHT arm, well tolerated. Per Dr. Corcoran's last note, will be getting monthly inj x3 now, next appt scheduled after MD OV in 4 weeks. Surgery is scheduled Mar [address] Corcoran, as f/u with MD is that day and B12 due as well, per Dr. Corcoran she would like to push appts one day earlier or to following week. Call placed to pt, no answer, left message to call in to reschedule appts. documented in this encounter Plan of Treatment Upcoming Encounters Date Type Department Care Team (Late st Contact Info) Description 01/31/2025 9:00 AM EDT Pre-Admission Testing [facility] Pre-Admission Testing [address] [place] [address] 02/02/2025 12:30 PM EDT Hospital Encounter [facility] Main OR [address] [place] [phone] Nga Mukherjee MD [address] [place] [phone] 02/02/2025 12:30 PM EDT - 02/02/2025 3:30 PM EDT Surgery [facility] Main OR [address] [place] [phone] Nga Mukherjee MD [address] [place] [phone] [facility] REVERSAL OF GASTRIC BYPASS [04338 (CPT )] 02/15/2025 4:00 PM EDT Office Visit Bariatric Surgery [facility] [address] [facility] [address] [place] [phone] Nga Mukherjee MD [address] [place] [phone] 03/17/2025 9:00 AM EST Office Visit [facility] Hematology Oncology [address] [place] [phone] Kenya Corcoran DO [address] [place] [address] Scheduled Procedures Name Priority Associated Diagnoses Date/Ti [...] documented as of this encounter Care Teams Life Tester [employer] Relationship Specialty Start Date End Date Kingston Thomas MD [address] [place] [address] [place] PCP - General 3/16/23 6/16/25 documented as of this encounter
--- OUTSIDE RECORDS SUMMARY | 2025-01-23 08:30 | XMS_ITS | Encounter Summary ---
Author Organization [employer] Address [address] [place] [address] Care Team Providers Care Medical Administrative Name Role Phone Shawnee Holland MD Primary Care Provider [phone] Reason for Visit * Reason Comments Follow-up 4 week * Consultation - Pending Review Specialty Diagnoses / Procedures Referred By Juany downey Referred To Contact Diagnoses Presence of other specified devices Procedures LA CONSULTATION OFFICE NEW/ESTAB PATIENT 30 MIN Shawnee Holland MD [address] [place] [address] Phone: tel: fax: Nga Mukherjee MD [address] [address] Phone: tel: fax: Referral ID Status Reason Start Date Expiration Date V isits Requested Visits Authorized [id number] Pending Review 01/23/2025 01/23/2026 6 6 Encounter Details Date Type Department Care Team (Late st Contact Info) Description 01/23/2025 8:30 AM EDT Office Visit Bariatric Surgery - [place] [address] [phone] Nga Mukherjee MD [address] [place] [phone] S/P bypass gastrojejunostomy (Primary Dx); Food intolerance; Hypoglycemia; Uses feeding tube; Seizure-like activity ([facility] V24, [facility] V28) Social History Tobacco Use Types [...] your loved ones. 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 Since her last visit a month ago, she was hospitalized at [facility], found to have her feeding tube partly pulled out. This was replaced. Pain is much improved, now minimal, taken care of with muscle relaxants. J tube was initially placed on 10/21/24, while gastric bypass was done on 03/02/2025. Nutrition: -tolerating J tube feeds. Keeps the rate at 40, less bloating. But poor appetite. -PO intake: as before. Tolerating pureed foods and soups -Hypoglycemia continues. Low 35. 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 Seems to be tolerating this better now, pain is much improved. However continues to have poor PO intake, which is insufficient to stop the tube feeds.Continue tube feeds and PO intake combo. Her hypoglycemia continues to be a problem, whenever she stops the tube feeds for more than a couple of hours. Not managed with pharmacologic treatment and diet. In this regards, a gastric bypass reversal would likely be helpful, with a ~ 90% chance of improvement. This would be an indication for reversal, as her hypoglycemia is dangerously low. However, improvement of PO intake after gastric bypass reversal is usually only about 50%. In addition, she had a sleeve prior to the bypass, so she would be going back to that anatomy, which had already been causing her difficulty with PO intake (which is why we had tried transitioning her to a bypass). So I don't have great jony in entirely resolving her PO intake tolerance back to original baseline. She seems aware and has adequate expectations. Would certainly keep the feeding tube after reversal to help with nutrition, at least initially. We discussed the risks and benefits of the procedure, including but not limited to bleeding, infection, leak, stricture (especially given her hx of sleeve), continue PO intolerance, and as above. She will need preop labs. Continue workup for neurology. documented in this encounter Plan of Treatment Upcoming Encounters Date Type Department Care Team (Late st Contact Info) Description 01/31/2025 9:00 AM EDT Pre-Admission Testing [facility] Pre-Admission Testing [address] [place] [phone] 02/02/2025 12:30 PM EDT Hospital Encounter [facility] OR [address] [place] [phone] Nga Mukherjee MD [address] [place] [phone] 02/02/2025 12:30 PM EDT - 02/02/2025 3:30 PM EDT Surgery [facility] OR [address] [place] [phone] Nga Mukherjee MD [address] [place] [phone] DAVINCI REVERSAL OF GASTRIC BYPASS [35613 (CPT )] 02/15/2025 4:00 PM EDT Office Visit Bariatric Surgery [facility] [address] [phone] Nga Mukherjee MD [address] [place] [phone] 03/17/2025 9:00 AM EST Office Visit [facility] Hematology Oncology [address] [place] [phone] Kenya Corcoran DO [address] [place] [address] Pending Results Name Type Priority Associated Diagnoses Date /Time Vitamin B1 Lab Routine S/P bypass gastrojejunostomy 01/23/2025 9:23 AM EDT Scheduled Orders Name Type Priority Associated Diagnoses Orde r Schedule Vitamin B1 Lab Routine S/P bypass gastrojejunostomy 1 Occurrences starting 01/23/2025 until 01/23/2026 Scheduled Procedures Name Priority Associated Diagnoses Date/Ti me BYPASS GASTRIC REVISION ROBOT Food intolerance Hx of gastric bypass 02/02/2025 12:30 PM EDT EGD S/P gastric bypass Severe protein-calorie malnutrition (CMS/HCC V24) documented as of this encounter Results * (ABNORMAL) Folate (01/23/2025 9:23 AM EDT) Pathologist [facility] Folate >20.0(H) 2.8 - 17.0 ng/ml LAB CHEMISTRY METHOD 01/23/2025 11:03 AM EDT [facility] Blood Venous blood specimen / Unknown Venipuncture / Unknown 01/23/2025 9:23 AM EDT 01/23/2025 9:23 AM EDT us Nga Mukherjee MD LAB BLOOD ORDERABLES Fi nal Result [facility] [address] [place] [address], * Copper, serum (01/23/2025 9:23 AM EDT) Pathologist [facility] Copper 1302 810 - 1990 ug/L 01/26/2025 9:[address] [facility] Comment: Copper values may be elevated to twice the normal levels in . Elevated results may be due to sample collected in a non-certified trace element-free tube. This test was developed and the performance characteristics determined by [facility] [place] [facility]. It has not been cleared or approved by the FDA. The laboratory is regulated under CLIA as qualified to perform high-complexity testing. This test is used for patient testing purposes. It should not be regarded as investigational or for research. Test performed at [facility], [address] , [place] [address] Minal Frederick MD, PhD - Masking Machine Operator Blood Venous blood specimen / Unknown Venipuncture / Unknown 01/23/2025 9:23 AM EDT 01/23/2025 9:23 AM EDT Nga Mukherjee MD LAB BLOOD ORDERABLES Fi nal Result Performing Organization Address City/[facility]/ZIP Co de Phone Number [facility] [address] [place] [address] * Iron and TIBC (01/23/2025 9:23 AM EDT) Iron 84 40 - 150 mcg/dL LAB CHEMISTRY METHOD 01/23/2025 10:39 AM EDT [facility] TIBC 255 250 - 450 mcg/dL LAB CHEMISTRY METHOD 01/23/2025 10:39 AM EDT [facility] Iron Saturation 33 15 - 50 % LAB CHEMISTRY METHOD 01/23/2025 10:39 AM EDT [facility] Blood Venous blood specimen / Unknown Venipuncture / Unknown 01/23/2025 9:23 AM EDT 01/23/2025 9:23 AM EDT us Nga Mukherjee MD LAB BLOOD ORDERABLES Fi nal Result [facility] [address] [place] [address], [place] [phone] * Zinc (01/23/2025 9:23 AM EDT) Zinc 73 60 - 130 ug/dL 01/25/2025 1:[address] [facility] Comment: Elevated results may be due to sample collected in a non-certified trace element-free tube. This test was developed and the performance characteristics determined by [facility]. It has not been cleared or approved by the FDA. The laboratory is regulated under CLIA as qualified to perform high-complexity testing. This test is used for patient testing purposes. It should not be regarded as investigational or for research. Test performed at [facility] [place] [facility], [address] , [place] [address] Minal Frederick MD, PhD - Masking Machine Operator Blood Venous blood specimen / Unknown Venipuncture / Unknown 01/23/2025 9:23 AM EDT 01/23/2025 9:23 AM EDT us Nga Mukherjee MD LAB BLOOD ORDERABLES Fi nal Result [facility] [address] [place] [address] * (ABNORMAL) Vitamin D 25 hydroxy (01/23/2025 9:23 AM EDT) Pathologist [facility] Vit D, 25-Hydroxy 20.7(L) 30.0 - 80.0 ng/mL LAB CHEMISTRY METHOD 01/23/2025 12:54 PM EDT [facility] Blood Venous blood specimen / Unknown Venipuncture / Unknown 01/23/2025 9:23 AM EDT 01/23/2025 9:23 AM EDT us Nga Mukherjee MD LAB BLOOD ORDERABLES Fi nal Result [facility] [address] [place] [address], * (ABNORMAL) Vitamin B6 (01/23/2025 9:23 AM EDT) [facility] Vitamin B6 (Pyridoxine) Level 4(L) 5 - 50 ug/L 01/26/2025 9:[address] [facility] Comment: This test was developed and the performance characteristics determined by [facility] [place] [facility]. It has not been cleared or approved by the FDA. The laboratory is regulated under CLIA as qualified to perform high-complexity testing. This test is used for patient testing purposes. It should not be regarded as investigational or for research. Test performed at [facility], [address] , [place] [address] Minal Frederick MD, PhD - Masking Machine Operator Blood Venous blood specimen / Unknown Venipuncture / Unknown 01/23/2025 9:23 AM EDT 01/23/2025 9:23 AM EDT us Nga Mukherjee MD LAB BLOOD ORDERABLES Fi nal Result [facility] [address] [place] [address] * Vitamin B12 (01/23/2025 9:23 AM EDT) [facility] Vitamin B-12 576 250 - 900 pcg/mL LAB CHEMISTRY METHOD 01/23/2025 11:03 AM EDT [facility] Blood Venous blood specimen / Unknown Venipuncture / Unknown 01/23/2025 9:23 AM EDT 01/23/2025 9:23 AM EDT us Nga Mukherjee MD LAB BLOOD ORDERABLES Fi nal Result [facility] [address] [place] [address], [place] [phone] * Vitamin A (01/23/2025 9:23 AM EDT) [facility] Vitamin A 58 38 - 106 ug/dL 01/26/2025 7:[address] [facility] Comment: This test was developed and the performance characteristics determined by [facility] [place] [facility]. It has not been cleared or approved by the FDA. The laboratory is regulated under CLIA as qualified to perform high-complexity testing. This test is used for patient testing purposes. It should not be regarded as investigational or for research. Test performed at [facility] [place] [facility], [address] , [place] [address] Minal Frederick MD, PhD - Masking Machine Operator Blood Venous blood specimen / Unknown Venipuncture / Unknown 01/23/2025 9:23 AM EDT 01/23/2025 9:23 AM EDT us Nga Mukherjee MD LAB BLOOD ORDERABLES Fi nal Result [facility] [address] [place] [address] documented in this encounter Visit Diagnoses Diagnosis S/P bypass gastrojejunostomy- Primary Intestinal bypass or anastomosis status Food intolerance Other specified intestinal malabsorption Hypoglycemia Hypoglycemia, unspecified Uses feeding tube Seizure-like activity (CMS/HCC V24, CMS/HCC V28) Food intolerance Other specified intestinal malabsorption Hx of gastric bypass documented in this encounter Orders Lab Orders Without Results Count Last Ordered D ate First Ordered Date SELENIUM SERUM 1 01/23/2025 documented in this encounter Additional Health Concerns Assessment Noted Time PHQ-9 Depression Total Score: 0 09/23/19 25 10:00 AM EDT documented as of this encounter Care Teams Medical Administrative Relationship Specialty Start Date End Date Shawnee Holland MD [address] [place] [address] PCP - General Internal Medicine 10/11/24 documented as of this encounter
[2025-01-26] VITALS (19 sets, daily range): BP systolic 116–174; BP diastolic 0–95; PULSE 65–133; RESP 16–34; TEMP 33–36.9; O2SAT 98–100; BMI 29.6
--- NOTE | ~2025-01-26 | XR_ITS ---
EXAMINATION: XR CHEST CLINICAL INFORMATION: post intubation COMPARISON: December 21, 2024. TECHNIQUE: Frontal view of the chest was obtained. FINDINGS: The endotracheal tube is at the thoracic aortic level, 4.8 cm above magdalena. The NG tube is not identified. No consolidation pleural effusion or thorax. No hyperinflation. Cardiomediastinal silhouette size is normal. Patient's large body habitus. XR/XR chest 1V IMPRESSION: Endotracheal tube, 4.8 cm above magdalena. Status post NG tube removal.. Electronically signed by: Zack Mott MD 01/26/2025 03:36 PM EDT
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
--- NOTE | 2025-01-26 15:00 | PC.NURSE ---
Addendum entered by Gudelia Rod RN 01/26/25 18:01: Pt was seen here several times for sz activity, and last intubated for status 12/17. Work up w/ neurology @ [facility] and [facility] revealed no acute findings. Per family pt began having sz's after her gastric bypass a few years ago. Pt also has g-tube for feedings. Original Note: EMS reports pt was at work when, according to colleagues, pt began experiencing an aura asked staff to lower her to the floor and pt began to have a seizure. Per report 1st sz lasted approx 10mins and upon EMS arrival pt received 4mg IM versed. Pt then had a 2nd sz that lasted 3min and received 2mg iv versed, 3rd sz she received another 2mg iv versed, and lastly just prior to entering ED pt had another sz and received another 2mg iv for a total of 10mg. Pt was found to be in status upon arrival and was immediately brought to the exam room for intubation. Pt was successfully intubated @ 1507 w/ 7.5 in tube, 20cm @ the lip. +colometric, breath sounds heard bilaterally. Pt was seen here approx
[2025-01-26] MEDS: Etomidate 20 MG/10 ML VIAL IVPUSH (15:06)
--- NOTE | 2025-01-26 15:10 | ED.SEIZURE ---
HPI - Seizure General Chief Complaint: Seizure Stated Complaint: LOW BACK PAIN,SOB PER EMS Time Seen by Provider: 01/26/25 15:07 Source: EMS Mode of arrival: EMS Limitations: altered mental status History of Present Illness ED Provider: HPI Narrative: 49-year-old woman with a history of depression, history of seizures versus psychogenic nonepileptic activity, I received a call from EMS that patient is on the scene having seizure episode, received 4 mg IM Versed, then another 6 mg of IV Versed and continued to have seizure activity, when patient presenting to the ER, I recognized her, patient is started developing seizure activity, last time I saw her was in November and I flu her to some [place] at that point patient had blood in the airway, loss of bowel or bladder function. Seizure History: Yes Related Data Home Medications ?Medication ?Instructions ?Recorded ?Confirmed norgestimate 0.18 mg/0.215mg/0.25 1 tab PO DAILY 06/29/20 01/17/21 mg-ethinyl estradiol 0.025 mg tablet sertraline 100 mg tablet 100 mg PO DAILY 06/29/20 01/17/21 escitalopram oxalate 10 mg tablet 15 mg PO DAILY 01/26/25 methocarbamol 500 mg tablet 500 mg PO QID 01/26/25 ondansetron 4 mg disintegrating 4 mg PO Q8H PRN nausea/vomiting 01/26/25 tablet scopolamine base 1 mg over 3 days 1 patch topical Q3D 01/26/25 01/26/25 transdermal patch Previous Rx's ?Medication ?Instructions ?Recorded omeprazole 40 mg capsule,delayed 40 mg PO DAILY #14 caps 08/07/20 release mecobalamin (vitamin B12) 1,000 1,000 mcg sublingual DAILY #30 tabs 12/11/20 mcg disintegrating tablet,sublingual Allergies Allergy/AdvReac Type Severity Reaction Status Date / Time droperidol (From INAPSINE) Allergy Severe SEIZURES Verified 01/26/25 15:53 metoclopramide (From REGLAN) Allergy Severe SEIZURE Verified 01/26/25 15:53 prochlorperazine (From Allergy Severe SEIZURE Verified 01/26/25 15:53 COMPAZINE) aspirin Allergy Hives Verified 01/26/25 15:53 COVID-19 vaccine, mRNA, Allergy Unknown Verified 01/26/25 15:53 [id number], L pseudoephedrine Allergy Unknown Verified 01/26/25 15:53 Review of Systems Constitutional: Constitutional: Reports as per HPI [facility] Past Medical History Medical History Knee pain Back pain Lower extremity edema Depression GERD (gastroesophageal reflux disease) Morbid obesity delivery delivered ACL tear Spinal cord injury Anxiety Anemia PCOS (polycystic ovarian syndrome) Surgical History Hx of cholecystectomy Hx of knee surgery Hx of breast reduction, elective S/P ACL surgery Family History Family History Mother Hypertension Father Heart disease Diabetes Hypertension Hyperlipidemia Sister No problems noted. Sister No problems noted. Son No problems noted. Social History Social History Alcohol intake: never Patient Tobacco Use Status: Never used Tobacco Physical Exam Vital Signs: Vital Signs: Last Vital Signs Temp 97.8 F 01/26/25 15:52 Pulse 126 H 01/26/25 15:52 Resp 34 H 01/26/25 15:52 BP 174/87 H 01/26/25 15:52 Pulse Ox 100 01/26/25 15:52 O2 Del Method Non-Rebreather Ma sk 01/26/25 15:52 FiO2 50 01/26/25 15:20 BMI result Body Mass Index 29.6 Const: Other: Tonic-clonic activity Unresponsive Pupils 4 mm dilated bilaterally, responsive to light S1-S2 tachycardic Tachypneic, moving air G-tube in place No response to pain stimulus Symmetric tonic and clonic activity bilateral upper and lower extremity Medical Decision Making Medical Decision Making MDM Narrative: 3:26 PM 01/26/2025 (Dr. Jayden Garcia): I received a call from EMS that patient continues to have seizures despite having 8 mg of Versed, I cleared for another 2 mg of Versed which patient received, so by the time I saw her in the ER she received total of 10 mg of Versed, patient was unresponsive, continues to have tonic-clonic clonic activity, pupils dilated, no response to pain she does have history of reports of psychogenic nonepileptic seizure and I know she has had an EEG that does not show epileptic activity, however I have also seen this patient with blood in the airway loss of bowel and bladder function and having this activity despite being on max dose of propofol as well as multiple rounds of benzos, apparently patient was here on January 17 and I looked through that note post factum my managing her status and seems that patient had another presentation but at that point it seems that they were able to raise her arm and she was able to hold her arm up this was not the case today and she did not have any response to painful stimulus, I discussed patient's care with Dr. Marie from ICU to admit her to ICU and likely perform quick weaning protocol Differential Diagnosis Differential Diagnoses: The differential diagnosis associated with the presentation includes (Encephalitis going to meningitis, psychogenic seizures, non psychogenic seizures, electrolyte derangements) Admission/Observation Consideration of admission/observation: Escalation of care including admission/observation considered Consult Healthcare Provider Management of the patient was discussed with: Ruling Machine Feeder (ICU technical solutions consultant) Lab Data MDM Lab Attestation statement: I reviewed the patient's lab results. Independent Interpretation I performed an independent interpretation of an: EKG (85 beats per minute no QTC prolongation) and Plain X-Ray (ET tube above the magdalena) Radiology Impression Discussion of test interpretation with radiology: I have reviewed the radiologist's reading. Procedures Intubation Intubation Type:: Endotracheal Tube Insertion Intubation Date:: 01/26/25 Intubation Time:: 15:25 sedative: Etomidate Mg Given: 20 paralytic: Rocuronium Mg Given: 100 Laryngoscope: fiber optic video scope ET Tube Size: 7.5 ET Tube Uncuffed: No Tube Secured Depth (cm): 20 Tube Placement Confirmation: visualized tube passing through cords, equal breath sounds bilaterally, no breath sounds over epigastrium and confirmation by capnometry Patient Tolerated Procedure: no complications Intubation Complications: none Critical Care Time Critical Care Time Critical Care Time: Yes Total Critical Care Time: 45 Attestation: Time is exclusive of separately billable procedures. Time includes: direct patient care, patient reassessment, coordination of patient care, interpretation of data (laboratory data, pulse oximetry, arterial blood gases and chest xrays), review of patient's medical records, medical consultation and documentation of patient care. Procedures excluded from critical care time: central intravenous line placement and electrocardiography. Discharge Plan Discharge Clinical Impression: Myoclonic status epilepticus Patient Disposition: Admitted As Inpatient Print Language: Telugu
--- NOTE | 2025-01-26 15:20 | ECG_ITS ---
Test Reason : SEIZURE Blood Pressure : */* mmHG Vent. Rate : 104 BPM Atrial Rate : 104 BPM P-R Int : 154 ms QRS Dur : 72 ms QT Int : 346 ms P-R-T Axes : 52 48 -1 degrees QTcB Int : 454 ms Sinus tachycardia Nonspecific T wave abnormality Abnormal ECG When compared with ECG of 17-Jan-2025 11:58, No significant change was found Referred By: Jayden Garcia Electronically Signed By: ZAMZAM MORA
--- NOTE | 2025-01-26 15:55 | PM.CCHP ---
History of Present Illness Date of Service: 01/26/25 Chief Complaint: pseudoseizures 49-year-old lady with PMH of nonepileptic convulsive disorders diagnosed by EEG while she was having movement twice at [facility], previously intubated and transferred to [place] for the same and was discharged home another time from the ED. 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 She also has history of depression, GERD, anemia, anxiety, bariatric surgery, PCOS, spinal cord injury. Review of Systems Review of Systems: Unable to obtain as patient is intubated [facility] Past Medical History Medical History Knee pain Back pain Lower extremity edema Depression GERD (gastroesophageal reflux disease) Morbid obesity delivery delivered ACL tear Spinal cord injury Anxiety Anemia PCOS (polycystic ovarian syndrome) Family History Family History Mother Hypertension Father Heart disease Diabetes Hypertension Hyperlipidemia Sister No problems noted. Sister No problems noted. Son No problems noted. Surgical History Surgical History Hx of cholecystectomy Hx of knee surgery Hx of breast reduction, elective S/P ACL surgery Social History Social History Alcohol intake: never Patient Tobacco Use Status: Never used Tobacco Meds Allergies Allergy/AdvReac Type Severity Reaction Status Date / Time droperidol (From INAPSINE) Allergy Severe SEIZURES Verified 01/26/25 15:53 metoclopramide (From REGLAN) Allergy Severe SEIZURE Verified 01/26/25 15:53 prochlorperazine (From Allergy Severe SEIZURE Verified 01/26/25 15:53 COMPAZINE) aspirin Allergy Hives Verified 01/26/25 15:53 COVID-19 vaccine, mRNA, Allergy Unknown Verified 01/26/25 15:53 [id number], L pseudoephedrine Allergy Unknown Verified 01/26/25 15:53 Active Medications: Current Medications Enoxaparin Sodium (Enoxaparin Sodium 40 Mg/0.4 Ml Syringe) 40 mg SUBCUT Q24H [facility] Sodium Chloride (Ns) 1,000 mls @ 999 mls/hr IV .Q1H1M YOLANDA Stop: 01/26/25 16:30 Propofol (Diprivan) 1,000 mg in 100 mls @ 0 mls/hr IVCONT .Q0M YOLANDA; Protocol Lactated Ringer's (Lr) 1,000 mls @ 100 mls/hr IVCONT .Q10H YOLANDA Pantoprazole Sodium 40 mg/ (Sodium Chloride) 110 mls @ 400 mls/hr IV DAILY@0630 [facility] Ondansetron HCl (Ondansetron Hcl 4 Mg/2 Ml Vial) 4 mg IVPUSH Q8H PRN PRN Reason: Vomiting Home Medications ?Medication ?Instructions ?Recorded ?Confirmed ?Last Taken ?Type norgestimate 0.18 mg/0.215mg/0.25 1 tab PO DAILY 06/29/20 01/17/21 Unknown History mg-ethinyl estradiol 0.025 mg tablet sertraline 100 mg tablet 100 mg PO DAILY 06/29/20 01/17/21 Unknown History escitalopram oxalate 10 mg tablet 15 mg PO DAILY 01/26/25 Unknown History methocarbamol 500 mg tablet 500 mg PO QID 01/26/25 Unknown History ondansetron 4 mg disintegrating 4 mg PO Q8H PRN nausea/vomiting 01/26/25 Unknown History tablet scopolamine base 1 mg over 3 days 1 patch topical Q3D 01/26/25 01/26/25 Unknown History transdermal patch Physical Exam Vital Signs: Vital Signs: Last Vital Signs Temp 97.8 F 01/26/25 15:52 Pulse 126 H 01/26/25 15:52 Resp 34 H 01/26/25 15:52 BP 174/87 H 01/26/25 15:52 Pulse Ox 100 01/26/25 15:52 O2 Del Method Non-Rebreather Ma sk 01/26/25 15:52 FiO2 50 01/26/25 15:20 BMI result Body Mass Index 29.6 General: Middle-aged lady in mild acute distress Nutritional Appearance: well nourished and overweight Eyes: appearance normal, both eyes and all related structures; Alignment and Position: alignment normal and position normal Neck: No lymphadenopathy, no thyromegaly Resp: bilateral air entry equal, no added sounds present, ET tube in place Cardio: Regular rate, regular rhythm; Heart sounds: S1 normal heart sound present and S2 normal heart sound present GI: soft, nontender, no guarding, no hepatosplenomegaly : bladder normal to inspection, bladder normal to palpation, no renal angle tenderness Skin: no rashes or lesions noted and elasticity normal Neuro: oriented to person, oriented to place, oriented to time and moves all extremities Results Imaging Radiologist's Impressions: Impressions Chest X-Ray 01/26/25 15:22 IMPRESSION: Endotracheal tube, 4.8 cm above magdalena. Status post NG tube removal.. Electronically signed by: Zack Mott MD 01/26/2025 03:36 PM EDT RP Assessment and Plan (1) Depression: Status: Acute (2) Generalized nonconvulsive epilepsy: Status: Acute (3) Acute respiratory failure: Status: Acute Plan Neuro: Acute encephalopathy possibly due to nonconvulsive epileptiform disorder She has been intubated and transferred to [facility] for the same in 12/17/2026, where she had multiple EEGs while she had this movement disorder and all noted to be non epileptiform discharges. 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 See was seen in the emergency room on 17 January for the same, where her presentation was typical of pseudoseizures and was sent home (look for ED note by Dr. Karen Molina). All these episodes are happening at school, needs further evaluation by Psychiatry upon extubation. We will get prolactin levels and CPK, urine drug screen On propofol for sedation, as needed fentanyl for analgesia Close neurological status monitoring in the ICU every hour Cardiac: Stable Respiratory: Acute respiratory failure due to failure to protect airways Currently on ventilator support On PRVC mode FiO2[], PEEP [], TV [], RR [] Peak pressures and plateau pressures are under the curve Ventilator management bundle with head end elevation, aspiration precaution, chlorhexidine mouthwash, daily awakening trials, daily spontaneous breathing trials GI: We will start on tube feeds if she remains intubated tomorrow Renal: Normal renal function We will closely monitor I's and O's Avoid nephrotoxic medications Heme: Chronic anemia, closely monitor H&H, transfuse for hemoglobin less than 7 grams/deciliter Endocrine: Blood sugars under control Sliding scale insulin as needed Infectious disease: We will send pancultures Musculoskeletal: Decubitus ulcer prevention protocol Lines: Peripheral Prophylaxis: Lovenox, pantoprazole Total critical care time spent is about 45 minutes on evaluation and admission of the critical inpatient to medical ICU, formulating critical care plan and management, review of lab, review of images, sedation management, ventilator management and close hemodynamic monitoring this time is excluding any procedural time
--- NOTE | 2025-01-26 16:15 | PHA.MEDREC ---
Addendum entered by Dilshad Heard, PharmTimoteo 01/26/25 17:40: MED REC CHECKED BY [facility] Original Note: Pharmacy Consult ? Medication Reconciliation Pharmacy has completed the medication reconciliation. Spoke to patient at bedside to confirm med list. was able to confirm all of patient medications. Patient is no longer taking Vitamin B-12 1,000mg, Norgestimate 0.18mg/0.215 mg Ethinyl estradiol 0.025 mg, Omeprazole 40 mg and Scopolamine patch. Patient had all her morning medications today.
[2025-01-26 16:27] LABS: MANUAL DIFF FLAG NO
[2025-01-26 16:34] LABS: Hematocrit 43.2 % (37.0-47.0); Hemoglobin 14.7 g/dl (12.0-16.0); Imm Gran Abs Auto 0.03 X10*3/uL (0.00-0.03); Imm Gran Pct Auto 0.3 % (0.0-0.4); Lymphocytes Absolute Auto 1.5 X10*3/uL (1.2-4.9); Mean Corpuscular HGB Conc 34.0 g/dl (31.0-35.0); Mean Corpuscular Hemoglobin 30.2 pg (27.0-33.0); Mean Corpuscular Volume 88.7 fL (80.0-98.0); NRBC Abs Auto 0.000 X10*3/uL (0.0-0.012); NRBC Pct Auto 0.0 /100WBC (0.0-0.2); Platelet Count 279 X10*3/uL (160-400); Red Blood Count 4.87 X10*6/uL (4.20-5.50); White Blood Count 10.0 X10*3/uL (4.8-10.8)
[2025-01-26 16:53] LABS: Cannabinoid Screen Urine Not Detected (Not Detect)
--- OUTSIDE RECORDS SUMMARY | 2025-01-26 16:56 | XMS_ITS | Patient Health Record ---
Author Organization [facility] Address [address] [place] [address] Care Team Providers Care Manager Urology Name Role Phone Silverio López Mireille [phone] Reason For Referral No Information Plan Of Treatment No Information
--- OUTSIDE RECORDS SUMMARY | 2025-01-26 16:56 | XMS_ITS | Clinical Summary ---
Author Organization [facility] Address [address] [address] Phone Care Team Providers Care [employer] Director Name Role Phone Merle Landaverde MD Primary [...] 40 mg by mouth daily. Active ID-sertraline ([id number]) 100 mg tablet Take 100 mg by [...] Immunization Administration Dates Next Due COVID-19 (Pre-02/16) TuneUp Vaccine, [id number], P F 10/05/2020 COVID-19 (Pre-02/16) [...] FOBT 2022 SIGMOIDOSCOPY 2022 VIRTUAL COLONOSCOPY 2022 INFLUENZA VACCINE (#1) 2024 10/05/2020 COVID-19 VACCINE (3 - 2024-2 6 season) 2024 10/05/2020, 07/18/2020 HEPATITIS A VACCINES Aged Out [...] topic Medical Devices Not on file Insurance [facility] HMO [facility] [place] [place] [address] [place] [address] [place] [address] [place] [address] [place] [address] [facility] HMO [facility] Address: [address] [address] Care Teams [employer] Director Relationship Specialty Start Date End Date Merle Landaverde MD [email or web address] PCP - General Family Medicine 02/19/21 Additional Source Comments The information contained in this document represents components of the legal health record. It is not the complete legal health record.[facility]
[2025-01-26] MEDS: Lactated Ringers 1,000 ML 100 ML IVCONT (16:57)
--- OUTSIDE RECORDS SUMMARY | 2025-01-26 16:57 | XMS_ITS | Clinical Summary ---
Author Organization [facility] Address [address] [place] [address] Care Team Providers Care Vegetable Ii Farmworker Name Role Phone Kingston Thomas MD Primary [...] 03/18/2023 Active vitamin D3 (CHOLECALCIFEROL) 1.25 MG (18591 UT) CAPS capsule TAKE 1 CAPSULE BY [...] mouth. 0 Active vitamin A 3 MG (46404 UT) CAPS capsule Take 1 capsule (3 [...] age to complete this topic Care Teams Vegetable Ii Farmworker Relationship Specialty Start Date End Date Kingston Thomas MD [address] [facility] [facility] [place] [address] PCP - General Internal Medicine 11/09/23
--- OUTSIDE RECORDS SUMMARY | 2025-01-26 16:57 | XMS_ITS | Clinical Summary ---
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 NEEDED 03/18/20 23 Active cyanocobalamin (VITAMIN B-12) 1,000 mcg/mL injection Inject 1 mL (1,000 mcg total) into the shoulder, thigh, or buttocks See administration instructions. Patient received injection at [facility] every four weeks Active nutritional supplements (Osmolite 1.2 [place]) 0.06 gram-1.2 kcal/mL liquid Take 1,000 mL by mouth 1 (one) time each day. 28831 mL 11 11/10/19 Active escitalopram (LEXAPRO) 10 mg tablet Take 1 tablet (10 mg total) by mouth 1 (one) time each day. 30 each 2 12/16/19 25 025 Active methocarbamoL (ROBAXIN) 500 mg tablet Take 1 tablet (500 mg total) by mouth 4 (four) times a day for 10 days. 40 each 01/21/20 25 025 Active scopolamine (TRANSDERM-SCOP ) 1 mg over 3 days patch 3 day Apply 1 patch topically every 3rd (third) day. 10 each 12/25/19 25 025 methocarbamoL (ROBAXIN) 500 mg tablet Take 1 tablet (500 mg total) by mouth 4 (four) times a day for 10 days. 40 each 01/04/20 25 025 Discontinu ed(Reorder ) Active Problems Problem Noted Date Diagnosed Date Food intolerance 01/25/2025 Jejunostomy present ([facility] V24, [facility] V28) 1 Dissociative convulsions 01/25/2025 Class 1 obesity 01/25/2025 Severe obesity ([facility] V24, [facility] V28) 2024 Seizure-like activity ([facility] V24, [facility] V28) 12/12/2024 Assessment & Plan (12/14/2024 6:37 AM EDT): History of Psychogenic Non-Epileptic Spells Patient had a witnessed seizure-like activity episode this afternoon, after which she was taken to [facility] emergency room, where she was given a total of 60 mg Valium, 10 mg Versed, 2 g Keppra, and then transferred to [facility] for further management. In that emergency room [...] afternoon, after which she was taken to [facility] emergency room, where she was given a total of 60 mg Valium, 10 mg Versed, 2 g Keppra, and then transferred to [facility] for further management. In that emergency room [...] afternoon, after which she was taken to [facility] emergency room, where she was given a total of 50 mg Valium, 10 mg Versed, 2 g Keppra, and then transferred to [facility] for further management. In that emergency room [...] syndrome 10/10/2024 Intractable abdominal pain 09/18/2024 Seizure ([facility] V24, [facility] V28) 07/31/2024 Witnessed seizure-like activity ([facility] V24, CM S/[facility] V28) 07/30/2024 Assessment & Plan (07/30/2024 2:03 [...] neck shows intact large neck vessels and citizen [place] vessels devoid of stenosis nor [...] PT/OT evaluation and discharge planning Seizure-like activity ([facility] V24, [facility] V28) 07/30/2024 Severe protein-calorie malnutrition ([facility] V24 ) 06/13/2024 Dehydration 05/17/2024 Assessment & [...] Encounters Date Type Department Care Team Description 01/26/2025 9:15 AM EDT Office Visit Bariatric Surgery [address] [phone] Nga Mukherjee MD Uses feeding tube (Primary Dx); Feeding tube dysfunction, initial encounter 01/23/2025 8:30 AM EDT Office Visit Bariatric Surgery [address] [phone] Nga Mukherjee MD S/P bypass gastrojejunostomy (Primary Dx); Food intolerance; Hypoglycemia; Uses feeding tube; Seizure-like activity ([facility] V24, [facility] V28) 01/08/2025 9:13 PM EDT - 01/08/2025 11:59 PM EDT Emergency [facility] Emergency [address] [place] [phone] Toshia Cam MD Seizure-like activity ([facility] V24, [facility] V28) (Primary Dx); Skin irritation Discharge Disposition: Home or Self Care 12/21/2024 6:50 PM EDT - 12/24/2024 12:28 PM EDT Hospital Encounter [facility] Obs Unit [address] [place] [phone] Refugio Rothman MD Kaur, Antarpreet, MD Nallamothu, Bhavana, DO Basaly, Andrew, MD Discharge Disposition: Home or Self Care 12/21/2024 9:00 AM EDT Office Visit Bariatric Surgery - [place] [address] [phone] Nga Mukherjee MD Uses feeding tube (Primary Dx); S/P gastric bypass; Food intolerance; Dumping syndrome; Hypoglycemia 12/12/2024 9:43 PM EDT - 12/14/2024 5:54 PM EDT Hospital Encounter [facility] Interim Care [address] [place] [phone] Peterson Carr MD Kazi, Ahmed, MD Naut, Edgar, MD Seizure-like activity ([facility] V24, [facility] V28) (Primary Dx) Discharge Disposition: Home or Self Care 11/19/2024 2:14 AM EDT - 11/19/2024 2:58 PM EDT Emergency [facility] Emergency [address] [place] [phone] Tracie Gilbert MD Other chronic postprocedural pain (Primary Dx); Chronic nausea Discharge Disposition: Home or Self Care 11/18/2024 7:33 AM EDT - 11/18/2024 11:59 PM EDT Hospital Encounter [facility] Interventional Radiology [address] [place] [phone] Uses feeding tube; Intussusception intestine (CMS/HCC V24, CMS/HCC V28) Discharge Disposition: Home or Self Care 11/17/2024 1:47 PM EDT - 11/17/2024 11:59 PM EDT Hospital Encounter [facility] Infusion Center [address] [place] [phone] Kenya Corcoran DO S/P gastric bypass (Primary Dx); Vitamin B12 deficiency (non anemic); On enteral nutrition Discharge Disposition: Home or Self Care 11/14/2024 Telephone Bariatric Surgery [address] [phone] Nga Mukherjee MD 11/13/2024 7:36 AM EDT - 11/13/2024 3:04 PM EDT Emergency [facility] Emergency [address] [place] [phone] Generalized abdominal pain (Primary Dx); Abdominal pain, epigastric; S/P gastric bypass Discharge Disposition: Home or Self Care 11/11/2024 Telephone Bariatric Surgery [address] [phone] Nga Mukherjee MD 11/02/2024 1:00 PM EDT Office Visit Bariatric Surgery [facility] [address] [phone] Nga Mukherjee MD Uses feeding tube (Primary Dx); S/P gastric bypass; Hypoglycemia 10/27/2024 2:58 PM EDT - 10/27/2024 11:59 PM EDT Hospital Encounter [facility] Center [address] [place] [phone] Kenya Corcoran DO On enteral nutrition Discharge Disposition: Home or Self Care 10/27/2024 Telephone Bariatric Surgery - [address] [place] [phone] Nga Mukherjee MD from Last 3 Months Immunizations Immunization Administration Dates Next Due AMPARO/Lia SARS-CoV-2 COVID -19, vector-nr, rS-Ad26, preservative free 10/05/2020 Pfizer SARS-CoV-2 COVID-19, mRNA, LNP-S, preservative free 07/18/2020 Surgical History Surgery Date Site/Laterality Comments BARIATRIC SURGERY MENISCECTOMY Bilateral bilateral tears CHOLECYSTECTOMY SECTION, LOW TRANSVERSE BREAST REDUCTION Bilateral OTHER SURGICAL HISTORY Medical History Medical History Date Comments GERD (gastroesophageal reflux disease) Hiatal hernia Polycystic ovaries Malnutrition following gastrointestinal surgery S/P gastric bypass 03/09/2024 Dehydration 05/17/2024 PONV (postoperative nausea and vomiting) Anemia Clotting disorder ([facility] V24) Anxiety Depression Chronic pain disorder Seizures ([facility] V24, [facility] V28) Social History Tobacco Use Types Packs/Day Years Used Date Smoking Tobacco: Never Smokeless Tobacco: Never Tobacco Cessation:Counseling Given: Not Answered Alcohol Use Standard Drinks/Week Comments Not Currently 0 (1 standard drink = 0.6 oz pure alcohol) drinks on ocassion at [facility] Housing Instability Answer Date Recorde d [...] your loved ones. For example, child care aide or elderly care for an older adult? [...] F) 01/26/2025 9:13 AM EDT Respiratory Rate 20 01/08/2025 9:32 PM EDT Oxygen Saturation 99% 01/08/2025 9:40 PM EDT Inhaled Oxygen Concentration - - Weight 82.1 kg (181 lb) 01/26/2025 9:13 AM EDT Height 167.6 cm (5' 6 ) 01/26/2025 9:13 AM EDT Body Mass Index 29.21 01/26/2025 9:13 AM EDT Plan of Treatment Upcoming Encounters Date Type Department Care Team (Late st Contact Info) Description 01/31/2025 9:00 AM EDT Pre-Admission Testing [facility] Pre-Admission Testing [address] [place] [phone] 02/02/2025 12:30 PM EDT Hospital Encounter [facility] Main OR [address] [place] [phone] Nga Mukherjee MD [address] [place] [phone] 02/02/2025 12:30 PM EDT - 02/02/2025 3:30 PM EDT Surgery [facility] Main [address] [phone] Nga Mukherjee MD [address] [place] [phone] DAVINCI REVERSAL OF GASTRIC BYPASS [28630 (CPT )] 02/15/2025 4:00 PM EDT Office Visit Bariatric Surgery [facility] [address] [phone] Nga Mukherjee MD [address] [place] [phone] 03/17/2025 9:00 AM EST Office Visit [facility] Hematology Oncology [address] [place] [phone] Kenya Corcoran DO [address] [place] [address] Scheduled Procedures Name Priority Associated Diagnoses Date/Ti me BYPASS GASTRIC REVISION ROBOT Food intolerance Hx of gastric bypass 02/02/2025 12:30 PM EDT EGD S/P gastric bypass Severe protein-calorie malnutrition (CMS/HCC V24) Health Maintenance Due Date Last Done Comments Breast Cancer Screening 1977 Colorectal Cancer Screening: Colonoscopy 1977 Hepatitis B Vaccines (1 of 3 - 19+ 3-dose series) 1996 Cervical Cancer Screening: Pap Smear 1998 DTaP,Tdap,and Td Vaccines (2 - Td or Tdap) 08/21/2021 08/22/2011 Cholesterol Screening (Lipid Panel) 05/26/2023 HIV Screening 05/26/2023 COVID-19 Vaccine ( - season) 2024 10/05/2020, 07/18/2020 Influenza Vaccine [...] on patient's age to complete this topic Goals Goal Patient Goal Type Associated Problems Recent Progress Patient-Stated? Author Autogenera reynolds Goal Care Plan Autogenerated Problem No Nga Mukherjee MD Medical Devices Implanted Type Area Planning Analyst Device Identifier Shelf Expiration Date Model / Serial / Lot Tray Rad Cath 1lum Poly 4f - [id number] - [id number] Implanted:Qty: 1 on 06/23/2024 by Salima Reed PA at [facility]al Catheters and Ports Right: Vein BD VASCULAR ACCESS DEVICES FKA BARD ACCESS [id number] 03/26/2026 [id number] / [id number] / [id number] Tray Rad Cath 1lum Poly 4f - [id number] - [id number] Implanted:Qty: 1 on 08/19/2024 by Veronica Anguiano MD at [facility]/[employer] Catheters and Ports Right: Arm BD VASCULAR ACCESS DEVICES FKA BARD ACCESS [id number] 03/26/2026 [id number] / [id number] / [id number] Procedures Procedure Name Priority Date/Time Associated Diagnosis Comments COPPER, SERUM Routine 01/23/2025 9:23 AM EDT S/P bypass gastrojejunostomy IRON AND TIBC Routine 01/23/2025 9:23 AM EDT S/P bypass gastrojejunostomy ZINC Routine 01/23/2025 9:23 AM EDT S/P bypass gastrojejunostomy VITAMIN D 25 HYDROXY Routine 01/23/2025 9:23 AM EDT S/P bypass gastrojejunostomy VITAMIN B6 Routine 01/23/2025 9:23 AM EDT S/P bypass gastrojejunostomy VITAMIN B12 Routine 01/23/2025 9:23 AM EDT S/P bypass gastrojejunostomy VITAMIN A Routine 01/23/2025 9:23 AM EDT S/P bypass gastrojejunostomy FOLATE Routine 01/23/2025 9:23 AM EDT S/P bypass gastrojejunostomy LIPASE STAT 01/08/2025 9:54 PM EDT COMPREHENSIVE [...] AM EDT POCT GLUCOSE BLOOD Routine 12/24/2024 12:01 AM EDT POCT GLUCOSE BLOOD Routine 12/23/2024 11:31 PM EDT POCT GLUCOSE BLOOD Routine 12/23/2024 6: 29 PM EDT POCT GLUCOSE BLOOD Routine 12/23/2024 12:26 PM EDT CONTINUOUS EEG Routine 12/23/2024 10:11 AM EDT POCT GLUCOSE BLOOD Routine 12/23/2024 6: 04 AM EDT COMPREHENSIVE METABOLIC PANEL Timed 12/23/2024 5:50 AM EDT COMPLETE BLOOD COUNT Timed 12/23/2024 5:50 AM EDT POCT GLUCOSE BLOOD Routine 12/22/2024 11:44 PM EDT POCT GLUCOSE BLOOD Routine 12/22/2024 7: 34 PM EDT POCT GLUCOSE BLOOD Routine 12/22/2024 6: 09 PM EDT POCT GLUCOSE BLOOD Routine 12/22/2024 5: 54 PM EDT POCT GLUCOSE BLOOD Routine 12/22/2024 4: 14 PM EDT POCT GLUCOSE BLOOD Routine 12/22/2024 12:24 PM EDT POCT GLUCOSE BLOOD Routine 12/22/2024 12:05 PM EDT POCT GLUCOSE BLOOD Routine 12/22/2024 10:22 AM EDT CONTINUOUS EEG Routine 12/22/2024 10:14 [...] EDT CT HEAD WO CONTRAST STAT 12/21/2024 10:34 PM EDT XR CHEST 1 VIEW STAT 12/21/2024 9:38 PM EDT VENTILATOR, ADULT Routine 12/21/2024 8:5 5 PM EDT VENTILATOR, ADULT Routine 12/21/2024 8:5 5 PM EDT VENTILATOR, ADULT Routine 12/21/2024 7:2 3 PM EDT CONTINUOUS EEG Routine 12/14/2024 5:54 PM EDT CONTINUOUS EEG Routine 12/14/2024 4:20 PM EDT POCT GLUCOSE BLOOD Routine 12/14/2024 12:51 PM EDT COMPLETE BLOOD COUNT Timed 12/14/2024 8:47 AM EDT BASIC METABOLIC PANEL Timed 12/14/2024 8:47 AM EDT CONTINUOUS EEG Routine 12/14/2024 6:03 AM EDT POCT GLUCOSE BLOOD Routine 12/14/2024 5: 08 AM EDT POCT GLUCOSE BLOOD Routine 12/14/2024 12:06 AM EDT POCT GLUCOSE BLOOD Routine 12/13/2024 9: 48 PM EDT POCT GLUCOSE BLOOD Routine 12/13/2024 6: 45 PM EDT POCT GLUCOSE BLOOD Routine 12/13/2024 11:51 AM EDT OXYGEN THERAPY, ADULT Routine 12/13/2024 8:02 AM EDT POCT GLUCOSE BLOOD Routine 12/13/2024 6: 37 AM EDT PROLACTIN STAT 12/13/2024 4:14 AM EDT LACTATE, WITH REFLEX STAT 12/13/2024 4:14 AM EDT COMPREHENSIVE METABOLIC PANEL STAT 12/13/2024 4:14 AM EDT COMPLETE BLOOD COUNT STAT 12/13/2024 4:14 AM EDT POCT GLUCOSE BLOOD Routine 12/13/2024 12:23 AM EDT OXYGEN THERAPY, ADULT Routine 12/12/2024 [...] enteral nutrition POCT GLUCOSE BLOOD Routine 11/13/2024 12:49 PM EDT POCT GLUCOSE BLOOD Routine 11/13/2024 12:[address] ABDOMEN PELVIS W CONTRAST STAT 11/13/2024 11:03 AM EDT XR ABDOMEN 1 VIEW STAT 11/13/2024 10:16 AM EDT POC , URINE DIAGNOSTIC STAT [...] 10/27/2024 3:42 PM EDT On enteral nutrition from Last 3 Months Results * Iron and TIBC (01/23/2025 9:23 AM EDT) Only the most recent of2 resultswithin the time period is included. Iron 84 40 - 150 mcg/dL LAB CHEMISTRY METHOD 01/23/2025 10:39 AM EDT [facility] TIBC 255 250 - 450 mcg/dL LAB CHEMISTRY METHOD 01/23/2025 10:39 AM EDT [facility] Iron Saturation 33 15 - 50 % LAB CHEMISTRY METHOD 01/23/2025 10:39 AM EDT [facility] Blood Venous blood specimen / Unknown Venipuncture / Unknown 01/23/2025 9:23 AM EDT 01/23/2025 9:23 AM EDT us Nga Mukherjee MD LAB BLOOD ORDERABLES Fi nal Result [facility] [address] [place] [address], * Copper, serum (01/23/2025 9:23 AM EDT) Only the most recent of2 resultswithin the time period is included. Copper 1302 810 - 1990 ug/L 01/26/2025 9:46 AM EDT [facility] Comment: Copper values may be elevated to twice the normal levels in . Elevated results may be due to sample collected in a non-certified trace element-free tube. This test was developed and the performance characteristics determined by [facility]. It has not been cleared or approved by the FDA. The laboratory is regulated under CLIA as qualified to perform high-complexity testing. This test is used for patient testing purposes. It should not be regarded as investigational or for research. Test performed at [facility], [address] , [place] [address] Minal Frederick MD, PhD - Track Hoe Operator Blood Venous blood specimen / Unknown Venipuncture / Unknown 01/23/2025 9:23 AM EDT 01/23/2025 9:23 AM EDT Nga Mukherjee MD LAB BLOOD ORDERABLES Fi nal Result [facility] [address] [place] [address] * Zinc (01/23/2025 9:23 AM EDT) Only the most recent of2 resultswithin the time period is included. Zinc 73 60 - 130 ug/dL 01/25/2025 1:05 PM EDT [facility] Comment: Elevated results may be due to sample collected in a non-certified trace element-free tube. This test was developed and the performance characteristics determined by [facility]. It has not been cleared or approved by the FDA. The laboratory is regulated under CLIA as qualified to perform high-complexity testing. This test is used for patient testing purposes. It should not be regarded as investigational or for research. Test performed at [facility], [address] , [place], [place] [phone] Minal Frederick MD, PhD - Track Hoe Operator Blood Venous blood specimen / Unknown Venipuncture / Unknown 01/23/2025 9:23 AM EDT 01/23/2025 9:23 AM EDT Nga Mukherjee MD LAB BLOOD ORDERABLES Fi nal Result Performing Organization Address City/[facility]/ZIP Co de Phone Number [facility] [address] [place] [address] * Vitamin A (01/23/2025 9:23 AM EDT) Only the most recent of2 resultswithin the time period is included. [facility] Vitamin A 58 38 - 106 ug/dL 01/26/2025 7:07 AM EDT [facility] Comment: This test was developed and the performance characteristics determined by [facility]. It has not been cleared or approved by the FDA. The laboratory is regulated under CLIA as qualified to perform high-complexity testing. This test is used for patient testing purposes. It should not be regarded as investigational or for research. Test performed at [facility], [address] , [place] [address] Minal Frederick MD, PhD - Track Hoe Operator Blood Venous blood specimen / Unknown Venipuncture / Unknown 01/23/2025 9:23 AM EDT 01/23/2025 9:23 AM EDT Nga Mukherjee MD LAB BLOOD ORDERABLES Fi nal Result Performing Organization Address City/[facility]/ZIP Co de Phone Number [facility] [address] [place] [address] * (ABNORMAL) Vitamin D 25 hydroxy (01/23/2025 9:23 AM EDT) Only the most recent of2 resultswithin the time period is included. Pathologist [facility] Vit D, 25-Hydroxy 20.7(L) 30.0 - 80.0 ng/mL LAB CHEMISTRY METHOD 01/23/2025 12:54 PM EDT [facility] Blood Venous blood specimen / Unknown Venipuncture / Unknown 01/23/2025 9:23 AM EDT 01/23/2025 9:23 AM EDT Nga Mukherjee MD LAB BLOOD ORDERABLES Fi nal Result Performing Organization Address City/[facility]/ZIP Co de Phone Number [facility] [address] [place] [address], * (ABNORMAL) Vitamin B6 (01/23/2025 9:23 AM EDT) Only the most recent of2 resultswithin the time period is included. Pathologist [facility] Vitamin B6 (Pyridoxine) Level 4(L) 5 - 50 ug/L 01/26/2025 9:42 AM EDT [facility] Comment: This test was developed and the performance characteristics determined by [facility]. It has not been cleared or approved by the FDA. The laboratory is regulated under CLIA as qualified to perform high-complexity testing. This test is used for patient testing purposes. It should not be regarded as investigational or for research. Test performed at [facility], [address] , [place] [address] Minal Frederick MD, PhD - Track Hoe Operator Blood Venous blood specimen / Unknown Venipuncture / Unknown 01/23/2025 9:23 AM EDT 01/23/2025 9:23 AM EDT Nga Mukherjee MD LAB BLOOD ORDERABLES Fi nal Result [facility] [address] [place] [address] * (ABNORMAL) Folate (01/23/2025 9:23 AM EDT) Pathologist [facility] Folate >20.0(H) 2.8 - 17.0 ng/ml LAB CHEMISTRY METHOD 01/23/2025 11:03 AM EDT [facility] Blood Venous blood specimen / Unknown Venipuncture / Unknown 01/23/2025 9:23 AM EDT 01/23/2025 9:23 AM EDT us Nga Mukherjee MD LAB BLOOD ORDERABLES Fi nal Result Performing Organization Address City/[facility]/ZIP Co de Phone Number [facility] [address] [place] [address], [place] [phone] * Vitamin B12 (01/23/2025 9:23 AM EDT) Only the most recent of2 resultswithin the time period is included. [facility] Vitamin B-12 576 250 - 900 pcg/mL LAB CHEMISTRY METHOD 01/23/2025 11:03 AM EDT [facility] Blood Venous blood specimen / Unknown Venipuncture / Unknown 01/23/2025 9:23 AM EDT 01/23/2025 9:23 AM EDT us Nga Mukherjee MD LAB BLOOD ORDERABLES Fi nal Result Performing Organization Address [facility]/ZIP Co de Phone Number [facility] [address] [place] [address], [place] [phone] * (ABNORMAL) CBC (01/08/2025 9:54 PM EDT) Only the most recent of7 resultswithin the time period is included. [facility] WBC 10.4 4.8 - 10.8 K/mcL LAB HEMETOLOGY METHOD 01/08/2025 10:24 PM EDT [facility] RBC 4.50 3.80 - 4.80 M/[facility] LAB HEMETOLOGY METHOD 01/08/2025 10:24 PM EDT [...] Final Resul t [facility] [address] [place] [address], * hCG Qualitative (01/08/2025 9:54 PM EDT) Only the most recent of4 resultswithin the time period is included. Pathologist [facility] hCG Qual Negative Negative 01/08/2025 10:36 PM EDT [facility] Blood Venous blood specimen / Unknown Venipuncture / Unknown 01/08/2025 9:54 PM EDT 01/08/2025 10:17 PM EDT us Toshia Cam MD LAB BLOOD ORDERABLES Final Resul t Performing Organization Address [facility] de Phone Number [facility] [address] [place] [address], [place] [phone] * Lipase (01/08/2025 9:54 PM EDT) Only the most recent of3 resultswithin the time period is included. [facility] Lipase 27 13 - 75 unit/L LAB CHEMISTRY METHOD 01/08/2025 10:49 PM EDT [facility] Blood Venous blood specimen / Unknown Venipuncture / Unknown 01/08/2025 9:54 PM EDT 01/08/2025 10:17 PM EDT us Toshia Cam MD LAB BLOOD ORDERABLES Final Resul t Performing Organization Address [facility] de Phone Number [facility] [address] [place] [address], [place] [phone] * Comprehensive Metabolic Panel (CMP) (01/08/2025 9:54 PM EDT) Only the most recent of11 resultswithin the time period is included. [facility] Sodium 137 133 - 145 mmol/L LAB CHEMISTRY METHOD 01/08/2025 10:49 PM EDT [facility] Potassium 4.3 3.5 - 5.5 mmol/L LAB CHEMISTRY METHOD 01/08/2025 10:49 PM EDT [facility] Comment:Hemolysis present Chloride 105 96 - 110 mmol/L LAB CHEMISTRY METHOD 01/08/2025 10:49 PM [facility] CO2 25 21 - 32 mmol/L LAB CHEMISTRY METHOD 01/08/2025 10:49 PM [facility] Anion Gap 7 3 - 11 LAB CHEMISTRY METHOD 01/08/2025 10:49 PM [facility] Glucose 74 70 - 100 mg/dL LAB CHEMISTRY METHOD 01/08/2025 10:49 PM [facility] BUN 13 5 - 25 mg/dL LAB CHEMISTRY METHOD 01/08/2025 10:49 PM [facility] Creatinine 0.65 0.50 - 1.10 mg/dL LAB CHEMISTRY METHOD 01/08/2025 10:49 PM [facility] eGFR 109 >=60 mL/min/1. 73m2 LAB CHEMISTRY METHOD 01/08/2025 10:49 PM [facility] Comment:Calculation based on the Chronic Kidney Disease Epidemiology Collaboration (CKD-EPI) equation refit without adjustment for race. BUN/Creatinine Ratio 20.0 LAB CHEMISTRY METHOD 01/08/2025 10:49 PM [facility] Calcium 8.9 8.5 - 10.5 mg/dL LAB CHEMISTRY METHOD 01/08/2025 10:49 PM [facility] AST (SGOT) 23 10 - 42 unit/L LAB CHEMISTRY METHOD 01/08/2025 10:49 PM [facility] ALT (SGPT) 20 10 - 60 unit/L LAB CHEMISTRY METHOD 01/08/2025 10:49 PM [facility] Alkaline Phosphatase 96 42 - 121 unit/L LAB CHEMISTRY METHOD 01/08/2025 10:49 PM [facility] Total Protein 7.4 6.0 - 8.0 g/dL LAB CHEMISTRY METHOD 01/08/2025 10:49 PM [facility] Albumin 3.6 3.2 - 5.0 [...] Final Resul t [facility] [address] [place] [address], * Continuous EEG (12/24/2024 8:27 AM EDT) [...] g, 30 g, oral, q15 min PRN, Lcau Ludy Ranjana, DO enoxaparin (LOVENOX) injection 40 mg, 40 mg, subcutaneous, Daily, Elder Jay DO, 40 mg at 12/23/24 0809 glucagon HCL injection 1 mg, 1 mg, intramuscular, Once PRN, Claufelicia Chilel, DO mupirocin (BACTROBAN) 2 % ointment, [...] seen Sheryl Caraballo MD Epileptologist/ Staff Neurologist [facility] us Refugio Rothman MD NEUROLOGY ORDERABLES Edited Re sult - Final [facility] * POCT Glucose, blood (12/24/2024 5:56 AM EDT) Only the most recent of28 resultswithin the time period is included. [facility] Glucose POCT 117 70 - 199 mg/dL 12/24/2024 7:24 AM EDT [facility] Comment: Fasting Reference Range: 70-99 mg/dL Non-Fasting Reference Range: 70-199 mg/dL Blood Capillary blood specimen / Unknown 12/24/2024 5:56 AM EDT 12/24/2024 7:26 AM EDT us Mark Hankins MD LAB POINT OF CARE TE ST DOCKED DEVICE UNSOLICITED RESULTS Final Result Performing Organization Address City/[facility]/ZIP Co de Phone Number [facility] [address] [place] [address], [place] [phone] * Continuous EEG (12/23/2024 10:11 AM EDT) [...] seizures Sheryl Caraballo MD Epileptologist/ Staff Neurologist [facility] us Refugio Rothman MD NEUROLOGY ORDERABLES Final [...] EEG with no parasagittal coverage. Performed with Extole, nap- Naturally Attached Parents Status Epilepticus Monitor, ICD-10 [id number] Recording Techniques Description of procedure: This is a Rapid EEG acquired with a digital [employer] EEG machine with 10 lead, 8 channel system positioned circumferentially, spaced according to the lateral chains of the 10-20 international system of EEG electrode placements. Vertex and paracentral recording electrodes are not included. The entire segments of the EEG were scanned by the attending physician. ExtolePro algorithm utilized and implemented to provide analysis [...] mL/hr at 12/22/24 0920, 0.01 mcg/kg/min at 12/22/24919 pantoprazole (PROTONIX) injection 40 mg, 40 mg, intravenous, q24h, Shawna Pereira MD, 40 mg at 12/21/242053 propofoL (DIPRIVAN) infusion 10 mg/mL, 30-200 mcg/kg/min, intravenous, Continuous, Shawna Pereira MD, Last Rate: 26.8 mL/hr at 12/22/24 1004, 55 mcg/kg/min at 12/22/241003 Results Background: The [...] background Sheryl Caraballo MD Epileptologist/ Staff Neurologist [facility] us Sebastián Dutta MD NEUROLOGY ORDERABLES Final [...] EEG with no parasagittal coverage. Performed with [employer] Status Epilepticus Monitor, ICD-10 [id number] Recording Techniques Description of procedure: This is a Rapid EEG acquired with a digital [employer] EEG machine with 10 lead, 8 channel [...] at 12/22/24 1004, 55 mcg/kg/min at 12/22/24 100 Results Background: [...] background Sheryl Caraballo MD Epileptologist/ Staff Neurologist [facility] Sebastián Dutta MD NEUROLOGY ORDERABLES Final Resul t Performing Organization Address [facility] Co de Phone Number [facility] * Procalcitonin (12/22/2024 4:12 AM EDT) Procalcitonin 0.05 <=0.05 ng/mL LAB CHEMISTRY METHOD 12/22/2024 5:13 AM EDT [facility] Blood Venous blood specimen / Unknown Venipuncture / Unknown 12/22/2024 4:12 AM EDT 12/22/2024 4:22 AM EDT Narrative [facility] - 12/22/2024 5:13 AM EDT Procalcitonin [...] ORDERABLES Final Re sult Performing Organization Address [facility] Co de Phone Number [facility] [address] [place] [address], [place] [phone] * Lactate, whole blood (12/22/2024 4:12 AM EDT) [facility] Lactate, Whole Blood 2.1 0.5 - 2.2 mmol/L LAB BLOOD GAS METHOD 12/22/2024 4:28 AM EDT [facility] Blood Venous blood specimen / Unknown Venipuncture / Unknown 12/22/2024 4:12 AM EDT 12/22/2024 4:21 AM EDT Brigette Menard MD LAB BLOOD ORDERABLES Final Re sult [facility] [address] [place] [address], * Hepatitis panel, acute (12/22/2024 4:12 AM EDT) [facility] Hepatitis B Surface Ag Negative Negative LAB CHEMISTRY METHOD 12/23/2024 4:40 AM EDT [facility] Hepatitis A Antibody IgM Negative Negative LAB CHEMISTRY METHOD 12/23/2024 4:40 AM EDT [facility] Hep B Core IgM Negative Negative LAB CHEMISTRY METHOD 12/23/2024 4:40 AM EDT [facility] Hepatitis C Antibody Negative Negative LAB CHEMISTRY METHOD 12/23/2024 4:40 AM EDT [facility] Blood Venous blood specimen / Unknown Venipuncture / Unknown 12/22/2024 4:12 AM EDT 12/22/2024 4:22 AM EDT Refugio Rothman MD LAB BLOOD ORDERABLES Final Res ult [facility] [address] [place] [address], [place] [phone] * (ABNORMAL) Prolactin (12/22/2024 4:12 AM EDT) Only the most recent of2 resultswithin the time period is included. [facility] Prolactin 45.00(H) 3.30 - 26.70 ng/mL LAB CHEMISTRY METHOD 12/22/2024 5:13 AM EDT [facility] Blood Venous blood specimen / Unknown Venipuncture / Unknown 12/22/2024 4:12 AM EDT 12/22/2024 4:22 AM EDT us Brigette Menard MD LAB BLOOD ORDERABLES Final Re sult [facility] [address] [place] [address], [place] [phone] * Culture blood (12/22/2024 4:12 AM EDT) [facility] Culture, Blood No growth at 5 days 12/27/2024 5:01 AM EDT [facility] Blood Venous blood specimen / Unknown Venipuncture / Unknown 12/22/2024 4:12 AM EDT 12/22/2024 4:22 AM EDT us Brigette Menard MD LAB MICROBIOLOGY - GENERAL OR DERABLES Final Result Performing Organization Address City/[facility] Co de Phone Number [facility] [address] [place] [address], [place] [phone] * Phosphorus (12/22/2024 4:12 AM EDT) Only the most recent of6 resultswithin the time period is included. Phosphorus 2.6 2.5 - 4.5 mg/dL LAB CHEMISTRY METHOD 12/22/2024 4:59 AM EDT [facility] Blood Venous blood specimen / Unknown Venipuncture / Unknown 12/22/2024 4:12 AM EDT 12/22/2024 4:22 AM EDT us Brigette Menard MD LAB BLOOD ORDERABLES Final Re sult Performing Organization Address City/[facility]/ZIP Co de Phone Number [facility] [address] [place] [address], [place] [phone] * Magnesium (12/22/2024 4:12 AM EDT) Only the most recent of7 resultswithin the time period is included. Magnesium 1.9 1.7 - 2.8 mg/dL LAB CHEMISTRY METHOD 12/22/2024 4:59 AM EDT [facility] Blood Venous blood specimen / Unknown Venipuncture / Unknown 12/22/2024 4:12 AM EDT 12/22/2024 4:22 AM EDT Brigette Menard MD LAB BLOOD ORDERABLES Final Re sult Performing Organization Address [facility]/ZIP Co de Phone Number [facility] [address] [place] [address], [place] [phone] * (ABNORMAL) Hepatic function panel (12/22/2024 4:12 AM EDT) ALT (SGPT) 194(H) 7 - 52 unit/L LAB CHEMISTRY METHOD 12/22/2024 4:59 AM EDT [facility] AST (SGOT) 252(H) 5 - 40 unit/L LAB CHEMISTRY METHOD 12/22/2024 4:59 AM EDT [facility] Alkaline Phosphatase 164(H) 34 - 104 unit/L LAB CHEMISTRY METHOD 12/22/2024 4:59 AM EDT [facility] Bilirubin, Direct 0.2 0.0 - 0.2 mg/dL LAB CHEMISTRY METHOD 12/22/2024 4:59 AM EDT [facility] Total Bilirubin 0.4 0.3 - 1.0 mg/dL LAB CHEMISTRY METHOD 12/22/2024 4:59 AM EDT [facility] Total Protein 6.7 6.4 - 8.5 g/dL LAB CHEMISTRY METHOD 12/22/2024 4:59 AM EDT [facility] Albumin 3.4(L) 3.5 - 5.0 g/dL LAB CHEMISTRY METHOD 12/22/2024 4:59 AM EDT [facility] Globulin, Total 3.3 2.3 - 3.5 g/dL LAB CHEMISTRY METHOD 12/22/2024 4:59 AM EDT [facility] A/G Ratio 1.0 LAB CHEMISTRY METHOD 12/22/2024 4:59 AM EDT [facility] Blood Venous blood specimen / Unknown Venipuncture / Unknown 12/22/2024 4:12 AM EDT 12/22/2024 4:22 AM EDT Brigette Menard MD LAB BLOOD ORDERABLES Final Re sult [facility] [address] [place] [address], [place] [phone] * Basic metabolic panel (12/22/2024 4:12 AM EDT) Only the most recent of2 resultswithin the time period is included. Sodium 136 135 - 145 mmol/L LAB CHEMISTRY METHOD 12/22/2024 4:59 AM EDT [facility] Potassium 4.5 3.5 - 5.1 mmol/L LAB CHEMISTRY METHOD 12/22/2024 4:59 AM EDT [facility] Chloride 103 98 - 107 mmol/L LAB CHEMISTRY METHOD 12/22/2024 4:59 AM EDT [facility] CO2 26 24 - 32 mmol/L LAB CHEMISTRY METHOD 12/22/2024 4:59 AM EDT [facility] Anion Gap 7 5 - 14 LAB CHEMISTRY METHOD 12/22/2024 4:59 AM EDT [facility] Glucose 76 70 - 199 mg/dL LAB CHEMISTRY METHOD 12/22/2024 4:59 AM EDT [facility] BUN 10 7 - 17 mg/dL LAB CHEMISTRY METHOD 12/22/2024 4:59 AM EDT [facility] Creatinine 0.50 0.50 - 1.00 mg/dL LAB CHEMISTRY METHOD 12/22/2024 4:59 AM EDT [facility] eGFR 117 >=60 mL/min/1. 73m2 LAB CHEMISTRY METHOD 12/22/2024 4:59 AM EDT [facility] Comment:Calculation based on the Chronic Kidney Disease Epidemiology Collaboration (CKD-EPI) equation refit without adjustment for race. BUN/Creatinine Ratio 20.0 12.0 - 20.0 LAB CHEMISTRY METHOD 12/22/2024 4:59 AM EDT [facility] Calcium 8.6 8.4 - 10.2 mg/dL LAB CHEMISTRY METHOD 12/22/2024 4:59 AM EDT [facility] Blood Venous blood specimen / Unknown Venipuncture / Unknown 12/22/2024 4:12 AM EDT 12/22/2024 4:22 AM EDT Brigette Menard MD LAB BLOOD ORDERABLES Final Re sult [facility] [address] [place] [address], [place] [phone] * (ABNORMAL) Urinalysis with microscopic (12/22/2024 12:27 AM EDT) Color, Urine Yellow Yellow, Colorless LAB URINALYSIS - AUTOMATED METHOD 12/22/2024 1:23 AM EDT [facility] Clarity, Urine Clear Clear LAB URINALYSIS - AUTOMATED METHOD 12/22/2024 1:23 AM EDT [facility] Specific [place] Urine 1.024 1.005 - 1.030 LAB URINALYSIS - AUTOMATED METHOD 12/22/2024 1:23 AM EDT [facility] pH, Urine 6.0 5.0 - 8.0 pH LAB URINALYSIS - AUTOMATED METHOD 12/22/2024 1:23 AM [facility] Leukocytes, Urine Negative Negative WBCs/mcL LAB URINALYSIS - AUTOMATED METHOD 12/22/2024 1:23 AM [facility] Nitrite, Urine Negative Negative LAB URINALYSIS - AUTOMATED METHOD 12/22/2024 1:23 AM [facility] Protein, Urine Negative Negative mg/dL LAB URINALYSIS - AUTOMATED METHOD 12/22/2024 1:23 AM [facility] Glucose, Urine Negative Negative mg/dL LAB URINALYSIS - AUTOMATED METHOD 12/22/2024 1:23 AM [facility] Ketones, Urine Negative Negative mg/dL LAB URINALYSIS - AUTOMATED METHOD 12/22/2024 1:23 AM [facility] Blood, Urine Negative Negative mg/dL LAB URINALYSIS - AUTOMATED METHOD 12/22/2024 1:23 AM [facility] RBC, Urine 6(H) 0 - 3 /HPF LAB URINALYSIS - AUTOMATED METHOD 12/22/2024 1:23 AM [facility] WBC, Urine 3 0 - 5 /HPF LAB URINALYSIS - AUTOMATED METHOD 12/22/2024 1:23 AM [facility] Squamous Epithelial, Urine 0 0 - 5 /HPF LAB URINALYSIS - AUTOMATED METHOD 12/22/2024 1:23 AM [facility] Mucus, Urine Present(A) Not Present /HPF LAB URINALYSIS - AUTOMATED METHOD 12/22/2024 1:23 AM [facility] Urine Urine specimen from urinary conduit / Unknown Non-blood Collection / Unknown 12/22/2024 12:27 AM EDT 12/22/2024 12:40 AM EDT us Brigette Menard MD LAB URINE ORDERABLES Final Re sult [facility] ([facility] [address] [place] [address], * Continuous EEG (12/21/2024 11:12 PM EDT) Narrative [facility] - 12/21/2024 11:12 PM EDT Sheryl Akins MD 12/22/2024 10:16 AM Continuous Electroencephalography (EEG) Report Recording Information: Start Time: Dec 21, 2024 20:48 PM End Time: Dec 21, 2024 22:12 PM Duration: 01:24:45 (85 minutes) Recording Technique: This EEG was obtained using a 10 lead, 8 channel circumferential rapid EEG with no parasagittal coverage. Performed with [employer] Status Epilepticus Monitor, ICD-10 [id number] Recording Techniques Description of procedure: This is a Rapid EEG acquired with a digital [employer] EEG machine with 10 lead, 8 channel [...] g, intravenous, q15 min PRN, Clau Ludy hCilel, DO, 12.5 g at 12/22/24 0657 dextrose [...] at 12/22/24 1004, 55 mcg/kg/min at 12/22/24 100 Results Background: [...] a normal continuous EEG recording in the ynzqd-dxnxlg-mvfnjd states. There were no focal abnormalities, persistent asymmetries, or epileptiform discharges/ seizures. However, a normal EEG does not rule out epilepsy or seizure. Clinical correlation is advised. Sheryl Caraballo MD Epileptologist/ Staff Neurologist [facility] us Sebastián Dutta MD NEUROLOGY ORDERABLES Edited Resu lt - Final NATUS * Continuous EEG (12/21/2024 11:12 PM EDT) [...] EEG with no parasagittal coverage. Performed with [employer] Status Epilepticus Monitor, ICD-10 [id number] Recording Techniques Description of procedure: This is a Rapid EEG acquired with a digital [employer] EEG machine with 10 lead, 8 channel [...] g, intravenous, q15 min PRN, Clau Ludy Finkn, DO, 12.5 g at 12/22/24 0657 dextrose (D50W) 50% injection 25 g, 25 g, intravenous, q15 min PRN, Clau Ludy Finkn, DO dextrose 15 gram/60 mL oral solution 15 g, 15 g, oral, q15 min PRN, Clau Ludy Ranjana, DO dextrose 15 gram/60 mL oral solution 30 g, 30 g, oral, q15 min PRN, Clau Finkn, DO dextrose 5 % lactated ringers infusion, 75 mL/hr, intravenous, Continuous, Elder Jay DO, Last Rate: 75 mL/hr at 12/22/24 0800, 75 mL/hr at 12/22/24 0800 glucagon HCL injection 1 mg, 1 mg, intramuscular, Once PRN, Claufelicia Chilel, mupirocin (BACTROBAN) 2 % ointment, , Each [...] at 12/22/24 1004, 55 mcg/kg/min at 12/22/24 100 Results Background: [...] a normal continuous EEG recording in the kwshn-qylbyi-zyantj states. There were no focal abnormalities, persistent asymmetries, or epileptiform discharges/ seizures. However, a normal EEG does not rule out epilepsy or seizure. Clinical correlation is advised. Sheryl Caraballo MD Epileptologist/ Staff Neurologist [facility] us Sebastián Dutta MD NEUROLOGY ORDERABLES Edited [...] Signed Date: 12/21/2024 22:53 ET Workstation ID: [id number] Transcribed By: Self Edit Transcribed Date: 12/21/2024 [...] Signed Date: 12/21/2024 22:53 ET Workstation ID: [id number] Transcribed By: Self Edit Transcribed Date: 12/21/2024 [...] Signed Date: 12/21/2024 21:50 ET Workstation ID: [id number] Transcribed By: Self Edit Transcribed Date: 12/21/2024 [...] Signed Date: 12/21/2024 21:50 ET Workstation ID: [id number] Transcribed By: Self Edit Transcribed Date: 12/21/2024 21:50 ET us Brigette Menard MD IMG XR PROCEDURES Final Resul t * Continuous EEG (12/14/2024 5:54 PM EDT) Narrative [facility] - 12/14/2024 5:54 PM EDMary Akins MD 12/15/2024 11:50 AM Long-term Monitoring/ [...] See administration instructions. Patient received injection at [facility] every four weeks, Disp: , [...] mouth 1 (one) time each day., Disp: 17500 mL, Rfl: 11 pantoprazole (PROTONIX) 40 mg [...] normal continuous video EEG recording in the enqif-bylvcs-jbyiwa states. -There were no focal abnormalities, persistent [...] event. Sheryl Caraballo MD Epileptologist/ Staff Neurologist [facility] us Sebastián Dutta MD NEUROLOGY ORDERABLES Final [...] See administration instructions. Patient received injection at [facility] every four weeks, Disp: , [...] mouth 1 (one) time each day., Disp: 35941 mL, Rfl: 11 pantoprazole (PROTONIX) 40 mg [...] normal continuous video EEG recording in the xnuom-jvzyfm-yvdcto states. -There were no focal abnormalities, persistent [...] event. Sheryl Caraballo MD Epileptologist/ Staff Neurologist [facility] Sebastián Dutta MD NEUROLOGY ORDERABLES Final Resul [...] a normal continuous EEG recording in the ynods-ydcmfo-hydnkj states. There were no focal abnormalities, persistent asymmetries, or epileptiform discharges/ seizures. -Patient had a brief episode at the very beginning of the EEG set up on 12/13/2024 at 11:59 AM: Unresponsive, shaking and stiffening: No EEG correlation seen during this episode Sheryl Caraballo MD Epileptologist/ Staff Neurologist [facility] us Sebastián Dutta MD NEUROLOGY ORDERABLES Final Resul t [facility] * Lactate, with reflex (12/13/2024 4:14 AM EDT) LACTIC ACID 1.6 0.5 - 2.2 mmol/L LAB BLOOD GAS METHOD 12/13/2024 4:35 AM EDT [facility] Blood Venous blood specimen / Unknown Venipuncture / Unknown 12/13/2024 4:14 AM EDT 12/13/2024 4:32 AM EDT us Adriel Bethea MD LAB BLOOD ORDERABLES Final Resul t [facility] [address] [place] [address], [place] [phone] * (ABNORMAL) CBC auto differential (12/08/2024 2:19 PM EDT) Only the most recent of6 resultswithin the time period is included. WBC [...] 12/08/2024 6:20 PM EDT [facility] MPV 10.2 7.0 - 11.0 FL LAB HEMETOLOGY METHOD 12/08/2024 6:20 PM EDT [facility] NRBC 0.0 <1.0 % LAB HEMETOLOGY METHOD 12/08/2024 6:20 PM EDT [facility] NRBC Absolute 0.00 <0.10 K/mcL LAB HEMETOLOGY METHOD 12/08/2024 6:20 PM EDT [facility] Neutrophils Relative 66.5 % LAB HEMETOLOGY METHOD 12/08/2024 6:20 PM EDT [facility] Lymphocytes Relative 23.2 % LAB HEMETOLOGY METHOD 12/08/2024 6:20 PM EDT [facility] Monocytes Relative 6.3 % LAB HEMETOLOGY METHOD 12/08[facility]2024 [facility] Eosinophils Relative 3.3 % LAB HEMETOLOGY METHOD 12/08/2024 6:20 PM [facility] Basophils Relative 0.3 % LAB HEMETOLOGY METHOD 12/08/2024 6:[facility] Immature Granulocytes Relative 0.4 % LAB HEMETOLOGY METHOD 12/08/2024 6:20 PM EDT [facility] Neutrophils Absolute 6.02 1.50 - 7.00 K/mcL LAB HEMETOLOGY METHOD 12/08/2024 6:20 PM EDT [facility] Lymphocytes Absolute 2.10 1.00 - 5.00 K/mcL LAB HEMETOLOGY METHOD 12/08/2024 6:20 PM EDT [facility] Monocytes Absolute 0.57 0.20 - 1.00 K/mcL LAB HEMETOLOGY METHOD 12/08/2024 6:20 PM EDT [facility] Eosinophils Absolute 0.30 0.00 - 0.50 K/[facility] LAB HEMETOLOGY METHOD 12/08/2024 6:20 PM EDT [facility] Basophils Absolute 0.03 0.00 - 0.20 K/[facility] LAB HEMETOLOGY METHOD 12/08/2024 6:20 PM EDT [facility] Immature Granulocytes Absolute 0.04(H) 0.00 - 0.03 K/[facility] LAB HEMETOLOGY METHOD 12/08/2024 6:20 PM EDT [facility] Blood Venous blood specimen / Unknown Venipuncture / Unknown 12/08/2024 2:19 PM EDT 12/08/2024 2:19 PM EDT us Nga Mukherjee MD LAB BLOOD ORDERABLES Fi nal Result Performing Organization Address City/[facility]/ZIP Co de Phone Number [facility] [address] [place] [address], [place] [phone] * (ABNORMAL) Triglycerides (12/08/2024 2:19 PM EDT) Only the most recent of5 resultswithin the time period is included. Triglycerides 215(H) 0 - 150 mg/dL LAB CHEMISTRY METHOD 12/08/2024 6:47 PM EDT [facility] Blood Venous blood specimen / Unknown Venipuncture / Unknown 12/08/2024 2:19 PM EDT 12/08/2024 2:19 PM EDT us Nga Mukherjee MD LAB BLOOD ORDERABLES Fi nal Result [facility] [address] [place] [address], [place] [phone] * (ABNORMAL) Urinalysis with reflex microscopic (11/19/2024 8:12 AM EDT) [facility] Signature Specific [place] Urine >1.045(H) 1.003 - 1.030 LAB URINALYSIS - AUTOMATED METHOD 11/19/2024 8:51 AM [facility] pH, Urine 6.5 5.0 - 8.0 pH LAB URINALYSIS - AUTOMATED METHOD 11/19/2024 8:51 AM [facility] Leukocytes, Urine Negative Negative LAB URINALYSIS - AUTOMATED METHOD 11/19/2024 8:51 AM [facility] Nitrite, Urine Negative Negative LAB URINALYSIS - AUTOMATED METHOD 11/19/2024 8:51 AM [facility] Protein, Urine Negative <=Trace mg/dL LAB URINALYSIS - AUTOMATED METHOD 11/19/2024 8:51 AM [facility] Glucose, Urine Negative Negative mg/dL LAB URINALYSIS - AUTOMATED METHOD 11/19/2024 8:51 AM [facility] Ketones, Urine Negative Negative mg/dL LAB URINALYSIS - AUTOMATED METHOD 11/19/2024 8:51 AM [facility] Urobilinogen , Urine 1.0 0.2 - 1.0 mg/dL LAB URINALYSIS - AUTOMATED METHOD 11/19/2024 8:51 AM [facility] Bilirubin, Urine Negative Negative LAB URINALYSIS - AUTOMATED METHOD 11/19/2024 8:51 AM [facility] Blood, Urine Negative Negative LAB URINALYSIS - AUTOMATED METHOD 11/19/2024 8:51 AM [facility] Urine Urine specimen obtained by clean catch procedure / Unknown Non-blood Collection / Unknown 11/19/2024 8:12 AM EDT 11/19/2024 8:48 AM EDT us Opal PETTY LAB URINE ORDERABLES Fin al Result [facility] [address] [place] [address], * CT Abdomen Pelvis w Contrast (11/19/2024 [...] Roca MD on 11/19/2024 07:19:[address] PROCEDURES Final Result * IR Inj [...] Signed Date: 11/18/2024 09:25 ET Workstation ID: [id number] Transcribed By: Self Edit Transcribed Date: 11/18/2024 09:21 ET Narrative 11/18/2024 9:25 AM EDT Jejunostomy tube check INDICATION: Patient had a jejunostomy tube placed 4 weeks ago by surgery. Patient complains of pain during feeds. CT scan demonstrated the presence of a possibly incidental intussusception. Patient placed supine on the imaging table. An initial document clerk image was obtained. Subsequently slow injection of [...] supine on the imaging table. An initial document clerk image wasobtained. Subsequently slow injection of 50 [...] Signed Date: 11/18/2024 09:25 ET Workstation ID: [id number] Transcribed By: Self Edit Transcribed Date: 11/18/2024 [...] Signed Date: 11/13/2024 10:55 ET Workstation ID: [id number] Transcribed By: Self Edit Transcribed Date: 11/13/2024 [...] Signed Date: 11/13/2024 10:55 ET Workstation ID: [id number] Transcribed By: Self Edit Transcribed Date: 11/13/2024 [...] TEST ENTER/ EDIT ORDERABLES Final Result * Selenium serum (11/03/2024 2:47 PM EDT) Selenium 92 63 - 160 mcg/L 11/09/2024 3:32 PM EDT [facility] Comment: Testing was performed on a specimen submitted in a tube which has not been certified to be free of trace elements. Repeat testing on a specimen collected in a trace element tube is recommended prior to initiation of remedial action or environmental investigation of potential heavy metal sources. Refer to the [employer] Services for proper specimen collection information. This test was developed and its analytical performance characteristics have been determined by [place]. It has not been cleared or approved by the U.S. Food and Drug Administration. This assay has been validated pursuant to the CLIA regulations and is used for clinical purposes. Test Performed by [facility], [facility], [address] [place] [address] Dino Trujillo M.D., Ph.D., Director of Laboratories , [place] [id number] Blood Venous blood specimen / Unknown Venipuncture / Unknown 11/03/2024 2:47 PM EDT 11/03/2024 2:47 PM EDT Nga Mukherjee MD LAB BLOOD ORDERABLES Fi nal Result [facility] [address] [place] [address] * Vitamin B1 (11/03/2024 2:47 PM EDT) [facility] Vitamin B1 Whole Blood 101 38 - 122 ug/L 11/09/2024 7:58 AM EDT [facility] Comment: This test was developed and the performance characteristics determined by [facility]. It has not been cleared or approved by the FDA. The laboratory is regulated under CLIA as qualified to perform high-complexity testing. This test is used for patient testing purposes. It should not be regarded as investigational or for research. Test performed at [facility], [address] , [place] [address] Minal Frederick MD, PhD - Track Hoe Operator Blood Venous blood specimen / Unknown Venipuncture / Unknown 11/03/2024 2:47 PM EDT 11/03/2024 2:47 PM EDT Nga Mukherjee MD LAB BLOOD ORDERABLES Fi nal Result [facility] [address] [place] [address] from Last 3 Months Additional Health Concerns Active Problems Noted Date Diagnosed Date Autogenerated Problem 01/25/2025 Insurance [facility] Advance Directives * Full Code - Default [...] way: Code status discussion: discussion with healthcare u.s. representative To update the patient's code status, [...] currently active code status orders. Care Teams Poultry Inseminator Relationship Specialty Start Date End Date Shawnee Holland MD [address] [place] [address] PCP - General Internal Medicine 10/11/24
[2025-01-26 17:01] LABS: Alanine Aminotransferase 15 U/L (0-31); Albumin Level 3.7 g/dL (3.5-5.0); Alkaline Phosphatase 84 U/L (39-117); Anion Gap 10 (12-20); Aspartate Amino Transferase 29 U/L (5-31); Blood Urea Nitrogen 14 mg/dL (9-16); Calcium 8.5 mg/dL (8.4-10.2); Carbon Dioxide 25 mmol/L (22-29); Chloride 108 mmol/L (96-108); Creatinine Clr Calc Pharmacy 93.1; Estimated Glomerular Filt Rate > 60; Potassium 4.4 mmol/L (3.3-5.1); Sodium 139 mmol/L (135-145); Total Protein 7.0 g/dL (6.5-8.0)
--- NOTE | 2025-01-26 18:20 | PC.NURSE ---
Pt started having seizure, fighting ET tube, ICU provider notified, resp at bedside, awaiting new med orders.
[2025-01-26 18:29] LABS: Glucose, Whole Blood 82 mg/dL (60-115)
[2025-01-26] MEDS: Ketamine HCl/NS 50 MG/5 ML SYRINGE 100 MG IVPUSH (18:33)
--- NOTE | 2025-01-26 18:36 | PC.NURSE ---
Pt medicated for seizure-like actvity and bucking the vent. Pt responded well and is resting comfortably
--- NOTE | 2025-01-26 18:58 | PC.NURSE ---
Report given to ELECTRONICS TECHNICIAN APPRENTICEJÚNIOR Burton
--- NOTE | 2025-01-26 21:44 | PM.CCN ---
Critical Care Event Note Summary Date of Service: 01/26/25 Code activated: No Narrative: This case had a high probability of a clinically significant, sudden, or life threatening deterioration of this patient's condition which required my full and direct attention, intervention and personal management. Critical Care Time (minutes): 40 Comment: The patient was taken off sedation, waited about an hour before she woke up completely, she was placed on pressure support and the FiO2 was weaned down to room air. With respiratory therapist at bedside, the patient was successfully extubated at 21:10, no complications, patient was placed on 2 L nasal cannula. About 15 minutes later, I was rushed into the room as the patient's O2 sat had dropped into the mid 60s, nursing and Respiratory claimed that the patient's lips were cyanotic. As soon as I saw the patient, it was admitted that the patient was forced him to hold her breath, I confronted her and asked her to start breathing and explained to her how detrimentally would be that she ends up intubated again. Medically, the patient has started to breathe again and her O2 sat normalize, the patient presented to do this a few more times but with reassurance and explanation of what it would entitled to intubate her again in the consequences of this in the long run would be, the patient seemed to understand, was able to verbalize yes to me while a few sec before she was pretending to have a seizure. This clearly reflects that the patient is not having any seizure activity, she was not postictal and that she is in need of a psychiatric evaluation. Additionally I told the patient that I will not be giving her any medications to treat her symptoms as I do not think these are seizures and I also explained to her that administering medications such as sedatives we will be more harmful than beneficial. After my conversation with the patient, she has not had any further issues, we will continue to monitor her. Likely the patient will be transferred to the next level of care in the morning with suggestions to obtain a psychiatric evaluation for her. At this point it has been clear that the patient will not receive any sedatives or antiseizure medications, the patient needs lots of reassurance. 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 [id number] I had a 20 minute conversation with the patient who asked to speak to me. We spoking her [place] language which is [place]. The patient disclosed that she indeed has a long history of anxiety, depression and she is currently under a lot of stress. She is a gastric sleeve the patient who subsequently underwent a gastric bypass, peg tube and who has had a total of her surgeries due to complications of this procedures including gastric torsion. She has a long history of dumping syndrome, multivitamin deficiency and often goes to the infusion center at [facility] for multivitamin administrations. The patient is somewhat stressed because she has another surgery in the next week and a half to reverse the bypass. The patient acknowledged that she does not have seizures, states that a lot of people do not know how to react when she gets anxious even though she she has explained to them that she does not need emergent care. ?People panic? when they see me shaking which often times can be due to low sugar levels. Additionally the patient admitted that she holds her breath for long periods of time as a coping mechanism ?people panic and think I am not breathing but I am breathing?. The patient states that she has a psychiatrist, used to take sertraline currently on Lexapro but even that has been an issue because she has to administer her medications via the PEG tube. There has not been any further issues with her breathing, oxygen saturation, she is mentating well, completely coherent. The patient will likely be discharged in the morning. 1210 patient remains hemodynamically stable, she does have a history of hypoglycemia, POC at bedside was 70, an amp of D50 was ordered. At this point the patient does not need any further ICU care, the patient will be transferred to the medical floor with the recommendations to perform a psych evaluation. Case signed out to Dr. Meek (internal medicine physician). This patient counter and care had a high probability of a clinically significant, sudden, or life threatening deterioration of this patient's condition which required my full and direct attention, intervention and personal management. Critical care time used for critical evaluation of this patient, diagnosis, treatment and coordination of care, review her records and documentation TOTAL CRITICAL CARE TIME 40 MIN . discussion and coordination with consultants, completely separate from any procedures performed. . Patient's care was discussed in detail with Dr. Marie. He is aware of all the above as well as the plan of care for this patient.
--- NOTE | 2025-01-26 23:21 | PC.NURSE ---
Addendum entered by Mark West RN 01/27/25 02:44: LATE ENTRY: BILATERAL WRIST RESTRAINTS REMOVED AFTER EXTUBATION Addendum entered by Mark West RN 01/27/25 02:05: TRANSFERRED TO [facility] VIA WHEELCHAIR PER PROVIDER..GANT D/C'D PRIOR TO TRANSFER..NSR..NO ECTOPY..RESPIRATIONS EASY..NO DISTRESS..ALERT..ORIENTED X3 Original Note: ADMIT TO [facility] APPROX 7:30PM..UNTUBATED IN ER DEPT..VCV ON ARRIVAL TO ICU..AC 18/TV 370/FIO2 30%/PEEP 5..SEDATED WITH PROPOFOL 50 MCG/KG/MIN...LR 100 CC/HR..GANT YELLOW URINE....NSR NO ECTOPY..PROVIDER HELD PROPOFOL DRIP ON ARRIVAL...PATIENT GRADUALLY AWAKE..TRACKED SPEAKER...TATE AND NODDING TO QUESTIONS..RT PRESENT AND TRIALLED ON CPAP/PSV...PROVIDER AT BEDSIDE...EXTUBATED 21:10..AWAKE..ALERT..ORIENTED X3..O2 CANNULA PLACED..NO STRIDOR..2 EPISODES OF DESATURATION POST-EXTUBATION..PROVIDER AT BEDSIDE..PATIENT TOLD STOP HOLDING YOUR BREATH AND PATIENT SPONTANEOUSLY STARTED BREATHING WITH STABLE SATURATION..SEE PROVIDERS NOTE...CURRENTLY O2 2 L/M CANNULA..SAO2 99%..VSS..GANT YELLOW URINE...PEG TUBE CLAMPED..ZOFRAN 4MG IV X1 FOR C/O NAUSEA..NSR..NO ECTOPY
[2025-01-27] VITALS (10 sets, daily range): BP systolic 105–145; BP diastolic 55–91; PULSE 60–83; RESP 16–21; TEMP 36.1–37; O2SAT 99–100; BMI 29.1
[2025-01-27 00:15] LABS: Glucose, Whole Blood 71 mg/dL (60-115)
[2025-01-27] MEDS: Lactated Ringers 1,000 ML 100 ML IVCONT (01:08)
[2025-01-27 01:37] LABS: Glucose, Whole Blood 125 mg/dL (60-115)
[2025-01-27 06:45] LABS: Glucose, Whole Blood 76 mg/dL (60-115)
[2025-01-27 07:05] LABS: MANUAL DIFF FLAG NO
[2025-01-27 07:15] LABS: Hematocrit 36.5 % (37.0-47.0); Hemoglobin 12.2 g/dl (12.0-16.0); Imm Gran Abs Auto 0.02 X10*3/uL (0.00-0.03); Imm Gran Pct Auto 0.3 % (0.0-0.4); Lymphocytes Absolute Auto 1.8 X10*3/uL (1.2-4.9); Mean Corpuscular HGB Conc 33.4 g/dl (31.0-35.0); Mean Corpuscular Hemoglobin 29.9 pg (27.0-33.0); Mean Corpuscular Volume 89.5 fL (80.0-98.0); NRBC Abs Auto 0.000 X10*3/uL (0.0-0.012); NRBC Pct Auto 0.0 /100WBC (0.0-0.2); Platelet Count 221 X10*3/uL (160-400); Red Blood Count 4.08 X10*6/uL (4.20-5.50); White Blood Count 6.9 X10*3/uL (4.8-10.8)
[2025-01-27 07:31] LABS: Alanine Aminotransferase 12 U/L (0-31); Albumin Level 3.3 g/dL (3.5-5.0); Alkaline Phosphatase 78 U/L (39-117); Anion Gap 9 (12-20); Aspartate Amino Transferase 22 U/L (5-31); Blood Urea Nitrogen 8 mg/dL (9-16); Calcium 8.2 mg/dL (8.4-10.2); Carbon Dioxide 25 mmol/L (22-29); Chloride 110 mmol/L (96-108); Creatinine Clr Calc Pharmacy 146.4; Estimated Glomerular Filt Rate > 60; Magnesium 1.8 mg/dL (1.6-2.6); Potassium 3.7 mmol/L (3.3-5.1); Sodium 140 mmol/L (135-145); Total Protein 6.2 g/dL (6.5-8.0)
--- NOTE | 2025-01-27 09:30 | MHC.CM.PN ---
THIS CM MET WITH PT, SHE LIVES AT HOME WITH HER AND SON. PT STATES SHE USES A WALKER AT HOME, AND HAS SUPPORT FROM HER FAMILY. NEW HCP COMPLETED, NOW ON FILE. DCP: RETURN HOME WITH FAMILY SUPPORT, PTS TO TRANSPORT HER HOME AT DISCHARGE. PCP: EWA MUSA
--- NOTE | 2025-01-27 13:19 | MHC.CLN ---
PT REQUIRES TF FOR NUTRITION SUPPORT R/T INABILITY TO MEET KCALS/PROTEIN NEEDS BY MOUTH R/T FAILED GASTRIC BYPASS CAUSING HX OF SEVERE MALNUTRITION AND VITAMIN DEFICIENCY. PT WITH REVERSAL OF GASTRIC BYPASS SURGERY NEXT WEEK. REGULAR DIET IN PLACE PT REPORTS CONSUMING 300-400KCALS PER DAY BY MOUTH PT USES JEVITY 1.2 TF AT HOME-EXPLAINED TO PT CURRENT FORMULA AVAILABLE BUT ONLY READY TO HANG PRODUCT HERE (PT AGREES WITH PLAN) RECOMMEND JEVITY 1.2 TF AT MAX GOAL RATE 60ML/HR TO PROVIDE 1728KCALS (28KCALS/KG), 80G PROTEIN (1.3G/KG), 1162ML FREE WATER FROM FORMULA MONITOR TOLERANCE AND LYTES SEE FULL ASSESSMENT
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
--- NOTE | 2025-01-27 17:24 | HO.PM.IMPN ---
Subjective Subjective Date of Service: 01/27/25 Interval History: Patient was transferred from medical ICU to general floor last night. Today, the patient reports no new complaints. She reports experiencing dismay over needing to go for another surgery, as well as her PEG tube placement. She reports history of MDD. Psychiatry evaluation requested Review of Systems Review of Systems: Yes all other systems are reviewed and are negative Physical Exam Exam: Exam: General: A&O x3, oriented to time place person and situation, comfortable, no pain Cardiac: S1, S2 auscultated with no S3/4, no MRG. Well perfused. Respiratory: Normal breath sounds auscultated throughout all lung zones, without wheezing, rales. Normal rate. GI/ : No abdominal pain on palpation, no masses or distentions. Gtube in place MSK: Normal ambulation without pain at bony prominences or musculature Neurological: Normal neurological examination on overview, without obvious CN II-XII abnormalities. Vital Signs: Vital Signs: Last Vital Signs Temp 97.4 F 01/27/25 15:37 Pulse 70 01/27/25 15:37 Resp 20 01/27/25 15:37 BP 145/85 H 01/27/25 15:37 Pulse Ox 100 01/27/25 15:37 O2 Del Method Nasal Cannula 01/27/25 15:37 O2 Flow Rate 2 01/27/25 15:37 FiO2 21 01/26/25 20:48 BMI result Body Mass Index 29.1 Objective Data Active Medications Enoxaparin Sodium (Enoxaparin Sodium 40 Mg/0.4 Ml Syringe) 40 mg SUBCUT Q24H [facility] Last Admin: 01/27/25 15:55 Dose: 40 mg Documented By: WALTER Ondansetron HCl (Ondansetron Hcl 4 Mg/2 Ml Vial) 4 mg IVPUSH Q8H PRN PRN Reason: Vomiting Last Admin: 01/26/25 22:50 Dose: 4 mg Documented By: ROXANN Pantoprazole Sodium (Pantoprazole Sodium 40 Mg/10 Ml Vial) 40 mg IVPUSH DAILY@0630 [facility] Last Admin: 01/27/25 09:04 Dose: 40 mg Documented By: WALTER Labs 01/27/25 06:48 01/27/25 06:48 Labs: Laboratory Results - last 24 hr 01/26/25 01/26/25 01/27/25 15:00 16:05 00:12 MCV MCH MCHC RDW Plt Count MPV Immature Gran % (Auto) Neut % (Auto) Lymph % (Auto) [place] % (Auto) Eos % (Auto) Baso % (Auto) Lymph # (Auto) [place] # (Auto) Eos # (Auto) Baso # (Auto) Abs Immat Gran (auto) Absolute Neuts (auto) Absolute Nucleated RBC Nucleated RBC % (auto) Anion Gap Estim Creat Clear Calc Estimated GFR POC Glucose 82 71 Random Glucose Calcium Magnesium Total Bilirubin AST ALT Alkaline Phosphatase Total Protein Albumin Prolactin 62.6 H 01/27/25 01/27/25 01/27/25 01:35 06:41 06:48 MCV 89.5 MCH 29.9 MCHC 33.4 RDW 14.3 Plt Count 221 MPV 9.9 Immature Gran % (Auto) 0.3 Neut % (Auto) 64.4 Lymph % (Auto) 26.8 [place] % (Auto) 6.0 Eos % (Auto) 2.2 Baso % (Auto) 0.3 Lymph # (Auto) 1.8 [place] # (Auto) 0.4 Eos # (Auto) 0.2 Baso # (Auto) 0.0 Abs Immat Gran (auto) 0.02 Absolute Neuts (auto) 4.4 Absolute Nucleated RBC 0.000 Nucleated RBC % (auto) 0.0 Anion Gap 9 L Estim Creat Clear Calc 146.4 Estimated GFR > 60 POC Glucose 125 H 76 Random Glucose 76 Calcium 8.2 L Magnesium 1.8 Total Bilirubin 0.4 AST 22 ALT 12 Alkaline Phosphatase 78 Total Protein 6.2 L Albumin 3.3 L Prolactin Assessment and Plan (1) Depression: Status: Acute (2) Adjustment disorder, unspecified: Status: Acute (3) Anxiety disorder: Status: Acute (4) Trauma and stressor-related disorder: Status: Acute (5) Hypertension: Status: Acute (6) Morbid obesity: Status: Acute (7) BMI 45.0-49.9, adult: Status: Acute (8) Vitamin B12 deficiency: Status: Acute (9) GERD (gastroesophageal reflux disease): Status: Acute (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 Pseudoseizures Nonepileptic convulsive disorder MDD JONI She has been intubated and transferred to [facility] for the same in 12/17/2026, where she had multiple EEGs while she had this movement disorder and all noted to be non epileptiform discharges. 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 See was seen in the emergency room on 17 January for the same, where her presentation was typical of pseudoseizures and was sent home (look for ED note by Dr. Karen Molina). All these episodes are happening at school, needs further evaluation by Psychiatry upon extubation. Psychiatry evaluated the patient. Pending final recommendations prior to plan to discharge tomorrow Acute respiratory failure Inability to protect airway in the setting of tonic-clonic activity and hypoxia. She was extubated from medical ICU 01/26 and transferred to medical floor. Gastric bypass surgery Peg tube placement Nutritional deficiency Anemia of chronic disease Iron-deficiency anemia B12 deficiency Continue to monitor electrolyte abnormalities in the outpatient setting Follow up with bariatric surgery outpatient [facility] - VTE: Enoxaparin - CODE STATUS: Full code - DIET: Regular/PEG - DISPOSITION: DISCHARGE HOME TOMORROW PENDING PSYCHIATRY RECOMMENDATIONS Quality Stroke Does the patient have a stroke diagnosis?: No VTE Prior VTE?: No VTE Risk Level:: Medical - low VTE Device Contraindication: Patient Refused VTE Drug Contraindication: Patient Refused
[2025-01-27 20:40] LABS: Glucose, Whole Blood 77 mg/dL (60-115)
--- NOTE | 2025-01-28 01:00 | PC.NURSE ---
01/27 2200. Pt alert oriented x4. Pt pleasant speaking in full sentences and reports no pain. Pt provided with warm blankets, snack provided and pt verbalizing readiness to sleep. Pt reports Nausea subsided after receiving Zofran and pt tolerating TF Jevity 10ml/hr via PEG tube presently and will continue to titrate to reach goal of 60ml/hr as instructed.
[2025-01-28 03:13] VITALS: BP 134/82; PULSE 85; RESP 18; TEMP 36.7; O2SAT 98
[2025-01-28 03:19] LABS: Glucose, Whole Blood 82 mg/dL (60-115)
[2025-01-28 06:00] VITALS: BMI 29.1
--- NOTE | 2025-01-28 07:34 | PC.NURSE ---
Pt. complaining of having a pounding headache, states the only medicine she is able to take is Tylenol. States she feels nauseas. One time dose of Tylenol given and PRN zofran. Pt. states she feels shaky but that this is normal for her. Tube feed running at 30ml/hr with goal of 60ml/hr.
[2025-01-28 07:40] VITALS: BP 105/68; PULSE 60; RESP 20; TEMP 36.4; O2SAT 98
--- NOTE | 2025-01-28 10:07 | P.DS_ITS ---
DS: Providers Provider Date of Service: 01/28/25 Date of admission: 01/26/25 15:59 Date of discharge: 01/28/25 Primary care physician: Belle Osman CNP Consults: 01/27/25 08:35 Consult to Psychiatry Routine Consulting Provider: [facility] Reason for consultation: pseudoseizures (was in ICU intubated); malingering DS: Diagnosis Discharge Diagnosis (1) Depression: Status: Acute (2) Adjustment disorder, unspecified: Status: Acute (3) Anxiety disorder: Status: Acute (4) Trauma and stressor-related disorder: Status: Acute (5) Hypertension: Status: Acute (6) Morbid obesity: Status: Acute (7) BMI 45.0-49.9, adult: Status: Acute (8) Vitamin B12 deficiency: Status: Acute (9) GERD (gastroesophageal reflux disease): Status: Acute (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 Pseudoseizures (PNES) Nonepileptic convulsive disorder MDD JONI Presented with an episode of tonic-clonic movements that did not afshin with 10 mg Versed in emergency room, subsequently intubated and placed on ventilator support. Medical ICU was consulted, the patient was transferred there. 1 hour after intubation, the patient was assessed for weaning trial, and was extubated. Extensive discussion with the medical provider in ICU, however the patient verbalized to MICU provider that she was pretending to have seizures. Postextubation, the patient was transferred to medical floor. Psychiatry was consulted; recommendations to discharge patient on 15 mg Lexapro once a day, outpatient psychiatry and therapy, implementing a plan on EHR for managing subsequent admissions for seizure-like activity. She has been intubated and transferred to [facility] for the same in 12/17/2026, where she had multiple EEGs while she had this movement disorder and all noted to be non epileptiform discharges. So diagnosis of psychogenic seizures was made. She was seen in the emergency room on 17 January for the same, where her presentation was typical of pseudoseizures and was sent home (look for ED note by Dr. Karen Molina). All these episodes are happening at school. Patient has been deemed medically ready for discharge home Status at Discharge Functional status at discharge: independent ambulation Overall status at discharge: patient is back to baseline Time Attestation Total time managing care of this patient today: 45 mintues. Discharge Coordination Time (in mins): 15 Specific discharge activities: 15 Quality: Safe Use of Opioids Does Pt have an Active Cancer Diagnosis on the Problem List?: No Quality: Stroke Does the patient have a stroke diagnosis?: No Physical Exam Exam: Exam: General: A&O x3, oriented to time place person and situation, comfortable, no pain Cardiac: S1, S2 auscultated with no S3/4, no MRG. Well perfused. Respiratory: Normal breath sounds auscultated throughout all lung zones, without wheezing, rales. Normal rate. GI/ : No abdominal pain on palpation, no masses or distentions. G-tube in place MSK: Normal ambulation without pain at bony prominences or musculature Neurological: Normal neurological examination on overview, without obvious CN II-XII abnormalities. Vital Signs: Vital Signs: Last Vital Signs Temp 97.5 F 01/28/25 07:40 Pulse 60 01/28/25 07:40 Resp 20 01/28/25 07:40 BP 105/68 01/28/25 07:40 Pulse Ox 98 01/28/25 07:40 O2 Del Method Room Air 01/28/25 07:40 O2 Flow Rate 2 01/27/25 23:50 FiO2 21 01/26/25 20:48 BMI result Body Mass Index 29.1 DS: Data Data Completed and Pending Labs on day of discharge: Laboratory Results - last 24 hr 01/27/25 01/28/25 20:36 03:11 POC Glucose 77 82 Discharge Plan Discharge Anticipated Discharge Date/Time: 01/28/25 10:19 Patient Disposition: Home, Self-Care Discharge Diagnosis: PNES Referrals: Belle Osman, [employer] [Primary Care Provider, Family Practice] - 1 Week Discharge Medications: No Action methocarbamol 500 mg tablet 500 mg PO QID ondansetron 4 mg tablet,disintegrating 4 mg PO Q8H PRN (Reason: nausea/vomiting) escitalopram oxalate 10 mg tablet 15 mg PO DAILY diphenhydramine-acetaminophen [Tylenol PM Extra Strength] 25-500 mg Tablet 1 tab PO BEDTIME PRN (Reason: Sleep) sertraline 100 mg tablet 100 mg PO DAILY Discharge Orders: Discharge Order (Routine); Ordered 01/28/25 Ordered By: Serafin Felder Diet: Advance to usual diet Activity on Discharge: As tolerated Stand Alone Forms: Patient Portal Discharge page Print Language: [place] Island[place] Care Plan Goals: As above Health Concerns: As above Plan of Treatment: Follow up with PCP within 1 week of discharge Continue Lexapro 15 mg OD p.o. Follow up outpatient psychiatry Follow up with therapist Assessment: Hemodynamically stable for discharge
--- NOTE | 2025-01-28 10:34 | MHC.CM.PN ---
Pt. has been medically cleared to [place], she will go home via private transport, plan is self care.
[2025-01-28 11:33] VITALS: BP 146/80; PULSE 75; RESP 20; TEMP 36.7; O2SAT 99
== END 2025-01-28 12:30 | disposition home or self-care (01) | DRG 53 ==
LOC: HO.ED 15:58 → HO.EDOVER 16:00 → HO.ICU 18:12 → HO.IMC 01-27 02:16
PROVIDERS: Internal Medicine; Admitting Provider Internal Medicine Critical Care Medicine; Emergency Provider Emergency Medicine; PCP Nurse Practitioner Family; Visit Provider Hospitalist
DX: R56.9 Unspecified convulsions (principal); J96.01 Acute respiratory failure with hypoxia; D63.8 Anemia in other chronic diseases classified elsewhere; E28.2 Polycystic ovarian syndrome; F43.9 Reaction to severe stress, unspecified; F32.9 Major depressive disorder, single episode, unspecified; F41.1 Generalized anxiety disorder; Z93.1 Gastrostomy status; Z98.84 Bariatric surgery status; Z79.899 Other long term (current) drug therapy
CPT/HCPCS: 36415; 71045; 80053; 80307; 82550; 82947; 83605; 83735; 84100; 84146; 85025; 93005; 94002; 94003; 99285; J1650; J2405; J2470; J2704; J7120

== ENCOUNTER → 2025-01-26 15:20 | Outpatient (BNV) | payer BC, SELFPAY | PROVIDERS: Admitting Provider Internal Medicine Critical Care Medicine; Emergency Provider Emergency Medicine; Visit Provider Radiology Diagnostic Radiology | DX: Z46.82 Encounter for fitting and adjustment of non-vascular catheter (principal) | CPT/HCPCS: 71045 ==

== ENCOUNTER → 2025-01-26 15:20 | Outpatient (BNV) | payer BC, SELFPAY | PROVIDERS: Admitting Provider Internal Medicine Critical Care Medicine; Emergency Provider Emergency Medicine; PCP Nurse Practitioner Family; Visit Provider Internal Medicine | DX: R00.0 Tachycardia, unspecified (principal) | CPT/HCPCS: 93010 ==

== ENCOUNTER → 2025-01-26 15:59 | Outpatient (BNV) | payer BC, SELFPAY | PROVIDERS: Admitting Provider Internal Medicine Critical Care Medicine; Emergency Provider Emergency Medicine; PCP Nurse Practitioner Family; Visit Provider Psychiatry & Neurology Psychiatry | DX: F32.1 Major depressive disorder, single episode, moderate (principal); F43.9 Reaction to severe stress, unspecified; F41.9 Anxiety disorder, unspecified | CPT/HCPCS: 99253 ==

== ENCOUNTER → 2025-01-26 15:59 | Outpatient (BNV) | payer BC, SELFPAY | PROVIDERS: Admitting Provider Internal Medicine Critical Care Medicine; Emergency Provider Emergency Medicine; PCP Nurse Practitioner Family; Visit Provider Hospitalist | DX: G40.309 Generalized idiopathic epilepsy and epileptic syndromes, not intractable, without status epilepticus (principal); I10 Essential (primary) hypertension; E53.8 Deficiency of other specified B group vitamins; K21.9 Gastro-esophageal reflux disease without esophagitis | CPT/HCPCS: 99232; 99239 ==

== ENCOUNTER → 2025-01-26 15:59 | Outpatient (BNV) | payer BC, SELFPAY | PROVIDERS: Admitting Provider Internal Medicine Critical Care Medicine; Emergency Provider Emergency Medicine; Visit Provider Internal Medicine Critical Care Medicine | DX: J96.00 Acute respiratory failure, unspecified whether with hypoxia or hypercapnia (principal); G40.309 Generalized idiopathic epilepsy and epileptic syndromes, not intractable, without status epilepticus; F32.9 Major depressive disorder, single episode, unspecified | CPT/HCPCS: 99291 ==